=== PATIENT | female | born 1960 | race Caucasian/White ===

== ENCOUNTER 2018-06-03 12:33 | Emergency (ER) | payer MEDICAID ==
[~2018-06-03] VITALS: Ht 157.5 cm; Wt 56.7 kg
[2018-06-03] MEDS ORDERED: Loperamide 2mg cap ORAL ONE (12:45)
[2018-06-03 13:23] LABS: APPEARANCE,URINE CLEAR; BILIRUBIN, URINE NEGATIVE (NEGATIVE); COLOR,URINE PALE YELLOW; GLUCOSE, URINE (UA) 4+ (NEGATIVE); KETONES,URINE NEGATIVE (NEGATIVE); LEUKOCYTE ESTERASE ,URINE 1+ (NEGATIVE); NITRITE,URINE NEGATIVE (NEGATIVE); PH,URINE 5 (4.5-8.0); PROTEIN,URINE NEGATIVE (NEGATIVE); UROBILINOGEN,URINE NORMAL MG/DL (0.0-1.0)
[2018-06-03 14:36] LABS: BASOPHILS % (AUTO) 0.7 % (0.0-2.0); EOSINOPHILS % (AUTO) 1.4 % (0.0-3.0); HEMATOCRIT 40.9 % (37.0-47.0); HEMOGLOBIN 13.3 G/DL (12.0-16.0); LYMPHOCYTES % (AUTO) 19.5 % (20.0-45.0); MEAN CORPUSCULAR VOLUME 89 FL (80-99); MONOCYTES % (AUTO) 6.9 % (1.0-10.0); NEUTROPHILS % (AUTO) 71.4 % (45.0-75.0); PLATELET COUNT 129 K/UL (150-450); RED BLOOD COUNT 4.58 M/UL (4.20-5.40); RED CELL DISTRIBUTION WIDTH 13.3 % (11.6-14.8); WHITE BLOOD COUNT 4.7 K/UL (4.8-10.8)
[2018-06-03 14:49] LABS: ANION GAP 9 mmol/L (5-15); BLOOD UREA NITROGEN 24 mg/dL (7-18); CALCIUM 8.9 MG/DL (8.5-10.1); CARBON DIOXIDE 26 MMOL/L (21-32); CHLORIDE 103 MMOL/L (98-107); CREATININE 0.8 MG/DL (0.55-1.30); POTASSIUM 4.4 MMOL/L (3.5-5.1); SODIUM 138 MMOL/L (136-145)
[2018-06-03 14:51] LABS: ALANINE AMINOTRANSFERASE 82 U/L (12-78); ALBUMIN 3.1 G/DL (3.4-5.0); ALBUMIN/GLOBULIN RATIO 0.8 (1.0-2.7); ALKALINE PHOSPHATASE 139 U/L (46-116); ASPARTATE AMINO TRANSFERASE 79 U/L (15-37); BILIRUBIN,TOTAL 0.5 MG/DL (0.2-1.0)
[2018-06-03] MEDS ORDERED: LOPERAMIDE2 MG PO (15:24)
--- NOTE | 2018-06-03 15:34 | Emergency Room Report ---
History of Present Illness General Chief Complaint: Diarrhea Source: Patient, EMS Present Illness HPI Patient is a 58-year-old female brought in by EMS after increased diarrhea. Patient gradual onset of symptoms. She reports having increased abdominal cramping. She reports having had difficulty with increased stool. The patient is normally ambulatory with a walker. She reports having prior history of CVA with residual left-sided weakness. She denies any recent travel. She denies antibiotic use. Allergies: Coded Allergies: WARFARIN (Verified Allergy, Unknown, 06/03/18) Patient History Past Medical History: see triage record Now: No Reviewed Nursing Documentation: PMH: Agreed; PSxH: Agreed Nursing Documentation-PMH Past Medical History: No History, Except For Hx Cardiac Problems: Yes - CVA, Stoke Hx Hypertension: Yes Hx Asthma: Yes Hx Diabetes: Yes Review of Systems All Other Systems: negative except mentioned in HPI Physical Exam Vital Signs Date Time Temp Pulse Resp B/P (MAP) Pulse Ox O2 Delivery O2 Flow Rate FiO2 06/03/18 12:28 97.8 94 20 150/98 100 Room Air 97.9 Sp02 EP Interpretation: reviewed, normal General Appearance: normal inspection, well appearing, no apparent distress, alert, GCS 15, Chronically Ill Head: atraumatic ENT: normal ENT inspection, hearing grossly normal, normal voice Neck: normal inspection, full range of motion, supple, no bony tend Respiratory: normal inspection, lungs clear, normal breath sounds, no respiratory distress, no retraction, no wheezing Cardiovascular #1: regular rate, rhythm, no edema Gastrointestinal: normal inspection, normal bowel sounds, non tender, soft, no guarding, no hernia Genitourinary: no CVA tenderness Musculoskeletal: normal inspection, back normal, normal range of motion Neurologic: normal inspection, alert, responsive, speech normal, motor weakness - left upper extremity, other - left facial droop Psychiatric: normal inspection, judgement/insight normal, mood/affect normal Skin: normal inspection, normal color, no rash Medical Decision Making Diagnostic Impression: Primary Impression: Gastroenteritis ER Course Patient presented for abdominal pain. Differential diagnoses included ischemic bowel, appendicitis, perforated viscus, abdominal aortic aneurysm, inferior myocardial infarction, viral gastroenteritisThe patient does not appear to have any evidence of acute abdomen. Patient was given Imodium. Laboratory studies are unremarkable. The patient was advised to follow-up with her primary care physician for reexamination.Patient was advised to return if she given having persistent vomiting dizziness or other concerns Labs Test 06/03/18 12:40 06/03/18 14:15 Urine Color Pale yellow Urine Appearance Clear Urine pH 5 (4.5-8.0) Urine Specific Roark 1.015 (1.005-1.035) Urine Protein Negative (NEGATIVE) Urine Glucose (UA) 4+ (NEGATIVE) Urine Ketones Negative (NEGATIVE) Urine Blood Negative (NEGATIVE) Urine Nitrite Negative (NEGATIVE) Urine Bilirubin Negative (NEGATIVE) Urine Urobilinogen Normal MG/DL (0.0-1.0) Urine Leukocyte Esterase 1+ (NEGATIVE) Urine RBC 0-2 /HPF (0 - 2) Urine WBC 0-2 /HPF (0 - 2) Urine Squamous Epithelial Cells Few /LPF (NONE/OCC) Urine Bacteria Occasional /HPF (NONE) Urine Opiates Screen Negative (NEGATIVE) Urine Barbiturates Screen Negative (NEGATIVE) Phencyclidine (PCP) Screen Negative (NEGATIVE) Urine Amphetamines Screen Negative (NEGATIVE) Urine Benzodiazepines Screen Negative (NEGATIVE) Urine Cocaine Screen Negative (NEGATIVE) Urine Marijuana (THC) Screen Negative (NEGATIVE) White Blood Count 4.7 K/UL (4.8-10.8) Red Blood Count 4.58 M/UL (4.20-5.40) Hemoglobin 13.3 G/DL (12.0-16.0) Hematocrit 40.9 % (37.0-47.0) Mean Corpuscular Volume 89 FL (80-99) Mean Corpuscular Hemoglobin 29.0 PG (27.0-31.0) Mean Corpuscular Hemoglobin Concent 32.5 G/DL (32.0-36.0) Red Cell Distribution Width 13.3 % (11.6-14.8) Platelet Count 129 K/UL (150-450) Mean Platelet Volume 8.1 FL (6.5-10.1) Neutrophils (%) (Auto) 71.4 % (45.0-75.0) Lymphocytes (%) (Auto) 19.5 % (20.0-45.0) Monocytes (%) (Auto) 6.9 % (1.0-10.0) Eosinophils (%) (Auto) 1.4 % (0.0-3.0) Basophils (%) (Auto) 0.7 % (0.0-2.0) Sodium Level 138 MMOL/L (136-145) Potassium Level 4.4 MMOL/L (3.5-5.1) Chloride Level 103 MMOL/L (98-107) Carbon Dioxide Level 26 MMOL/L (21-32) Anion Gap 9 mmol/L (5-15) Blood Urea Nitrogen 24 mg/dL (7-18) Creatinine 0.8 MG/DL (0.55-1.30) Estimat Glomerular Filtration Rate > 60 mL/min (>60) Glucose Level 432 MG/DL (74-106) Calcium Level 8.9 MG/DL (8.5-10.1) Total Bilirubin 0.5 MG/DL (0.2-1.0) Aspartate Amino Transf (AST/SGOT) 79 U/L (15-37) Alanine Aminotransferase (ALT/SGPT) 82 U/L (12-78) Alkaline Phosphatase 139 U/L (46-116) Total Protein 7.2 G/DL (6.4-8.2) Albumin 3.1 G/DL (3.4-5.0) Globulin 4.1 g/dL Albumin/Globulin Ratio 0.8 (1.0-2.7) Serum Alcohol < 3 mg/dL Last Vital Signs Date Time Temp Pulse Resp B/P (MAP) Pulse Ox O2 Delivery O2 Flow Rate FiO2 06/03/18 12:28 97.8 94 20 150/98 100 Room Air 97.9 Status: improved Disposition: HOME, SELF-CARE Condition: Stable Scripts Loperamide Hcl (LOPERAMIDE) 2 Mg Capsule 2 MG PO NEEDED, #6 CAP Prov: Beto Portillo MD 06/03/18 Patient Instructions: Diarrhea, Adult Beto Portillo MD Jun 03, 2018 15:34
[2018-06-03 15:56] VITALS: BP 138/90
== END 2018-06-03 15:45 | disposition home or self-care (01) ==
LOC: EDBD 12:33 → EMR 13:00
DX: K52.9 Noninfective gastroenteritis and colitis, unspecified (principal); I10 Essential (primary) hypertension; E11.9 Type 2 diabetes mellitus without complications; J45.909 Unspecified asthma, uncomplicated; I69.354 Hemiplegia and hemiparesis following cerebral infarction affecting left non-dominant side; Z88.8 Allergy status to other drugs, medicaments and biological substances
CPT/HCPCS: 36415; 80053; 80307; 80329; 81003; 85025; 99283

== ENCOUNTER 2019-03-03 02:23 | Inpatient (IN) | payer MEDICAID ==
[~2019-03-03] VITALS: Ht 149.9 cm; Wt 56.7 kg
[2019-03-03] VITALS (8 sets, daily range): BP systolic 110–152; BP diastolic 52–93
[~2019-03-03 02:23] MED LIST: LOPERAMIDE2 MG PO
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
--- NOTE | 2019-03-03 02:37 | NUR ---
ED Nurse Note: NOTABLE BRUISING, ON ARMS AND FACE, SKIN TEAR PRESENT ON LEFT ELBOW, 4 OPEN LACERATION PRESENT ON LEFT UPPER HEAD
--- NOTE | 2019-03-03 02:40 | NUR ---
ED Nurse Note: HEAD LACERATIONS WASHED WITH NORMAL SALINE AND DRESSED, ERMD AT BEDSIDE PREPARING FOR LACERATION SUTURE
[2019-03-03] MEDS ORDERED: Lidocaine 1% Plain 30 ml INJ ONE (03:00)
[2019-03-03 03:06] LABS: BASOPHILS % (AUTO) 0.7 % (0.0-2.0); EOSINOPHILS % (AUTO) 0.1 % (0.0-3.0); HEMATOCRIT 40.7 % (37.0-47.0); HEMOGLOBIN 12.2 G/DL (12.0-16.0); LYMPHOCYTES % (AUTO) 12.9 % (20.0-45.0); MEAN CORPUSCULAR VOLUME 81 FL (80-99); MONOCYTES % (AUTO) 5.5 % (1.0-10.0); NEUTROPHILS % (AUTO) 80.8 % (45.0-75.0); PLATELET COUNT 146 K/UL (150-450); RED BLOOD COUNT 5.06 M/UL (4.20-5.40); RED CELL DISTRIBUTION WIDTH 18.2 % (11.6-14.8)
[2019-03-03 03:19] LABS: INR 1.1 (0.9-1.1)
[2019-03-03 03:35] LABS: ANION GAP 10 mmol/L (5-15); BLOOD UREA NITROGEN 22 mg/dL (7-18); CALCIUM 9.8 MG/DL (8.5-10.1); CARBON DIOXIDE 29 MMOL/L (21-32); CHLORIDE 99 MMOL/L (98-107); POTASSIUM 4.1 MMOL/L (3.5-5.1); SODIUM 138 MMOL/L (136-145)
[2019-03-03] MEDS ORDERED: Insulin Human Regular 100units/ml 3ml SUBQ ONE ×2 (04:00→05:30)
--- NOTE | 2019-03-03 04:22 | Diagnostic Imaging Report ---
EXAM: CT Maxillofacial Without Intravenous Contrast CLINICAL HISTORY: TRAUMA TECHNIQUE: Axial computed tomography images of the face without intravenous contrast. CTDI is 29.19 mGy and DLP is 511 mGy-cm. One or more of the following dose reduction techniques were used: automated exposure control, adjustment of the mA and/or kV according to patient size, use of iterative reconstruction technique. COMPARISON: none FINDINGS: Artifacts: Mild motion artifact degrades detail. Bones/joints: No acute fracture. Soft tissues: Unremarkable. Orbits: Unremarkable. Sinuses: Unremarkable. No air-fluid levels. IMPRESSION: No acute findings.
--- NOTE | 2019-03-03 04:30 | NUR ---
ED Nurse Note: PT IS RESTING IN BED, NO ACUTE SIGNS OF DISTRESS, BLANKET PROVIDED
--- NOTE | 2019-03-03 04:58 | Diagnostic Imaging Report ---
EXAM: CT Head Without Intravenous Contrast CLINICAL HISTORY: TRAUMA TECHNIQUE: Axial computed tomography images of the head/brain without intravenous contrast. CTDI is 70.38 mGy and DLP is 1333.64 mGy-cm. One or more of the following dose reduction techniques were used: automated exposure control, adjustment of the mA and/or kV according to patient size, use of iterative reconstruction technique. COMPARISON: none FINDINGS: Brain: Bilateral frontal lobe white matter low density and cerebellar atrophy greater than anticipated for stated patient age is present. There is mild generalized supratentorial volume loss also noted. No hemorrhage. Ventricles: Unremarkable. No ventriculomegaly. Bones/joints: Unremarkable. No acute fracture. Soft tissues: Small left periorbital scalp swelling. Sinuses: Unremarkable as visualized. No acute sinusitis. Mastoid air cells: Unremarkable as visualized. No mastoid effusion. IMPRESSION: 1. No acute intracranial pathology. 2. Left periorbital scalp contusion without associated skull fracture. 3. Greater than anticipated parenchymal volume loss with a frontal and cerebellar predominant distribution. Query early neurodegenerative change.
--- NOTE | 2019-03-03 05:04 | Diagnostic Imaging Report ---
EXAM: CT Cervical Spine Without Intravenous Contrast CLINICAL HISTORY: TRAUMA TECHNIQUE: Axial computed tomography images of the cervical spine without intravenous contrast. CTDI is 10.25 mGy and DLP is 188.52 mGy-cm. One or more of the following dose reduction techniques were used: automated exposure control, adjustment of the mA and/or kV according to patient size, use of iterative reconstruction technique. COMPARISON: head CT same day FINDINGS: Vertebrae: Multilevel degenerative spondylosis with posterior bulky disc osteophytes at C3-C4, C4-C5 and C5-C6 that likely result in some degree of central canal narrowing. No acute fracture. Discs/spinal canal/neural foramina: See above. Soft tissues: Unremarkable. IMPRESSION: Multilevel degenerative spondylosis with posterior bulky disc osteophytes at C3-C4, C4-C5 and C5-C6 that likely result in some degree of central canal narrowing. Otherwise negative C-spine CT with no acute traumatic findings.
--- NOTE | 2019-03-03 06:15 | NUR ---
ED Nurse Note: PT STILL RESTING IN BED, AROUSABLE TO VOIEC AND TOUCH, PT PRESENTS WTIH NO ACUTE DISTRESS AT THIS TIME.
--- NOTE | 2019-03-03 06:22 | Diagnostic Imaging Report ---
EXAM: XR Chest, 1 View CLINICAL HISTORY: CP TECHNIQUE: Frontal view of the chest. COMPARISON: None FINDINGS: Lungs: The aicha are unremarkable. Lungs are clear on suboptimal inspiration. Pleural space: No pneumothorax or pleural effusion. Heart: Normal heart size. Mediastinum: Unremarkable. Bones/joints: Bony thorax is intact. Vasculature: Tortuous and ectatic thoracic aorta with mural calcification. Lymph nodes: No mediastinal mass or adenopathy is shown. Upper abdomen: No free air under the diaphragms. IMPRESSION: Tortuous, calcified and ectatic thoracic aorta with no acute superimposed cardio pulmonary process shown.
--- NOTE | 2019-03-03 07:43 | NUR ---
ED Nurse Note: Pt resting on her bed with no distress. VSS. Pt is aware of hospitalization/transfer.
--- NOTE | 2019-03-03 08:00 | NUR ---
ED Nurse Note: PT UNABLE TO GIVE URINE. DR LUIS ARMANDO GOULD NOT TO COLLECT IF PT UNABLE TO PROVIDED SPECIMEN.
--- NOTE | 2019-03-03 08:40 | NUR ---
ED Nurse Note: URINE COLLECTED THEN SENT.
[2019-03-03] MEDS ORDERED: Miralax 17gm pkt ORAL PRN (11:00)
--- NOTE | 2019-03-03 11:11 | NUR ---
ED Nurse Note: DR OCHOA ORDERED TO START MAINTENANCE IV FLUIDS.
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
--- NOTE | 2019-03-03 12:15 | NUR ---
ED Nurse Note: LUNCH TRAY PROVIDED.
--- NOTE | 2019-03-03 12:22 | NUR ---
ED Nurse Note: REPORT GIVEN TO NATE ALFARO OF MED SURG UNIT.
--- NOTE | 2019-03-03 12:22 | NUR ---
NURSE NOTES: Received report from DOMINIC Valdez via phone.
--- NOTE | 2019-03-03 12:39 | NUR ---
ED Nurse Note: PT TRANSFERRED TO MED SURG UNIT AND STABLE. ALL BELONGINGS SENT.
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
--- NOTE | 2019-03-03 17:51 | NUR ---
NURSE NOTES: Blood sugar was 324 and no insulin order noted. Dr. Roblero was notified and ordered novolog average insulin sliding scale. Noted and carried out.
[2019-03-03] MEDS: NovoLOG Insulin Flexpen SUBQ SCH ×2 (18:13→20:22)
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
--- NOTE | 2019-03-03 19:25 | NUR ---
HAND-OFF: Report given to DOMINIC Alexander.
[2019-03-03] MEDS: Heparin 5000 units/ml inj SUBQ SCH (20:27)
[2019-03-03] MEDS: Docusate 100mg cap ORAL SCH (20:27)
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
[2019-03-04] VITALS: BP 130/65
[2019-03-04 04:00] VITALS: BP 130/68
[2019-03-04] MEDS: NovoLOG Insulin Flexpen SUBQ SCH ×4 (06:01→20:33)
--- NOTE | 2019-03-04 07:14 | NUR ---
HAND-OFF: Report given to DOMINIC Luciano. Patient is awake, restless cause she wants to eat. VS stable.
[2019-03-04 07:15] LABS: BASOPHILS % (AUTO) 0.6 % (0.0-2.0); HEMOGLOBIN 10.2 G/DL (12.0-16.0); LYMPHOCYTES % (AUTO) 20.2 % (20.0-45.0); MEAN CORPUSCULAR VOLUME 80 FL (80-99); MONOCYTES % (AUTO) 6.5 % (1.0-10.0); NEUTROPHILS % (AUTO) 71.8 % (45.0-75.0); PLATELET COUNT 127 K/UL (150-450); RED BLOOD COUNT 4.12 M/UL (4.20-5.40); RED CELL DISTRIBUTION WIDTH 19.2 % (11.6-14.8); WHITE BLOOD COUNT 6.8 K/UL (4.8-10.8)
--- NOTE | 2019-03-04 07:37 | NUR ---
NURSE NOTES: AW3AKE/ALERT. NO C/O PAIN. IN NO APPARENT DISTRESS.
[2019-03-04 07:41] LABS: ANION GAP 9 mmol/L (5-15); BLOOD UREA NITROGEN 22 mg/dL (7-18); CARBON DIOXIDE 22 MMOL/L (21-32); CHLORIDE 111 MMOL/L (98-107); CREATININE 0.8 MG/DL (0.55-1.30); POTASSIUM 4.6 MMOL/L (3.5-5.1); SODIUM 142 MMOL/L (136-145)
[2019-03-04 07:50] VITALS: BP 134/78
[2019-03-04] MEDS: Docusate 100mg cap ORAL SCH ×2 (08:27→20:33)
[2019-03-04] MEDS: Heparin 5000 units/ml inj SUBQ SCH ×2 (08:27→20:06)
[2019-03-04] MEDS ORDERED: metFORMIN 500mg tab ORAL SCH (11:30)
[2019-03-04 12:00] VITALS: BP 140/80
[2019-03-04 12:22] LABS: APPEARANCE,URINE CLEAR; BILIRUBIN, URINE NEGATIVE (NEGATIVE); COLOR,URINE PALE YELLOW; GLUCOSE, URINE (UA) 4+ (NEGATIVE); KETONES,URINE NEGATIVE (NEGATIVE); LEUKOCYTE ESTERASE ,URINE 1+ (NEGATIVE); NITRITE,URINE NEGATIVE (NEGATIVE); PH,URINE 7 (4.5-8.0); PROTEIN,URINE NEGATIVE (NEGATIVE); UROBILINOGEN,URINE 1 MG/DL (0.0-1.0)
--- NOTE | 2019-03-04 13:25 | NUR ---
*-* NO INSURANCE INFORMATION IN THE BAR UNABLE TO SEND CLINICALS OR REVIEWS *-*
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
[2019-03-04 15:50] VITALS: BP 140/90
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
[2019-03-04] MEDS: metFORMIN 500mg tab ORAL SCH (17:19)
--- NOTE | 2019-03-04 18:09 | NUR ---
NURSE NOTES: INCONTINENT URINE. PERINEAL AREA REDDENED. PERICARE DONE. TRIAD CREAM APPLIED/
--- NOTE | 2019-03-04 19:00 | NUR ---
NURSE NOTES: asleep. in no apparent distress.
--- NOTE | 2019-03-04 19:20 | NUR ---
NURSE NOTES: Patient asleep in bed, no signs of pain, not in acute respiratory distress. Call light within reach, bed in lowest position and alarm on. Will continue to monitor.
--- NOTE | 2019-03-04 19:29 | NUR ---
HAND-OFF: Report given to sher.
[2019-03-04 20:00] VITALS: BP 141/82
[2019-03-04 20:52] LABS: FERRITIN 43 NG/ML (8-388); LACTATE DEHYDROGENASE 534 U/L (81-234)
[2019-03-04 21:06] LABS: % IRON SATURATION 9 % (15-50); IRON 44 ug/dL (50-175); TOTAL IRON BINDING CAPACITY 475 ug/dL (250-450)
--- NOTE | 2019-03-04 22:01 | NUR ---
nurse's notes: per cyndie of lab, patient refused hep panel draw scheduled tonight. will try again in am. gilberto salamanca made aware; orders updated
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
[2019-03-05] VITALS: BP 155/79
[2019-03-05 04:00] VITALS: BP 158/91
[2019-03-05] MEDS: NovoLOG Insulin Flexpen SUBQ SCH ×4 (05:36→21:37)
[2019-03-05 06:25] LABS: BASOPHILS % (AUTO) 0.6 % (0.0-2.0); EOSINOPHILS % (AUTO) 1.7 % (0.0-3.0); LYMPHOCYTES % (AUTO) 18.5 % (20.0-45.0); MEAN CORPUSCULAR VOLUME 81 FL (80-99); MONOCYTES % (AUTO) 7.5 % (1.0-10.0); NEUTROPHILS % (AUTO) 71.8 % (45.0-75.0); PLATELET COUNT 105 K/UL (150-450); RED BLOOD COUNT 4.07 M/UL (4.20-5.40); RED CELL DISTRIBUTION WIDTH 19.3 % (11.6-14.8); WHITE BLOOD COUNT 4.8 K/UL (4.8-10.8)
--- NOTE | 2019-03-05 07:24 | NUR ---
HAND-OFF: Report given to DOMINIC Hays.
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
[2019-03-05 08:00] VITALS: BP 138/80
[2019-03-05] MEDS: Heparin 5000 units/ml inj SUBQ SCH ×2 (08:17→21:00)
[2019-03-05] MEDS: Docusate 100mg cap ORAL SCH ×2 (08:17→21:00)
[2019-03-05] MEDS: metFORMIN 500mg tab ORAL SCH ×2 (08:17→18:20)
--- NOTE | 2019-03-05 09:10 | NUR ---
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 Awaiting response.
[2019-03-05] MEDS: Levemir Flexpen SUBQ SCH (09:39)
--- NOTE | 2019-03-05 09:40 | NUR ---
NURSE NOTES: Received new orders from Dr. Roblero to transfer patient to [address] [place] [address]. Charge nurse and supervisor title aware. Will continue to monitor.
--- NOTE | 2019-03-05 10:56 | NUR ---
NURSE NOTES: Awaiting placement for patient.
[2019-03-05 11:45] VITALS: BP 138/87
--- NOTE | 2019-03-05 12:15 | Diagnostic Imaging Report ---
Indication: Abdominal pain, vomiting, abnormal LDH and renal function tests Technique: Morales-scale and duplex images of the upper abdomen were obtained Comparison: Findings: There is trace ascites Gallbladder is nondistended. No definite gallstones. Gallbladder wall is borderline thickened, measuring up to 4 mm in thickness. Sonographic Sow's sign is negative. Common bile duct measures 5 mm in diameter. No intrahepatic biliary ductal dilatation. Liver demonstrates diffusely heterogeneous echogenicity with a nodular echotexture overall. There is hepatic surface nodularity. There is questionably a small cyst adjacent to the gallbladder fundus. Portal vein and hepatic veins are patent. The pancreas demonstrates small cysts within the head and neck, measuring up to 1.3 cm in diameter. Spleen is unremarkable. Left kidney measures 10.6 cm in length. Right kidney measures 11 cm length. There is equivocal slightly increased right renal echogenicity There is no hydronephrosis. No focal abnormality . Non-aneurysmal abdominal aorta . Impression: Markedly abnormal appearing liver, with diffusely heterogeneous and nodular echotexture and surface nodularity. Appearance is consistent with cirrhotic change. Nodular heterogeneous echogenicity could be related to cirrhotic change, but neoplastic involvement not excludable. Recommend further evaluation with contrast CT Small pancreatic cysts. May reflect small pseudocyst versus cystic pancreatic neoplasms. Further evaluation with contrast CT likewise recommended Trace ascites Gallbladder wall thickening, mild, most likely an artifact of under distention and may also be related to the hepatocellular disease. No definite gallstones. Consider ultrasound and/or hepatobiliary nuclear scan if there is high clinical suspicion for gallbladder disease Equivocally slightly increased right renal echogenicity; if real, could indicate medical renal disease
--- NOTE | 2019-03-05 12:40 | NUR ---
NURSE NOTES: Patient taken to MRI via gurney.
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
--- NOTE | 2019-03-05 14:41 | NUR ---
*-*- INSURANCE *-* ALL CLINICALS AND REVIEWS HAVE BEEN FAXED TO: [employer]# [id number] NCM: SHAE P- [phone] X Aidan F- [phone]...REVIEW/CLINICAL
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
--- NOTE | 2019-03-05 15:38 | NUR ---
DISCHARGE PLANNING PATIENT BELONGS TO "[facility]" PROGRAM DAY BEFORE DISCHARGE PLEASE CONTACT HELADIO (CLEAN ROOM ASSEMBLER) @ T: [phone] HELADIO WILL MAKE DISCHARGE PLACEMENT ARRANGEMENTS WINE CONSULTANT CONTACTED HMO AND SPOKE WITH CHE KAUFMAN ABOUT ROLLATOR W/SEAT PER SHAE SHE WILL ARRANGE FOR ROLLATOR W/SEAT TO BE DELIVERED TO HOSPITAL BY TOMORROW DME ORDER FAXED TO SHAE
[2019-03-05 16:00] VITALS: BP 173/101
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
--- NOTE | 2019-03-05 18:01 | NUR ---
NURSE NOTES: Patient transferred to as ordered. Patient taken via hospital bed without incident. Report given to Marisol ALFARO. Patient has all belongings.
--- NOTE | 2019-03-05 19:22 | NUR ---
HAND-OFF: Report given to DOMINIC Cline.
--- NOTE | 2019-03-05 19:30 | NUR ---
NURSE NOTES: Patient awake in bed, anxious, no complaint of pain, not in acute respiratory distress. Instructed the use of call light. Call light within reach. Bed in lowest position and lock engaged. Bedside commode within reach. Will continue to monitor.
[2019-03-05] MEDS: LORazepam 1mg tab ORAL SCH (21:29)
[2019-03-05 22:17] LABS: APPEARANCE,URINE CLEAR; BILIRUBIN, URINE NEGATIVE (NEGATIVE); COLOR,URINE PALE YELLOW; GLUCOSE, URINE (UA) 4+ (NEGATIVE); KETONES,URINE NEGATIVE (NEGATIVE); LEUKOCYTE ESTERASE ,URINE 1+ (NEGATIVE); NITRITE,URINE NEGATIVE (NEGATIVE); PH,URINE 6.5 (4.5-8.0); PROTEIN,URINE NEGATIVE (NEGATIVE); UROBILINOGEN,URINE NORMAL MG/DL (0.0-1.0)
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
[2019-03-06 04:00] VITALS: BP 148/106
[2019-03-06 06:18] LABS: BASOPHILS % (AUTO) 0.7 % (0.0-2.0); HEMATOCRIT 32.3 % (37.0-47.0); HEMOGLOBIN 9.9 G/DL (12.0-16.0); LYMPHOCYTES % (AUTO) 20.5 % (20.0-45.0); MEAN CORPUSCULAR VOLUME 80 FL (80-99); NEUTROPHILS % (AUTO) 67.7 % (45.0-75.0); PLATELET COUNT 110 K/UL (150-450); RED BLOOD COUNT 4.03 M/UL (4.20-5.40); RED CELL DISTRIBUTION WIDTH 18.8 % (11.6-14.8); WHITE BLOOD COUNT 5.3 K/UL (4.8-10.8)
[2019-03-06] MEDS: NovoLOG Insulin Flexpen SUBQ SCH ×4 (06:30→21:02)
--- NOTE | 2019-03-06 07:20 | NUR ---
HAND-OFF: Report given to Alanna.
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
[2019-03-06 08:00] VITALS: BP 156/82
--- NOTE | 2019-03-06 08:00 | NUR ---
NURSE NOTES: FULL BEDBATH RENDERED. INSTRUCTED TO CALL STAFF FOR ASSISTANCE. PATIENT ABLE TO FOLLOW SIMPLE COMMANDS. PATIENT STATED THAT SHE IS INCONTINENT. APPEARS TO BE AGGRESSIVE AND CURSE @ TIMES. ABLE TO FEED SELF INDEPENDENTLY. SIDERAILS ARE UP X3. BED IS IN THE LOWEST POSITION. CALL LIGHT IS WITHIN REACH. WILL CONT TO MONITOR.
[2019-03-06] MEDS: Levemir Flexpen SUBQ SCH (08:19)
[2019-03-06] MEDS: Heparin 5000 units/ml inj SUBQ SCH ×2 (08:19→21:00)
[2019-03-06] MEDS: Docusate 100mg cap ORAL SCH ×2 (08:19→21:00)
[2019-03-06] MEDS: metFORMIN 500mg tab ORAL SCH ×2 (08:19→17:25)
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
[2019-03-06] MEDS ORDERED: GLUCOPHAGE500 MG ORAL (10:27)
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
--- NOTE | 2019-03-06 10:53 | NUR ---
*-*- INSURANCE *-* ALL CLINICALS AND REVIEWS HAVE BEEN FAXED TO: [facility] [facility]# [id number] NCM: SHAE P- [phone] X Aidan F- [phone]...REVIEW/CLINICAL
--- NOTE | 2019-03-06 10:55 | NUR ---
PT EVALUATION NOTE Patient seen for initial evaluation, see complete evaluation for details. Patient presents with generalized weakness and impaired functional mobility. Patient unable to perform transfers or ambulation due to lethargy. Patient will benefit from skilled inpatient PT intervention to address strength, balance, safety and mobility. Addendum: 03/06/19 at 1243 by DANIELA MIRAMONTES PT Amended: Links added.
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
[2019-03-06 12:00] VITALS: BP 143/84
--- NOTE | 2019-03-06 12:15 | NUR ---
HOMELESS COORDINATOR provided clothing for patient for discharge and provided follow-up doctor appointment reminder. followed up with Leeanne, Oxygen Therapy Technician [phone] about estimated deliver time of seated walker. Leeanne will call back and follow up with Yari. Addendum: 03/07/19 at 0956 by HERB SCHULTE spoke with Leeanne about delivery time for patients walker. Leeanne stated walker should have been delivered and was still unable to locate. Leeanne states she will continue to try to locate walker and follow up with HC.
--- NOTE | 2019-03-06 14:38 | NUR ---
Social Service Note CYNDI spoke with Ann from [facility] [place] [phone] who provided SW the locate where patient will placed upon discharge, [place] [address]. [facility] staff will meet patient at this location. Patient will require her rotator upon arrival. CYNDI, CM and homeless coordinator have attempted to contact [facility] Leeanne several times throughout the day to discuss delivery of rotator. Homeless coordinator only able to speak with [facility] Leeanne once regarding rotator and she was unable to recall which provider was providing DME. At this time rotator was not delivered and unable to leave Leeanne messages. CYNDI discussed with charge nurse and nurse supervisor packing room. Anticipated dc tomorrow if rotator is delivered. Will monitor and follow up.
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
[2019-03-06 16:00] VITALS: BP 148/94
--- NOTE | 2019-03-06 16:52 | NUR ---
*-*- INSRUANCE *-* ALL CLINICALS HAVE BEEN FAXED TO: F/S FAXED TO [facility]# [id number] NCM: SHAE P- [phone] X 1954 F- [phone]...REVIEW/CLINICAL & F/S FAXED TO [facility]/LACEY ([facility]ED [facility]) S/W [employer] @ [phone] AUTH# [id number] /PENDING NCM: ULICES Webster P- [phone] F- [phone]....REVIEW/CLINICAL
--- NOTE | 2019-03-06 18:26 | NUR ---
NURSE NOTES: DISCHARGE IS ON HOLD DUE [facility]WW WITH SEAT HAS NOT DELIVERED TODAY. VERBALIZED UNDERSTANDING WITH THE PATIENT THE DISPOSITION LOCATION. WORKING CLOSELY WITH SW AND CM. ADDRESS VERIFIED AND PATIENT IS GOING TO [address] [address]. PATIENT IS AWARE. PATIENT EATS INDEPENDENTLY AND ABLE TO CALL NURSE FOR ASSISTANCE TO VOID. INTERACT APPROPRIATELY THIS EVENING THAN THIS AM. WILL CONT TO MONITOR. CALL LIGHT IS WITHIN REACH. BED IN THE LOWEST POSITION AND BED ALARM ACTIVATED AND KEPT LOCK @ ALL TIMES. WILL CONT THE PLAN OF CARE.
--- NOTE | 2019-03-06 19:06 | NUR ---
HAND-OFF: Report given to
--- NOTE | 2019-03-06 19:30 | NUR ---
NURSE NOTES: Patient asleep in bed, no signs of pain. Call light within reach. Bed in lowest position, lock engaged and alarm on. Will continue to monitor.
[2019-03-06 20:00] VITALS: BP 157/84
[2019-03-06] MEDS: LORazepam 1mg tab ORAL SCH (21:05)
[2019-03-07] VITALS: BP 132/75
--- NOTE | 2019-03-07 05:00 | Progress Note ---
DATE: 03/06/2019 SUBJECTIVE: The patient is in bed, less agitated, more manageable, calmer, confused, disoriented memory impairment. Compliant with medications. MENTAL STATUS EXAMINATION: The patient is alert, oriented, times self and place. Poor insight into the situation. Keeps smiling. Mood is neutral. Affect is flat. Thought process, there is a paucity of thought content. Thought content, no suicidal or homicidal ideations. Memory is impaired. ASSESSMENT: Stable. PLAN: 1. The patient will be continued on Seroquel. 2. Provide the patient with reality orientation and supportive therapy. Frank Chacon M.D. DR: ABNER/vtg JOB#: [id number] CC:
[2019-03-07] MEDS: NovoLOG Insulin Flexpen SUBQ SCH ×4 (05:55→20:59)
[2019-03-07 06:49] LABS: BASOPHILS % (AUTO) 0.5 % (0.0-2.0); EOSINOPHILS % (AUTO) 1.6 % (0.0-3.0); HEMATOCRIT 33.5 % (37.0-47.0); HEMOGLOBIN 10.4 G/DL (12.0-16.0); LYMPHOCYTES % (AUTO) 18.2 % (20.0-45.0); MEAN CORPUSCULAR VOLUME 80 FL (80-99); MONOCYTES % (AUTO) 9.3 % (1.0-10.0); NEUTROPHILS % (AUTO) 70.4 % (45.0-75.0); PLATELET COUNT 118 K/UL (150-450); RED CELL DISTRIBUTION WIDTH 18.4 % (11.6-14.8); WHITE BLOOD COUNT 5.4 K/UL (4.8-10.8)
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
--- NOTE | 2019-03-07 07:37 | NUR ---
HAND-OFF: Report given to DOMINIC Woodard.
[2019-03-07 08:00] VITALS: BP 121/64
[2019-03-07] MEDS: metFORMIN 500mg tab ORAL SCH ×2 (08:18→17:28)
[2019-03-07] MEDS: Levemir Flexpen SUBQ SCH (08:22)
[2019-03-07] MEDS: Heparin 5000 units/ml inj SUBQ SCH ×2 (08:26→20:48)
[2019-03-07] MEDS: Docusate 100mg cap ORAL SCH ×2 (08:26→20:49)
[2019-03-07 09:26] VITALS: BP 121/64
--- NOTE | 2019-03-07 11:15 | NUR ---
HOMELESS COORDINATOR/ DISCHARGE PLANNING HC spoke with Irineo Cui from [facility] [employer] [employer] about patients rotator walker. Irineo stated he just received authorization today and was missing measurement for patient height. HC provide patients height and Irineo stated he will send the order to the [facility] for delivery and is set to arrive this evening, right before 6pm. Irineo assured the HC that was the earliest the rotator walker could arrive and if we have any other questions give him a call @ [phone] Addendum: 03/07/19 at 1253 by HERB SCHULTE CM HC spoke with Liliam (placement program worker) and updated her on the discharge plans for tomorrow morning. Patient will be discharged after breakfast if walker is delivered this evening.
--- NOTE | 2019-03-07 11:50 | NUR ---
P.T Note: Pt refused to participate with P.T . requesting for P.T to come back after lunch. P.T will reattempt this PM.
[2019-03-07 12:00] VITALS: BP 116/72
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
[2019-03-07 16:00] VITALS: BP 106/71
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
--- NOTE | 2019-03-07 19:32 | NUR ---
HAND-OFF: Report given to DOMINIC Lorenzo.
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
[2019-03-07 20:00] VITALS: BP 110/78
[2019-03-07] MEDS: LORazepam 1mg tab ORAL SCH (20:49)
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
[2019-03-08] VITALS: BP 105/69
--- NOTE | 2019-03-08 03:15 | Progress Note ---
DATE: 03/07/2019 SUBJECTIVE: The patient is somewhat confused, has episodes of agitation and has memory impairment. MENTAL STATUS EXAMINATION: The patient is alert and oriented x2. Mood is neutral to anxious. Affect is flat. Thought process, there is a paucity of thought content. Thought content, no suicidal or homicidal ideations. ASSESSMENT: Stable. PLAN: The patient will continue current medications. Provide the patient with reality orientation and supportive therapy. Frank Chacon M.D. DR: JENA JOB#: [id number] CC:
[2019-03-08 04:23] VITALS: BP 115/69
[2019-03-08] MEDS: NovoLOG Insulin Flexpen SUBQ SCH ×2 (06:07→11:30)
--- NOTE | 2019-03-08 07:02 | NUR ---
HAND-OFF: Report given to Berto ALFARO.
--- NOTE | 2019-03-08 07:30 | NUR ---
NURSE NOTES: Received pt from DOMINIC DUTTON. Pt is confused and orient x3. pt is in RA, No SOB or acute respiratory distress noted. pt has intact iv access LH 22G SL. all needs attended, bed is locked and is in the lowest position. call light within easy reach. will continue to monitor.
[2019-03-08 08:00] VITALS: BP 159/90
[2019-03-08] MEDS: Heparin 5000 units/ml inj SUBQ SCH (09:00)
--- NOTE | 2019-03-08 09:00 | NUR ---
NURSE NOTES: pt refused heparin and it's wasted.
[2019-03-08] MEDS: Docusate 100mg cap ORAL SCH (09:07)
[2019-03-08] MEDS: metFORMIN 500mg tab ORAL SCH (09:07)
[2019-03-08] MEDS: Levemir Flexpen SUBQ SCH (09:09)
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
--- NOTE | 2019-03-08 11:07 | NUR ---
*-*- INSRUANCE *-* UPDATED CLINICALS HAVE BEEN FAXED TO: F/S FAXED TO [facility] ANYI# [id number] NCM: SHAE P- [phone] X 1954 F- [phone]...REVIEW/CLINICAL & F/S FAXED TO ODILIA/LACEY (SHARED RSK) S/W SATISH @ [phone] AUTH# [id number] /PENDING NCM: ULICES Webster P- [phone] F- [phone]....REVIEW/CLINICAL
--- NOTE | 2019-03-08 11:45 | NUR ---
NURSE NOTES: pt has D/C order, all discharge assessments and instructions done and pt verbally accepted to understand all. pt is stable, V/S stable. all prescribed meds received from pharmacy and given to pt. pt has a front sit walker. all belongings are with pt, pt has [employer] id and credit cart with her. hospital provide a cap for pt and she left hospital.
--- NOTE | 2019-03-09 06:00 | Progress Note ---
DATE: 03/08/2019 SUBJECTIVE: The patient's mental condition is unchanged since previous encounter. Continues to be agitated, however, doing better today and more alert. MENTAL STATUS EXAMINATION: Alert and oriented times self and place. Mood is anxious. Affect is flat. Thought process, there is a paucity of thought content. Thought content, no suicidal or homicidal ideation. ASSESSMENT: Stable. PLAN: We will continue current medications. Provide the patient with reality orientation and supportive therapy. Frank Chacon M.D. DR: SORAIDA JOB#: [id number] CC:
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
--- NOTE | 2019-03-12 14:37 | NUR ---
*-*- INSRUANCE *-* COMPLETE MEDICAL RECORDS AND REVIEWS HAVE BEEN FAXED TO: F/S FAXED TO [facility] ANYI# [id number] NCM: SHAE P- [phone] X 1954 F- [phone]...REVIEW/CLINICAL & F/S FAXED TO ODILIA/LACEY ([facility]ARED [facility]SK) S/W SATISH @ [phone] AUTH# [id number] /PENDING NCM: ULICES Webster P- [phone] F- [phone]....REVIEW/CLINICAL
== END 2019-03-08 11:45 | disposition home or self-care (01) | DRG 384 ==
LOC: EDUNIT# 02:23 → EDBD 02:23 → EMR 02:36 → 3E 08:26 → EDBEDREQ 11:50 → 3E 13:30 → 4E 03-05 17:42
PROC: 0HQ1XZZ Repair Face Skin, External Approach (ICD-10-PCS; principal; 2019-03-03)
DX: S01.81XA Laceration without foreign body of other part of head, initial encounter (principal); D69.6 Thrombocytopenia, unspecified; S09.90XA Unspecified injury of head, initial encounter; E11.65 Type 2 diabetes mellitus with hyperglycemia; F03.90 Unspecified dementia, unspecified severity, without behavioral disturbance, psychotic disturbance, mood disturbance, and anxiety; D63.8 Anemia in other chronic diseases classified elsewhere; E03.9 Hypothyroidism, unspecified; R26.89 Other abnormalities of gait and mobility; R53.1 Weakness; Y04.2XXA Assault by strike against or bumped into by another person, initial encounter; Z59.0 Homelessness; Z88.8 Allergy status to other drugs, medicaments and biological substances; Z86.73 Personal history of transient ischemic attack (TIA), and cerebral infarction without residual deficits; Z79.4 Long term (current) use of insulin; Z91.14 Patient's other noncompliance with medication regimen; K52.9 Noninfective gastroenteritis and colitis, unspecified
CPT/HCPCS: 36415; 70450; 70486; 70551; 71045; 72125; 76700; 80048; 80307; 80329; 81003; 82270; 82607; 82728; 82746; 82962; 83036; 83540; 83550; 83615; 84443; 85025; 85044; 85610; 85730; 86703; 86705; 86709; 86803; 87081; 87340; 87491; 87590; 96372; 99285; J1815; S5561

== ENCOUNTER 2020-10-10 17:15 | Inpatient (IN) | payer MEDICAID ==
[~2020-10-10] VITALS: Ht 160 cm; Wt 56.7 kg
[~2020-10-10 17:15] MED LIST changes: +GLUCOPHAGE500 MG ORAL
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
[2020-10-10] MEDS ORDERED: Omnipaque-300 100ml vial INJ PRN (17:30)
--- NOTE | 2020-10-10 17:35 | Emergency Room Report ---
History of Present Illness General Chief Complaint: Abnormal Labs Source: Patient, EMS Present Illness HPI Patient presents for increased right-sided hip pain. Patient states that she had increased pain with movement. Had recent ER visit at [facility] yesterday. Was diagnosed with urinary tract infection. Had previous history of CVA and states that she had this a long time ago but cannot state when. Patient was brought in by EMS from the street. She had reported longstanding left-sided weakness. She states that she has been having increased pain to the right hip. Previous x-ray imaging showed degenerative changes to both hips as well as a healed left pubic ramus fracture. Allergies: Coded Allergies: WARFARIN (Verified Allergy, Unknown, 03/03/19) COVID-19 Screening Contact w/high risk pt: No Experienced COVID-19 symptoms?: No COVID-19 Testing performed CHIEF NURSING EXECUTIVE: No Patient History Past Medical History: see triage record Reviewed Nursing Documentation: PMH: Agreed; PSxH: Agreed Nursing Documentation-PMH Past Medical History: No History, Except For Hx Cardiac Problems: Yes Hx Hypertension: Yes Hx Asthma: Yes Hx Diabetes: Yes Hx Cancer: No Hx Gastrointestinal Problems: No Hx Neurological Problems: Yes Hx Cerebrovascular Accident: Yes Review of Systems All Other Systems: limited - Limited by poor historian Physical Exam Vital Signs Date Time Temp Pulse Resp B/P (MAP) Pulse Ox O2 Delivery O2 Flow Rate FiO2 10/10/20 17:09 98.6 82 141/82 (101) 98 Room Air General Appearance: alert, Chronically Ill Neck: limited range of motion, other - Kyphotic Respiratory: chest non-tender, lungs clear Cardiovascular #1: normal inspection, no edema Gastrointestinal: normal inspection, soft Musculoskeletal: other - Decreased range of motion to the left upper extremity, left lower extremity with some weakness. Neurologic: alert, motor strength/tone normal, medical file clerk III-XII nml as tested Medical Decision Making Diagnostic Impression: Primary Impression: Uncontrolled diabetes mellitus Additional Impressions: 2019 novel coronavirus disease (COVID-19) Renal insufficiency Dehydration Urinary tract infection Rhabdomyolysis due to COVID-19 Cognitive impairment ER Course Patient presented for increased elevated blood sugar and right-sided hip pain. Differential diagnosis include was not limited to fracture, arthritis, coronavirus infection, cellulitis among others. Because of complexity of patient's case laboratory tests and imaging studies were ordered. Patient was previously seen at [facility] and we do have some records which show that the patient had recent urinary tract infection. Patient's blood suga r was elevated by EMS however her blood sugar was somewhat improved but in the 300s. Patient started on IV fluids as well as IV antibiotics. Rapid coronavirus testing was positive and patient was placed in isolation. Patient's oxygen saturation appear to be adequate. Chest x-ray 1 view interpreted by me showed small left-sided pleural effusion with normal cardiac size aortic ca lcifications faint patchy infiltrates bilaterally. EKG interpreted by me showed normal sinus rhythm with a rate of [address] or T wave changes noted. CT imaging of the head showed no evidence of acute intracranial hemorrhage. CT of the abdomen pelvis read by radiology showed chronic fracture deformity in the pelvis as well as left adnexal cystic 4.8cm appearance suggestive of cirrhosis to the liver. Dr. Terence Szymanski was contacted for inpatient management. Labs Test 10/10/20 17:25 White Blood Count 4.5 K/UL (4.8-10.8) Red Blood Count 4.37 M/UL (4.20-5.40) Hemoglobin 10.4 G/DL (12.0-16.0) Hematocrit 34.6 % (37.0-47.0) Mean Corpuscular Volume 79 FL (80-99) Mean Corpuscular Hemoglobin 23.7 PG (27.0-31.0) Mean Corpuscular Hemoglobin Concent 29.9 G/DL (32.0-36.0) Red Cell Distribution Width 20.1 % (11.6-14.8) Platelet Count 175 K/UL (150-450) Mean Platelet Volume 7.1 FL (6.5-10.1) Neutrophils (%) (Auto) 69.4 % (45.0-75.0) Lymphocytes (%) (Auto) 19.3 % (20.0-45.0) Monocytes (%) (Auto) 9.1 % (1.0-10.0) Eosinophils (%) (Auto) 0.0 % (0.0-3.0) Basophils (%) (Auto) 2.2 % (0.0-2.0) Prothrombin Time 11.6 SEC (9.30-11.50) Prothromb Time International Ratio 1.1 (0.9-1.1) Activated Partial Thromboplast Time 20 SEC (23-33) Sodium Level 135 MMOL/L (136-145) Potassium Level 5.3 MMOL/L (3.5-5.1) Chloride Level 100 MMOL/L (98-107) Carbon Dioxide Level 20 MMOL/L (21-32) Anion Gap 15 mmol/L (5-15) Blood Urea Nitrogen 70 mg/dL (7-18) Creatinine 1.6 MG/DL (0.55-1.30) Estimat Glomerular Filtration Rate 33.0 mL/min (>60) Glucose Level 401 MG/DL (74-106) Lactic Acid Level 2.50 mmol/L (0.4-2.0) Calcium Level 8.6 MG/DL (8.5-10.1) Troponin I 0.026 ng/mL (0.000-0.056) Last Vital Signs Date Time Temp Pulse Resp B/P (MAP) Pulse Ox O2 Delivery O2 Flow Rate FiO2 10/10/20 17:09 98.6 82 141/82 (101) 98 Room Air Status: unchanged Disposition: ADMITTED INPATIENT Condition: Stable Beto Portillo MD Oct 10, 2020 17:35
[2020-10-10] MEDS ORDERED: GLIPIZIDE5 MG ORAL (17:37)
[2020-10-10] MEDS ORDERED: ALBUTEROL SULF8.5 G1 INH (17:37)
[2020-10-10] MEDS ORDERED: AMLODIPINE BESYL5 MG ORAL (17:37)
[2020-10-10] MEDS ORDERED: ZYPREXA10 MG ORAL (17:45)
[2020-10-10 17:49] LABS: BASOPHILS % (AUTO) 2.2 % (0.0-2.0); HEMATOCRIT 34.6 % (37.0-47.0); HEMOGLOBIN 10.4 G/DL (12.0-16.0); LYMPHOCYTES % (AUTO) 19.3 % (20.0-45.0); MEAN CORPUSCULAR VOLUME 79 FL (80-99); MONOCYTES % (AUTO) 9.1 % (1.0-10.0); NEUTROPHILS % (AUTO) 69.4 % (45.0-75.0); PLATELET COUNT 175 K/UL (150-450); RED BLOOD COUNT 4.37 M/UL (4.20-5.40); RED CELL DISTRIBUTION WIDTH 20.1 % (11.6-14.8); WHITE BLOOD COUNT 4.5 K/UL (4.8-10.8)
[2020-10-10 17:59] VITALS: BP 141/82
--- NOTE | 2020-10-10 18:02 | NUR ---
ED Nurse Note: pt saturation at 93% on RA, pt placed on 2L O2 NC, saturation improves to 99%
[2020-10-10 18:03] LABS: INR 1.1 (0.9-1.1)
[2020-10-10 18:07] LABS: CALCIUM 8.6 MG/DL (8.5-10.1); CREATININE 1.6 MG/DL (0.55-1.30); POTASSIUM 5.3 MMOL/L (3.5-5.1)
--- NOTE | 2020-10-10 18:13 | Diagnostic Imaging Report ---
EXAM: CT Head Without Intravenous Contrast CLINICAL HISTORY: WEAK TECHNIQUE: Axial computed tomography images of the head/brain without intravenous contrast. CTDI is 53.4 mGy and DLP is 1098.9 mGy-cm. One or more of the following dose reduction techniques were used: automated exposure control, adjustment of the mA and/or kV according to patient size, use of iterative reconstruction technique. COMPARISON: Head CT 03/03/2019 FINDINGS: Brain: No intracranial hemorrhage, mass-effect, or edema. Bifrontal encephalomalacia. Parenchymal atrophy. Ventricles: Unremarkable. Bones/joints: Unremarkable. No fracture. Soft tissues: Unremarkable. Sinuses: Unremarkable as visualized. Mastoid air cells: Unremarkable as visualized. IMPRESSION: 1. No acute intracranial abnormality. 2. Bifrontal encephalomalacia.
--- NOTE | 2020-10-10 18:20 | NUR ---
ED Nurse Note: pt's medications surrendered to ED pt medication box, bag # [id number]
[2020-10-10 18:23] LABS: ALBUMIN 3.6 G/DL (3.4-5.0); ALBUMIN/GLOBULIN RATIO 0.8 (1.0-2.7); BILIRUBIN,TOTAL 0.4 MG/DL (0.2-1.0); CKMB 37.7 NG/ML (0.0-3.6); PHOSPHORUS 4.8 MG/DL (2.5-4.9)
[2020-10-10] MEDS ORDERED: cefTRIAXone 1 GM in NS 55 ML IVPB ONE (18:30)
[2020-10-10] MEDS ORDERED: Insulin Human Regular 100units/ml 3ml SUBQ ONE (18:45)
--- NOTE | 2020-10-10 19:08 | Diagnostic Imaging Report ---
EXAM: CT Abdomen and Pelvis With Intravenous Contrast CLINICAL HISTORY: PAIN TECHNIQUE: Axial computed tomography images of the abdomen and pelvis with intravenous contrast. CTDI is 7.4 mGy and DLP is 394.1 mGy-cm. One or more of the following dose reduction techniques were used: automated exposure control, adjustment of the mA and/or kV according to patient size, use of iterative reconstruction technique. COMPARISON: No relevant prior studies available. FINDINGS: Lung bases: Atelectasis at the lung bases. ABDOMEN: Liver: Nodular contour to the liver. Gallbladder and bile ducts: Unremarkable. Pancreas: Unremarkable. Spleen: Unremarkable. Adrenals: Unremarkable. Kidneys and ureters: Unremarkable. No obstructing stones. No hydronephrosis. Stomach and bowel: Unremarkable. PELVIS: Appendix: Normal appendix. Bladder: Unremarkable. Reproductive: Left adnexal cyst measuring 4.8 cm. ABDOMEN and PELVIS: Intraperitoneal space: Unremarkable. No free air. No significant fluid collection. Bones/joints: Mild implant height loss at T12, T8, and Schmorl's node at L1. Chronic fracture deformity in the pelvis. Soft tissues: Unremarkable. Vasculature: Aortobiiliac atherosclerotic calcifications. Lymph nodes: Unremarkable. IMPRESSION: 1. No acute abnormality. 2. Nodular contour to the liver. Appearance suggestive of cirrhosis. 3. Left adnexal cyst measuring 4.8 cm. Consider nonemergent pelvic ultrasound.
--- NOTE | 2020-10-10 19:15 | NUR ---
ED Nurse Note: Recieved report from am nurse to resume care, pt in bed with nurse at bedside restarting IV line, new line in right upper arm, fluids infusing, pt is Covid positive and on isolation precautions, pt placed on cardiac monitoring, has o2 2l n/c with sat = 89%, oxygen increased to 3l and sat increased to 96%, pt c/o right hip pain, stating she fell, pain at 8/10, pt is incontinent of urine, given partial bath and linen change and diaper applied, pt needs urine sample but refused to be cath, will resume care as ordered and closely monitor as pt is admitted to hospital.
[2020-10-10 20:00] VITALS: BP 128/70
--- NOTE | 2020-10-10 20:00 | NUR ---
NURSE NOTES: ADMITTED 60 YEAR OLD FEMALE TO ROOM 402 BED 1 VIA GURNEY FROM EMERGENCY DEPARTMENT WITH DIAGNOSIS HYPERGLYCEMIA/UTI/COVID +; UNDER THE CARE OF DR. WILSON. PLACED ON ISOLATION PRECAUTIONS. IV INTACT TO RIGHT UPPER ARM/GAUGE 20, NO REDNESS/SWELLING NOTED. PATIENT AWAKE, ORIENTED TO SELF/PLACE, REALITY ORIENTATION PROVIDED DURING ADMITTANCE. NO SIGNS AND SYMPTOMS OF ACUTE CARDIO RESPIRATORY DISTRESS/SHORTNESS OF BREATH, NOTED WITH TRACE EDEMA TO BILATERAL LOWER EXTREMITIES. PATIENT NOTED WITH SELF INFLICTED SCRATCH MYLENE ON POSTERIOR LEFT LEG/SCAB TO LEFT ELBOW SECONDARY TO RECENT FALL. ABDOMEN SOFT/NON DISTENDED/NON TENDER/AUDIBLE BOWEL SOUNDS, PER PATIENT, LAST BM 10/08/20. ORIENTATED PATIENT TO ROOM/ENVIRONMENT. SIDE RAILS UP X3 FOR SAFETY, ENCOURAGED PATIENT TO UTILIZE CALL LIGHT FOR ASSISTANCE, VERBALIZED UNDERSTANDING. BED IN LOWEST POSITION FOR SAFETY. BED ALARM ACTIVATED. WALKER AT BEDSIDE WITH BELONGINGS. NAD.
--- NOTE | 2020-10-10 20:43 | Diagnostic Imaging Report ---
EXAM: XR Chest, 1 View CLINICAL HISTORY: SOB TECHNIQUE: Frontal view of the chest. COMPARISON: Chest x-ray 03/03/2019 FINDINGS: Lungs: Atelectasis at the left base. Pleural space: No pleural effusion. No pneumothorax. Heart: Unremarkable. No cardiomegaly. Bones/joints: Unremarkable. IMPRESSION: Atelectasis at the left base. Otherwise the lungs are clear.
[2020-10-10] MEDS ORDERED: Albuterol 90mcg Inhaler 8gm INH PRN (21:30)
--- NOTE | 2020-10-10 21:34 | History & Physical ---
History and Physical History & Physicial History and Physical HPI Patient is a 60 year old woman admitted with Covid Pneumonia and UTI,she c/o right-sided hip pain,worse with movement. Had recent ER visit at [facility] - diagnosed with urinary tract infection. Had previous history of CVA - longstanding left-sided weakness. She states that she has been having increased pain to the right hip. Previous x-ray imaging showed degenerative changes to both hips as well as a healed left pubic ramus fracture. Allergies: WARFARIN Past Medical History: Previous CVA,Diabetes,CKD,Hypertension, Asthma All Other Systems: limited - Limited by poor historian Physical Exam Vital Signs Noted Date Time Temp Pulse Resp B/P (MAP) Pulse Ox O2 Delivery O2 Flow Rate FiO2 10/10/20 17:09 98.6 82 141/82 (101) 98 Room Air General Appearance: alert, Chronically Ill Neck: limited range of motion, other - Kyphotic Respiratory: chest non-tender, lungs clear Cardiovascular: normal inspection, HS1,HS2 normal,no edema Gastrointestinal: normal inspection, soft Musculoskeletal: other - Decreased range of motion to the left upper extremity, left lower extremity with some weakness. Neurologic: alert, motor strength/tone normal, appliance adjuster III-XII nml as tested Medical Decision Making Impression: Covid Pneumonia UTI Uncontrolled diabetes mellitus 2019 novel coronavirus disease (COVID-19) Renal insufficiency Dehydration Rhabdomyolysis due to COVID-19 Possible Cirrhosis Plan - IVF - IV AB - Decadron - O2 PRN - BD - ISS - PPX - BPmeds Labs Test 10/10/20 17:25 White Blood Count 4.5 K/UL (4.8-10.8) Red Blood Count 4.37 M/UL (4.20-5.40) Hemoglobin 10.4 G/DL (12.0-16.0) Hematocrit 34.6 % (37.0-47.0) Mean Corpuscular Volume 79 FL (80-99) Mean Corpuscular Hemoglobin 23.7 PG (27.0-31.0) Mean Corpuscular Hemoglobin Concent 29.9 G/DL (32.0-36.0) Red Cell Distribution Width 20.1 % (11.6-14.8) Platelet Count 175 K/UL (150-450) Mean Platelet Volume 7.1 FL (6.5-10.1) Neutrophils (%) (Auto) 69.4 % (45.0-75.0) Lymphocytes (%) (Auto) 19.3 % (20.0-45.0) Monocytes (%) (Auto) 9.1 % (1.0-10.0) Eosinophils (%) (Auto) 0.0 % (0.0-3.0) Basophils (%) (Auto) 2.2 % (0.0-2.0) Prothrombin Time 11.6 SEC (9.30-11.50) Prothromb Time International Ratio 1.1 (0.9-1.1) Activated Partial Thromboplast Time 20 SEC (23-33) Sodium Level 135 MMOL/L (136-145) Potassium Level 5.3 MMOL/L (3.5-5.1) Chloride Level 100 MMOL/L (98-107) Carbon Dioxide Level 20 MMOL/L (21-32) Anion Gap 15 mmol/L (5-15) Blood Urea Nitrogen 70 mg/dL (7-18) Creatinine 1.6 MG/DL (0.55-1.30) Estimat Glomerular Filtration Rate 33.0 mL/min (>60) Glucose Level 401 MG/DL (74-106) Lactic Acid Level 2.50 mmol/L (0.4-2.0) Calcium Level 8.6 MG/DL (8.5-10.1) Troponin I 0.026 ng/mL (0.000-0.056) Ike Nicholas MD Oct 10, 2020 21:34
--- NOTE | 2020-10-10 21:40 | NUR ---
ED Nurse Note: Pt continues to rest quietly in bed, now has room for admisison, report called to DOMINIC Sosa on unit, pt has all belongings and list completed, pt home meds sent also, IV site patent, pt is clean and dry, pt being taken to floor unit via gurney with [facility], nad noted during pt transport.
[2020-10-10 23:00] VITALS: BP 131/75
[2020-10-10] MEDS ORDERED: Azithromycin 500 MG in D5W 275 ML IV SCH (23:00)
[2020-10-10] MEDS: Enoxaparin 30mg Inj SUBQ SCH (23:11)
[2020-10-11] MEDS ORDERED: HydrALAZINE 25mg tab ORAL ONE
[2020-10-11 04:00] VITALS: BP 142/79
[2020-10-11] MEDS: NovoLOG Insulin Flexpen SUBQ SCH ×4 (06:39→21:00)
--- NOTE | 2020-10-11 07:25 | NUR ---
NURSE NOTES: RECEIVED PATIENT IN BED LYING ON SUPINE POSITION. REFUSED TO BE ASSESSED. IMPULSIVE BEHAVIOR. PLACED ON DROPLET ISOLATION PRECAUTIONS. PIV PATENT AND INTACT TO RIGHT UPPER ARM/GAUGE 20, IVF INFUSING WELL. NO REDNESS/SWELLING NOTED.NO SIGNS AND SYMPTOMS OF ACUTE CARDIO RESPIRATORY DISTRESS/SHORTNESS OF BREATH, NOTED WITH TRACE EDEMA TO BILATERAL LOWER EXTREMITIES. PATIENT NOTED WITH SELF INFLICTED SCRATCH MYLENE ON POSTERIOR LEFT LEG/SCAB TO LEFT ELBOW SECONDARY TO RECENT FALL. ORIENTATED PATIENT TO ROOM/ENVIRONMENT. SIDE RAILS UP X3 FOR SAFETY, ENCOURAGED PATIENT TO UTILIZE CALL LIGHT FOR ASSISTANCE, VERBALIZED UNDERSTANDING. BED IN LOWEST POSITION FOR SAFETY. BED ALARM ACTIVATED. WALKER AT BEDSIDE WITH BELONGINGS. WILL CONT TO MONITOR.
--- NOTE | 2020-10-11 07:58 | NUR ---
NURSE HAND-OFF: Important Events on Shift:[ADMISSION, NON COMPLIANT, REFUSED LABS] Patient Status: [RESTED WELL, NAD] Diet: [CCHO M MS CHOPPED] Pending Orders: [AM LABS] Pending Results/Labs:[] Pending MD notification:[] Latest Vital Signs: Temperature 98.9 , Pulse 91 , B/P 142 /79 , Respiratory Rate 20 , O2 SAT 97 , Nasal Cannula, O2 Flow Rate 2.0 . Vital Sign Comment: [STABLE, AFEBRILE] Latest Daly Fall Score: 85 Fall Risk: High Risk Safety Measures: Call light , Bed Alarm Zone 1, Side Rails Side Rails x3, Bed position Low and Locked. Fall Precautions: Yellow Socks Door Sign Patient Fall Education Report given to [ANN MARIE SALMERON].
[2020-10-11] MEDS ORDERED: cefTRIAXone 1 GM in D5W 55 ML IVPB SCH (09:00)
[2020-10-11] MEDS ORDERED: dexAMETHasone 10mg/ml Inj IV SCH (09:00)
[2020-10-11] MEDS: Docusate 100mg cap ORAL SCH ×2 (09:07→21:27)
--- NOTE | 2020-10-11 10:09 | NUR ---
RD ASSESSMENT & RECOMMENDATIONS SEE CARE ACTIVITY FOR COMPLETE ASSESSMENT DAILY ESTIMATED NEEDS: Needs based on cardiac, pulmonary 57kg 25-30 kcals/kg 8709-2703 total kcals 1-1.5 g protein/kg 57-86 g total protein 25-30 mL/kg 6224-3109 total fluid mLs NUTRITION DIAGNOSIS: Altered nutrition related lab values r/t clinical status as evidenced by elevated K(5.3), elev BG(401), elev Creat kinase(3195). CURRENT DIET:CCHO MED/ RENAL PO DIET RECOMMENDATIONS: CCHO LOW/ Renal (texture per ATHLETE MANAGER) ADDITIONAL RECOMMENDATIONS: 1) Monitor renal status, need for renal restrictions 2) Rec POC, bed side BG checks 3) Monitor PO intake, no record at this time Close check of BG w/ poor po 4) F/up w/ ATHLETE MANAGER eval
--- NOTE | 2020-10-11 16:10 | NUR ---
NURSE NOTES: PATIENT REMOVED PIV ACCESS. REFUSED TO BE REINSERTED. EXPLAINED THE IMPORTANCE AND PATIENT BECAME AGGRAVATED. REFUSED INSULIN NOVOLOG WELL TO BE ADMINISTERED. WILL CONT TO MONITOR. Addendum: 10/11/20 at 1701 by VAN TRIPP LVN MADE DR STEWARD AWARE. AWAITING FOR A CALLBACK.
--- NOTE | 2020-10-11 16:36 | Pulmonology Progress Note ---
Subjective ROS Limited/Unobtainable: No Allergies: Coded Allergies: WARFARIN (Verified Allergy, Unknown, 03/03/19) Objective Last 24 Hour Vital Signs Date Time Temp Pulse Resp B/P (MAP) Pulse Ox O2 Delivery O2 Flow Rate FiO2 10/11/20 09:00 Room Air 10/11/20 04:00 98.9 91 20 142/79 (100) 97 10/11/20 03:14 97.9 10/11/20 00:33 127/65 10/10/20 23:26 Nasal Cannula 2.0 10/10/20 23:00 97.9 89 18 131/75 (93) 96 10/10/20 21:40 98.6 91 17 128/70 97 Nasal Cannula 3.0 10/10/20 20:00 98.6 91 17 128/70 97 Nasal Cannula 3.0 10/10/20 18:02 99 Nasal Cannula 2.0 10/10/20 17:59 98.6 18 141/82 93 Room Air 10/10/20 17:09 98.6 82 141/82 (101) 98 Room Air Intake and Output 10/10/20 10/11/20 19:00 07:00 Intake Total 1214 ml Balance 1214 ml Intake Oral 360 ml IV Total 854 ml # Voids 2 Microbiology Date/Time Source Procedure Growth Status 10/10/20 17:30 Nasopharynx SARS-CoV-2 RdRp Gene Assay - Final Complete Laboratory Tests 10/10/20 17:25: White Blood Count 4.5L, Red Blood Count 4.37, Hemoglobin 10.4L, Hematocrit 34.6L , Mean Corpuscular Volume 79L, Mean Corpuscular Hemoglobin 23.7L, Mean Corpuscular Hemoglobin Concent 29.9L, Red Cell Distribution Width 20.1H, Platelet Count 175, Mean Platelet Volume 7.1, Neutrophils (%) (Auto) 69.4, Lymphocytes (%) (Auto) 19.3L, Monocytes (%) (Auto) 9.1, Eosinophils (%) (Auto) 0.0, Basophils (%) (Auto) 2.2H, Prothrombin Time 11.6H, Prothromb Time International Ratio 1.1, Activated Partial Thromboplast Time 20L, Sodium Level 135L, Potassium Level 5.3H, Chloride Level 100, Carbon Dioxide Level 20L, Anion Gap 15, Blood Urea Nitrogen 70H, Creatinine 1.6H, Estimat Glomerular Filtration Rate 33.0, Glucose Level 401H, Lactic Acid Level 2.50H, Calcium Level 8.6, Phosphorus Level 4.8, Magnesium Level 2.2, Total Bilirubin 0.4, Aspartate Amino Transf (AST/SGOT) 163H, Alanine Aminotransferase (ALT/SGPT) 118H, Alkaline Phosphatase 172H, Total Creatine Kinase 3195H, Creatine Kinase MB 37.7H, Creatine Kinase MB Relative Index 1.1, Troponin I 0.026, Total Protein 8.1, Albumin 3.6, Globulin 4.5, Albumin/Globulin Ratio 0.8L, Lipase 299 10/10/20 19:25: Lactic Acid Level 1.10 10/10/20 20:48: POC Whole Blood Glucose 294H 10/11/20 06:15: POC Whole Blood Glucose [Pending] 10/11/20 11:12: POC Whole Blood Glucose 184H Current Medications Medications (Trade) Dose Ordered Sig/Hernando Route PRN Reason Start Time Stop Time Status Last Admin Dose Admin Acetaminophen (Tylenol) 650 mg Q4H PRN ORAL Mild Pain (Pain Scale 1-3) 10/10/20 21:15 11/09/20 21:14 10/11/20 02:44 Acetaminophen (Tylenol) 650 mg Q4H PRN ORAL Temp >100.5 10/10/20 21:15 11/09/20 21:14 Albuterol Sulfate (Proventil MDI) 2 puff Q4H PRN INH Shortness of Breath 10/10/20 21:30 01/08/21 21:29 Azithromycin 500 mg/Dextrose 275 ml @ 275 mls/hr Q24H IV 10/10/20 23:00 10/15/20 22:59 10/10/20 23:00 Ceftriaxone Sodium 1 gm/ Dextrose 55 ml @ 110 mls/hr DAILY IVPB 10/11/20 09:00 10/18/20 08:59 10/11/20 09:38 Dexamethasone Sodium Phosphate (Decadron 10mg/ ml Inj) 6 mg DAILY IV 10/11/20 09:00 10/20/20 09:01 10/11/20 09:38 Dextrose (Dextrose 50%) 25 ml Q30M PRN IV Hypoglycemia 10/10/20 21:15 01/08/21 21:14 Dextrose (Dextrose 50%) 50 ml Q30M PRN IV Hypoglycemia 10/10/20 21:15 01/08/21 21:14 Docusate Sodium (Colace) 100 mg EVERY 12 HOURS ORAL 10/11/20 09:00 11/10/20 08:59 10/11/20 09:07 Enoxaparin Sodium (Lovenox) 30 mg Q24H SUBQ 10/10/20 22:15 01/08/21 22:14 10/10/20 23:11 Famotidine (Pepcid I.v.) 20 mg DAILY IVP 10/11/20 09:00 11/10/20 08:59 10/11/20 09:38 Insulin Aspart (NovoLOG) BEFORE MEALS AND HS SUBQ 10/11/20 06:30 01/09/21 06:29 10/11/20 11:51 Insulin Detemir (Levemir) 10 units BEDTIME SUBQ 10/11/20 21:00 01/09/21 20:59 Iohexol (OMNIPAQUE-300 100ml) 100 ml NOW PRN INJ Radiology Procedure 10/10/20 17:30 10/12/20 17:29 Ondansetron HCl (Zofran) 4 mg Q6H PRN IVP Nausea & Vomiting 10/10/20 21:15 11/09/20 21:14 Sodium Chloride 1,000 ml @ 75 mls/hr [id number] IVLG 10/10/20 22:15 11/09/20 22:14 10/11/20 11:49 Assessment/Plan Assessment/Plan Pulmonary Progress Note HPI Patient is a 60 year old woman admitted with Covid Pneumonia and UTI,she c/o right-sided hip pain,worse with movement. Had recent ER visit at [facility] - diagnosed with urinary tract infection. Had previous history of CVA - longstanding left-sided weakness. She states that she has been having increased pain to the right hip. Previous x-ray imaging showed degenerative changes to both hips as well as a healed left pubic ramus fracture. Stable VS Lactic acid improved On RA Allergies: WARFARIN Past Medical History: Previous CVA,Diabetes,CKD,Hypertension, Asthma Physical Exam Vital Signs Noted Deferred Covid 19 Medical Decision Making Impression: Covid Pneumonia UTI Uncontrolled diabetes mellitus 2019 novel coronavirus disease (COVID-19) Renal insufficiency Dehydration Rhabdomyolysis due to COVID-19 Possible Cirrhosis Plan - IVF - IV AB - ID consultation - Decadron - O2 PRN - BD - ISS - PPX - BPmeds -Monitor labs Labs noted Test 10/10/20 17:25 White Blood Count 4.5 K/UL (4.8-10.8) Red Blood Count 4.37 M/UL (4.20-5.40) Hemoglobin 10.4 G/DL (12.0-16.0) Hematocrit 34.6 % (37.0-47.0) Mean Corpuscular Volume 79 FL (80-99) Mean Corpuscular Hemoglobin 23.7 PG (27.0-31.0) Mean Corpuscular Hemoglobin Concent 29.9 G/DL (32.0-36.0) Red Cell Distribution Width 20.1 % (11.6-14.8) Platelet Count 175 K/UL (150-450) Mean Platelet Volume 7.1 FL (6.5-10.1) Neutrophils (%) (Auto) 69.4 % (45.0-75.0) Lymphocytes (%) (Auto) 19.3 % (20.0-45.0) Monocytes (%) (Auto) 9.1 % (1.0-10.0) Eosinophils (%) (Auto) 0.0 % (0.0-3.0) Basophils (%) (Auto) 2.2 % (0.0-2.0) Prothrombin Time 11.6 SEC (9.30-11.50) Prothromb Time International Ratio 1.1 (0.9-1.1) Activated Partial Thromboplast Time 20 SEC (23-33) Sodium Level 135 MMOL/L (136-145) Potassium Level 5.3 MMOL/L (3.5-5.1) Chloride Level 100 MMOL/L (98-107) Carbon Dioxide Level 20 MMOL/L (21-32) Anion Gap 15 mmol/L (5-15) Blood Urea Nitrogen 70 mg/dL (7-18) Creatinine 1.6 MG/DL (0.55-1.30) Estimat Glomerular Filtration Rate 33.0 mL/min (>60) Glucose Level 401 MG/DL (74-106) Lactic Acid Level 2.50 mmol/L (0.4-2.0) Calcium Level 8.6 MG/DL (8.5-10.1) Troponin I 0.026 ng/mL (0.000-0.056) Ike Nicholas MD Oct 11, 2020 16:36
--- NOTE | 2020-10-11 19:09 | NUR ---
NURSE HAND-OFF: Important Events on Shift:[FALL PRECAUTION; REFUSED TO HAVE PIV INSERTION, MD AWARE] Patient Status: [REQUIRES REORIENTATION] Diet: [CCHO MED/RENAL MECH SOFT CHOPPED] Pending Orders: [] Pending Results/Labs:[] Pending MD notification:[] Latest Vital Signs: Temperature 98.9 , Pulse 91 , B/P 142 /79 , Respiratory Rate 20 , O2 SAT 97 , Nasal Cannula, O2 Flow Rate 2.0 . Vital Sign Comment: [] Latest Daly Fall Score: 85 Fall Risk: High Risk Safety Measures: Call light , Bed Alarm Zone 2, Side Rails Side Rails x3, Bed position Low and Locked. Fall Precautions: Yellow Socks Yellow Gown Door Sign Patient Fall Education Report given to [LETICIA].
--- NOTE | 2020-10-11 19:45 | NUR ---
NURSE NOTES: Received report from Mignon JESUS. Patient is awake, alert and oriented x3. Aggressive and impulsive behavior noted. On room air, breathing is even and unlabored. No complains of pain or distress noted. No IV access and MD aware. Bed low and locked. Call light within reach. Will continue to monitor.
[2020-10-11 20:00] VITALS: BP 153/71
[2020-10-11] MEDS: Levemir Flexpen SUBQ SCH (21:00)
--- NOTE | 2020-10-11 21:15 | NUR ---
NURSE NOTES: Patient refuses any medications through needle (Insulins and Lovenox). BS 425. Explained the importance of medications and patient became compulsive. Charge nurse aware. Charge nurse explained the risks and benefits to patient but still refused.
[2020-10-11] MEDS: Enoxaparin 30mg Inj SUBQ SCH (21:34)
[2020-10-11] MEDS ORDERED: Azithromycin 250mg tab ORAL SCH (23:00)
[2020-10-12] VITALS: BP 122/84
[2020-10-12 04:00] VITALS: BP 136/88
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
[2020-10-12] MEDS: NovoLOG Insulin Flexpen SUBQ SCH ×4 (06:48→21:22)
--- NOTE | 2020-10-12 07:15 | NUR ---
NURSE NOTES: Called to get restraint order. aware of patient's blood sugar. Will put the restraint order.
--- NOTE | 2020-10-12 07:46 | NUR ---
NURSE HAND-OFF: Important Events on Shift: Refused insulin and lovenox. New restraint order due to safety. Patient Status: Aggressive and violent Diet: CCHO (medium) renal soft chopped Pending Orders: [] Pending Results/Labs:[] Pending MD notification:[] Latest Vital Signs: Temperature 98.4 , Pulse 111 , B/P 136 /88 , Respiratory Rate 20 , O2 SAT 94 , Nasal Cannula, O2 Flow Rate 2.0 . Vital Sign Comment: VS stable Latest Daly Fall Score: 100 Fall Risk: High Risk Safety Measures: Call light , Bed Alarm Zone 2, Side Rails Side Rails x3, Bed position Low and Locked. Fall Precautions: Yellow Socks Yellow Gown Door Sign Patient Fall Education Report given to Sarah ALFARO.
[2020-10-12 08:00] VITALS: BP 160/97
--- NOTE | 2020-10-12 08:54 | General Progress Note ---
Subjective Allergies: Coded Allergies: WARFARIN (Verified Allergy, Unknown, 03/03/19) Subjective refusing care noted changes Objective Last 24 Hour Vital Signs Date Time Temp Pulse Resp B/P (MAP) Pulse Ox O2 Delivery O2 Flow Rate FiO2 10/12/20 04:00 98.4 111 20 136/88 (104) 94 10/12/20 00:00 98.6 109 20 122/84 (97) 94 10/11/20 21:00 Room Air 10/11/20 20:00 98.4 78 20 153/71 (98) 94 10/11/20 09:00 Room Air Intake and Output 10/11/20 10/12/20 19:00 07:00 Intake Total 1115 ml Balance 1115 ml Intake Oral 480 ml IV Total 635 ml # Voids 3 3 Laboratory Tests 10/11/20 11:12: POC Whole Blood Glucose 184H 10/11/20 16:10: POC Whole Blood Glucose 394H 10/11/20 20:36: POC Whole Blood Glucose 425H Height (Feet): 5 Height (Inches): 3.00 Weight (Pounds): 125 Objective deferred due to COVID Assessment/Plan Assessment/Plan: Impression: Covid Pneumonia UTI Uncontrolled diabetes mellitus 2019 novel coronavirus disease (COVID-19) Renal insufficiency Dehydration Rhabdomyolysis due to COVID-19 Possible Cirrhosis Plan - IVF - IV AB - ID consultation - Decadron - O2 - DVT prophylaxis -Monitor labs impression, plan, and exam edited and reviewed in detail care discussed with Terence Boswell MD Oct 12, 2020 08:54
[2020-10-12] MEDS: Docusate 100mg cap ORAL SCH ×2 (10:08→21:26)
[2020-10-12] MEDS: Lidocaine 1% MPF 10mg/ml 5ml INJ SCH (10:48)
--- NOTE | 2020-10-12 10:48 | Cardiology Report ---
APPROVED REPORT EKG Measurement Heart [id number] MT [id number] <Conclusion> Normal sinus rhythm Cannot rule out Anterior infarct, age undetermined Abnormal ECG
[2020-10-12 12:00] VITALS: BP 155/81
--- NOTE | 2020-10-12 13:29 | Consultation ---
DATE OF CONSULTATION: 10/12/2020 INFECTIOUS DISEASES CONSULTATION CONSULTING PHYSICIAN: Hector Rodriguez MD. REFERRING PHYSICIAN: Dr. Nicholas. REASON FOR CONSULTATION: Urinary tract infection and COVID-19 pneumonia. HISTORY OF PRESENTING ILLNESS: This is a 60-year-old lady with history of diabetes, CVA, chronic kidney disease, hypertension, asthma who comes in with right-sided hip pain. She was found to have a urinary tract infection and COVID-19 pneumonia. An Infectious Diseases consultation has been obtained for antibiotics. PAST MEDICAL HISTORY: 1. History of diabetes. 2. Hypertension. 3. Asthma. 4. Chronic kidney disease. 5. CVA. SOCIAL HISTORY: Unknown. FAMILY HISTORY: Unknown. REVIEW OF SYSTEMS: Unable to obtain currently. MEDICATIONS: As an inpatient, she is on lidocaine, ceftriaxone, famotidine, azithromycin, insulin, docusate, enoxaparin, albuterol, Zofran, Tylenol. ALLERGIES: To warfarin noted. PHYSICAL EXAMINATION: VITAL SIGNS: Temperature 97.8, T-max of 98.9, pulse of 63, respiratory rate 19, blood pressure 160/97, O2 saturation of 93% on room air. Examination deferred due to COVID-19. LABORATORY AND DIAGNOSTIC DATA: White count 4.5, hemoglobin 10.4, hematocrit 34.6, MCV 79, platelet count 175, neutrophils of 69%. Sodium 135, potassium 5.3, chloride 100, bicarb 20, BUN 70, creatinine 1.6, glucose 401, calcium 8.6. Total bilirubin 0.4, AST 163, ALT 118, alkaline phosphatase 172. CK of 3195, CK-MB of 37.7. Troponin 0.02. Total protein 8.1, albumin 3.6. COVID-19 rapid test was positive. Chest x-ray showing atelectasis at the left lung base. CT abdomen and pelvis showing no acute abnormality. There is some cirrhosis. Left adnexal cyst noted. CT head showing no acute abnormality. ASSESSMENT: This is a 60-year-old lady with history of diabetes, hypertension, asthma, CVA, who comes in with: 1. Urinary tract infection. 2. COVID-19 pneumonia. She is on room air with O2 saturation of 93%. PLAN: 1. Continue ceftriaxone. 2. Discontinue azithromycin. 3. Continue isolation. 4. We will follow up patient clinically. I would like to thank, Dr. Nicholas for this consultation. Hector Rodriguez M.D. DR: Wilma JOB#: [id number] CC: Dr. Nicholas
--- NOTE | 2020-10-12 15:59 | NUR ---
CASE MANAGEMENT:INITIAL REVIEW 60 YR OLD FEMALE BIBA FROM THE STREET CC;ABNORMAL LABS SI;HYPERGLYCEMIA. UTI. COVID-19 POSITIVE. 98.6 91 18 141/82 97% 3L NC K+ 5.3 BUN 70 CR 1.6 GLU+ 401 LACTIC ACID 2.50 AST 163 ALT 118 AL[ 172 TCK 3195 CK-2 37.7 PT 11.3 APTT 20 RAPID COVID ~ POSITIVE CXR ~ Atelectasis at the left base. Otherwise the lungs are clear. IS;IVF NS BOLUS ROCEPHIN IV INSULIN SQ ADMITTED TO MED SURG MED SURG STATUS DCP;PATIENT REPORTS HOMELESSNESS
[2020-10-12 16:00] VITALS: BP 147/89
--- NOTE | 2020-10-12 17:09 | NUR ---
Speech pathology Note (Bedside Dysphagia Evaluation) Brief Note: Ms. Foss is a 60 year old female reportedly homelessness BIB EMS from street for increase in right hip pain with movement. She was found to present abnormal lab results including elevated LFT insetting of Hepatitis C, liver cirrhosis and COVID positive and subsequently admitted Iron. Pt's current diet is soft solid chopped meat and thin liquid diet. PMH: CVA with left side weakness, Cirrhosis of liver, CKD, and DM Current Diet: Mechanical soft chopped meat diet Findings: Ms. Foss is alert and oriented to self, and hospital. She follows commands. Her speech is adequately clear. Voice is intact. She does not have teeth. oral cavity and mucosa is clear. Given her a bite of pureed carrot she tolerated without s.s of aspiration. After this trial, she stated, " I do not want any more." She refused further po trials at this time. Interpretation: 1. Limited evaluation, adequate oropharyngeal swallow based on chart review and limited PO trials 2. Aspiration risk due to cirrhosis of liver concerning of possible dysmotility Plan: 1. Continue with soft chopped solid and thin liquid 2. Aspiration precaution with upright during and 60 minutes after meal Calin Chowdary
--- NOTE | 2020-10-12 19:30 | NUR ---
NURSE NOTES: Received report from Yaima. AAO x 1-2, on room air. Pt uncooperative and impulsive. Bo. soft wrists restraints in place and skin intact. No IV access and MD aware. No acute distress noted. Bed locked,lowest position, alarm on, side rails up, call light within reach. will continue to monitor.
--- NOTE | 2020-10-12 19:35 | NUR ---
NURSE HAND-OFF: Important Events on Shift:[] Patient Status: [] Diet: [] Pending Orders: [] Pending Results/Labs:[] Pending MD notification:[] Latest Vital Signs: Temperature 97.0 , Pulse 69 , B/P 147 /89 , Respiratory Rate 18 , O2 SAT 95 , Nasal Cannula, O2 Flow Rate 2.0 . Vital Sign Comment: [] Latest Daly Fall Score: 100 Fall Risk: High Risk Safety Measures: Call light , Bed Alarm Zone 2, Side Rails Side Rails x3, Bed position Low and Locked. Fall Precautions: Yellow Socks Yellow Gown Door Sign Patient Fall Education Report given to [RN Cameron].
[2020-10-12 20:00] VITALS: BP 150/96
[2020-10-12] MEDS: Levemir Flexpen SUBQ SCH (21:22)
[2020-10-12] MEDS: Enoxaparin 30mg Inj SUBQ SCH (21:26)
[2020-10-13] VITALS: BP 150/100
--- NOTE | 2020-10-13 00:02 | Psychiatry Consultation ---
Psychiatry Consultation Psychiatry Consultation Chief Complaint: Abnormal Labs History of Present Illness: 60-year-old woman with a history of COVID pneumonia, UTI, who has been admitted to the hospital due to right-sided hip pain. The patient is in bed, presents with anxiety, cognitive impairment, waxing and waning consciousness. The patient is not speaking to this MD. The patient appears depressed. has flat affect. Memory impairment. PAST PSYCHIATRY HISTORY: Unknown. PAST MEDICAL HISTORY: Significant for hypothyroidism, renal insufficiency, and rhabdomyolysis. ALLERGIES: Warfarin. SUBSTANCE ABUSE HISTORY: No known history of illicit drug use or alcohol. MENTAL STATUS EXAMINATION: The patient is awake, oriented to self, place, uncooperative, and mood is neutral and anxious. Affect is blunted. Thought process, there is a paucity of thought content. The patient appears to be delusional. Cognition is impaired. Insight and judgment not Impulse control poor. ASSESSMENT: Farnsworth I Acute toxic encephalopathy. Psychotic disorder. Rule out dementia. Farnsworth II Deferred. Farnsworth III COVID-19. Farnsworth IV Low. Farnsworth V 20 PLAN: 1. We will start the patient on low dose of antipsychotics. 2. Continue the restraints. 3. Discussed with the primary team. Allergies: Coded Allergies: WARFARIN (Verified Allergy, Unknown, 03/03/19) Medication History Scheduled Amlodipine Besylate* (Amlodipine Besylate*), 5 MG ORAL DAILY, (Reported) Glipizide* (Glipizide*), 5 MG ORAL BIDAC, (Reported) Metformin Hcl* (Glucophage*), 500 MG ORAL BID Olanzapine* (Zyprexa*), 10 MG ORAL DAILY, (Reported) Scheduled PRN Albuterol Sulfate* (Albuterol Sulfate Hfa*), 2 PUFF INH Q3H PRN for Shortness of Breath, (Reported) Objective Data Height (Feet): 5 Height (Inches): 3.00 Weight (Pounds): 125 Frank Chacon MD Oct 13, 2020 00:02
[2020-10-13 04:00] VITALS: BP 102/59
[2020-10-13] MEDS: NovoLOG Insulin Flexpen SUBQ SCH ×4 (05:36→21:14)
--- NOTE | 2020-10-13 06:50 | NUR ---
NURSE HAND-OFF: Important Events on Shift:uncooperative, impulsive, restraints care Patient Status: stable Diet: CCHO M Pending Orders: Pending Results/Labs:am labs Pending MD notification: Latest Vital Signs: Temperature 98.0 , Pulse 86 , B/P 102 /59 , Respiratory Rate 20 , O2 SAT 96 , Nasal Cannula, O2 Flow Rate 2.0 . Vital Sign Comment: [] Latest Daly Fall Score: 100 Fall Risk: High Risk Safety Measures: Call light Within Reach, Bed Alarm Zone 2, Side Rails Side Rails x3, Bed position Low and Locked. Fall Precautions: Yellow Socks Yellow Gown Door Sign Patient Fall Education Addendum: 10/13/20 at 0730 by GRZEGORZ STANLEY RN RN HAND-OFF: Report given to Jena .
[2020-10-13 06:51] LABS: BASOPHILS % (AUTO) 0.7 % (0.0-2.0); HEMATOCRIT 36.6 % (37.0-47.0); HEMOGLOBIN 10.9 G/DL (12.0-16.0); LYMPHOCYTES % (AUTO) 22.6 % (20.0-45.0); MEAN CORPUSCULAR VOLUME 80 FL (80-99); NEUTROPHILS % (AUTO) 69.7 % (45.0-75.0); PLATELET COUNT 183 K/UL (150-450); RED BLOOD COUNT 4.58 M/UL (4.20-5.40); RED CELL DISTRIBUTION WIDTH 20.5 % (11.6-14.8); WHITE BLOOD COUNT 4.8 K/UL (4.8-10.8)
[2020-10-13 07:20] LABS: CALCIUM 8.5 MG/DL (8.5-10.1)
--- NOTE | 2020-10-13 07:41 | NUR ---
NURSE NOTES: Patient awake, confused, had BM upon rotation; on Nasal cannula 2 liters, no sing of distress and shortness of breath; no sing of chest pain; NO IV access; per report, DOMINIC Cervantes, MD aware that patient doesn't have IV access; bilateral soft wrist restrain in place, skin warm to touch, good circulation; side rails up x2, breaks engaged, bed at lowest, bed alarm on; call light within reach; will keep monitoring.
[2020-10-13 08:00] VITALS: BP 119/95
[2020-10-13] MEDS: Docusate 100mg cap ORAL SCH ×2 (08:44→21:17)
[2020-10-13] MEDS: Lidocaine 1% MPF 10mg/ml 5ml INJ SCH (08:46)
[2020-10-13 12:00] VITALS: BP 148/71
--- NOTE | 2020-10-13 12:06 | NUR ---
WASTEWATER PROCESS ENGINEER NOTE SW attempted to meet w/ pt to obtain information. Pt is awake, but didn't make eye contact and did not engage conservation w/ this CYNDI. SW spoke w/ Yudith from [facility] office [phone] that pt is not conserved. Per Yudith, there is a record that the case was investigated for possible conservatorship in 2019, but pt was not conserved. SW attempted to call [facility] [phone], the call was not answered and left a vm for call back. CYNDI reviewed the chart and spoke w/ Liliam Colon [phone], confirmed that she is her current client. Liliam requested to call back in an hour. CYNDI will continue to F/U.
--- NOTE | 2020-10-13 13:02 | Infectious Diseases Prog Note ---
Assessment/Plan Assessment/Plan ; 1. Urinary tract infection. 2. COVID19 pneumonia. 3. DM with hyperglycemia 4. Cirrhosis 5. HPN PLAN: 1. Continue ceftriaxone. 2. Continue isolation Subjective ROS Limited/Unobtainable: Yes Neurologic: Reports: confusion, other - on restraint Allergies: Coded Allergies: WARFARIN (Verified Allergy, Unknown, 03/03/19) Objective Last 24 Hour Vital Signs Date Time Temp Pulse Resp B/P (MAP) Pulse Ox O2 Delivery O2 Flow Rate FiO2 10/13/20 08:00 98.7 90 20 119/95 (103) 95 10/13/20 04:00 98.0 86 20 102/59 (73) 96 10/13/20 00:00 98.0 99 22 150/100 (117) 95 10/12/20 21:00 Room Air 10/12/20 20:00 98.2 90 20 150/96 (114) 94 10/12/20 16:00 97.0 69 18 147/89 (108) 95 Height (Feet): 5 Height (Inches): 3.00 Weight (Pounds): 125 HEENT: mucous membranes moist Respiratory/Chest: no respiratory distress, other - oxygen bynasal cannula Cardiovascular: normal rate Abdomen: soft, non tender Extremities: no edema Neurologic/Psychiatric: other - sleeping Microbiology Date/Time Source Procedure Growth Status 10/10/20 20:35 Nasal Nares MRSA Culture - Final NO METHICILLIN RESISTANT STAPH AUREUS... Complete 10/10/20 17:30 Nasopharynx SARS-CoV-2 RdRp Gene Assay - Final Complete 10/10/20 17:25 Blood Blood Culture - Preliminary NO GROWTH AFTER 24 HOURS Resulted 10/10/20 17:25 Blood Blood Culture - Preliminary NO GROWTH AFTER 24 HOURS Resulted Laboratory Tests Test 10/13/20 05:00 White Blood Count 4.8 K/UL (4.8-10.8) Red Blood Count 4.58 M/UL (4.20-5.40) Hemoglobin 10.9 G/DL (12.0-16.0) L Hematocrit 36.6 % (37.0-47.0) L Mean Corpuscular Volume 80 FL (80-99) Mean Corpuscular Hemoglobin 23.9 PG (27.0-31.0) L Mean Corpuscular Hemoglobin Concent 29.9 G/DL (32.0-36.0) L Red Cell Distribution Width 20.5 % (11.6-14.8) H Platelet Count 183 K/UL (150-450) Mean Platelet Volume 6.8 FL (6.5-10.1) Neutrophils (%) (Auto) 69.7 % (45.0-75.0) Lymphocytes (%) (Auto) 22.6 % (20.0-45.0) Monocytes (%) (Auto) 7.0 % (1.0-10.0) Eosinophils (%) (Auto) 0.0 % (0.0-3.0) Basophils (%) (Auto) 0.7 % (0.0-2.0) Sodium Level 142 MMOL/L (136-145) Potassium Level 5.0 MMOL/L (3.5-5.1) Chloride Level 110 MMOL/L (98-107) H Carbon Dioxide Level 23 MMOL/L (21-32) Anion Gap 9 mmol/L (5-15) Blood Urea Nitrogen 40 mg/dL (7-18) H Creatinine 1.0 MG/DL (0.55-1.30) Estimat Glomerular Filtration Rate 56.8 mL/min (>60) Glucose Level 253 MG/DL (74-106) H Calcium Level 8.5 MG/DL (8.5-10.1) Current Medications Medications (Trade) Dose Ordered Sig/Hernando Route PRN Reason Start Time Stop Time Status Last Admin Dose Admin Acetaminophen (Tylenol) 650 mg Q4H PRN ORAL Mild Pain (Pain Scale 1-3) 10/10/20 21:15 11/09/20 21:14 10/12/20 02:17 Acetaminophen (Tylenol) 650 mg Q4H PRN ORAL Temp >100.5 10/10/20 21:15 11/09/20 21:14 Albuterol Sulfate (Proventil MDI) 2 puff Q4H PRN INH Shortness of Breath 10/10/20 21:30 01/08/21 21:29 Ceftriaxone Sodium (Rocephin) 1 gm DAILY IM 10/12/20 09:00 10/19/20 08:59 10/13/20 08:46 Dextrose (Dextrose 50%) 25 ml Q30M PRN IV Hypoglycemia 10/10/20 21:15 01/08/21 21:14 Dextrose (Dextrose 50%) 50 ml Q30M PRN IV Hypoglycemia 10/10/20 21:15 01/08/21 21:14 Docusate Sodium (Colace) 100 mg EVERY 12 HOURS ORAL 10/11/20 09:00 11/10/20 08:59 10/13/20 08:44 Enoxaparin Sodium (Lovenox) 30 mg Q24H SUBQ 10/10/20 22:15 01/08/21 22:14 10/12/20 21:26 Famotidine (Pepcid) 20 mg DAILY ORAL 10/12/20 09:00 01/10/21 08:59 10/13/20 08:45 Insulin Aspart (NovoLOG) BEFORE MEALS AND HS SUBQ 10/11/20 06:30 01/09/21 06:29 10/13/20 11:45 Insulin Detemir (Levemir) 10 units BEDTIME SUBQ 10/11/20 21:00 01/09/21 20:59 10/12/20 21:22 Lidocaine (Xylocaine 1% MPF 5ml) 3.6 ml DAILY INJ 10/12/20 09:00 10/19/20 08:59 10/13/20 08:46 Ondansetron HCl (Zofran) 4 mg Q6H PRN IVP Nausea & Vomiting 10/10/20 21:15 11/09/20 21:14 Sodium Chloride 1,000 ml @ 75 mls/hr [id number] IVLG 10/10/20 22:15 11/09/20 22:14 10/11/20 11:49 Yash Ashley MD Oct 13, 2020 13:02
--- NOTE | 2020-10-13 14:28 | NUR ---
CASE MANAGEMENT:REVIEW SI;COVID-19 POSITIVE. LIVER CIRRHOSIS. UTI. 98.7 99 22 150/100 94% ON RA BUN 40 GLU+ 253 IS;ROCEPHIN IM QD PEPCID PO QD INSULIN LEVEMIR SQ HS INSULIN NOVOLOG SQ QID IVF NS @ 75 ML/HR MED SURG STATUS DCP;PATIENT REPORTS HOMELESSNESS
--- NOTE | 2020-10-13 14:49 | NUR ---
RETAIL ADVERTISING EXECUTIVE NOTE CYNDI left a vm to Liliam Colon [phone] for call back. CYNDI will attempt to obtain information from Liliam as pt is selectively mute w/ this CYNDI.
[2020-10-13 16:00] VITALS: BP 137/79
[2020-10-13] MEDS ORDERED: Haloperidol 5mg/ml Inj IM PRN (16:15)
--- NOTE | 2020-10-13 16:58 | General Progress Note ---
Subjective Allergies: Coded Allergies: WARFARIN (Verified Allergy, Unknown, 03/03/19) Subjective noted care noted changes Objective Last 24 Hour Vital Signs Date Time Temp Pulse Resp B/P (MAP) Pulse Ox O2 Delivery O2 Flow Rate FiO2 10/13/20 16:00 97.9 82 18 137/79 (98) 95 10/13/20 12:00 96.7 87 17 148/71 (96) 96 10/13/20 09:00 Room Air 10/13/20 08:00 98.7 90 20 119/95 (103) 95 10/13/20 04:00 98.0 86 20 102/59 (73) 96 10/13/20 00:00 98.0 99 22 150/100 (117) 95 10/12/20 21:00 Room Air 10/12/20 20:00 98.2 90 20 150/96 (114) 94 Intake and Output 10/12/20 10/13/20 19:00 07:00 # Bowel Movements 2 Laboratory Tests 10/13/20 05:00: White Blood Count 4.8, Red Blood Count 4.58, Hemoglobin 10.9L, Hematocrit 36.6L, Mean Corpuscular Volume 80, Mean Corpuscular Hemoglobin 23.9L, Mean Corpuscular Hemoglobin Concent 29.9L, Red Cell Distribution Width 20.5H, Platelet Count 183, Mean Platelet Volume 6.8, Neutrophils (%) (Auto) 69.7, Lymphocytes (%) (Auto) 22.6, Monocytes (%) (Auto) 7.0, Eosinophils (%) (Auto) 0.0, Basophils (%) (Auto) 0.7, Sodium Level 142, Potassium Level 5.0, Chloride Level 110H, Carbon Dioxide Level 23, Anion Gap 9, Blood Urea Nitrogen 40H, Creatinine 1.0, Estimat Glomerular Filtration Rate 56.8, Glucose Level 253H, Calcium Level 8.5 10/13/20 16:50: POC Whole Blood Glucose 90 Height (Feet): 5 Height (Inches): 3.00 Weight (Pounds): 125 Objective deferred due to COVID Assessment/Plan Assessment/Plan: Impression: Covid Pneumonia UTI Uncontrolled diabetes mellitus 2019 novel coronavirus disease (COVID-19) Renal insufficiency Dehydration Rhabdomyolysis due to COVID-19 Possible Cirrhosis Plan - IVF - IV AB - ID consultation - Decadron - O2 - DVT prophylaxis -Monitor labs impression, plan, and exam edited and reviewed in detail care discussed with Terence Boswell MD Oct 13, 2020 16:58
--- NOTE | 2020-10-13 18:37 | NUR ---
NURSE HAND-OFF: Important Events on Shift:Bilateral soft wrist restrain in place; Patient Status: Diet: Pending Orders: Pending Results/Labs: Pending MD notification: Latest Vital Signs: Temperature 97.9 , Pulse 82 , B/P 137 /79 , Respiratory Rate 18 , O2 SAT 95 , Nasal Cannula, O2 Flow Rate 2.0 . Vital Sign Comment: Latest Daly Fall Score: 100 Fall Risk: High Risk Safety Measures: Call light Within Reach, Bed Alarm Zone 2, Side Rails Side Rails x3, Bed position Low and Locked. Fall Precautions: Yellow Socks Yellow Gown Door Sign Patient Fall Education Report given to .
--- NOTE | 2020-10-13 18:42 | NUR ---
NURSE NOTES: Patient doesn't have IV access; I communicated MD Szymanski, if MD dobbins discontinue the IV fluid order; waiting for order.
--- NOTE | 2020-10-13 18:45 | NUR ---
NURSE NOTES: Order received from Md Szymanski to discontinue IV fluid;
--- NOTE | 2020-10-13 19:10 | NUR ---
HAND-OFF: Report given to DOMINIC Barnes.
[2020-10-13 20:00] VITALS: BP 150/107
--- NOTE | 2020-10-13 20:44 | Consultation ---
DATE OF CONSULTATION: 10/13/2020 HISTORY OF PRESENT ILLNESS: The patient is a 60-year-old woman with a history of COVID pneumonia, UTI, who has been admitted to the hospital due to right-sided hip pain. The patient is in bed, presents with anxiety, cognitive impairment, waxing and waning consciousness. The patient is not speaking to this MD. The patient appears depressed. has flat affect. Memory impairment. PAST PSYCHIATRY HISTORY: Unknown. PAST MEDICAL HISTORY: Significant for hypothyroidism, renal insufficiency, and rhabdomyolysis. ALLERGIES: Warfarin. SUBSTANCE ABUSE HISTORY: No known history of illicit drug use or alcohol. MENTAL STATUS EXAMINATION: The patient is awake, oriented to self, place, uncooperative, and mood is neutral and anxious. Affect is blunted. Thought process, there is a paucity of thought content. The patient appears to be delusional. Cognition is impaired. Insight and judgment not . Impulse control poor. ASSESSMENT: Marmarth I Acute toxic encephalopathy. Psychotic disorder. Rule out dementia. Marmarth II Deferred. Marmarth III COVID-19. Marmarth IV Low. Marmarth V 20 PLAN: 1. We will start the patient on low dose of antipsychotics. 2. Continue the restraints. 3. Discussed with the primary team. Frank Chacon M.D. DR: NICA JOB#: [id number] CC:
[2020-10-13] MEDS: Levemir Flexpen SUBQ SCH (21:15)
[2020-10-13] MEDS: Enoxaparin 30mg Inj SUBQ SCH (21:17)
[2020-10-14] VITALS: BP 169/93
--- NOTE | 2020-10-14 00:12 | NUR ---
NURSE NOTES: O2 sat 78% and SOB noted. Called RT and non rebreather mask applied. O2 sat 98% now.
[2020-10-14 04:00] VITALS: BP 138/78
[2020-10-14] MEDS: NovoLOG Insulin Flexpen SUBQ SCH ×4 (05:46→21:00)
--- NOTE | 2020-10-14 06:07 | NUR ---
NURSE HAND-OFF: Important Events on Shift:monitor O2 sat Patient Status: restless Diet: CCHO M, renal Pending Orders: Pending Results/Labs:am labs Pending MD notification:[] Latest Vital Signs: Temperature 99.3 , Pulse 96 , B/P 138 /78 , Respiratory Rate 22 , O2 SAT 94 , Nasal Cannula, O2 Flow Rate 2.0 . Vital Sign Comment: [] Latest Daly Fall Score: 100 Fall Risk: High Risk Safety Measures: Call light Within Reach, Bed Alarm Zone 2, Side Rails Side Rails x3, Bed position Low and Locked. Fall Precautions: Yellow Socks Yellow Gown Door Sign Patient Fall Education Addendum: 10/14/20 at 0730 by GRZEGORZ STANLEY RN RN HAND-OFF: Report given to
--- NOTE | 2020-10-14 07:14 | NUR ---
NURSE NOTES: Report received from Helen ALFARO, rounds made. Patient resting in semi-fowlers position, in bed. AOx1, calm. Respirations even/unlabored on O2 15L non-rebreather mask. Bilateral wrist restraints on. Bed in lowest position, call light in reach, will continue to monitor.
--- NOTE | 2020-10-14 10:01 | NUR ---
RD ASSESSMENT & RECOMMENDATIONS SEE CARE ACTIVITY FOR COMPLETE ASSESSMENT DAILY ESTIMATED NEEDS: Needs based on cardiac, pulmonary 57kg 25-30 kcals/kg [id number] total kcals 1-1.5 g protein/kg 57-86 g total protein 25-30 mL/kg 7887-4376 total fluid mLs NUTRITION DIAGNOSIS: Altered nutrition related lab values r/t clinical status as evidenced by elevated K(5.3), elev BG(401), elev Creat kinase(3195). CURRENT DIET:CCHO MED/ RENAL PO DIET RECOMMENDATIONS: CCHO LOW/ Renal (texture per PRECISION LATHE OPERATOR) ADDITIONAL RECOMMENDATIONS: 1) Monitor renal status, need for renal restrictions 2) Rec POC, bed side BG checks 3) Monitor PO intake, no record at this time Close check of BG w/ poor po 4) F/up w/ PRECISION LATHE OPERATOR eval -> rec to maintain chopped diet 5) Add Nepro BID w/ variable po intake
--- NOTE | 2020-10-14 10:27 | Infectious Diseases Prog Note ---
Assessment/Plan Assessment/Plan antibiotics : ceftriaxone A 1. covid 19 pneumonia on room air with 96 % saturation 2. diabetes mellitus 3. hypertension 4. asthma 5. CVA P 1. d/c ceftriaxone 2. observe off antibiotics Subjective ROS Limited/Unobtainable: Yes Allergies: Coded Allergies: WARFARIN (Verified Allergy, Unknown, 03/03/19) Objective Last 24 Hour Vital Signs Date Time Temp Pulse Resp B/P (MAP) Pulse Ox O2 Delivery O2 Flow Rate FiO2 10/14/20 04:00 99.3 96 22 138/78 (98) 94 10/14/20 00:00 99.3 113 26 169/93 (118) 78 10/13/20 21:00 Room Air 10/13/20 20:00 98.4 109 20 150/107 (121) 92 10/13/20 16:00 97.9 82 18 137/79 (98) 95 10/13/20 12:00 96.7 87 17 148/71 (96) 96 Height (Feet): 5 Height (Inches): 3.00 Weight (Pounds): 125 Laboratory Tests Test 10/13/20 16:50 POC Whole Blood Glucose 90 MG/DL (74-106) Current Medications Medications (Trade) Dose Ordered Sig/Hernando Route PRN Reason Start Time Stop Time Status Last Admin Dose Admin Acetaminophen (Tylenol) 650 mg Q4H PRN ORAL Mild Pain (Pain Scale 1-3) 10/10/20 21:15 11/09/20 21:14 10/12/20 02:17 Acetaminophen (Tylenol) 650 mg Q4H PRN ORAL Temp >100.5 10/10/20 21:15 11/09/20 21:14 Albuterol Sulfate (Proventil MDI) 2 puff Q4H PRN INH Shortness of Breath 10/10/20 21:30 01/08/21 21:29 Ceftriaxone Sodium (Rocephin) 1 gm DAILY IM 10/12/20 09:00 10/19/20 08:59 10/13/20 08:46 Dextrose (Dextrose 50%) 25 ml Q30M PRN IV Hypoglycemia 10/10/20 21:15 01/08/21 21:14 Dextrose (Dextrose 50%) 50 ml Q30M PRN IV Hypoglycemia 10/10/20 21:15 01/08/21 21:14 Docusate Sodium (Colace) 100 mg EVERY 12 HOURS ORAL 10/11/20 09:00 11/10/20 08:59 10/13/20 21:17 Enoxaparin Sodium (Lovenox) 30 mg Q24H SUBQ 10/10/20 22:15 01/08/21 22:14 10/13/20 21:17 Famotidine (Pepcid) 20 mg DAILY ORAL 10/12/20 09:00 01/10/21 08:59 10/13/20 08:45 Haloperidol Lactate (Haldol) 5 mg Q6H PRN IM Agitation 10/13/20 16:15 11/27/20 16:14 Insulin Aspart (NovoLOG) BEFORE MEALS AND HS SUBQ 10/11/20 06:30 01/09/21 06:29 10/14/20 05:46 Insulin Detemir (Levemir) 10 units BEDTIME SUBQ 10/11/20 21:00 01/09/21 20:59 10/13/20 21:15 Lidocaine (Xylocaine 1% MPF 5ml) 3.6 ml DAILY INJ 10/12/20 09:00 10/19/20 08:59 10/13/20 08:46 Ondansetron HCl (Zofran) 4 mg Q6H PRN IVP Nausea & Vomiting 10/10/20 21:15 11/09/20 21:14 Hector Rodriguez MD Oct 14, 2020 10:27
--- NOTE | 2020-10-14 10:36 | General Progress Note ---
Subjective Allergies: Coded Allergies: WARFARIN (Verified Allergy, Unknown, 03/03/19) Subjective noted care noted changes comfortable at present Objective Last 24 Hour Vital Signs Date Time Temp Pulse Resp B/P (MAP) Pulse Ox O2 Delivery O2 Flow Rate FiO2 10/14/20 04:00 99.3 96 22 138/78 (98) 94 10/14/20 00:00 99.3 113 26 169/93 (118) 78 10/13/20 21:00 Room Air 10/13/20 20:00 98.4 109 20 150/107 (121) 92 10/13/20 16:00 97.9 82 18 137/79 (98) 95 10/13/20 12:00 96.7 87 17 148/71 (96) 96 Intake and Output 10/13/20 10/14/20 19:00 07:00 Intake Total 300 ml 360 ml Balance 300 ml 360 ml Other 300 ml 360 ml # Voids 2 # Bowel Movements 1 Laboratory Tests 10/13/20 16:50: POC Whole Blood Glucose 90 Height (Feet): 5 Height (Inches): 3.00 Weight (Pounds): 125 Objective deferred due to COVID Assessment/Plan Assessment/Plan: Impression: Covid Pneumonia UTI Uncontrolled diabetes mellitus 2019 novel coronavirus disease (COVID-19) Renal insufficiency Dehydration Rhabdomyolysis due to COVID-19 Possible Cirrhosis Plan - IV AB per ID - ID consultation - Decadron - O2 - DVT prophylaxis -Monitor labs - dc planning impression, plan, and exam edited and reviewed in detail care discussed with Terence Boswell MD Oct 14, 2020 10:36
[2020-10-14 10:45] VITALS: BP 165/78
[2020-10-14] MEDS: Docusate 100mg cap ORAL SCH ×2 (11:03→21:00)
--- NOTE | 2020-10-14 11:30 | NUR ---
NURSE NOTES: Patient found with O2 off, labored/SOB at rest, O2 sat 62%, reapplied O2, called RT, repositioned patient in bed, adjusted bilateral wrist restraints, sats 93-95%. Dr. Szymanski notified of above and BP 165/78 HR 106, orders for Clonidine PRN for SBP >150, administered as ordered.
[2020-10-14 12:00] VITALS: BP 142/82
--- NOTE | 2020-10-14 13:07 | NUR ---
CASE MANAGEMENT:REVIEW SI;COVID-19 POSITIVE. LIVER CIRRHOSIS. UTI. 99.3 113 26 169/93 92% ON RA IS;CLONIDINE PO Q4 PRN PEPCID PO QD LOVENOX SQ Q24 INSULIN NOVOLOG SQ Q12 INSULIN LEVEMIR SQ QHS MED SURG STATUS DCP;PATIENT REPORTS HOMELESSNESS
[2020-10-14 16:00] VITALS: BP 104/53
--- NOTE | 2020-10-14 16:15 | NUR ---
NURSE NOTES: Patient with low grade temperature, 100, refusing Tylenol , checked 100.6, patient agreed to take Tylenol PO, rechecked, 100.2 then 97.8.
--- NOTE | 2020-10-14 19:15 | NUR ---
NURSE HAND-OFF: Important Events on Shift:Desats when off O2, BP 165/78 (new order for Clonidine), Temperature 100.6 (Tylenol), Bilateral wrists restraints (needs renewal 10/15), BM, refused meals Patient Status: stable Diet: CCHO med, Renal, Mechanical Soft, FEED Pending Orders: none Pending Results/Labs:none Pending MD notification:none Latest Vital Signs: Temperature 97.8 , Pulse 80 , B/P 104 /53 , Respiratory Rate 20 , O2 SAT 96 , Nasal Cannula, O2 Flow Rate 2.0 . Vital Sign Comment: monitor temp and BP Latest Daly Fall Score: 100 Fall Risk: High Risk Safety Measures: Call light Within Reach, Bed Alarm Zone 2, Side Rails Side Rails x3, Bed position Low and Locked. Fall Precautions: Yellow Socks Yellow Gown Door Sign Patient Fall Education Report given to Dg ALFARO.
[2020-10-14 20:00] VITALS: BP 123/75
--- NOTE | 2020-10-14 20:11 | NUR ---
NURSE NOTES: Patient in bed, awake, confused. Able to make simple needs known. Respiration is even, on non -rebreather mask 15 L. Skin is warm and dry to touch. Abdomen is soft and non distended. No complaint of pain or discomfort noted. Bed in low and locked position. Kept clean and comfortable. No iv site, charge nurse aware. Call light is at bedside. Will continue plan of care.
[2020-10-14] MEDS: Levemir Flexpen SUBQ SCH (21:00)
[2020-10-14] MEDS: Enoxaparin 30mg Inj SUBQ SCH (21:51)
--- NOTE | 2020-10-14 22:15 | NUR ---
NURSE NOTES: Patient is awake, confused. Constantly attempts to remove nonrebreather mask. Patient on restraints.
--- NOTE | 2020-10-14 23:53 | Consultation ---
History of Present Illness General Chief Complaint: Abnormal Labs Present Illness HPI 60-year-old woman with a history of COVID pneumonia, UTI, who has been admitted to the hospital due to right-sided hip pain. The patient is in bed, presents with anxiety, cognitive impairment, waxing and waning consciousness. The patient is not speaking to this MD. The patient appears depressed. has flat affect. Memory impairment. PAST PSYCHIATRY HISTORY: Unknown. PAST MEDICAL HISTORY: Significant for hypothyroidism, renal insufficiency, and rhabdomyolysis. ALLERGIES: Warfarin. SUBSTANCE ABUSE HISTORY: No known history of illicit drug use or alcohol. MENTAL STATUS EXAMINATION: The patient is awake, oriented to self, place, uncooperative, and mood is neutral and anxious. Affect is blunted. Thought process, there is a paucity of thought content. The patient appears to be delusional. Cognition is impaired. Insight and judgment not Impulse control poor. ASSESSMENT: [place] I Acute toxic encephalopathy. Psychotic disorder. Rule out dementia. [place] II Deferred. [place] III COVID-19. [place] IV Low. [place] V 20 PLAN: 1. We will start the patient on low dose of antipsychotics. 2. Continue the restraints. 3. Discussed with the primary team. Allergies: Coded Allergies: WARFARIN (Verified Allergy, Unknown, 03/03/19) Medication History Scheduled Amlodipine Besylate* (Amlodipine Besylate*), 5 MG ORAL DAILY, (Reported) Glipizide* (Glipizide*), 5 MG ORAL BIDAC, (Reported) Metformin Hcl* (Glucophage*), 500 MG ORAL BID Olanzapine* (Zyprexa*), 10 MG ORAL DAILY, (Reported) Scheduled PRN Albuterol Sulfate* (Albuterol Sulfate Hfa*), 2 PUFF INH Q3H PRN for Shortness of Breath, (Reported) Patient History Healthcare decision maker Resuscitation status Advanced Directive on File Physical Exam Last 24 Hour Vital Signs Date Time Temp Pulse Resp B/P (MAP) Pulse Ox O2 Delivery O2 Flow Rate FiO2 10/14/20 21:00 Room Air 10/14/20 20:00 98.2 77 19 123/75 (91) 97 10/14/20 16:00 97.8 80 20 104/53 (70) 96 10/14/20 15:00 100.2 10/14/20 13:58 100.2 10/14/20 13:20 100.6 10/14/20 12:00 100.0 96 20 142/82 (102) 97 10/14/20 11:25 165/78 10/14/20 10:45 97.7 105 24 165/78 (107) 93 10/14/20 09:00 Room Air 10/14/20 04:00 99.3 96 22 138/78 (98) 94 10/14/20 00:00 99.3 113 26 169/93 (118) 78 Intake and Output 10/13/20 10/14/20 19:00 07:00 Intake Total 300 ml 360 ml Balance 300 ml 360 ml Other 300 ml 360 ml # Voids 2 # Bowel Movements 1 Laboratory Tests Test 10/14/20 17:52 POC Whole Blood Glucose Pending Height (Feet): 5 Height (Inches): 3.00 Weight (Pounds): 125 Medications Current Medications Medications (Trade) Dose Ordered Sig/Hernando Route PRN Reason Start Time Stop Time Status Last Admin Dose Admin Acetaminophen (Tylenol) 650 mg Q4H PRN ORAL Mild Pain (Pain Scale 1-3) 10/10/20 21:15 11/09/20 21:14 10/14/20 13:28 Acetaminophen (Tylenol) 650 mg Q4H PRN ORAL Temp >100.5 10/10/20 21:15 11/09/20 21:14 Albuterol Sulfate (Proventil MDI) 2 puff Q4H PRN INH Shortness of Breath 10/10/20 21:30 01/08/21 21:29 Clonidine HCl (Catapres Tab) 0.1 mg Q4H PRN ORAL for SBP >150 10/14/20 11:30 01/12/21 11:29 10/14/20 11:25 Dextrose (Dextrose 50%) 25 ml Q30M PRN IV Hypoglycemia 10/10/20 21:15 01/08/21 21:14 Dextrose (Dextrose 50%) 50 ml Q30M PRN IV Hypoglycemia 10/10/20 21:15 01/08/21 21:14 Docusate Sodium (Colace) 100 mg EVERY 12 HOURS ORAL 10/11/20 09:00 11/10/20 08:59 10/14/20 11:03 Enoxaparin Sodium (Lovenox) 30 mg Q24H SUBQ 10/10/20 22:15 01/08/21 22:14 10/14/20 21:51 Famotidine (Pepcid) 20 mg DAILY ORAL 10/12/20 09:00 01/10/21 08:59 10/14/20 11:04 Haloperidol Lactate (Haldol) 5 mg Q6H PRN IM Agitation 10/13/20 16:15 11/27/20 16:14 Insulin Aspart (NovoLOG) BEFORE MEALS AND HS SUBQ 10/11/20 06:30 01/09/21 06:29 10/14/20 21:00 Insulin Detemir (Levemir) 10 units BEDTIME SUBQ 10/11/20 21:00 01/09/21 20:59 10/14/20 21:00 Ondansetron HCl (Zofran) 4 mg Q6H PRN IVP Nausea & Vomiting 10/10/20 21:15 11/09/20 21:14 Frank Chacon MD Oct 14, 2020 23:53
[2020-10-15] VITALS (7 sets, daily range): BP systolic 123–158; BP diastolic 70–90
[2020-10-15] MEDS: NovoLOG Insulin Flexpen SUBQ SCH ×4 (05:55→22:53)
--- NOTE | 2020-10-15 07:10 | NUR ---
NURSE HAND-OFF: Important Events on Shift:WNL Patient Status: WNL Diet: Renal, CCHo mech soft Pending Orders: Pending Results/Labs: Pending MD notification: Latest Vital Signs: Temperature 98.9 , Pulse 92 , B/P 140 /76 , Respiratory Rate 20 , O2 SAT 93 , Nasal Cannula, O2 Flow Rate 2.0 . Vital Sign Comment: WNL Latest Daly Fall Score: 100 Fall Risk: High Risk Safety Measures: Call light Within Reach, Bed Alarm Zone 2, Side Rails Side Rails x3, Bed position Low and Locked. Fall Precautions: Yellow Socks Yellow Gown Door Sign Patient Fall Education Report given to DOMINIC Cary.
--- NOTE | 2020-10-15 07:45 | NUR ---
NURSE NOTES: Received report from DOMINIC Conte. Patient in bed, awake, confused, able to make simple needs known. Breathing even and unlabored, on non -rebreather mask 15 L. No complaint of pain or discomfort noted. Pt on hamlet. soft wrist restraints. no skin breakdown noted. Bed in low and locked position. No iv site, MD aware. Call light at bedside. Will continue plan of care.
[2020-10-15] MEDS: Docusate 100mg cap ORAL SCH ×2 (08:18→22:51)
--- NOTE | 2020-10-15 12:18 | NUR ---
MANAGER UNIVERSAL NOTE CYNDI spoke w/ Liliam Colon from [facility] Homeless [facility] program [phone] that pt is no longer her client as the service was discontinued after pt was placed in SNF a few months ago. Liliam reports pt uses a walker to ambulate and she does not receive any income. Pt does not have any family member. CYNDI relayed information to DCM.
--- NOTE | 2020-10-15 12:54 | Infectious Diseases Prog Note ---
Assessment/Plan Assessment/Plan ; 1. Urinary tract infection, treated 2. COVID19 pneumonia. 3. DM with hyperglycemia 4. Cirrhosis 5. HPN PLAN: 1. CXR , CBC 2. Continue isolation Subjective ROS Limited/Unobtainable: Yes Neurologic: Reports: confusion, other - on restraint Allergies: Coded Allergies: WARFARIN (Verified Allergy, Unknown, 03/03/19) Objective Last 24 Hour Vital Signs Date Time Temp Pulse Resp B/P (MAP) Pulse Ox O2 Delivery O2 Flow Rate FiO2 10/15/20 09:00 Room Air 10/15/20 08:00 97.9 85 20 124/70 (88) 94 10/15/20 04:00 98.9 92 20 140/76 (97) 93 10/15/20 00:00 97.9 82 20 134/81 (98) 94 10/14/20 21:00 Room Air 10/14/20 20:00 98.2 77 19 123/75 (91) 97 10/14/20 16:00 97.8 80 20 104/53 (70) 96 10/14/20 15:00 100.2 10/14/20 13:58 100.2 10/14/20 13:20 100.6 Height (Feet): 5 Height (Inches): 3.00 Weight (Pounds): 125 HEENT: mucous membranes moist Respiratory/Chest: other - oxygen by mask Cardiovascular: normal rate Abdomen: soft, non tender Extremities: no edema Neurologic/Psychiatric: alert, disoriented Laboratory Tests Test 10/14/20 17:52 10/15/20 11:25 POC Whole Blood Glucose Pending 162 MG/DL (74-106) H Current Medications Medications (Trade) Dose Ordered Sig/Hernando Route PRN Reason Start Time Stop Time Status Last Admin Dose Admin Acetaminophen (Tylenol) 650 mg Q4H PRN ORAL Mild Pain (Pain Scale 1-3) 10/10/20 21:15 11/09/20 21:14 10/14/20 13:28 Acetaminophen (Tylenol) 650 mg Q4H PRN ORAL Temp >100.5 10/10/20 21:15 11/09/20 21:14 Albuterol Sulfate (Proventil MDI) 2 puff Q4H PRN INH Shortness of Breath 10/10/20 21:30 01/08/21 21:29 Clonidine HCl (Catapres Tab) 0.1 mg Q4H PRN ORAL for SBP >150 10/14/20 11:30 01/12/21 11:29 10/14/20 11:25 Dextrose (Dextrose 50%) 25 ml Q30M PRN IV Hypoglycemia 10/10/20 21:15 01/08/21 21:14 Dextrose (Dextrose 50%) 50 ml Q30M PRN IV Hypoglycemia 10/10/20 21:15 01/08/21 21:14 Docusate Sodium (Colace) 100 mg EVERY 12 HOURS ORAL 10/11/20 09:00 11/10/20 08:59 10/15/20 08:18 Enoxaparin Sodium (Lovenox) 30 mg Q24H SUBQ 10/10/20 22:15 01/08/21 22:14 10/14/20 21:51 Famotidine (Pepcid) 20 mg DAILY ORAL 10/12/20 09:00 01/10/21 08:59 10/15/20 08:18 Haloperidol Lactate (Haldol) 5 mg Q6H PRN IM Agitation 10/13/20 16:15 11/27/20 16:14 Insulin Aspart (NovoLOG) BEFORE MEALS AND HS SUBQ 10/11/20 06:30 01/09/21 06:29 10/15/20 12:23 Insulin Detemir (Levemir) 10 units BEDTIME SUBQ 10/11/20 21:00 01/09/21 20:59 10/14/20 21:00 Ondansetron HCl (Zofran) 4 mg Q6H PRN IVP Nausea & Vomiting 10/10/20 21:15 11/09/20 21:14 Yash Ashley MD Oct 15, 2020 12:54
--- NOTE | 2020-10-15 14:00 | NUR ---
Loader Operator SupervisorTrim Technician SI: COVID 19, Liver Cirrhosis, UTI T 97.9, HR 80, RR 20, BP 122/73, O2 sat 95% RA Glucose 253 IS: Pepcid PO QD Levemir SQ HS Lovenox SQ QD Med/Surg Status
--- NOTE | 2020-10-15 15:00 | Diagnostic Imaging Report ---
Indication: Shortness of breath Technique: One view of the chest Comparison: 10/10/2020 Findings: Interval development of bilateral infiltrates. Normal heart size. Tortuous calcified aorta. Impression: Bilateral infiltrates, likely bilateral pneumonia, developing since 10/10/2020
--- NOTE | 2020-10-15 16:16 | General Progress Note ---
Subjective Allergies: Coded Allergies: WARFARIN (Verified Allergy, Unknown, 03/03/19) Subjective noted care noted changes comfortable at present Objective Last 24 Hour Vital Signs Date Time Temp Pulse Resp B/P (MAP) Pulse Ox O2 Delivery O2 Flow Rate FiO2 10/15/20 12:00 97.9 80 20 123/73 (90) 95 10/15/20 09:00 Room Air 10/15/20 08:00 97.9 85 20 124/70 (88) 94 10/15/20 04:00 98.9 92 20 140/76 (97) 93 10/15/20 00:00 97.9 82 20 134/81 (98) 94 10/14/20 21:00 Room Air 10/14/20 20:00 98.2 77 19 123/75 (91) 97 Intake and Output 10/14/20 10/15/20 19:00 07:00 Intake Total 200 ml 118 ml Balance 200 ml 118 ml Intake Oral 200 ml Other 118 ml # Voids 2 4 # Bowel Movements 2 Laboratory Tests 10/14/20 17:52: POC Whole Blood Glucose [Pending] 10/15/20 11:25: POC Whole Blood Glucose 162H Height (Feet): 5 Height (Inches): 3.00 Weight (Pounds): 125 Objective deferred due to COVID Assessment/Plan Assessment/Plan: Impression: Covid Pneumonia UTI Uncontrolled diabetes mellitus 2019 novel coronavirus disease (COVID-19) Renal insufficiency Dehydration Rhabdomyolysis due to COVID-19 Possible Cirrhosis Plan - ID clearance - ID consultation - Decadron - O2 - DVT prophylaxis -Monitor labs - dc planning if ok with ID impression, plan, and exam edited and reviewed in detail care discussed with Terence Boswell MD Oct 15, 2020 16:16
--- NOTE | 2020-10-15 19:22 | NUR ---
NURSE HAND-OFF: Important Events on Shift:[1:1 feeder, trying to take off non rebreather mask] Patient Status: [] Diet: [CCHO MS] Pending Orders: [] Pending Results/Labs:[] Pending MD notification:[] Latest Vital Signs: Temperature 97.7 , Pulse 102 , B/P 158 /90 , Respiratory Rate 22 , O2 SAT 93 , Nasal Cannula, O2 Flow Rate 2.0 . Vital Sign Comment: [tachy, 93%] Latest Daly Fall Score: 100 Fall Risk: High Risk Safety Measures: Call light Within Reach, Bed Alarm Zone 2, Side Rails Side Rails x3, Bed position Low and Locked. Fall Precautions: Yellow Socks Yellow Gown Door Sign Patient Fall Education Report given to [DOMINIC Funes].
--- NOTE | 2020-10-15 20:00 | NUR ---
NURSE NOTES: RECEIVED PATIENT LYING IN BED, APPEAR TO BE ASLEEP, AWAKENED TO NAME, DENIES PAIN. HEAD OF BED ELEVATED TO FACILITATE BREATHING, NON REBREATHING MASK INTACT/15L, SP02 96%. NO SIGNS AND SYMPTOMS OF ACUTE CARDIO RESPIRATORY DISTRESS/SHORTNESS OF BREATH, NO EDEMA NOTED. NO IV ACCESSS, MD AWARE. BILATERAL WRIST RESTRAINTS INTACT TO PREVENT PATIENT FROM REMOVING MEDICAL EQUIPMENT. ABDOMEN SOFT/NON DISTENDED/NON TENDER/AUDIBLE BOWEL SOUNDS, NO REPORT OF N/V/D. SIDE RAILS UP X3/BED IN LOWEST POSITION FOR SAFETY, FREQUENT ROUNDING FOR SAFETY/NEEDS. CONTINUE WITH CURRENT PLAN OF CARE. NAD.
--- NOTE | 2020-10-15 20:10 | NUR ---
NURSE NOTES: PATIENT NOTED WITH SELF INFLICTED SCRATCH LEE TO BILATERAL UPPER EXTREMITIES, DRY/NO BLEEDING NOTED.
[2020-10-15] MEDS: Levemir Flexpen SUBQ SCH (22:52)
[2020-10-15] MEDS: Enoxaparin 30mg Inj SUBQ SCH (22:56)
--- NOTE | 2020-10-15 23:00 | NUR ---
NURSE NOTES: UPON ENTERING ROOM, PATIENT NOTED WITH LABORED BREATHING, REMOVED NON REBREATHING MASK IN SPITE OF BILATERAL WRIST RESTRAINTS INTACT, NON RESPONSIVE, SP02 66%, WEB KNITTER WAS PAGED AND ARRIVED AT 2225, INITIATED 100% NON REBREATHING MASK, SP02 INCREASED TO 96%, PATIENT VERBALLY RESPONSIVE, ABG'S WERE DRAWN BY RT - MESSAGE LEFT FOR DR. WILSON ON EMERGENCY LINE FOR FURTHER ORDERS/ABG RESULTS, NAD.
[2020-10-16] VITALS: BP 111/66
[2020-10-16 04:00] VITALS: BP 125/67
[2020-10-16] MEDS: NovoLOG Insulin Flexpen SUBQ SCH ×4 (05:54→20:55)
--- NOTE | 2020-10-16 07:09 | NUR ---
NURSE HAND-OFF: Important Events on Shift:[PATIENT DESAT 66%, ACETYLENE CYLINDER PACKING MIXER PAGED, PLACED ON 100% NRM, SAT INCREASED TO 96%, PATIENT ALERT, TALKING, NO CHANGE IN COGNITIVE STATUS-0700 MD GAVE ORDER TO TRANSFER TO TELE, RN OUTPATIENT SURGERY NOTIFIED ] Patient Status: [STABLE, SATURATION FLUCTUATING BETWEEN 93-96%] Diet: [RENAL CCHO MS 1:1 FEEDER] Pending Orders: [TRANSFER TO TELE, AM LABS] Pending Results/Labs:[] Pending MD notification:[] Latest Vital Signs: Temperature 97.2 , Pulse 79 , B/P 125 /67 , Respiratory Rate 19 , O2 SAT 92 , Nasal Cannula, O2 Flow Rate 15.0 . Vital Sign Comment: [STABLE, AFEBRILE] Latest Daly Fall Score: 100 Fall Risk: High Risk Safety Measures: Call light Within Reach, Bed Alarm Zone 2, Side Rails Side Rails x3, Bed position Low and Locked. Fall Precautions: Yellow Socks Yellow Gown Door Sign Patient Fall Education Report given to [DOMINIC LEÓN].
--- NOTE | 2020-10-16 07:32 | NUR ---
NURSE NOTES: received report from ANN MARIE Barakat. patient in bed. alert. non breather mask 15L 88 to 90 % waiting transfer to tele. no facial grimacing. no IV. MD is aware. soft restraint on both wrists for preventing pulling oxygen. bed in the lowest position and locked. call light within reach. alarm on.
--- NOTE | 2020-10-16 07:56 | NUR ---
NURSE NOTES: PATIENT o2 saturation 83-84 % with non breather mask 15L. patient is calm. notified Anahi, charge nurse. Eddie paged coating supervisor for transfer to upper level.
[2020-10-16 08:00] VITALS: BP 131/68
--- NOTE | 2020-10-16 08:27 | NUR ---
NURSE NOTES: Report received from Macario ALFARO. Patient transferred from . AxOx2-3 with episodes of confusion, on O2 at 15lpm via NRM, sats 94%, no signs of acute distress or increased work of breathing, no complaints of pain. Pt has no PIV access, nurse reports Dr. Szymanski is aware. Noted bilateral soft wrist restraints, circulation intact with good peripheral pulses. Pt is incontinent. Belongings checked and accounted for. Bed low and locked, siderails up x2, zone alarms on 1, will continue to monitor.
--- NOTE | 2020-10-16 08:30 | NUR ---
NURSE NOTES: patient was transferred to telemetry placed room 204-1. report given DOMINIC Diop.
--- NOTE | 2020-10-16 08:40 | NUR ---
NURSE NOTES: brought patient's belongings to room 204-1.
--- NOTE | 2020-10-16 09:20 | NUR ---
RD ASSESSMENT & RECOMMENDATIONS SEE CARE ACTIVITY FOR COMPLETE ASSESSMENT DAILY ESTIMATED NEEDS: Needs based on cardiac, pulmonary 57kg 25-30 kcals/kg 2211-7591 total kcals 1-1.5 g protein/kg 57-86 g total protein 25-30 mL/kg 3756-8237 total fluid mLs NUTRITION DIAGNOSIS: Altered nutrition related lab values r/t clinical status as evidenced by elevated K(5.3), elev BG(401), elev Creat kinase(3195). CURRENT DIET:CCHO MED/ RENAL PO DIET RECOMMENDATIONS-->>> CCHO LOW/ Renal (texture per PHARMACOVIGILANCE SAFETY EXPERT) ADDITIONAL RECOMMENDATIONS: 1) Monitor renal status, need for renal restrictions 2) Rec POC, bed side BG checks 3) Monitor PO intake, no record at this time Close check of BG w/ poor po 4) F/up w/ PHARMACOVIGILANCE SAFETY EXPERT eval -> rec to maintain chopped diet 5) Add Nepro BID w/ variable po intake 6) Rec to recalibrate bed scale post floor txr
[2020-10-16] MEDS: Docusate 100mg cap ORAL SCH ×2 (10:12→20:48)
[2020-10-16 10:21] LABS: BASOPHILS % (AUTO) 0.2 % (0.0-2.0); EOSINOPHILS % (AUTO) 0.3 % (0.0-3.0); HEMATOCRIT 36.6 % (37.0-47.0); HEMOGLOBIN 10.6 G/DL (12.0-16.0); LYMPHOCYTES % (AUTO) 11.9 % (20.0-45.0); MEAN CORPUSCULAR VOLUME 77 FL (80-99); MONOCYTES % (AUTO) 4.7 % (1.0-10.0); NEUTROPHILS % (AUTO) 82.9 % (45.0-75.0); PLATELET COUNT 187 K/UL (150-450); RED BLOOD COUNT 4.75 M/UL (4.20-5.40); RED CELL DISTRIBUTION WIDTH 19.6 % (11.6-14.8); WHITE BLOOD COUNT 7.8 K/UL (4.8-10.8)
--- NOTE | 2020-10-16 10:22 | General Progress Note ---
Subjective ROS Limited/Unobtainable: Yes Allergies: Coded Allergies: WARFARIN (Verified Allergy, Unknown, 03/03/19) Subjective noted care noted changes worsened overnight Objective Last 24 Hour Vital Signs Date Time Temp Pulse Resp B/P (MAP) Pulse Ox O2 Delivery O2 Flow Rate FiO2 10/16/20 08:00 97.7 86 20 131/68 (89) 88 10/16/20 04:00 97.2 79 19 125/67 (86) 92 10/16/20 00:00 98.2 87 20 111/66 (81) 95 10/15/20 22:30 97 Non-Rebreather 15.0 100 10/15/20 22:23 109 36 66 10/15/20 21:00 Room Air 10/15/20 20:00 97.9 87 20 145/84 (104) 96 10/15/20 16:00 97.7 102 22 158/90 (112) 93 10/15/20 12:00 97.9 80 20 123/73 (90) 95 Intake and Output 10/15/20 10/16/20 19:00 07:00 Intake Total 360 ml Balance 360 ml Intake Oral 360 ml # Voids 3 3 # Bowel Movements 1 Laboratory Tests 10/15/20 11:25: POC Whole Blood Glucose 162H 10/15/20 16:42: POC Whole Blood Glucose 161H 10/15/20 22:30: Arterial Blood pH 7.372, Arterial Blood Partial Pressure CO2 29.1L, Arterial Blood Partial Pressure O2 68.7L, Arterial Blood HCO3 16.5*L, Arterial Blood Oxygen Saturation 92.6L, Arterial Blood Base Excess -7.4L, Francisco Test 10/16/20 05:24: POC Whole Blood Glucose [Pending] Height (Feet): 5 Height (Inches): 3.00 Weight (Pounds): 125 Objective deferred due to COVID Assessment/Plan Assessment/Plan: Impression: Covid Pneumonia UTI Uncontrolled diabetes mellitus 2019 novel coronavirus disease (COVID-19) Renal insufficiency Dehydration Rhabdomyolysis due to COVID-19 Possible Cirrhosis acute hypoxemic respiratory failure Plan - 100% oxygen follow up CXR and ABG intensify therapy IV antibiotics DVT prophylaxis check venous US monitor clinically impression, plan, and exam edited and reviewed in detail care discussed with Terence Boswell MD Oct 16, 2020 10:22
--- NOTE | 2020-10-16 10:59 | Infectious Diseases Prog Note ---
Assessment/Plan Assessment/Plan antibiotics : ceftriaxone A 1. covid 19 pneumonia on 15 liters O2 with 88 % saturation 2. diabetes mellitus 3. hypertension 4. asthma 5. CVA P 1. start remdesivir 2. start dexamethasone 3. continue isolation Subjective ROS Limited/Unobtainable: Yes Allergies: Coded Allergies: WARFARIN (Verified Allergy, Unknown, 03/03/19) Objective Last 24 Hour Vital Signs Date Time Temp Pulse Resp B/P (MAP) Pulse Ox O2 Delivery O2 Flow Rate FiO2 10/16/20 08:00 97.7 86 20 131/68 (89) 88 10/16/20 04:00 97.2 79 19 125/67 (86) 92 10/16/20 00:00 98.2 87 20 111/66 (81) 95 10/15/20 22:30 97 Non-Rebreather 15.0 100 10/15/20 22:23 109 36 66 10/15/20 21:00 Room Air 10/15/20 20:00 97.9 87 20 145/84 (104) 96 10/15/20 16:00 97.7 102 22 158/90 (112) 93 10/15/20 12:00 97.9 80 20 123/73 (90) 95 Height (Feet): 5 Height (Inches): 3.00 Weight (Pounds): 125 Laboratory Tests Test 10/15/20 11:25 10/15/20 16:42 10/15/20 22:30 10/16/20 05:24 POC Whole Blood Glucose 162 MG/DL (74-106) H 161 MG/DL (74-106) H Pending Arterial Blood pH 7.372 (7.350-7.450) Arterial Blood Partial Pressure CO2 29.1 mmHg (35.0-45.0) L Arterial Blood Partial Pressure O2 68.7 mmHg (75.0-100.0) L Arterial Blood HCO3 16.5 mmol/L (22.0-26.0) *L Arterial Blood Oxygen Saturation 92.6 % (95-100) L Arterial Blood Base Excess -7.4 (-2-2) L Francisco Test Test 10/16/20 10:44 Arterial Blood pH Pending Arterial Blood Partial Pressure CO2 Pending Arterial Blood Partial Pressure O2 Pending Arterial Blood HCO3 Pending Arterial Blood Oxygen Saturation Pending Arterial Blood Base Excess Pending Francisco Test Pending Current Medications Medications (Trade) Dose Ordered Sig/Hernando Route PRN Reason Start Time Stop Time Status Last Admin Dose Admin Acetaminophen (Tylenol) 650 mg Q4H PRN ORAL Mild Pain (Pain Scale 1-3) 10/10/20 21:15 11/09/20 21:14 10/14/20 13:28 Acetaminophen (Tylenol) 650 mg Q4H PRN ORAL Temp >100.5 10/10/20 21:15 11/09/20 21:14 Albuterol Sulfate (Proventil MDI) 2 puff Q4H PRN INH Shortness of Breath 10/10/20 21:30 01/08/21 21:29 Clonidine HCl (Catapres Tab) 0.1 mg Q4H PRN ORAL for SBP >150 10/14/20 11:30 01/12/21 11:29 10/14/20 11:25 Dextrose (Dextrose 50%) 25 ml Q30M PRN IV Hypoglycemia 10/10/20 21:15 01/08/21 21:14 Dextrose (Dextrose 50%) 50 ml Q30M PRN IV Hypoglycemia 10/10/20 21:15 01/08/21 21:14 Docusate Sodium (Colace) 100 mg EVERY 12 HOURS ORAL 10/11/20 09:00 11/10/20 08:59 10/16/20 10:12 Enoxaparin Sodium (Lovenox) 30 mg Q24H SUBQ 10/10/20 22:15 01/08/21 22:14 10/15/20 22:56 Famotidine (Pepcid) 20 mg DAILY ORAL 10/12/20 09:00 01/10/21 08:59 10/16/20 10:12 Haloperidol Lactate (Haldol) 5 mg Q6H PRN IM Agitation 10/13/20 16:15 11/27/20 16:14 Insulin Aspart (NovoLOG) BEFORE MEALS AND HS SUBQ 10/11/20 06:30 01/09/21 06:29 10/16/20 05:54 Insulin Detemir (Levemir) 10 units BEDTIME SUBQ 10/11/20 21:00 01/09/21 20:59 10/15/20 22:52 Ondansetron HCl (Zofran) 4 mg Q6H PRN IVP Nausea & Vomiting 10/10/20 21:15 11/09/20 21:14 Hector Rodriguez MD Oct 16, 2020 10:59
[2020-10-16 11:28] LABS: CALCIUM 7.9 MG/DL (8.5-10.1); CREATININE 1.2 MG/DL (0.55-1.30); POTASSIUM 4.2 MMOL/L (3.5-5.1)
[2020-10-16 11:32] LABS: ALBUMIN 2.5 G/DL (3.4-5.0); ALBUMIN/GLOBULIN RATIO 0.6 (1.0-2.7); BILIRUBIN,TOTAL 0.5 MG/DL (0.2-1.0)
[2020-10-16 12:00] VITALS: BP 150/63
--- NOTE | 2020-10-16 12:51 | NUR ---
NURSE NOTES: Dr. Szymanski notified of abnormal chemistries today, awaiting response.
--- NOTE | 2020-10-16 14:03 | Diagnostic Imaging Report ---
Indication: Shortness of breath Technique: One view of the chest Comparison: 10/15/2020 Findings: Current exam more rotated. Bilateral infiltrates are probably unchanged. Heart size is normal. Pleural spaces are clear Impression: Unchanged, over one day, findings as above.
--- NOTE | 2020-10-16 15:35 | NUR ---
CASE MANAGEMENT:REVIEW SI;COVID PNEUMONIA. LIVER CIRRHOSIS. UTI. 99.9 87 20 150/63 88% 15L NRB FIO2 100% NA+ 147 BUN+ 72 GLU+ 189 CA- 7.9 AST+ 103 ALP+ 151 ALB- 2.5 IS;REMDESIVR IV IVF NS I@ 100 ML/HR DECADRON PO QD LEVEMIR SQ QD LOVENOX SE QD PEPCID PO QD TELEMETRY STATUS DCP;PATIENT REPORTS HOMELESSNESS
[2020-10-16 16:00] VITALS: BP 139/78
[2020-10-16] MEDS ORDERED: Loading Dose:Remdesivir 200mg/NS 210ml IV SCH ×2 (16:00)
--- NOTE | 2020-10-16 18:45 | NUR ---
NURSE NOTES: At 1845 campus monitor noted 13 secs of sinus arrest followed by bradycardia. Went to assess patient, Chaim RN already in room and noted that patient was non-responsive to pain and unable to rouse. Elevated HOB and checked O2 sats, 77% and very pale. CONE TENDER called. Pulse noted and patient had very labored breathing. Continued to try to wake patient up. Pt became more response as she was sat up and sats increased to 92-94%. Blood sugar 336. STAT ABG done by RT. Dr. Szymanski notified of blood gas results and events and received orders to continue monitoring sats. Endorsed to nurse Kelvin.
--- NOTE | 2020-10-16 19:29 | NUR ---
TECHNICAL SPECIALIST CYTOLOGY Note: TECHNICAL SPECIALIST CYTOLOGY was called at 1845 by Charge nurse Estefany, and notified MD Dr. Szymanski. Pt remained in telemetry. See TECHNICAL SPECIALIST CYTOLOGY documentation form for full report and nurse's note.
--- NOTE | 2020-10-16 19:40 | NUR ---
NURSE HAND-OFF REPORT: Important Events on Shift: SNOW FENCE ERECTOR called for sinus arrest/bradycardia, desats; Dr. Szymanski aware Patient Status: Guarded Diet: CCHO medium, Renal Pending Orders: N Pending Results/Labs: N Pending MD notification: N Latest Vital Signs: Temperature 99.7 , Pulse 84 , B/P 139 /78 , Respiratory Rate 18 , O2 SAT 97 , Nasal Cannula, O2 Flow Rate 15.0 . Vital Sign Comment: EKG Rhythm: Sinus Tachycardia Rhythm change?: MD Notified?: - MD Response: Latest Daly Fall Score: 100 Fall Risk: High Risk Safety Measures: Call light Within Reach, Bed Alarm Zone 2, Side Rails Side Rails x3, Bed position Low and Locked. Fall Precautions: Yellow Socks Yellow Gown Door Sign Patient Fall Education Report given to Kelvin RN.
--- NOTE | 2020-10-16 19:41 | NUR ---
NURSE NOTES: The patient is alert and oriented x2 and is presently on a non-rebreather @ 15 liters with Spo2 @ 95 %. She was responsive with a slow voice.The patient is on a Bilateral soft wrist restraint due to agitations and risks of taking off her non-rebreather. She has a left hand 22g that is patent and asymptomatic.The bed in low level and call light within reach. will continue to monitor as indicated.
--- NOTE | 2020-10-16 19:52 | CDS Physician Query ---
Clarification is required for compliance, coding accuracy, and to reflect severity of illness for this patient Dear Dr. Ike Nicholas MD.. Date: 10/16/20 CDIS: Yoni Gunn Clinical Documentation Statement: 60 year old woman admitted with Covid Pneumonia and UTI,she c/o right-sided hip pain,worse with movement. Had recent ER visit at [facility] - diagnosed with urinary tract infection. Had previous history of CVA - longstanding left-sided weakness. She states that she has been having increased pain to the right hip. Previous x-ray imaging showed degenerative changes to both hips as well as a healed left pubic ramus fracture. Impression: Covid Pneumonia UTI Uncontrolled diabetes mellitus 2019 novel coronavirus disease (COVID-19) Renal insufficiency Dehydration Rhabdomyolysis due to COVID-19 Possible Cirrhosis Clinical Finding Show: LAB (10/10) :Glucose 401, Sodium 135, Chloride 100, Creatinine 1.6 Medication: Insulin SUBQ (10/10) , A [id number] relationship between diagnoses may not be assumed and coded unless documented as such by the attending physician. Please document the [id number] relationship, if any, between these conditions. Please specify type of uncontrolled diabetes mellitus as: [ ] Out of control Diabetes Type I [ ] Out of control Diabetes Type II [ ] Type I or Juvenile Diabetes with Hyperosmolarity [ ] Type II with Hyperosmolarity [ ] Type I or Juvenile Diabetic Ketoacidosis (DKA) [ ] Type II Diabetic Ketoacidosis (DKA) [ ] Type 1 diabetes mellitus with ketoacidosis with coma [ ] Type 2 diabetes mellitus with ketoacidosis with coma [ ] Other: Present on Admission: [] Yes [] No [] Clinically Undetermined Physician signature Date Please also document in your Progress Notes and/or Discharge Summary and indicate if the condition was present on admission. MTDD
[2020-10-16 20:00] VITALS: BP 141/78
--- NOTE | 2020-10-16 20:02 | CDS Physician Query ---
Clarification is required for compliance, coding accuracy, and to reflect severity of illness for this patient Dear Dr. Ike Nicholas MD.. Date: 10/16/20 CDIS: Yoni Gunn Clinical Documentation Statement: 60 year old woman admitted with Covid Pneumonia and UTI,she c/o right-sided hip pain,worse with movement. Had recent ER visit at [facility] - diagnosed with urinary tract infection. Had previous history of CVA - longstanding left-sided weakness. She states that she has been having increased pain to the right hip. Previous x-ray imaging showed degenerative changes to both hips as well as a healed left pubic ramus fracture. Impression: Covid Pneumonia UTI Uncontrolled diabetes mellitus 2019 novel coronavirus disease (COVID-19) Renal insufficiency Dehydration Rhabdomyolysis due to COVID-19 Possible Cirrhosis Clinical Finding Show: 10/10 10/13 17.25 05:00 Creatinine 1.6 1.0 BUN 70 40 GFR 40.9 56.8 Medication:Sodium Chloride IV Please Clarify the type of renal failure below: Etiology [] Acute Renal Failure w/ Tubular Necrosis [] Acute Renal Failure w/ Cortical Necrosis [] Acute Renal Failure w/ Medullary Necrosis [] Acute Renal Failure (unspecified) [] Other: If Chronic, please specify the stage: [] CKD Stage 1 [] CKD Stage 2 [] CKD Stage 3 [] CKD Stage 4 [] CKD Stage 5 [] ESRD [] Not applicable Present on Admission: [] Yes [] No [] Clinically Undetermined Physician signature Date Please also document in your Progress Notes and/or Discharge Summary and indicate if the condition was present on admission. LOLAD
[2020-10-16] MEDS: Levemir Flexpen SUBQ SCH (20:54)
--- NOTE | 2020-10-16 21:39 | NUR ---
NURSE NOTES: The patient became bradycardia @ 31 bpm and preceded to Asystole., the patient was quickly assess and it was discover that her non-rebreather was not connected to her face. It was quickly attached to her face and the patient immediately reposition with instant improvement noted as indicated. Dr. Szymanski was notified as indicated.
--- NOTE | 2020-10-16 22:00 | Psychiatric Progress Note ---
Psychiatry Progress Note Psychiatry Progress Note Medications Current Medications Medications (Trade) Dose Ordered Sig/Hernando Route PRN Reason Start Time Stop Time Status Last Admin Dose Admin Acetaminophen (Tylenol) 650 mg Q4H PRN ORAL Mild Pain (Pain Scale 1-3) 10/10/20 21:15 11/09/20 21:14 10/14/20 13:28 Acetaminophen (Tylenol) 650 mg Q4H PRN ORAL Temp >100.5 10/10/20 21:15 11/09/20 21:14 10/16/20 17:25 Albuterol Sulfate (Proventil MDI) 2 puff Q4H PRN INH Shortness of Breath 10/10/20 21:30 01/08/21 21:29 Clonidine HCl (Catapres Tab) 0.1 mg Q4H PRN ORAL for SBP >150 10/14/20 11:30 01/12/21 11:29 10/14/20 11:25 Dexamethasone (Decadron) 6 mg DAILY ORAL 10/16/20 12:00 10/25/20 09:01 10/16/20 12:20 Dextrose (Dextrose 50%) 25 ml Q30M PRN IV Hypoglycemia 10/10/20 21:15 01/08/21 21:14 Dextrose (Dextrose 50%) 50 ml Q30M PRN IV Hypoglycemia 10/10/20 21:15 01/08/21 21:14 Docusate Sodium (Colace) 100 mg EVERY 12 HOURS ORAL 10/11/20 09:00 11/10/20 08:59 10/16/20 20:48 Enoxaparin Sodium (Lovenox) 30 mg Q24H SUBQ 10/10/20 22:15 01/08/21 22:14 10/15/20 22:56 Famotidine (Pepcid) 20 mg DAILY ORAL 10/12/20 09:00 01/10/21 08:59 10/16/20 10:12 Haloperidol Lactate (Haldol) 5 mg Q6H PRN IM Agitation 10/13/20 16:15 11/27/20 16:14 Insulin Aspart (NovoLOG) BEFORE MEALS AND HS SUBQ 10/11/20 06:30 01/09/21 06:29 10/16/20 20:55 Insulin Detemir (Levemir) 10 units BEDTIME SUBQ 10/11/20 21:00 01/09/21 20:59 10/16/20 20:54 Ondansetron HCl (Zofran) 4 mg Q6H PRN IVP Nausea & Vomiting 10/10/20 21:15 11/09/20 21:14 Remdesivir 100 mg/ Sodium Chloride 250 ml @ 250 mls/hr Q24H IV 10/17/20 16:00 10/20/20 16:59 Sodium Chloride 1,000 ml @ 100 mls/hr Q10H IV 10/16/20 13:45 11/15/20 13:44 10/16/20 14:09 Neurological/Psychiatric: Reports: anxiety, depressed, emotional problems Allergies: Coded Allergies: WARFARIN (Verified Allergy, Unknown, 03/03/19) Objective Data Height (Feet): 5 Height (Inches): 3.00 Weight (Pounds): 125 Additional Comments: MENTAL STATUS EXAMINATION: The patient is awake, oriented to self, place, uncooperative, and mood is neutral and anxious. Affect is blunted. Thought process, there is a paucity of thought content. The patient appears to be delusional. Cognition is impaired. Insight and judgment Impulse control poor. Assessment/Plan Assessment/Plan: ASSESSMENT: [place] I Acute toxic encephalopathy. Psychotic disorder. Rule out dementia. [place] II Deferred. Macomb III COVID-19. Macomb IV Low. Macomb V 20 PLAN: 1. We will start the patient on low dose of antipsychotics. 2. Continue the restraints. 3. Discussed with the primary team. Frank Chacon MD Oct 16, 2020 22:00
[2020-10-16] MEDS: Enoxaparin 30mg Inj SUBQ SCH (22:15)
[2020-10-17] VITALS (17 sets, daily range): BP systolic 80–177; BP diastolic 28–127
[2020-10-17] MEDS: NovoLOG Insulin Flexpen SUBQ SCH ×4 (06:29→20:56)
--- NOTE | 2020-10-17 07:07 | NUR ---
NURSE HAND-OFF REPORT: Important Events on Shift:She went asystole last night after taking off her non-rebrether mask Patient Status: Diet: Pending Orders: Pending Results/Labs: Pending MD notification: Latest Vital Signs: Temperature 98.3 , Pulse 64 , B/P 147 /76 , Respiratory Rate 19 , O2 SAT 95 , Nasal Cannula, O2 Flow Rate 15.0 . Vital Sign Comment: EKG Rhythm: Sinus Rhythm Rhythm change?: N MD Notified?: Niurka Szymanski MD Response: Latest Daly Fall Score: 100 Fall Risk: High Risk Safety Measures: Call light Within Reach, Bed Alarm Zone 2, Side Rails Side Rails x3, Bed position Low and Locked. Fall Precautions: Yellow Socks Yellow Gown Door Sign Patient Fall Education Report given to .
--- NOTE | 2020-10-17 07:19 | NUR ---
NURSE NOTES: Report received from Kelvin RN. Patient seen on rounds, awake and responsive, sitting up in bed. On O2 at 15lpm via NRM, sats 98%, no signs of distress. No complaints of pain. PIV on left hand patent and infusing 1/2 NS at 100ml/hr. Noted bilateral soft wrist restraints with good circulation, peripheral pulses palpable. Pure wick on and draining. Bed low and locked, siderails up x2, zone alarms on 1, will continue to monitor.
[2020-10-17] MEDS: Docusate 100mg cap ORAL SCH ×2 (09:19→20:55)
[2020-10-17 09:36] LABS: HEMATOCRIT 35.1 % (37.0-47.0); HEMOGLOBIN 10.1 G/DL (12.0-16.0); MEAN CORPUSCULAR VOLUME 78 FL (80-99); PLATELET COUNT 129 K/UL (150-450); RED BLOOD COUNT 4.52 M/UL (4.20-5.40); RED CELL DISTRIBUTION WIDTH 20.6 % (11.6-14.8); WHITE BLOOD COUNT 7.4 K/UL (4.8-10.8)
[2020-10-17 09:54] LABS: ALBUMIN 2.2 G/DL (3.4-5.0); ALBUMIN/GLOBULIN RATIO 0.5 (1.0-2.7); BILIRUBIN,DIRECT 0.3 MG/DL (0.0-0.3); BILIRUBIN,TOTAL 0.4 MG/DL (0.2-1.0); CALCIUM 8.3 MG/DL (8.5-10.1); CREATININE 1.3 MG/DL (0.55-1.30); POTASSIUM 4.3 MMOL/L (3.5-5.1)
--- NOTE | 2020-10-17 10:29 | NUR ---
NURSE NOTES: 6 seconds sinus pause per compliance monitor
--- NOTE | 2020-10-17 11:30 | NUR ---
NURSE NOTES: Pt noted again with bradycarda 31bpm, went to assess, pt noted very lethargic and shallow breathing, sats 77%, patient removed mask. Non-rebreather reapplied and patient started to improve, sats back up to 92% and patient became more responsive. STAT ABG drawn and resulted, events relayed to Dr. Szymanski. Received orders to transfer to [facility] and put on high flow. Orders noted and carried out.
--- NOTE | 2020-10-17 12:13 | NUR ---
NURSE NOTES: Received Pt from DOMINIC Diop from [facility]. Pt is confused, pulling at NRB mask. Upon arrival Pt was 83% spo2 on 15LPM NRB, called RT to see Pt. pt is now 93% spo2 on NRB. RECYCLE COORDINATOR is bedside at this time assisting Pt. Pt belongings accounted for w/ DOMINIC Diop. pt had medications bedside, taken to pharmacy, #[id number]. Pt skin intact. IV on L wrist was leaking and bleeding, asked DOMINIC Diop for IV insertion. Pt is on B soft wrist restraints for pulling of medical devices and fall risk, constantly trying to get out of bed. Pt bed low and locked, call light in reach and bed alarm on.
--- NOTE | 2020-10-17 12:33 | NUR ---
NURSE NOTES: Patient transferred to SDU per Dr. Szymanski, report given to Jen ALFARO. Belongings transferred.
--- NOTE | 2020-10-17 12:41 | NUR ---
NURSE NOTES: Called Adan RAMIREZ to place Pt on highflow O2. Pt currently 91-93% spo2 on NRB 15LPM
--- NOTE | 2020-10-17 13:26 | NUR ---
RESPIRATORY NOTES PT found with HFNC taken off. Code blue called by me. PT was bradycardic and apneic. PT was ventilated via 100% ambubag. Pulse returned within one minute of compressions. PT immediately intubated with 7.5 ETT @23cm lipine. PT then transferred to ICU.
--- NOTE | 2020-10-17 13:58 | Emergency Room Report ---
Physical Exam Called for Code Blue. 1326 Patient not breathing on high flow O2. Apparently last night had bradycardic event felt to be related to respiratory status. Patient had pulses and no meds given. Return of respirations with assisted ventilation, however continued hypoxia. Last 24 Hour Vital Signs Date Time Temp Pulse Resp B/P (MAP) Pulse Ox O2 Delivery O2 Flow Rate FiO2 10/17/20 12:00 79 10/17/20 12:00 97.2 81 22 141/73 (95) 92 10/17/20 09:00 Non-Rebreather 15.0 10/17/20 08:00 62 10/17/20 08:00 96.4 73 19 128/82 (97) 94 10/17/20 04:00 98.3 66 19 147/76 (99) 95 10/17/20 04:00 64 10/17/20 00:00 98.3 76 20 148/84 (105) 98 10/17/20 00:00 66 10/16/20 21:00 Non-Rebreather 15.0 10/16/20 20:12 96 Non-Rebreather 15.0 100 10/16/20 20:00 79 10/16/20 20:00 98.2 72 21 141/78 (99) 96 10/16/20 17:55 99.7 10/16/20 16:00 100.4 84 18 139/78 (98) 97 Sp02 EP Interpretation: reviewed, abnormal - Hypoxic as interpreted by me General Appearance: moderate distress Head: normocephalic Eyes: bilateral eye normal inspection, bilateral eye PERRL ENT: other - green mucoid secretions, otherwise dry membs Neck: full range of motion, supple Respiratory: respiratory distress Cardiovascular #1: tachycardia Gastrointestinal: normal inspection Musculoskeletal: other - Flaccid Neurologic: motor weakness - diffuse, other - Not following commands Psychiatric: anxious - In morning Skin: cyanosis, mottled CPR/Code Blue CPR/Code Blue Narrative Code called for respiratory arrest. No CPR performed. Intubation Intubation : Consent: Emergent Time of Intubation: 13:32 Tube Size (cm): 7.5 - 23 gums Medications: Etomidate Breath Sounds after Intubation: equal Intubation Complications: no complications Post Intubation Xray: Yes Progress/Xray Impression: ET tube 2.5 cm above the ivone with bilateral infiltrates Attempts: One Patient Tolerated: Well Complications: None Medical Decision Making Diagnostic Impression: Primary Impression: Respiratory arrest Additional Impressions: 2019 novel coronavirus disease (COVID-19) Hypernatremia Hyperglycemia ER Course Patient on BiPAP with respiratory arrest. Pulmonary was present and able to assist ventilations. Due to the history of a bradycardic event yesterday and continued hypoxemia intubation was indicated. Patient was intubated after 7 mg of etomidate were administered. There is color change on the CO2 monitor. Breath sounds bilateral Tube was secured by myself and respiratory therapy. Restraints were ordered and also verbal order for first set given. Patient transferred to the intensive care unit. Laboratory Tests Test 10/15/20 16:42 10/15/20 22:30 10/16/20 05:24 10/16/20 10:05 POC Whole Blood Glucose 161 MG/DL (74-106) H Pending Arterial Blood pH 7.372 (7.350-7.450) Arterial Blood Partial Pressure CO2 29.1 mmHg (35.0-45.0) L Arterial Blood Partial Pressure O2 68.7 mmHg (75.0-100.0) L Arterial Blood HCO3 16.5 mmol/L (22.0-26.0) *L Arterial Blood Oxygen Saturation 92.6 % (95-100) L Arterial Blood Base Excess -7.4 (-2-2) L Francisco Test White Blood Count 7.8 K/UL (4.8-10.8) Red Blood Count 4.75 M/UL (4.20-5.40) Hemoglobin 10.6 G/DL (12.0-16.0) L Hematocrit 36.6 % (37.0-47.0) L Mean Corpuscular Volume 77 FL (80-99) L Mean Corpuscular Hemoglobin 22.3 PG (27.0-31.0) L Mean Corpuscular Hemoglobin Concent 29.0 G/DL (32.0-36.0) L Red Cell Distribution Width 19.6 % (11.6-14.8) H Platelet Count 187 K/UL (150-450) Mean Platelet Volume 7.8 FL (6.5-10.1) Neutrophils (%) (Auto) 82.9 % (45.0-75.0) H Lymphocytes (%) (Auto) 11.9 % (20.0-45.0) L Monocytes (%) (Auto) 4.7 % (1.0-10.0) Eosinophils (%) (Auto) 0.3 % (0.0-3.0) Basophils (%) (Auto) 0.2 % (0.0-2.0) Sodium Level 147 MMOL/L (136-145) H Potassium Level 4.2 MMOL/L (3.5-5.1) Chloride Level 114 MMOL/L (98-107) H Carbon Dioxide Level 23 MMOL/L (21-32) Anion Gap 10 mmol/L (5-15) Blood Urea Nitrogen 72 mg/dL (7-18) H Creatinine 1.2 MG/DL (0.55-1.30) Estimated Glomerular Filtration Rate 46.0 mL/min (>60) Glucose Level 144 MG/DL (74-106) H Calcium Level 7.9 MG/DL (8.5-10.1) L Total Bilirubin 0.5 MG/DL (0.2-1.0) Aspartate Amino Transferase (AST) 103 U/L (15-37) H Alanine Aminotransferase (ALT) 54 U/L (12-78) Alkaline Phosphatase 151 U/L (46-116) H Total Protein 6.5 G/DL (6.4-8.2) Albumin 2.5 G/DL (3.4-5.0) L Globulin 4.0 g/dL Albumin/Globulin Ratio 0.6 (1.0-2.7) L Test 10/16/20 10:44 10/16/20 11:38 10/16/20 16:52 10/16/20 18:50 Arterial Blood pH 7.423 (7.350-7.450) 7.387 (7.350-7.450) Arterial Blood Partial Pressure CO2 32.6 mmHg (35.0-45.0) L 29.7 mmHg (35.0-45.0) L Arterial Blood Partial Pressure O2 77.7 mmHg (75.0-100.0) 51.8 mmHg (75.0-100.0) L Arterial Blood HCO3 20.8 mmol/L (22.0-26.0) L 17.5 mmol/L (22.0-26.0) *L Arterial Blood Oxygen Saturation 94.6 % (95-100) L 85.0 % (95-100) *L Arterial Blood Base Excess -2.9 (-2-2) L -6.4 (-2-2) L Francisco Test Positive Positive POC Whole Blood Glucose 189 MG/DL (74-106) H 285 MG/DL (74-106) H Test 10/16/20 20:50 10/17/20 05:36 10/17/20 09:10 10/17/20 10:26 POC Whole Blood Glucose 363 MG/DL (74-106) H 234 MG/DL (74-106) H White Blood Count 7.4 K/UL (4.8-10.8) Red Blood Count 4.52 M/UL (4.20-5.40) Hemoglobin 10.1 G/DL (12.0-16.0) L Hematocrit 35.1 % (37.0-47.0) L Mean Corpuscular Volume 78 FL (80-99) L Mean Corpuscular Hemoglobin 22.4 PG (27.0-31.0) L Mean Corpuscular Hemoglobin Concent 28.8 G/DL (32.0-36.0) L Red Cell Distribution Width 20.6 % (11.6-14.8) H Platelet Count 129 K/UL (150-450) L Mean Platelet Volume 7.6 FL (6.5-10.1) Neutrophils (%) (Auto) % (45.0-75.0) Lymphocytes (%) (Auto) % (20.0-45.0) Monocytes (%) (Auto) % (1.0-10.0) Eosinophils (%) (Auto) % (0.0-3.0) Basophils (%) (Auto) % (0.0-2.0) Differential Total Cells Counted 100 Neutrophils % (Manual) 96 % (45-75) H Lymphocytes % (Manual) 3 % (20-45) L Monocytes % (Manual) 1 % (1-10) Eosinophils % (Manual) 0 % (0-3) Basophils % (Manual) 0 % (0-2) Band Neutrophils 0 % (0-8) Platelet Estimate Decreased L Platelet Morphology Normal Hypochromasia 1+ Anisocytosis 2+ Sodium Level 146 MMOL/L (136-145) H Potassium Level 4.3 MMOL/L (3.5-5.1) Chloride Level 114 MMOL/L (98-107) H Carbon Dioxide Level 23 MMOL/L (21-32) Anion Gap 9 mmol/L (5-15) Blood Urea Nitrogen 76 mg/dL (7-18) H Creatinine 1.3 MG/DL (0.55-1.30) Estimated Glomerular Filtration Rate 41.9 mL/min (>60) Glucose Level 256 MG/DL (74-106) #H Calcium Level 8.3 MG/DL (8.5-10.1) L Total Bilirubin 0.4 MG/DL (0.2-1.0) Direct Bilirubin 0.3 MG/DL (0.0-0.3) Aspartate Amino Transferase (AST) 67 U/L (15-37) H Alanine Aminotransferase (ALT) 34 U/L (12-78) Alkaline Phosphatase 173 U/L (46-116) H Total Protein 6.4 G/DL (6.4-8.2) Albumin 2.2 G/DL (3.4-5.0) L Globulin 4.2 g/dL Albumin/Globulin Ratio 0.5 (1.0-2.7) L Arterial Blood pH 7.398 (7.350-7.450) Arterial Blood Partial Pressure CO2 32.9 mmHg (35.0-45.0) L Arterial Blood Partial Pressure O2 56.6 mmHg (75.0-100.0) L Arterial Blood HCO3 19.8 mmol/L (22.0-26.0) L Arterial Blood Oxygen Saturation 88.7 % (95-100) *L Arterial Blood Base Excess -4.2 (-2-2) L Francisco Test Positive Test 10/17/20 12:35 POC Whole Blood Glucose 344 MG/DL (74-106) H Rhythm Strip Diag. Results EP Interpretation: yes Rhythm: no PVC's, no ectopy, other - ST Chest X-Ray Diagnostic Results Chest X-Ray Diagnostic Results : Chest X-Ray Ordered: Yes # of Views/Limited/Complete: 1 View Indication: Other EP Interpretation: Yes Interpretation: no effusion, no pneumothorax, other - Bilateral infiltrates and endotracheal tube 2.5 cm above the ivone Impression: Other Electronically Signed by: Electronically signed by Ike Carpio MD Last Vital Signs Date Time Temp Pulse Resp B/P (MAP) Pulse Ox O2 Delivery O2 Flow Rate FiO2 10/17/20 15:25 93 36 100 10/17/20 13:52 100 Mechanical Ventilator 10/17/20 13:00 55.0 10/17/20 12:00 97.2 141/73 (95) Status: improved Disposition: ADMITTED INPATIENT Condition: Critical Referrals: [facility],REFRudolph (PCP) Ike Carpio MD Oct 17, 2020 13:58
--- NOTE | 2020-10-17 14:00 | NUR ---
TRANSFER TO FLOOR: Patient transferred to ICU, per Dr Szymanski, s/p intubation. Report given to DOMINIC Conley. Belongings and medications given. No family to notify.
--- NOTE | 2020-10-17 14:55 | Infectious Diseases Prog Note ---
Assessment/Plan Assessment/Plan A: 1. Hypoxic respiratory failure 2. COVID19 pneumonia. 3. DM with hyperglycemia 4. Cirrhosis 5. HPN PLAN: 1. Continue Remdesivir & Remdesivir 2. Continue isolation 3. Start on Rocephin Subjective ROS Limited/Unobtainable: Yes Respiratory: Reports: other - had respiratory arrest, intubated, trasferred tp ICU Neurologic: Reports: confusion, other - on restraint Allergies: Coded Allergies: WARFARIN (Verified Allergy, Unknown, 03/03/19) Objective Last 24 Hour Vital Signs Date Time Temp Pulse Resp B/P (MAP) Pulse Ox O2 Delivery O2 Flow Rate FiO2 10/17/20 13:52 83 34 100 Mechanical Ventilator 100 10/17/20 13:52 83 34 100 10/17/20 13:00 92 High Flow 55.0 100 10/17/20 12:00 79 10/17/20 12:00 97.2 81 22 141/73 (95) 92 10/17/20 09:00 Non-Rebreather 15.0 10/17/20 08:00 62 10/17/20 08:00 96.4 73 19 128/82 (97) 94 10/17/20 07:00 94 Non-Rebreather 15.0 100 10/17/20 04:00 98.3 66 19 147/76 (99) 95 10/17/20 04:00 64 10/17/20 00:00 98.3 76 20 148/84 (105) 98 10/17/20 00:00 66 10/16/20 21:00 Non-Rebreather 15.0 10/16/20 20:12 96 Non-Rebreather 15.0 100 10/16/20 20:00 79 10/16/20 20:00 98.2 72 21 141/78 (99) 96 10/16/20 17:55 99.7 10/16/20 16:00 100.4 84 18 139/78 (98) 97 Height (Feet): 5 Height (Inches): 3.00 Weight (Pounds): 125 HEENT: other - orally intubated Respiratory/Chest: other - on ventilator Cardiovascular: tachycardia Abdomen: soft, non tender Extremities: no edema Neurologic/Psychiatric: other - restless Laboratory Tests Test 10/16/20 16:52 1/15/21 18:50 10/16/20 20:50 10/17/20 05:36 POC Whole Blood Glucose 285 MG/DL (74-106) H 363 MG/DL (74-106) H 234 MG/DL (74-106) H Arterial Blood pH 7.387 (7.350-7.450) Arterial Blood Partial Pressure CO2 29.7 mmHg (35.0-45.0) L Arterial Blood Partial Pressure O2 51.8 mmHg (75.0-100.0) L Arterial Blood HCO3 17.5 mmol/L (22.0-26.0) *L Arterial Blood Oxygen Saturation 85.0 % (95-100) *L Arterial Blood Base Excess -6.4 (-2-2) L Francisco Test Positive Test 10/17/20 09:10 10/17/20 10:26 10/17/20 12:35 White Blood Count 7.4 K/UL (4.8-10.8) Red Blood Count 4.52 M/UL (4.20-5.40) Hemoglobin 10.1 G/DL (12.0-16.0) L Hematocrit 35.1 % (37.0-47.0) L Mean Corpuscular Volume 78 FL (80-99) L Mean Corpuscular Hemoglobin 22.4 PG (27.0-31.0) L Mean Corpuscular Hemoglobin Concent 28.8 G/DL (32.0-36.0) L Red Cell Distribution Width 20.6 % (11.6-14.8) H Platelet Count 129 K/UL (150-450) L Mean Platelet Volume 7.6 FL (6.5-10.1) Neutrophils (%) (Auto) % (45.0-75.0) Lymphocytes (%) (Auto) % (20.0-45.0) Monocytes (%) (Auto) % (1.0-10.0) Eosinophils (%) (Auto) % (0.0-3.0) Basophils (%) (Auto) % (0.0-2.0) Differential Total Cells Counted 100 Neutrophils % (Manual) 96 % (45-75) H Lymphocytes % (Manual) 3 % (20-45) L Monocytes % (Manual) 1 % (1-10) Eosinophils % (Manual) 0 % (0-3) Basophils % (Manual) 0 % (0-2) Band Neutrophils 0 % (0-8) Platelet Estimate Decreased L Platelet Morphology Normal Hypochromasia 1+ Anisocytosis 2+ Sodium Level 146 MMOL/L (136-145) H Potassium Level 4.3 MMOL/L (3.5-5.1) Chloride Level 114 MMOL/L (98-107) H Carbon Dioxide Level 23 MMOL/L (21-32) Anion Gap 9 mmol/L (5-15) Blood Urea Nitrogen 76 mg/dL (7-18) H Creatinine 1.3 MG/DL (0.55-1.30) Estimat Glomerular Filtration Rate 41.9 mL/min (>60) Glucose Level 256 MG/DL (74-106) #H Calcium Level 8.3 MG/DL (8.5-10.1) L Total Bilirubin 0.4 MG/DL (0.2-1.0) Direct Bilirubin 0.3 MG/DL (0.0-0.3) Aspartate Amino Transf (AST/SGOT) 67 U/L (15-37) H Alanine Aminotransferase (ALT/SGPT) 34 U/L (12-78) Alkaline Phosphatase 173 U/L (46-116) H Total Protein 6.4 G/DL (6.4-8.2) Albumin 2.2 G/DL (3.4-5.0) L Globulin 4.2 g/dL Albumin/Globulin Ratio 0.5 (1.0-2.7) L Arterial Blood pH 7.398 (7.350-7.450) Arterial Blood Partial Pressure CO2 32.9 mmHg (35.0-45.0) L Arterial Blood Partial Pressure O2 56.6 mmHg (75.0-100.0) L Arterial Blood HCO3 19.8 mmol/L (22.0-26.0) L Arterial Blood Oxygen Saturation 88.7 % (95-100) *L Arterial Blood Base Excess -4.2 (-2-2) L Francisco Test Positive POC Whole Blood Glucose 344 MG/DL (74-106) H Current Medications Medications (Trade) Dose Ordered Sig/Hernando Route PRN Reason Start Time Stop Time Status Last Admin Dose Admin Acetaminophen (Tylenol) 650 mg Q4H PRN ORAL Mild Pain (Pain Scale 1-3) 10/10/20 21:15 11/09/20 21:14 10/14/20 13:28 Acetaminophen (Tylenol) 650 mg Q4H PRN ORAL Temp >100.5 10/10/20 21:15 11/09/20 21:14 10/16/20 17:25 Albuterol Sulfate (Proventil MDI) 2 puff Q4H PRN INH Shortness of Breath 10/10/20 21:30 01/08/21 21:29 Clonidine HCl (Catapres Tab) 0.1 mg Q4H PRN ORAL for SBP >150 10/14/20 11:30 01/12/21 11:29 10/14/20 11:25 Dexamethasone (Decadron) 6 mg DAILY ORAL 10/16/20 12:00 10/25/20 09:01 10/17/20 09:18 Dextrose (Dextrose 50%) 25 ml Q30M PRN IV Hypoglycemia 10/10/20 21:15 01/08/21 21:14 Dextrose (Dextrose 50%) 50 ml Q30M PRN IV Hypoglycemia 10/10/20 21:15 01/08/21 21:14 Docusate Sodium (Colace) 100 mg EVERY 12 HOURS ORAL 10/11/20 09:00 11/10/20 08:59 10/17/20 09:19 Enoxaparin Sodium (Lovenox) 30 mg Q24H SUBQ 10/10/20 22:15 01/08/21 22:14 10/16/20 22:15 Famotidine (Pepcid) 20 mg DAILY ORAL 10/12/20 09:00 01/10/21 08:59 10/17/20 09:19 Haloperidol Lactate (Haldol) 5 mg Q6H PRN IM Agitation 10/13/20 16:15 11/27/20 16:14 Insulin Aspart (NovoLOG) BEFORE MEALS AND HS SUBQ 10/11/20 06:30 01/09/21 06:29 10/17/20 12:00 Insulin Detemir (Levemir) 10 units BEDTIME SUBQ 10/11/20 21:00 01/09/21 20:59 10/16/20 20:54 Ondansetron HCl (Zofran) 4 mg Q6H PRN IVP Nausea & Vomiting 10/10/20 21:15 11/09/20 21:14 Remdesivir 100 mg/ Sodium Chloride 250 ml @ 250 mls/hr Q24H IV 10/17/20 16:00 10/20/20 16:59 Sodium Chloride 1,000 ml @ 100 mls/hr Q10H IV 10/16/20 13:45 11/15/20 13:44 10/16/20 23:45 Yash Ashley MD Oct 17, 2020 14:54
--- NOTE | 2020-10-17 15:16 | Diagnostic Imaging Report ---
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 The endotracheal tube tip is 1.8 cm above the ivone. EXAM: XR Chest, 1 View CLINICAL HISTORY: F/U TECHNIQUE: Frontal view of the chest. COMPARISON: Chest x-rays dated 10/16/20. FINDINGS: Lungs: No significant change in prominent reticular interstitial markings and subtle hazy densities in bilateral lungs. Pleural space: Unremarkable. The costophrenic angles are sharp. No visible pneumothorax. Heart: Unremarkable. No cardiomegaly. Mediastinum: Unremarkable. Bones/joints: Unremarkable. Vasculature: Atherosclerotic calcifications within the aortic arch. Tubes, lines and devices: Endotracheal tube tip 1.8 seem above the ivone. Telemetry leads overlie the thorax. IMPRESSION: 1. Endotracheal tube tip 1.8 seem above the ivone. 2. No significant change in prominent reticular interstitial markings and subtle hazy densities in bilateral lungs. <MYCVCSECTION> Communications: 10/17/20 15:28 Call From [facility] on 10/17 15:25 (-08: 00)
--- NOTE | 2020-10-17 15:55 | General Progress Note ---
Subjective ROS Limited/Unobtainable: Yes Allergies: Coded Allergies: WARFARIN (Verified Allergy, Unknown, 03/03/19) Subjective noted care noted changes s/p CPA and now intubated significant acidemia worsened overnight Objective Last 24 Hour Vital Signs Date Time Temp Pulse Resp B/P (MAP) Pulse Ox O2 Delivery O2 Flow Rate FiO2 10/17/20 13:52 83 34 100 Mechanical Ventilator 100 10/17/20 13:52 83 34 100 10/17/20 13:00 92 High Flow 55.0 100 10/17/20 12:00 79 10/17/20 12:00 97.2 81 22 141/73 (95) 92 10/17/20 09:00 Non-Rebreather 15.0 10/17/20 08:00 62 10/17/20 08:00 96.4 73 19 128/82 (97) 94 10/17/20 07:00 94 Non-Rebreather 15.0 100 10/17/20 04:00 98.3 66 19 147/76 (99) 95 10/17/20 04:00 64 10/17/20 00:00 98.3 76 20 148/84 (105) 98 10/17/20 00:00 66 10/16/20 21:00 Non-Rebreather 15.0 10/16/20 20:12 96 Non-Rebreather 15.0 100 10/16/20 20:00 79 10/16/20 20:00 98.2 72 21 141/78 (99) 96 10/16/20 17:55 99.7 10/16/20 16:00 100.4 84 18 139/78 (98) 97 Intake and Output 10/16/20 10/17/20 19:00 07:00 Intake Total 100 ml 1250 ml Output Total 850 ml Balance 100 ml 400 ml Intake Oral 50 ml IV Total 100 ml 1200 ml Output Urine Total 850 ml Laboratory Tests 10/16/20 16:52: POC Whole Blood Glucose 285H 10/16/20 18:50: Arterial Blood pH 7.387, Arterial Blood Partial Pressure CO2 29.7L, Arterial Blood Partial Pressure O2 51.8L, Arterial Blood HCO3 17.5*L, Arterial Blood Oxygen Saturation 85.0*L, Arterial Blood Base Excess -6.4L, Francisco Test Positive 10/16/20 20:50: POC Whole Blood Glucose 363H 10/17/20 05:36: POC Whole Blood Glucose 234H 10/17/20 09:10: White Blood Count 7.4, Red Blood Count 4.52, Hemoglobin 10.1L, Hematocrit 35.1L, Mean Corpuscular Volume 78L, Mean Corpuscular Hemoglobin 22.4L, Mean Corpuscular Hemoglobin Concent 28.8L, Red Cell Distribution Width 20.6H, Platelet Count 129L , Mean Platelet Volume 7.6, Neutrophils (%) (Auto) , Lymphocytes (%) (Auto) , Monocytes (%) (Auto) , Eosinophils (%) (Auto) , Basophils (%) (Auto) , Differential Total Cells Counted 100, Neutrophils % (Manual) 96H, Lymphocytes % (Manual) 3L, Monocytes % (Manual) 1, Eosinophils % (Manual) 0, Basophils % (Manual) 0, Band Neutrophils 0, Platelet Estimate DecreasedL, Platelet Morphology Normal, Hypochromasia 1+, Anisocytosis 2+, Sodium Level 146H, Potassium Level 4.3, Chloride Level 114H, Carbon Dioxide Level 23, Anion Gap 9, Blood Urea Nitrogen 76H, Creatinine 1.3, Estimat Glomerular Filtration Rate 41.9, Glucose Level 256#H, Calcium Level 8.3L, Total Bilirubin 0.4, Direct Bilirubin 0.3, Aspartate Amino Transf (AST/SGOT) 67H, Alanine Aminotransferase (ALT/SGPT) 34, Alkaline Phosphatase 173H, Total Protein 6.4, Albumin 2.2L, Globulin 4.2, Albumin/Globulin Ratio 0.5L 10/17/20 10:26: Arterial Blood pH 7.398, Arterial Blood Partial Pressure CO2 32.9L, Arterial Blood Partial Pressure O2 56.6L, Arterial Blood HCO3 19.8L, Arterial Blood Oxygen Saturation 88.7*L, Arterial Blood Base Excess -4.2L, Francisco Test Positive 10/17/20 12:35: POC Whole Blood Glucose 344H 10/17/20 15:07: Arterial Blood pH 7.097*L, Arterial Blood Partial Pressure CO2 60.3*H, Arterial Blood Partial Pressure O2 45.3*L, Arterial Blood HCO3 18.2L, Arterial Blood Oxygen Saturation 62.7*L, Arterial Blood Base Excess -11.8*L, Francisco Test Positive Height (Feet): 5 Height (Inches): 3.00 Weight (Pounds): 125 Objective deferred due to COVID Assessment/Plan Assessment/Plan: Impression: Covid Pneumonia UTI Uncontrolled diabetes mellitus 2019 novel coronavirus disease (COVID-19) Renal insufficiency Dehydration Rhabdomyolysis due to COVID-19 Possible Cirrhosis acute hypoxemic respiratory failure s/p intubation acidemia Plan - 100% oxygen hypervent follow up CXR and ABG follow up labs intensify therapy IV antibiotics d/w ID DVT prophylaxis critical medications/laboratory data/nursing notes/ICU care reviewed in detail note reviewed and edited care discussed with RN and RT ICU time spent >40 minutes Terence Szymanski MD Oct 17, 2020 15:55
[2020-10-17] MEDS: Maintenance Dose:Remdesivir 100mg/NS 230ml x 4 Doses IV SCH ×2 (16:00)
--- NOTE | 2020-10-17 16:45 | NUR ---
NURSE NOTES: Received patient from [facility] s/p Karl Banda. Responded to the Code Blue. Patient became asystolic 2/2 respiratory arrest from taking herself off the HiFlo. Patient was unresponsive. CPR was immediately instituted. ROSC was achieved quickly, patient was intubated and transferred to the ICU. Patient con't to be hemodynamically unstable. ABGs and CXR was obtained and noted was ETT was 1.8 cm above the ivone. Patient was agonally breathing and ABG was notably worse. ETT was pulled back, PEEP INC to +10 TV changed to 500 and patient improved from 65% SPO2 to 85-90%. Patient however became more responsive and made several attempts to pull at ETT and was restrained. On two separate occasions, patient had her R hand on her ETT tubes and almost was successful at self extubation however, was stopped from her attempt. Dr. Szymanski was called and sedation was given. Patient responded well however, patient is a HIGH RISK FOR SELF EXTUBATION. Also ordered was 2 amps of Bicarb IVP which was given. Oral care has been performed. Patient with 1/2 NS running at 100 ml/hr on a RH 22G. The IV is flushing however will need to be changed soon. OGT placed, clamped. Awaiting for results of XR to confirm placement. Upon auscultation, placement was confirmed. BL soft wrist restraints have been placed for safety and the pulling of devices. Pulses are palpable and skin is intact. Safety measures are in place with bed locked in the lowest position, alarmed with side rails up x 3. Will continue to monitor and carry out MD plan of care.
[2020-10-17] MEDS: cefTRIAXone 1 GM in D5W 55 ML IVPB SCH (17:00)
--- NOTE | 2020-10-17 17:15 | NUR ---
NURSE NOTES: Raines catheter order was received. Raines catheter was placed using sterile technique with an immediate 75 ml output of YL urine.
--- NOTE | 2020-10-17 17:26 | Diagnostic Imaging Report ---
History: F/U Exam: XR CXR 1 VIEW at 16: 38 Comparison: 10/17/2020 at 14: 19 IMPRESSION: Endotracheal tube 2.5 cm above the ivone. Nasogastric tube now present with tip at the body of the stomach. No significant interval change in appearance of bilateral patchy lung opacities. Size of the cardiac silhouette appears unchanged.
--- NOTE | 2020-10-17 18:00 | NUR ---
NURSE NOTES: Called Dr. Szymanski with ABG results. Received orders for new vent settings. Discussed with RT. All orders have been placed. Will continue to monitor and follow plan of care.
[2020-10-17] MEDS ORDERED: propofoL 1,000mg/100ml 100 ML IV SCH (18:15)
[2020-10-17] MEDS ORDERED: Sodium Bicarbonate 50ml Carp IV SCH ×2 (18:25→18:30)
[2020-10-17] MEDS: LORazepam Inj 2mg/ml 1ml IV PRN ×2 (18:45→21:49)
--- NOTE | 2020-10-17 19:30 | NUR ---
NURSE NOTES: pt report received from Yael farrell RN. pt condition remains unchanged. pt makes moments to verbal stimuli, no acute change in mentation. pt is on ekg monitor currently showing Sinus Tack, no other acute cardiac distress. pt is oral tube vented, sating 99% O2, no other acute resp distress. pt bed is low, locked, armed, call light within reach, bed rails up times 3.
[2020-10-17] MEDS: Levemir Flexpen SUBQ SCH (20:56)
--- NOTE | 2020-10-17 21:30 | NUR ---
NURSE NOTES: pt seems to be fighting vent. pt appears agitated. vent alarming. pt still sating 99% O2., no acute resp distress noted.
[2020-10-17] MEDS: propofoL 1,000mg/100ml 100 ML IV PRN (22:13)
--- NOTE | 2020-10-17 22:13 | NUR ---
NURSE NOTES: pt showing agitation. called RT Trent T to assess pt. pt sating 90% O2. Diprivan Med unable to scan, manual bar code used. Jorgito farrell RN, Francine Brewer RN, Meaghan Nunes RN, as whiteness for med unable to scan. started Diprivan at 5MCG / HR
[2020-10-17] MEDS: Enoxaparin 30mg Inj SUBQ SCH (22:15)
--- NOTE | 2020-10-17 23:44 | Psychiatric Progress Note ---
Psychiatry Progress Note Psychiatry Progress Note Medications Current Medications Medications (Trade) Dose Ordered Sig/Hernando Route PRN Reason Start Time Stop Time Status Last Admin Dose Admin Acetaminophen (Tylenol) 650 mg Q4H PRN ORAL Mild Pain (Pain Scale 1-3) 10/10/20 21:15 11/09/20 21:14 10/14/20 13:28 Acetaminophen (Tylenol) 650 mg Q4H PRN ORAL Temp >100.5 10/10/20 21:15 11/09/20 21:14 10/16/20 17:25 Albuterol Sulfate (Proventil MDI) 2 puff Q4H PRN INH Shortness of Breath 10/10/20 21:30 01/08/21 21:29 Ceftriaxone Sodium 1 gm/ Dextrose 55 ml @ 110 mls/hr Q24H IVPB 10/17/20 15:00 10/24/20 14:59 10/17/20 17:00 Clonidine HCl (Catapres Tab) 0.1 mg Q4H PRN ORAL for SBP >150 10/14/20 11:30 01/12/21 11:29 10/14/20 11:25 Dexamethasone (Decadron) 6 mg DAILY ORAL 10/16/20 12:00 10/25/20 09:01 10/17/20 09:18 Dextrose (Dextrose 50%) 25 ml Q30M PRN IV Hypoglycemia 10/10/20 21:15 01/08/21 21:14 Dextrose (Dextrose 50%) 50 ml Q30M PRN IV Hypoglycemia 10/10/20 21:15 01/08/21 21:14 Docusate Sodium (Colace) 100 mg EVERY 12 HOURS ORAL 10/11/20 09:00 11/10/20 08:59 10/17/20 20:55 Enoxaparin Sodium (Lovenox) 30 mg Q24H SUBQ 10/10/20 22:15 01/08/21 22:14 10/16/20 22:15 Famotidine (Pepcid) 20 mg DAILY ORAL 10/12/20 09:00 01/10/21 08:59 10/17/20 09:19 Haloperidol Lactate (Haldol) 5 mg Q6H PRN IM Agitation 10/13/20 16:15 11/27/20 16:14 Insulin Aspart (NovoLOG) BEFORE MEALS AND HS SUBQ 10/11/20 06:30 01/09/21 06:29 10/17/20 20:09 Insulin Detemir (Levemir) 10 units BEDTIME SUBQ 10/11/20 21:00 01/09/21 20:59 10/17/20 20:56 Lorazepam (Ativan 2mg/ml 1ml) 1 mg Q3H PRN IV For Anxiety 10/17/20 18:15 10/24/20 18:14 10/17/20 21:49 Ondansetron HCl (Zofran) 4 mg Q6H PRN IVP Nausea & Vomiting 10/10/20 21:15 11/09/20 21:14 Propofol 100 ml @ 1.701 mls/ hr Q12H PRN IV Agitation 10/17/20 21:00 10/19/20 20:59 10/17/20 22:13 Remdesivir 100 mg/ Sodium Chloride 250 ml @ 250 mls/hr Q24H IV 10/17/20 16:00 10/20/20 16:59 10/17/20 16:00 Sodium Chloride 1,000 ml @ 100 mls/hr Q10H IV 10/16/20 13:45 11/15/20 13:44 10/17/20 15:00 Neurological/Psychiatric: Reports: anxiety, depressed, emotional problems Allergies: Coded Allergies: WARFARIN (Verified Allergy, Unknown, 03/03/19) Objective Data Height (Feet): 5 Height (Inches): 3.00 Weight (Pounds): 125 Additional Comments: MENTAL STATUS EXAMINATION: The patient is awake, oriented to self, place, uncooperative, and mood is neutral and anxious. Affect is blunted. Thought process, there is a paucity of thought content. The patient appears to be delusional. Cognition is impaired. Insight and judgment Impulse control poor. Assessment/Plan [place] I: ASSESSMENT: [place] I Acute toxic encephalopathy. Psychotic disorder. Rule out dementia. [place] II Deferred. [place] III COVID-19. [place] IV Low. [place] V 20 PLAN: 1. We will start the patient on low dose of antipsychotics. 2. Continue the restraints. 3. Discussed with the primary team. Status Narrative ASSESSMENT: [place] I Acute toxic encephalopathy. Psychotic disorder. Rule out dementia. [place] II Deferred. [place] III COVID-19. [place] IV Low. [place] V 20 PLAN: 1. We will start the patient on low dose of antipsychotics. 2. Continue the restraints. 3. Discussed with the primary team. Assessment/Plan: ASSESSMENT: [place] I Acute toxic encephalopathy. Psychotic disorder. Rule out dementia. [place] II Deferred. [place] III COVID-19. [place] IV Low. [place] V 20 PLAN: 1. We will start the patient on low dose of antipsychotics. 2. Continue the restraints. 3. Discussed with the primary team. Frank Chacon MD Oct 17, 2020 23:44
[2020-10-18] VITALS (45 sets, daily range): BP systolic 87–195; BP diastolic 46–93
--- NOTE | 2020-10-18 00:10 | NUR ---
NURSE NOTES: pt appears sedated. pt stable, resting in bed. vital signs stable.
--- NOTE | 2020-10-18 02:06 | NUR ---
NURSE NOTES: cleaned pt with charge nurseDOMINIC Pierce skin assessed. no apparent distress noted.
--- NOTE | 2020-10-18 03:27 | NUR ---
NURSE NOTES: spoke to RT Trent Echevarria he stated pt is now on 30% FIO2.
[2020-10-18] MEDS: NovoLOG Insulin Flexpen SUBQ SCH ×4 (05:43→21:00)
--- NOTE | 2020-10-18 06:00 | NUR ---
NURSE NOTES: 6 AM meds passed. IV fluid started. BS 188, pt asymptomatic. resting in bed. pt still has -2 sedation.
--- NOTE | 2020-10-18 07:10 | NUR ---
NURSE HAND-OFF REPORT: Latest Vital Signs: Temperature 98.7 , Pulse 83 , B/P 134 /74 , Respiratory Rate 35 , O2 SAT 99 , Endotracheal Tube, O2 Flow Rate . Vital Sign Comment: [monitor O2, Blood pressure.] EKG Rhythm: Sinus Tachycardia Rhythm change?: N Notified?: Niurka -Dr. Stephon SYED Response: Latest [place]aly Fall Score: 100 Fall Risk: High Risk Safety Measures: Call light Within Reach, Bed Alarm Zone 2, Side Rails Side Rails x3, Bed position Low and Locked. Fall Precautions: Yellow Socks Yellow Gown Door Sign Patient Fall Education Report given to [Yael Patel RN].
[2020-10-18 07:18] LABS: HEMATOCRIT 30.1 % (37.0-47.0); HEMOGLOBIN 8.7 G/DL (12.0-16.0); MEAN CORPUSCULAR VOLUME 77 FL (80-99); PLATELET COUNT 80 K/UL (150-450); RED BLOOD COUNT 3.88 M/UL (4.20-5.40); RED CELL DISTRIBUTION WIDTH 20.2 % (11.6-14.8); WHITE BLOOD COUNT 9.3 K/UL (4.8-10.8)
--- NOTE | 2020-10-18 07:30 | NUR ---
NURSE NOTES: Received patient from DOMINIC Abdi. Patient observed bedside. Patient is sedated however arousable to eye opening and stimuli. Patient does not appear to be in any acute distress, is free from grimacing. Patient is sedated to a RASS of -2 on Propofol. Patient is being monitored on a cardiac rehabilitation specialist with VS HR 86 BP 127/63 RR 35 SPO2 100%. Patient is NSR on the monitor. Patient is on a mechanical ventilator with ETT 7.5 - 21 cm at the lip with vent settings AC 22, TV 500 FIO2 45% +8. Upon auscultation, patient is with rhonchi heard with diminished breath sounds at the bases. Patient has a Raines Catheter draining good UOP to gravity with light arie urine. Pericare was performed. Belly sounds are hypoactive and belly is round and distended. Patient is with 3 PIVs that are patent and asymptomatic. RW 20G running Prop @ 15 mcgs, LH 22G running 1/2 at 100 ml/hr. Patient is currently afebrile. Patient is with BL soft wrist restraints for safety. Patient has been noted to pull at her lines and ETT. Pulses are palpable and skin is intact. Safety measures are intact with bed locked in the lowest position, call light within reach, bed alarmed. Will continue to monitor and carry out plan of care.
[2020-10-18 07:54] LABS: ALBUMIN/GLOBULIN RATIO 0.6 (1.0-2.7); BILIRUBIN,DIRECT 0.3 MG/DL (0.0-0.3); BILIRUBIN,TOTAL 0.5 MG/DL (0.2-1.0); CALCIUM 7.9 MG/DL (8.5-10.1); CREATININE 1.5 MG/DL (0.55-1.30); POTASSIUM 4.3 MMOL/L (3.5-5.1)
[2020-10-18] MEDS: Docusate 100mg cap ORAL SCH ×2 (09:03→20:56)
--- NOTE | 2020-10-18 10:32 | Diagnostic Imaging Report ---
EXAM: XR Chest, 1 View CLINICAL HISTORY: F/U TECHNIQUE: Frontal view of the chest. COMPARISON: Chest radiograph on 10/17/2020 FINDINGS: Hardware: Endotracheal tube terminates in the region of the mid thoracic trachea, approximately 2.1 cm above the ivone. Enteric tube courses past the diaphragm and out of the [id number]. Lungs/pleura: Slightly decreased opacities throughout the lungs. No pleural effusion or pneumothorax. Heart/mediastinum: Atherosclerotic calcifications in the aorta. No cardiomegaly. Soft tissues: Unremarkable. Bones: No acute fracture. Upper abdomen: Normal. IMPRESSION: 1. Endotracheal tube terminates in the region of the mid thoracic trachea, approximately 2.1 cm above the ivone. Enteric tube courses past the diaphragm and out of the [id number]. 2. Slightly decreased opacities throughout the lungs.
--- NOTE | 2020-10-18 12:30 | NUR ---
NURSE NOTES: Patient observed bedside. Patient is sedated and resting comfortably. Patient does not appear in any acute distress and is arousable to stimuli. Patient does agitate very quickly when doing any bedside care with HR and RR going tachycardic or tachypneic. Patient is being monitored on a director of cardiac rehabilitation with VSS. Patient is on a mechanical ventilator with vent settings AC 22, TV 500 FIO2 45% +6. Patient has a Raines Catheter draining good UOP to gravity with light arie urine. RW 20G running Prop @ 15 mcgs @ a RASS -2, LH 22G running 1/2 at 100 ml/hr. Patient is currently febrile. Will institute cooling measures. Patient is with BL soft wrist restraints for safety. Patient has been noted to pull at her lines and ETT. Pulses are palpable and skin is intact. Safety measures are intact with bed locked in the lowest position, call light within reach, bed alarmed. Will continue to monitor and carry out plan of care.
--- NOTE | 2020-10-18 13:53 | General Progress Note ---
Subjective ROS Limited/Unobtainable: Yes Allergies: Coded Allergies: WARFARIN (Verified Allergy, Unknown, 03/03/19) Subjective noted care noted changes s/p CPA and intubated and sedated significant acidemia now better sugars elevated Objective Last 24 Hour Vital Signs Date Time Temp Pulse Resp B/P (MAP) Pulse Ox O2 Delivery O2 Flow Rate FiO2 10/18/20 11:45 98 25 45 10/18/20 10:00 86 34 120/57 (78) 100 10/18/20 09:30 86 37 134/61 (85) 100 10/18/20 09:00 Mechanical Ventilator 10/18/20 09:00 93 39 125/65 (85) 100 10/18/20 08:30 89 39 130/67 (88) 100 10/18/20 08:00 88 37 131/67 (88) 100 10/18/20 07:57 60 10/18/20 07:30 98.9 88 32 127/63 (84) 100 10/18/20 07:17 93 39 80 10/18/20 07:00 83 35 134/74 (94) 99 10/18/20 06:43 31 121/58 Endotracheal Tube 30 10/18/20 06:00 88 35 133/65 (87) 98 10/18/20 05:43 29 142/83 Mechanical Ventilator 30 10/18/20 05:00 85 35 112/60 (77) 98 10/18/20 04:43 28 134/72 Mechanical Ventilator 30 10/18/20 04:30 86 35 124/66 (85) 99 10/18/20 04:00 30 10/18/20 04:00 89 10/18/20 04:00 98.7 88 34 125/67 (86) 100 10/18/20 03:43 34 126/66 Endotracheal Tube 30 10/18/20 03:30 86 35 126/66 (86) 100 10/18/20 03:15 89 33 100 10/18/20 03:00 75 26 98/58 (71) 100 10/18/20 02:43 33 87/46 Endotracheal Tube 100 10/18/20 02:30 77 28 87/46 (60) 100 10/18/20 02:00 103 33 168/74 (105) 100 10/18/20 01:43 24 187/82 Endotracheal Tube 100 10/18/20 01:30 107 41 187/82 (117) 97 10/18/20 01:00 92 34 139/53 (81) 100 10/18/20 00:43 34 143/57 Endotracheal Tube 100 10/18/20 00:30 92 34 143/57 (85) 100 10/18/20 00:00 100.0 73 29 134/54 (80) 99 10/18/20 00:00 100 10/18/20 00:00 88 10/17/20 23:43 29 135/54 Mechanical Ventilator 100 10/17/20 23:30 75 28 108/35 (59) 99 10/17/20 23:13 79 25 80/28 (45) 100 10/17/20 22:58 84 27 100/36 (57) 100 10/17/20 22:56 104 38 100 10/17/20 22:43 117 37 177/95 (122) 90 10/17/20 22:43 33 125/60 Mechanical Ventilator 100 10/17/20 22:28 110 41 129/56 (80) 100 10/17/20 22:28 29 100/36 Mechanical Ventilator 100 10/17/20 22:19 129 30 146/72 92 10/17/20 22:13 32 173/87 Mechanical Ventilator 100 10/17/20 21:49 90 32 129/86 90 10/17/20 21:00 Non-Rebreather 15.0 10/17/20 21:00 88 30 140/49 (79) 100 10/17/20 20:54 78 33 100 10/17/20 20:00 100 10/17/20 20:00 74 10/17/20 20:00 99.3 83 29 82/50 (61) 100 10/17/20 19:15 90 28 117/80 100 10/17/20 19:05 98 Mechanical Ventilator 100 10/17/20 19:04 97 33 100 10/17/20 19:00 78 29 120/71 (87) 100 10/17/20 18:45 93 36 141/73 100 10/17/20 18:00 108 32 146/102 (117) 95 10/17/20 17:00 116 32 141/70 (93) 90 10/17/20 16:00 118 31 149/70 (96) 84 10/17/20 16:00 118 1/16/21 15:25 93 36 100 10/17/20 15:00 106 32 140/62 (88) 62 10/17/20 14:00 98.9 102 27 177/127 (144) 71 Intake and Output 10/17/20 10/18/20 19:00 07:00 Intake Total 760 ml 843.824 ml Output Total 140 ml 375 ml Balance 620 ml 468.824 ml IV Total 760 ml 843.824 ml Output Urine Total 140 ml 375 ml Laboratory Tests 10/17/20 15:07: Arterial Blood pH 7.097*L, Arterial Blood Partial Pressure CO2 60.3*H, Arterial Blood Partial Pressure O2 45.3*L, Arterial Blood HCO3 18.2L, Arterial Blood Oxygen Saturation 62.7*L, Arterial Blood Base Excess -11.8*L, Francisco Test Positive 10/17/20 17:05: Arterial Blood pH 7.234*L, Arterial Blood Partial Pressure CO2 47.3H, Arterial Blood Partial Pressure O2 60.6L, Arterial Blood HCO3 19.5L, Arterial Blood Oxygen Saturation 85.3*L, Arterial Blood Base Excess -7.8L, Francisco Test Positive 10/18/20 06:40: White Blood Count 9.3, Red Blood Count 3.88L, Hemoglobin 8.7L, Hematocrit 30.1L, Mean Corpuscular Volume 77L, Mean Corpuscular Hemoglobin 22.5L, Mean Corpuscular Hemoglobin Concent 29.1L, Red Cell Distribution Width 20.2H, Platelet Count 80L, Mean Platelet Volume 9.0, Neutrophils (%) (Auto) , Lymphocytes (%) (Auto) , Monocytes (%) (Auto) , Eosinophils (%) (Auto) , Basophils (%) (Auto) , Differential Total Cells Counted 100, Neutrophils % (Manual) 88H, Lymphocytes % (Manual) 7L, Monocytes % (Manual) 5, Eosinophils % (Manual) 0, Basophils % (Manual) 0, Band Neutrophils 0, Platelet Estimate DecreasedL, Platelet Morphology Normal, Polychromasia 1+, Hypochromasia 1+, Anisocytosis 3+, Microcytosis 1+, Schistocytes Occasional, Sodium Level 150H, Potassium Level 4.3, Chloride Level 117H, Carbon Dioxide Level 25, Anion Gap 8, Blood Urea Nitrogen 87H, Creatinine 1.5H, Estimat Glomerular Filtration Rate 35.5, Glucose Level 183H, Calcium Level 7.9L, Total Bilirubin 0.5, Direct Bilirubin 0.3, Aspartate Amino Transf (AST/SGOT) 65H, Alanine Aminotransferase (ALT/SGPT) 33, Alkaline Phosphatase 172H, Total Protein 5.5L, Albumin 2.0L, Globulin 3.5, Albumin/Globulin Ratio 0.6L 10/18/20 07:29: Arterial Blood pH 7.493H, Arterial Blood Partial Pressure CO2 32.3L, Arterial Blood Partial Pressure O2 107.9H, Arterial Blood HCO3 24.2, Arterial Blood Oxygen Saturation 97.6, Arterial Blood Base Excess 1.2, Francisco Test Positive Height (Feet): 5 Height (Inches): 3.00 Weight (Pounds): 125 Objective deferred due to COVID Assessment/Plan Assessment/Plan: Impression: Covid Pneumonia UTI Uncontrolled diabetes mellitus 2019 novel coronavirus disease (COVID-19) Renal insufficiency Dehydration Rhabdomyolysis due to COVID-19 Possible Cirrhosis acute hypoxemic respiratory failure s/p intubation acidemia Plan taper oxygen hypervent follow up CXR and ABG for change follow up labs intensify therapy IV antibiotics d/w ID DVT prophylaxis critical increase levimir tube feeds medications/laboratory data/nursing notes/ICU care reviewed in detail note reviewed and edited care discussed with RN and RT ICU time spent >40 minutes Terence Szymanski MD Oct 18, 2020 13:53
[2020-10-18] MEDS: propofoL 1,000mg/100ml 100 ML IV PRN (14:53)
[2020-10-18] MEDS: Maintenance Dose:Remdesivir 100mg/NS 230ml x 4 Doses IV SCH ×2 (15:28)
[2020-10-18] MEDS: cefTRIAXone 1 GM in D5W 55 ML IVPB SCH (15:32)
--- NOTE | 2020-10-18 16:53 | NUR ---
NURSE NOTES: Patient with notable coffee ground content from OGT as well as estelita red blood. STAT labs ordered. Also ABG ordered. Discussed with RT. FIO2 increased back to 65%. Patient with TMAX of 102.7. Will call Dr. Szymanski when labs are resulted. BM with greenish yellowish bile like BM. Patient cleaned and repositioned. Linens changed. Will closely monitor.
[2020-10-18 17:07] LABS: HEMOGLOBIN 8.5 G/DL (12.0-16.0); MEAN CORPUSCULAR VOLUME 77 FL (80-99); PLATELET COUNT 63 K/UL (150-450); RED BLOOD COUNT 3.76 M/UL (4.20-5.40); RED CELL DISTRIBUTION WIDTH 20.7 % (11.6-14.8)
[2020-10-18] MEDS: Levemir Flexpen SUBQ SCH (18:00)
--- NOTE | 2020-10-18 18:30 | NUR ---
NURSE NOTES: Wasted 11.126 of Diprivan witnessed by DOMINIC Bonds in the med waste bin and the Pyxis.
--- NOTE | 2020-10-18 18:40 | NUR ---
NURSE NOTES: Patient with fever of 102.4. Tylenol given with no improvement. Cooling measures instituted with ICE at patient core. Patient with Lactic at 3.10. Will enter orders for repeat 2240. Reflex entered. Patient is sedated. LM for Dr. Szymanski regarding temp and coffee ground gastric content coming from OGT. Will endorse to PM shift and load out supervisor.
--- NOTE | 2020-10-18 19:42 | NUR ---
NURSE NOTES: Dr Szymanski responded FFP x 1, GI Consult with Myesha to consult. DC Lovenox. CBC, CMP, ABG in the morning. Will endorse to mapping technician
--- NOTE | 2020-10-18 19:58 | NUR ---
HAND-OFF: Report given to DOMINIC Bull. Endorse coffee ground stomach content. Entered orders per Dr. Szymanski. VS currently stable. Pt with high temp of 102.4 last checked. Currently icing at core.
--- NOTE | 2020-10-18 20:00 | NUR ---
NURSE NOTES: Received patient from DOMINIC Pablo. Patient observed bedside. Patient is sedated however arousable to eye opening and stimuli. Patient does not appear to be in any acute distress, is free from grimacing. Patient is sedated to a RASS of -2 on Propofol. Patient is being monitored on a classroom monitor with VS HR 86 BP 125/63 RR 35 SPO2 92%. Patient is NSR on the monitor. Patient is on a mechanical ventilator with ETT 7.5 - 21 cm at the lip with vent settings AC 22, TV 500 FIO2 65% +8. Upon auscultation, patient is with rhonchi heard with diminished breath sounds at the bases. Patient has a Raines Catheter draining good UOP to gravity with light arie urine. Pericare was performed. Belly sounds are hypoactive and belly is round and distended. Patient is with 3 PIVs that are patent and asymptomatic. RW 20G running Prop @ 15 mcgs, LH 22G running 1/2 at 100 ml/hr. Patient is currently afebrile. Patient is with BL soft wrist restraints for safety. Patient has been noted to pull at her lines and ETT. Pulses are palpable and skin is intact. Safety measures are intact with bed locked in the lowest position, call light within reach, bed alarmed. Will continue to monitor and carry out plan of care.
[2020-10-18] MEDS: LORazepam Inj 2mg/ml 1ml IV PRN (20:56)
--- NOTE | 2020-10-18 21:00 | NUR ---
NURSE NOTES: Patient noted to have temperature of 101.9F (ax). Patient was placed on cooling blanket and Tylenol 650mg was given. NAD at this time, RASS remains at -2. Oral care and repositioned
--- NOTE | 2020-10-18 22:10 | General Progress Note ---
Subjective Allergies: Coded Allergies: WARFARIN (Verified Allergy, Unknown, 03/03/19) Objective Last 24 Hour Vital Signs Date Time Temp Pulse Resp B/P (MAP) Pulse Ox O2 Delivery O2 Flow Rate FiO2 10/18/20 20:56 91 31 148/74 100 10/18/20 19:03 91 31 65 10/18/20 18:00 102.2 103 28 148/74 (98) 100 10/18/20 18:00 28 148/74 Mechanical Ventilator 65 10/18/20 17:30 99 24 121/56 (77) 100 10/18/20 17:00 103 25 123/62 (82) 100 10/18/20 17:00 25 123/62 Mechanical Ventilator 65 10/18/20 16:30 102.4 103 23 131/56 (81) 100 10/18/20 16:00 102 10/18/20 16:00 102.7 101 23 122/61 (81) 100 10/18/20 16:00 23 122/61 Mechanical Ventilator 65 10/18/20 16:00 65 10/18/20 15:58 102.7 10/18/20 15:45 65 10/18/20 15:30 102.6 110 30 186/86 (119) 100 10/18/20 15:27 102 30 45 10/18/20 15:00 110 35 156/84 (108) 98 10/18/20 15:00 35 156/84 Mechanical Ventilator 45 10/18/20 14:53 34 136/89 Mechanical Ventilator 45 10/18/20 14:52 35 129/63 Mechanical Ventilator 45 10/18/20 14:30 105 35 129/63 (85) 98 10/18/20 14:00 107 36 124/67 (86) 97 10/18/20 14:00 36 124/67 Mechanical Ventilator 45 10/18/20 13:30 107 37 147/66 (93) 98 10/18/20 13:00 108 35 134/82 (99) 97 10/18/20 13:00 37 134/82 Mechanical Ventilator 45 10/18/20 12:30 103 35 129/62 (84) 97 10/18/20 12:00 88 10/18/20 12:00 99.9 103 34 139/68 (91) 97 10/18/20 12:00 34 139/68 Mechanical Ventilator 45 10/18/20 12:00 45 10/18/20 11:45 98 25 45 10/18/20 11:30 100 35 155/70 (98) 100 10/18/20 11:00 92 36 130/63 (85) 100 10/18/20 11:00 36 130/63 Mechanical Ventilator 60 10/18/20 10:30 89 35 132/75 (94) 100 10/18/20 10:00 86 34 120/57 (78) 100 10/18/20 10:00 36 137/65 Mechanical Ventilator 60 10/18/20 09:30 86 37 134/61 (85) 100 10/18/20 09:00 Mechanical Ventilator 10/18/20 09:00 36 133/75 Mechanical Ventilator 60 10/18/20 09:00 93 39 125/65 (85) 100 10/18/20 08:30 89 39 130/67 (88) 100 10/18/20 08:00 88 37 131/67 (88) 100 10/18/20 08:00 60 10/18/20 08:00 37 123/64 Mechanical Ventilator 100 10/18/20 08:00 88 10/18/20 07:57 60 10/18/20 07:30 98.9 88 32 127/63 (84) 100 10/18/20 07:17 93 39 80 10/18/20 07:00 35 127/63 Mechanical Ventilator 100 10/18/20 07:00 83 35 134/74 (94) 99 10/18/20 06:43 31 121/58 Endotracheal Tube 30 10/18/20 06:00 88 35 133/65 (87) 98 10/18/20 05:43 29 142/83 Mechanical Ventilator 30 10/18/20 05:00 85 35 112/60 (77) 98 10/18/20 04:43 28 134/72 Mechanical Ventilator 30 10/18/20 04:30 86 35 124/66 (85) 99 10/18/20 04:00 30 10/18/20 04:00 89 10/18/20 04:00 98.7 88 34 125/67 (86) 100 10/18/20 03:43 34 126/66 Endotracheal Tube 30 10/18/20 03:30 86 35 126/66 (86) 100 10/18/20 03:15 89 33 100 10/18/20 03:00 75 26 98/58 (71) 100 10/18/20 02:43 33 87/46 Endotracheal Tube 100 10/18/20 02:30 77 28 87/46 (60) 100 10/18/20 02:00 103 33 168/74 (105) 100 10/18/20 01:43 24 187/82 Endotracheal Tube 100 10/18/20 01:30 107 41 187/82 (117) 97 10/18/20 01:00 92 34 139/53 (81) 100 10/18/20 00:43 34 143/57 Endotracheal Tube 100 10/18/20 00:30 92 34 143/57 (85) 100 10/18/20 00:00 100.0 73 29 134/54 (80) 99 10/18/20 00:00 100 10/18/20 00:00 88 10/17/20 23:43 29 135/54 Mechanical Ventilator 100 10/17/20 23:30 75 28 108/35 (59) 99 10/17/20 23:13 79 25 80/28 (45) 100 10/17/20 22:58 84 27 100/36 (57) 100 10/17/20 22:56 104 38 100 10/17/20 22:43 117 37 177/95 (122) 90 10/17/20 22:43 33 125/60 Mechanical Ventilator 100 10/17/20 22:28 110 41 129/56 (80) 100 10/17/20 22:28 29 100/36 Mechanical Ventilator 100 10/17/20 22:19 129 30 146/72 92 10/17/20 22:13 32 173/87 Mechanical Ventilator 100 Intake and Output 10/17/20 10/18/20 19:00 07:00 Intake Total 760 ml 848.927 ml Output Total 140 ml 375 ml Balance 620 ml 473.927 ml IV Total 760 ml 848.927 ml Output Urine Total 140 ml 375 ml Laboratory Tests 10/18/20 06:40: White Blood Count 9.3, Red Blood Count 3.88L, Hemoglobin 8.7L, Hematocrit 30.1L, Mean Corpuscular Volume 77L, Mean Corpuscular Hemoglobin 22.5L, Mean Corpuscular Hemoglobin Concent 29.1L, Red Cell Distribution Width 20.2H, Platelet Count 80L, Mean Platelet Volume 9.0, Neutrophils (%) (Auto) , Lymphocytes (%) (Auto) , Monocytes (%) (Auto) , Eosinophils (%) (Auto) , Basophils (%) (Auto) , Differential Total Cells Counted 100, Neutrophils % (Manual) 88H, Lymphocytes % (Manual) 7L, Monocytes % (Manual) 5, Eosinophils % (Manual) 0, Basophils % (Manual) 0, Band Neutrophils 0, Platelet Estimate DecreasedL, Platelet Morphology Normal, Polychromasia 1+, Hypochromasia 1+, Anisocytosis 3+, Microcytosis 1+, Schistocytes Occasional, Sodium Level 150H, Potassium Level 4.3, Chloride Level 117H, Carbon Dioxide Level 25, Anion Gap 8, Blood Urea Nitrogen 87H, Creatinine 1.5H, Estimat Glomerular Filtration Rate 35.5, Glucose Level 183H, Calcium Level 7.9L, Total Bilirubin 0.5, Direct Bilirubin 0.3, Aspartate Amino Transf (AST/SGOT) 65H, Alanine Aminotransferase (ALT/SGPT) 33, Alkaline Phosphatase 172H, Total Protein 5.5L, Albumin 2.0L, Globulin 3.5, Albumin/Globulin Ratio 0.6L 10/18/20 07:29: Arterial Blood pH 7.493H, Arterial Blood Partial Pressure CO2 32.3L, Arterial Blood Partial Pressure O2 107.9H, Arterial Blood HCO3 24.2, Arterial Blood Oxygen Saturation 97.6, Arterial Blood Base Excess 1.2, Francisco Test Positive 10/18/20 15:34: Arterial Blood pH 7.450, Arterial Blood Partial Pressure CO2 30.4L, Arterial Blood Partial Pressure O2 70.2L, Arterial Blood HCO3 20.7L, Arterial Blood Oxygen Saturation 93.9L, Arterial Blood Base Excess -2.6L, Francisco Test Positive 10/18/20 16:40: White Blood Count 9.0, Red Blood Count 3.76L, Hemoglobin 8.5L, Hematocrit 29.0L, Mean Corpuscular Volume 77L, Mean Corpuscular Hemoglobin 22.7L, Mean Corpuscular Hemoglobin Concent 29.5L, Red Cell Distribution Width 20.7H, Platelet Count 63L, Mean Platelet Volume 8.1, Neutrophils (%) (Auto) , Lymphocytes (%) (Auto) , Monocytes (%) (Auto) , Eosinophils (%) (Auto) , Basophils (%) (Auto) , Differential Total Cells Counted 100, Neutrophils % (Manual) 89H, Lymphocytes % (Manual) 10L, Monocytes % (Manual) 1, Eosinophils % (Manual) 0, Basophils % (Manual) 0, Band Neutrophils 0, Platelet Estimate DecreasedL, Platelet Morphology Normal, Hypochromasia 2+, Anisocytosis 3+, Microcytosis 1+, Nucleated Red Blood Cells 1, Lactic Acid Level 3.10H Height (Feet): 5 Height (Inches): 3.00 Weight (Pounds): 125 Assessment/Plan Assessment/Plan: Assessment - CG emesis and ogt aspirate - COVID infection, resp failure - thrombocytopenia - microcytic anemia - Azotemia - DM - hypernatremia, free water deficit Recommendations - change H2B to PPI - daily CBC - watch platelets - Check Iron panel - replace - GT to gravity. Clamp for meds Thank you MD Myesha Spivey Payman MD Oct 18, 2020 22:10
--- NOTE | 2020-10-18 22:15 | NUR ---
NURSE NOTES: Dr. Brunner at bedside assessing patient, updated MD about coffee ground emesis and distended abdomen. Orders received keep patient NGT via gravity.
[2020-10-18] MEDS: Pantoprazole Inj IVP SCH (22:39)
[2020-10-19] VITALS (32 sets, daily range): BP systolic 66–175; BP diastolic 22–101
--- NOTE | 2020-10-19 | NUR ---
NURSE NOTES: Patient had moderate soft BM, brown/greenish in color. Patients temperature now is 98.8F (Rectally) Patient continues to be saturating in the 80s while on 100% FiO2. MD aware. Patient was cleaned and oral care provided. RASS -2
--- NOTE | 2020-10-19 01:44 | Consultation ---
DATE OF CONSULTATION: 10/18/2020 GASTROENTEROLOGY CONSULTATION CONSULTING PHYSICIAN: Ryanne Brunner MD CHIEF COMPLAINT: I was asked to see this patient by Dr. Terence Szymanski for evaluation of gastrointestinal bleeding. HISTORY OF PRESENT ILLNESS: The patient is a 60-year-old woman who was admitted to the hospital about a week ago with pneumonia. This has been attributed to COVID-19 infection. Since then, she has developed respiratory failure and is on COVID-19 treatment. She has an endotracheal tube and orogastric tube. . The patient's blood level showed some mild degree of anemia with some microcytic changes. Patient also had a decline in platelet count. She is unable to provide any history and most of the information is available from the chart. PAST MEDICAL HISTORY: Remarkable for history of previous stroke, diabetes, chronic kidney disease, hypertension, and asthma. ALLERGIES: Zofran. FAMILY HISTORY: Unavailable and unobtainable. SOCIAL HISTORY: Unavailable and unobtainable REVIEW OF SYSTEMS: Unavailable and unobtainable. PHYSICAL EXAMINATION: GENERAL: Debilitated woman, seen in ICU on a ventilator, mildly agitated. HEENT: Normocephalic. Endotracheal tube is in place. NECK: Supple. CHEST: Scattered rhonchi. CARDIOVASCULAR: Revealed a regular rate. ABDOMEN: Soft, and distended. EXTREMITIES: Revealed no edema. LABORATORY DATA: Reviewed. ASSESSMENT: This patient presents with coffee-ground emesis as well as some coffee-ground drainage from her orogastric tube. history of anemia, but especially given her overall poor health. pantoprazole for better acid suppression. Carafate to be added. She does have some microcytic changes; therefore, her iron panel should be checked and replaced as needed. I would monitor her CBC closely and especially watch her platelet count and likely to her COVID sepsis. Her overall prognosis is guarded and a decision was made on based on her daily progress on laboratory parameters. Endoscopy can be considered should there be bleeding, significant blood drop or change. RECOMMENDATIONS: Per above discussion and per orders written in the chart. I will follow this patient closely with you. Thank you for asking me to participate in the care of this patient. Ryanne Brunner M.D. DR: ANDRE JOB#: [id number] CC:
--- NOTE | 2020-10-19 02:00 | NUR ---
NURSE NOTES: Increases Diprivan to 25mcg/kg/min to maintain RASS -2. Patient repositioned and oral given. Patient is afebrile at this time at current temp 97.5F. HR 84 NSR and SpO2 of 87% while on 100% FiO2.
[2020-10-19] MEDS: propofoL 1,000mg/100ml 100 ML IV PRN ×2 (03:43→14:44)
--- NOTE | 2020-10-19 04:00 | NUR ---
NURSE NOTES: Patient cleaned, oral care performed, patient is afebrile at this time. RASS maintained -2. VSS. SpO2 82-89% while on 100% FiO2. NSR at this time.
[2020-10-19 05:39] LABS: HEMOGLOBIN 9.6 G/DL (12.0-16.0); MEAN CORPUSCULAR VOLUME 78 FL (80-99); PLATELET COUNT 72 K/UL (150-450); RED BLOOD COUNT 4.23 M/UL (4.20-5.40); RED CELL DISTRIBUTION WIDTH 20.9 % (11.6-14.8); WHITE BLOOD COUNT 12.1 K/UL (4.8-10.8)
--- NOTE | 2020-10-19 06:00 | NUR ---
NURSE NOTES: 500ml of gastric emesis for nightshift, abdomen is less distended compared to start if shift. Patient continues to saturate in the 80s while on 100% FiO2. HR now is 65 NSR, afebrile, 109/56. Patient remains clean and dry.
[2020-10-19] MEDS: NovoLOG Insulin Flexpen SUBQ SCH ×4 (06:02→21:00)
[2020-10-19 06:21] LABS: ALBUMIN/GLOBULIN RATIO 0.6 (1.0-2.7); BILIRUBIN,DIRECT 0.6 MG/DL (0.0-0.3); BILIRUBIN,TOTAL 0.8 MG/DL (0.2-1.0); CREATININE 1.4 MG/DL (0.55-1.30); POTASSIUM 4.1 MMOL/L (3.5-5.1)
--- NOTE | 2020-10-19 07:20 | NUR ---
NURSE NOTES: Received report from DOMINIC Bull. Patient in bed sedated with Propofol 25mcg/kg/min, RASS -2, SR with HR 74, NPO at this time, due to coffee ground emesis 500ml during the night, ETT 7.5 21cm on lip line, AC 22 TV 500 Fio2 100%, PEEP 6. IV on right 20G wrist, left wrist 22G, asymptomatic, patent, intact. IVF 1/2 NS @ 100ml/h. Patient on bilateral soft wrist restraint, cap refill <3 sec, endorsed awaiting for 1 unit of frozen plasma per Dr. Szymanski, Bed in lowest position, side rails upx3, call light within reach, bed alarm on, Will continue to monitor.
--- NOTE | 2020-10-19 08:10 | NUR ---
NURSE NOTES: Per Dr. Szymanski, cancel frozen plasma order at this time, no family member. Order noted, entered, carried out. Will continue to monitor.
[2020-10-19] MEDS: Pantoprazole Inj IVP SCH ×2 (08:11→21:07)
[2020-10-19] MEDS: Docusate 100mg cap ORAL SCH ×2 (08:12→20:37)
--- NOTE | 2020-10-19 08:43 | NUR ---
RADIOLOGY: PCXR COMPLETED 0800HRS. GRANT/LAURA
--- NOTE | 2020-10-19 08:50 | NUR ---
NURSE NOTES: Dr. Brunner at the bedside, made aware of 20-30ml/h, coffee ground emesis via NGT. Per MD, continue NGT via [place], hold feeding, made aware per Dr. Szymanski frozen plasma order discontinued, per MD follow with Dr. Szymanski. No new order received at this time, Will continue to monitor.
[2020-10-19] MEDS: Levemir Flexpen SUBQ SCH ×2 (09:14→17:47)
--- NOTE | 2020-10-19 10:44 | Diagnostic Imaging Report ---
Indication: Shortness of breath Technique: One view of the chest Comparison: 10/18/2020 Findings: Less optimal inspiration currently. Allowing for differences in inspiration, suspect worsening of infiltrates on the left; left hemidiaphragm is now obscured. There may also be developing pleural fluid on the left. Stable satisfactory endotracheal and orogastric tube positions. Impression: Worsening left lung infiltrate, possibly developing left pleural effusion. Stable infiltrates on the right
--- NOTE | 2020-10-19 11:47 | Infectious Diseases Prog Note ---
Assessment/Plan Assessment/Plan antibiotics : ceftriaxone, remdesivir A 1. covid 19 pneumonia on 100 % Fi O2 with 100 % saturation 2. diabetes mellitus 3. hypertension 4. asthma 5. CVA 6. respiratory failure P 1. continue remdesivir day 4 2. d/c dexamethasone 3. start solumedrol 4. continue ceftriaxone 5. continue isolation Subjective ROS Limited/Unobtainable: Yes Allergies: Coded Allergies: WARFARIN (Verified Allergy, Unknown, 03/03/19) Objective Last 24 Hour Vital Signs Date Time Temp Pulse Resp B/P (MAP) Pulse Ox O2 Delivery O2 Flow Rate FiO2 10/19/20 11:00 33 95/30 Mechanical Ventilator 100 10/19/20 11:00 77 31 95/30 (51) 100 10/19/20 10:00 69 30 95/30 (51) 100 10/19/20 10:00 32 95/30 Mechanical Ventilator 100 10/19/20 09:00 64 27 97/30 (52) 98 10/19/20 09:00 27 97/27 Mechanical Ventilator 100 10/19/20 08:00 Mechanical Ventilator 10/19/20 08:00 63 10/19/20 08:00 30 99/34 Mechanical Ventilator 100 10/19/20 08:00 95.0 63 28 99/34 (55) 98 10/19/20 08:00 100 10/19/20 07:59 64 29 100 10/19/20 07:00 30 113/22 Mechanical Ventilator 100 10/19/20 07:00 65 30 113/22 (52) 90 10/19/20 06:30 66 33 118/32 (60) 91 10/19/20 06:00 30 216/146 Mechanical Ventilator 100 10/19/20 06:00 51 33 175/101 (125) 89 10/19/20 05:30 74 36 115/61 (79) 89 10/19/20 05:00 75 36 107/55 (72) 90 10/19/20 05:00 34 115/61 Mechanical Ventilator 100 10/19/20 04:30 79 36 125/69 (87) 88 10/19/20 04:00 100 10/19/20 04:00 33 115/65 Mechanical Ventilator 100 10/19/20 04:00 Mechanical Ventilator 10/19/20 04:00 95.0 82 34 116/61 (79) 87 10/19/20 04:00 89 10/19/20 03:43 36 128/48 Mechanical Ventilator 100 10/19/20 03:30 82 30 120/80 (93) 87 10/19/20 03:00 84 34 108/40 (62) 86 10/19/20 03:00 36 108/40 Mechanical Ventilator 100 10/19/20 02:55 81 32 65 10/19/20 02:30 88 33 136/78 (97) 87 10/19/20 02:00 32 129/73 Mechanical Ventilator 100 10/19/20 02:00 93 34 129/79 (96) 83 10/19/20 01:30 95 34 129/58 (81) 83 10/19/20 01:00 95 34 139/58 (85) 83 10/19/20 01:00 33 139/58 Mechanical Ventilator 100 10/19/20 00:45 41 187/89 Mechanical Ventilator 100 10/19/20 00:30 110 34 157/57 (90) 83 10/19/20 00:00 100 10/19/20 00:00 Mechanical Ventilator 10/19/20 00:00 35 149/67 Mechanical Ventilator 100 10/19/20 00:00 110 10/19/20 00:00 98.8 108 37 149/67 (94) 92 10/18/20 23:30 110 37 135/74 (94) 85 10/18/20 23:00 35 144/67 Mechanical Ventilator 100 10/18/20 23:00 110 37 144/76 (98) 86 10/18/20 22:52 114 35 65 10/18/20 22:30 114 37 189/83 (118) 69 10/18/20 22:00 38 168/77 Mechanical Ventilator 100 10/18/20 22:00 114 37 168/77 (107) 86 10/18/20 21:30 95 39 90/48 (62) 95 10/18/20 21:27 101.0 10/18/20 21:26 91 31 148/74 100 10/18/20 21:00 38 168/77 Mechanical Ventilator 100 10/18/20 21:00 113 41 195/93 (127) 82 10/18/20 20:56 91 31 148/74 100 10/18/20 20:30 122 40 165/82 (109) 75 10/18/20 20:00 101.9 107 40 171/88 (115) 85 10/18/20 20:00 41 171/88 Mechanical Ventilator 65 10/18/20 20:00 75 10/18/20 20:00 125 10/18/20 20:00 Mechanical Ventilator 10/18/20 19:30 88 41 146/88 (107) 100 10/18/20 19:03 91 31 65 10/18/20 19:00 34 121/62 Mechanical Ventilator 65 10/18/20 19:00 89 33 137/59 (85) 100 10/18/20 18:00 102.2 103 28 148/74 (98) 100 10/18/20 18:00 28 148/74 Mechanical Ventilator 65 10/18/20 17:30 99 24 121/56 (77) 100 10/18/20 17:00 103 25 123/62 (82) 100 10/18/20 17:00 25 123/62 Mechanical Ventilator 65 10/18/20 16:30 102.4 103 23 131/56 (81) 100 10/18/20 16:00 102 10/18/20 16:00 102.7 101 23 122/61 (81) 100 10/18/20 16:00 23 122/61 Mechanical Ventilator 65 10/18/20 16:00 65 10/18/20 15:58 102.7 10/18/20 15:45 65 10/18/20 15:30 102.6 110 30 186/86 (119) 100 10/18/20 15:27 102 30 45 10/18/20 15:00 110 35 156/84 (108) 98 10/18/20 15:00 35 156/84 Mechanical Ventilator 45 10/18/20 14:53 34 136/89 Mechanical Ventilator 45 10/18/20 14:52 35 129/63 Mechanical Ventilator 45 10/18/20 14:30 105 35 129/63 (85) 98 10/18/20 14:00 107 36 124/67 (86) 97 10/18/20 14:00 36 124/67 Mechanical Ventilator 45 10/18/20 13:30 107 37 147/66 (93) 98 10/18/20 13:00 108 35 134/82 (99) 97 10/18/20 13:00 37 134/82 Mechanical Ventilator 45 10/18/20 12:30 103 35 129/62 (84) 97 10/18/20 12:00 88 10/18/20 12:00 99.9 103 34 139/68 (91) 97 10/18/20 12:00 34 139/68 Mechanical Ventilator 45 10/18/20 12:00 45 Height (Feet): 5 Height (Inches): 3.00 Weight (Pounds): 125 HEENT: other - intubated Laboratory Tests Test 10/18/20 15:34 10/18/20 16:40 10/18/20 22:50 10/19/20 04:30 Arterial Blood pH 7.450 (7.350-7.450) Arterial Blood Partial Pressure CO2 30.4 mmHg (35.0-45.0) L Arterial Blood Partial Pressure O2 70.2 mmHg (75.0-100.0) L Arterial Blood HCO3 20.7 mmol/L (22.0-26.0) L Arterial Blood Oxygen Saturation 93.9 % (95-100) L Arterial Blood Base Excess -2.6 (-2-2) L Francisco Test Positive White Blood Count 9.0 K/UL (4.8-10.8) 12.1 K/UL (4.8-10.8) H Red Blood Count 3.76 M/UL (4.20-5.40) L 4.23 M/UL (4.20-5.40) Hemoglobin 8.5 G/DL (12.0-16.0) L 9.6 G/DL (12.0-16.0) L Hematocrit 29.0 % (37.0-47.0) L 33.0 % (37.0-47.0) L Mean Corpuscular Volume 77 FL (80-99) L 78 FL (80-99) L Mean Corpuscular Hemoglobin 22.7 PG (27.0-31.0) L 22.7 PG (27.0-31.0) L Mean Corpuscular Hemoglobin Concent 29.5 G/DL (32.0-36.0) L 29.1 G/DL (32.0-36.0) L Red Cell Distribution Width 20.7 % (11.6-14.8) H 20.9 % (11.6-14.8) H Platelet Count 63 K/UL (150-450) L 72 K/UL (150-450) L Mean Platelet Volume 8.1 FL (6.5-10.1) 8.5 FL (6.5-10.1) Neutrophils (%) (Auto) % (45.0-75.0) % (45.0-75.0) Lymphocytes (%) (Auto) % (20.0-45.0) % (20.0-45.0) Monocytes (%) (Auto) % (1.0-10.0) % (1.0-10.0) Eosinophils (%) (Auto) % (0.0-3.0) % (0.0-3.0) Basophils (%) (Auto) % (0.0-2.0) % (0.0-2.0) Differential Total Cells Counted 100 100 Neutrophils % (Manual) 89 % (45-75) H 92 % (45-75) H Lymphocytes % (Manual) 10 % (20-45) L 5 % (20-45) L Monocytes % (Manual) 1 % (1-10) 3 % (1-10) Eosinophils % (Manual) 0 % (0-3) 0 % (0-3) Basophils % (Manual) 0 % (0-2) 0 % (0-2) Band Neutrophils 0 % (0-8) 0 % (0-8) Nucleated Red Blood Cells 1 /100 WBC Platelet Estimate Decreased L Decreased L Platelet Morphology Normal Normal Hypochromasia 2+ 1+ Anisocytosis 3+ 1+ Microcytosis 1+ 1+ Lactic Acid Level 3.10 mmol/L (0.4-2.0) H 4.30 mmol/L (0.4-2.0) H Sodium Level 148 MMOL/L (136-145) H Potassium Level 4.1 MMOL/L (3.5-5.1) Chloride Level 115 MMOL/L (98-107) H Carbon Dioxide Level 23 MMOL/L (21-32) Anion Gap 10 mmol/L (5-15) Blood Urea Nitrogen 72 mg/dL (7-18) H Creatinine 1.4 MG/DL (0.55-1.30) H Estimat Glomerular Filtration Rate 38.5 mL/min (>60) Glucose Level 174 MG/DL (74-106) H Calcium Level 8.0 MG/DL (8.5-10.1) L Total Bilirubin 0.8 MG/DL (0.2-1.0) Direct Bilirubin 0.6 MG/DL (0.0-0.3) H Aspartate Amino Transf (AST/SGOT) 73 U/L (15-37) H Alanine Aminotransferase (ALT/SGPT) 33 U/L (12-78) Alkaline Phosphatase 180 U/L (46-116) H Total Protein 5.6 G/DL (6.4-8.2) L Albumin 2.0 G/DL (3.4-5.0) L Globulin 3.6 g/dL Albumin/Globulin Ratio 0.6 (1.0-2.7) L Hepatitis A IgM Antibody Pending Hepatitis B Surface Antigen Pending Hepatitis B Core IgM Antibody Pending Hepatitis C Antibody Pending Test 10/19/20 05:30 10/19/20 08:07 Triglycerides Level 149 MG/DL (30-150) Arterial Blood pH 7.297 (7.350-7.450) Arterial Blood Partial Pressure CO2 38.2 mmHg (35.0-45.0) Arterial Blood Partial Pressure O2 59.9 mmHg (75.0-100.0) L Arterial Blood HCO3 18.2 mmol/L (22.0-26.0) L Arterial Blood Oxygen Saturation 85.7 % (95-100) *L Arterial Blood Base Excess -7.6 (-2-2) L Francisco Test Positive Current Medications Medications (Trade) Dose Ordered Sig/Hernando Route PRN Reason Start Time Stop Time Status Last Admin Dose Admin Acetaminophen (Tylenol) 650 mg Q4H PRN ORAL Mild Pain (Pain Scale 1-3) 10/10/20 21:15 11/09/20 21:14 10/14/20 13:28 Acetaminophen (Tylenol) 650 mg Q4H PRN ORAL Temp >100.5 10/10/20 21:15 11/09/20 21:14 10/18/20 20:57 Albuterol Sulfate (Proventil MDI) 2 puff Q4H PRN INH Shortness of Breath 10/10/20 21:30 01/08/21 21:29 Ceftriaxone Sodium 1 gm/ Dextrose 55 ml @ 110 mls/hr Q24H IVPB 10/17/20 15:00 10/24/20 14:59 10/18/20 15:32 Clonidine HCl (Catapres Tab) 0.1 mg Q4H PRN ORAL for SBP >150 10/14/20 11:30 01/12/21 11:29 10/14/20 11:25 Dexamethasone (Decadron) 6 mg DAILY ORAL 10/16/20 12:00 10/25/20 09:01 10/19/20 08:11 Dextrose (Dextrose 50%) 25 ml Q30M PRN IV Hypoglycemia 10/10/20 21:15 01/08/21 21:14 Dextrose (Dextrose 50%) 50 ml Q30M PRN IV Hypoglycemia 10/10/20 21:15 01/08/21 21:14 Docusate Sodium (Colace) 100 mg EVERY 12 HOURS ORAL 10/11/20 09:00 11/10/20 08:59 10/18/20 20:56 Haloperidol Lactate (Haldol) 5 mg Q6H PRN IM Agitation 10/13/20 16:15 11/27/20 16:14 Insulin Aspart (NovoLOG) BEFORE MEALS AND HS SUBQ 10/11/20 06:30 01/09/21 06:29 10/19/20 06:02 Insulin Detemir (Levemir) 14 units BID SUBQ 10/18/20 18:00 01/09/21 20:59 10/19/20 09:14 Lorazepam (Ativan 2mg/ml 1ml) 1 mg Q3H PRN IV For Anxiety 10/17/20 18:15 10/24/20 18:14 10/18/20 20:56 Ondansetron HCl (Zofran) 4 mg Q6H PRN IVP Nausea & Vomiting 10/10/20 21:15 11/09/20 21:14 Pantoprazole (Protonix) 40 mg EVERY 12 HOURS IVP 10/18/20 22:15 11/17/20 22:14 10/19/20 08:11 Propofol 100 ml @ 1.701 mls/ hr Q12H PRN IV Agitation 10/17/20 21:00 10/19/20 20:59 10/19/20 03:43 Remdesivir 100 mg/ Sodium Chloride 250 ml @ 250 mls/hr Q24H IV 10/17/20 16:00 10/20/20 16:59 10/18/20 15:28 Sodium Chloride 1,000 ml @ 100 mls/hr Q10H IV 10/16/20 13:45 11/15/20 13:44 10/19/20 02:09 Hector Rodriguez MD Oct 19, 2020 11:47
--- NOTE | 2020-10-19 12:02 | NUR ---
Non Linear [employer] Manager SI: COVID 19, Liver Cirrhosis, UTI, ETT/Vent support T 95.0 (Rectal), HR 77, RR 33, BP 95/30, ETT, AC 22, FiO2 100%, TV 500, PEEP 6, O2 sat 100% WBC 12.1, NA+ 148, BUN 72, creatinine 1.4 Glucose 174 Cxray Worsening left lung infiltrates, possibly developing (L) pleural effusion. Stable infiltrates on Rt IS: Levemir SQ HS Solumedrol IVP Q 12 h Protonix IVP Q 12 h Remdesivir IV Q 24 h Rocephin IV Q 24 h ICU Status
[2020-10-19] MEDS: Solu-MEDROL 40mg Inj IVP SCH ×2 (12:16→21:07)
--- NOTE | 2020-10-19 13:05 | NUR ---
NURSE NOTES: Spoke with [facility] pharmacist regarding low DBP 30-50s, per pharmacist, confirm order with ID MD.
--- NOTE | 2020-10-19 13:25 | NUR ---
NURSE NOTES: Per Dr. Szymanski, renew order for propofol, order noted, entered, carried out.
[2020-10-19] MEDS: cefTRIAXone 1 GM in D5W 55 ML IVPB SCH (14:08)
--- NOTE | 2020-10-19 15:01 | General Progress Note ---
Subjective ROS Limited/Unobtainable: Yes Allergies: Coded Allergies: WARFARIN (Verified Allergy, Unknown, 03/03/19) Subjective noted care noted changes doing poorly now acidotic significant acidemia now worse sugars elevated Objective Last 24 Hour Vital Signs Date Time Temp Pulse Resp B/P (MAP) Pulse Ox O2 Delivery O2 Flow Rate FiO2 10/19/20 14:00 34 110/44 Mechanical Ventilator 100 10/19/20 13:40 98 30 100 10/19/20 13:00 32 111/44 Mechanical Ventilator 100 10/19/20 13:00 89 33 124/34 (64) 100 10/19/20 12:00 100 10/19/20 12:00 96.1 85 33 116/40 (65) 99 10/19/20 12:00 75 10/19/20 12:00 33 124/34 Mechanical Ventilator 100 10/19/20 12:00 Mechanical Ventilator 10/19/20 11:00 33 95/30 Mechanical Ventilator 100 10/19/20 11:00 77 31 95/30 (51) 100 10/19/20 10:00 69 30 95/30 (51) 100 10/19/20 10:00 32 95/30 Mechanical Ventilator 100 10/19/20 09:00 64 27 97/30 (52) 98 10/19/20 09:00 27 97/27 Mechanical Ventilator 100 10/19/20 08:00 Mechanical Ventilator 10/19/20 08:00 63 10/19/20 08:00 30 99/34 Mechanical Ventilator 100 10/19/20 08:00 95.0 63 28 99/34 (55) 98 10/19/20 08:00 100 10/19/20 07:59 80 29 100 10/19/20 07:00 30 113/22 Mechanical Ventilator 100 10/19/20 07:00 65 30 113/22 (52) 90 10/19/20 06:30 66 33 118/32 (60) 91 10/19/20 06:00 30 216/146 Mechanical Ventilator 100 10/19/20 06:00 51 33 175/101 (125) 89 10/19/20 05:30 74 36 115/61 (79) 89 10/19/20 05:00 75 36 107/55 (72) 90 10/19/20 05:00 34 115/61 Mechanical Ventilator 100 10/19/20 04:30 79 36 125/69 (87) 88 10/19/20 04:00 100 10/19/20 04:00 33 115/65 Mechanical Ventilator 100 10/19/20 04:00 Mechanical Ventilator 10/19/20 04:00 95.0 82 34 116/61 (79) 87 10/19/20 04:00 89 10/19/20 03:43 36 128/48 Mechanical Ventilator 100 10/19/20 03:30 82 30 120/80 (93) 87 10/19/20 03:00 84 34 108/40 (62) 86 10/19/20 03:00 36 108/40 Mechanical Ventilator 100 10/19/20 02:55 81 32 65 10/19/20 02:30 88 33 136/78 (97) 87 10/19/20 02:00 32 129/73 Mechanical Ventilator 100 10/19/20 02:00 93 34 129/79 (96) 83 10/19/20 01:30 95 34 129/58 (81) 83 10/19/20 01:00 95 34 139/58 (85) 83 10/19/20 01:00 33 139/58 Mechanical Ventilator 100 10/19/20 00:45 41 187/89 Mechanical Ventilator 100 10/19/20 00:30 110 34 157/57 (90) 83 10/19/20 00:00 100 10/19/20 00:00 Mechanical Ventilator 10/19/20 00:00 35 149/67 Mechanical Ventilator 100 10/19/20 00:00 110 10/19/20 00:00 98.8 108 37 149/67 (94) 92 10/18/20 23:30 110 37 135/74 (94) 85 10/18/20 23:00 35 144/67 Mechanical Ventilator 100 10/18/20 23:00 110 37 144/76 (98) 86 10/18/20 22:52 114 35 65 10/18/20 22:30 114 37 189/83 (118) 69 10/18/20 22:00 38 168/77 Mechanical Ventilator 100 10/18/20 22:00 114 37 168/77 (107) 86 10/18/20 21:30 95 39 90/48 (62) 95 10/18/20 21:27 101.0 10/18/20 21:26 91 31 148/74 100 10/18/20 21:00 38 168/77 Mechanical Ventilator 100 10/18/20 21:00 113 41 195/93 (127) 82 10/18/20 20:56 91 31 148/74 100 10/18/20 20:30 122 40 165/82 (109) 75 10/18/20 20:00 101.9 107 40 171/88 (115) 85 10/18/20 20:00 41 171/88 Mechanical Ventilator 65 10/18/20 20:00 75 10/18/20 20:00 125 10/18/20 20:00 Mechanical Ventilator 10/18/20 19:30 88 41 146/88 (107) 100 10/18/20 19:03 91 31 65 10/18/20 19:00 34 121/62 Mechanical Ventilator 65 10/18/20 19:00 89 33 137/59 (85) 100 10/18/20 18:00 102.2 103 28 148/74 (98) 100 10/18/20 18:00 28 148/74 Mechanical Ventilator 65 10/18/20 17:30 99 24 121/56 (77) 100 10/18/20 17:00 103 25 123/62 (82) 100 10/18/20 17:00 25 123/62 Mechanical Ventilator 65 10/18/20 16:30 102.4 103 23 131/56 (81) 100 10/18/20 16:00 102 10/18/20 16:00 102.7 101 23 122/61 (81) 100 10/18/20 16:00 23 122/61 Mechanical Ventilator 65 10/18/20 16:00 65 10/18/20 15:58 102.7 10/18/20 15:45 65 10/18/20 15:30 102.6 110 30 186/86 (119) 100 10/18/20 15:27 102 30 45 10/18/20 15:00 110 35 156/84 (108) 98 10/18/20 15:00 35 156/84 Mechanical Ventilator 45 Intake and Output 10/18/20 10/19/20 19:00 07:00 Intake Total 1675.462 ml 1086.850 ml Output Total 770 ml 1475 ml Balance 905.462 ml -388.150 ml IV Total 1625.462 ml 1086.850 ml Other 50 ml Output Urine Total 770 ml 975 ml Gastric Drainage Total 500 ml # Bowel Movements 1 Laboratory Tests 10/18/20 15:34: Arterial Blood pH 7.450, Arterial Blood Partial Pressure CO2 30.4L, Arterial Blood Partial Pressure O2 70.2L, Arterial Blood HCO3 20.7L, Arterial Blood Oxygen Saturation 93.9L, Arterial Blood Base Excess -2.6L, Francisco Test Positive 10/18/20 16:40: White Blood Count 9.0, Red Blood Count 3.76L, Hemoglobin 8.5L, Hematocrit 29.0L, Mean Corpuscular Volume 77L, Mean Corpuscular Hemoglobin 22.7L, Mean Corpuscular Hemoglobin Concent 29.5L, Red Cell Distribution Width 20.7H, Platelet Count 63L, Mean Platelet Volume 8.1, Neutrophils (%) (Auto) , Lymphocytes (%) (Auto) , Monocytes (%) (Auto) , Eosinophils (%) (Auto) , Basophils (%) (Auto) , Differe ntial Total Cells Counted 100, Neutrophils % (Manual) 89H, Lymphocytes % (Manual) 10L, Monocytes % (Manual) 1, Eosinophils % (Manual) 0, Basophils % (Manual) 0, Band Neutrophils 0, Nucleated Red Blood Cells 1, Platelet Estimate DecreasedL, Platelet Morphology Normal, Hypochromasia 2+, Anisocytosis 3+, Microcytosis 1+, Lactic Acid Level 3.10H 10/18/20 22:50: Lactic Acid Level 4.30H 10/19/20 04:30: White Blood Count 12.1H, Red Blood Count 4.23, Hemoglobin 9.6L, Hematocrit 33.0L , Mean Corpuscular Volume 78L, Mean Corpuscular Hemoglobin 22.7L, Mean Corpuscular Hemoglobin Concent 29.1L, Red Cell Distribution Width 20.9H, Platelet Count 72L, Mean Platelet Volume 8.5, Neutrophils (%) (Auto) , Lymphocytes (%) (Auto) , Monocytes (%) (Auto) , Eosinophils (%) (Auto) , Basophils (%) (Auto) , Differential Total Cells Counted 100, Neutrophils % (Manual) 92H, Lymphocytes % (Manual) 5L, Monocytes % (Manual) 3, Eosinophils % (Manual) 0, Basophils % (Manual) 0, Band Neutrophils 0, Platelet Estimate D ecreasedL, Platelet Morphology Normal, Hypochromasia 1+, Anisocytosis 1+, Microcytosis 1+, Sodium Level 148H, Potassium Level 4.1, Chloride Level 115H, Carbon Dioxide Level 23, Anion Gap 10, Blood Urea Nitrogen 72H, Creatinine 1.4H, Estimat Glomerular Filtration Rate 38.5, Glucose Level 174H, Calcium Level 8.0L, Total Bilirubin 0.8, Direct Bilirubin 0.6H, Aspartate Amino Transf (AST/SGOT) 73H, Alanine Aminotransferase (ALT/SGPT) 33, Alkaline Phosphatase 180H, Total Protein 5.6L, Albumin 2.0L, Globulin 3.6, Albumin/Globulin Ratio 0.6L, Hepatitis A IgM Antibody [Pending], Hepatitis B Surface Antigen [Pending], Hepatitis B Core IgM Antibody [Pending], Hepatitis C Antibody [Pending] 10/19/20 05:30: Triglycerides Level 149 10/19/20 08:07: Arterial Blood pH 7.297L, Arterial Blood Partial Pressure CO2 38.2, Arterial Blood Partial Pressure O2 59.9L, Arterial Blood HCO3 18.2L, Arterial Blood Oxygen Saturation 85.7*L, Arterial Blood Base Excess -7.6L, Francisco Test Positive Height (Feet): 5 Height (Inches): 3.00 Weight (Pounds): 125 Objective deferred due to COVID Assessment/Plan Assessment/Plan: Impression: Covid Pneumonia UTI Uncontrolled diabetes mellitus 2019 novel coronavirus disease (COVID-19) Renal insufficiency, acute Dehydration Rhabdomyolysis due to COVID-19 Possible Cirrhosis acute hypoxemic respiratory failure s/p intubation acidemia MODS hematemesis Plan doing poorly on 100% hypervent GI called renal called follow up CXR and ABG for change follow up labs IV antibiotics ID follow up DVT prophylaxis critical on levimir tube feeds when ok with gi no family available medications/laboratory data/nursing notes/ICU care reviewed in detail note reviewed and edited care discussed with RN and RT ICU time spent >40 minutes Terence Szymanski MD Oct 19, 2020 15:01
[2020-10-19] MEDS: Maintenance Dose:Remdesivir 100mg/NS 230ml x 4 Doses IV SCH ×2 (16:00)
--- NOTE | 2020-10-19 16:19 | NUR ---
NURSE NOTES: Paged Dr. Rodriguez to clarify Remdesivir order , awaiting for callback, will continue to monitor.
--- NOTE | 2020-10-19 16:26 | NUR ---
NURSE NOTES: Per Dr. Rodriguez , hold Remdesivir for today due to low DBP. Pharmacist made aware.
--- NOTE | 2020-10-19 19:07 | NUR ---
NURSE HAND-OFF REPORT: Latest Vital Signs: Temperature 98.2 , Pulse 93 , B/P 122 /55 , Respiratory Rate 30 , O2 SAT 100 , Mechanical Ventilator, O2 Flow Rate . Vital Sign Comment: mild fever , now 98.2 EKG Rhythm: Sinus Rhythm Rhythm change?: N Notified?: Niurka Szymanski MD Response: Latest Daly Fall Score: 100 Fall Risk: High Risk Safety Measures: Call light Within Reach, Bed Alarm Zone 2, Side Rails Side Rails x3, Bed position Low and Locked. Fall Precautions: Yellow Socks Yellow Gown Door Sign Patient Fall Education Report given to DOMINIC Bull.
--- NOTE | 2020-10-19 19:30 | NUR ---
NURSE NOTES: Report received from DOMINIC Voss. Patient is currently sedated RASS -2, encephalopathic; glass carrier is in place and shows sinus rhythm int he 70s. With OGT 50cm on the lip, drained via gravity, draining coffee ground emesis. Patient is intubated, size 7.5, 21cm on the lip, AC mode, TV 500, FiO2 100% and PEEP of 6, With Raines catheter drained via gravity, noted yellow-orange output with sediments. Accu check ACHS. IV site is on right wrist g-20 running propofol @ 25mcg/kg/min at this time with RASS -2, and IV on left wrist g-22, running 1/2 NS @ 100cc/hour. With bilateral soft wrist restraints. Patient is Covid positive, isolation protocol maintained and observed. Safety measures are in place, bed in lowest and locked position, side rails up x 2, will continue plan of care.
--- NOTE | 2020-10-19 20:00 | General Progress Note ---
Subjective Allergies: Coded Allergies: WARFARIN (Verified Allergy, Unknown, 03/03/19) Subjective above noted d/w clinical staff pharmacist (+) dark OGT aspirate no melena dark green stools Objective Last 24 Hour Vital Signs Date Time Temp Pulse Resp B/P (MAP) Pulse Ox O2 Delivery O2 Flow Rate FiO2 10/19/20 19:08 94 29 100 10/19/20 19:00 98.2 93 30 122/55 (77) 100 10/19/20 19:00 30 122/55 Mechanical Ventilator 100 10/19/20 18:00 30 123/27 Mechanical Ventilator 100 10/19/20 18:00 98 30 123/27 (59) 97 10/19/20 17:00 34 122/35 Mechanical Ventilator 100 10/19/20 17:00 102 33 122/36 (64) 98 10/19/20 16:00 100 10/19/20 16:00 34 120/33 Mechanical Ventilator 100 10/19/20 16:00 Mechanical Ventilator 10/19/20 16:00 99.2 105 34 120/33 (62) 96 10/19/20 16:00 101 10/19/20 15:00 107 34 131/50 (77) 93 10/19/20 15:00 34 124/46 Mechanical Ventilator 100 10/19/20 14:00 97 35 124/46 (72) 96 10/19/20 14:00 34 110/44 Mechanical Ventilator 100 10/19/20 13:40 98 30 100 10/19/20 13:00 32 111/44 Mechanical Ventilator 100 10/19/20 13:00 89 33 124/34 (64) 100 10/19/20 12:00 100 10/19/20 12:00 96.1 85 33 116/40 (65) 99 10/19/20 12:00 75 10/19/20 12:00 33 124/34 Mechanical Ventilator 100 10/19/20 12:00 Mechanical Ventilator 10/19/20 11:00 33 95/30 Mechanical Ventilator 100 10/19/20 11:00 77 31 95/30 (51) 100 10/19/20 10:00 69 30 95/30 (51) 100 10/19/20 10:00 32 95/30 Mechanical Ventilator 100 10/19/20 09:00 64 27 97/30 (52) 98 10/19/20 09:00 27 97/27 Mechanical Ventilator 100 10/19/20 08:00 Mechanical Ventilator 10/19/20 08:00 63 10/19/20 08:00 30 99/34 Mechanical Ventilator 100 10/19/20 08:00 95.0 63 28 99/34 (55) 98 10/19/20 08:00 100 10/19/20 07:59 80 29 100 10/19/20 07:00 30 113/22 Mechanical Ventilator 100 10/19/20 07:00 65 30 113/22 (52) 90 10/19/20 06:30 66 33 118/32 (60) 91 10/19/20 06:00 30 216/146 Mechanical Ventilator 100 10/19/20 06:00 51 33 175/101 (125) 89 10/19/20 05:30 74 36 115/61 (79) 89 10/19/20 05:00 75 36 107/55 (72) 90 10/19/20 05:00 34 115/61 Mechanical Ventilator 100 10/19/20 04:30 79 36 125/69 (87) 88 10/19/20 04:00 100 10/19/20 04:00 33 115/65 Mechanical Ventilator 100 10/19/20 04:00 Mechanical Ventilator 10/19/20 04:00 95.0 82 34 116/61 (79) 87 10/19/20 04:00 89 10/19/20 03:43 36 128/48 Mechanical Ventilator 100 10/19/20 03:30 82 30 120/80 (93) 87 10/19/20 03:00 84 34 108/40 (62) 86 10/19/20 03:00 36 108/40 Mechanical Ventilator 100 10/19/20 02:55 81 32 65 10/19/20 02:30 88 33 136/78 (97) 87 10/19/20 02:00 32 129/73 Mechanical Ventilator 100 10/19/20 02:00 93 34 129/79 (96) 83 10/19/20 01:30 95 34 129/58 (81) 83 10/19/20 01:00 95 34 139/58 (85) 83 10/19/20 01:00 33 139/58 Mechanical Ventilator 100 10/19/20 00:45 41 187/89 Mechanical Ventilator 100 10/19/20 00:30 110 34 157/57 (90) 83 10/19/20 00:00 100 10/19/20 00:00 Mechanical Ventilator 10/19/20 00:00 35 149/67 Mechanical Ventilator 100 10/19/20 00:00 110 10/19/20 00:00 98.8 108 37 149/67 (94) 92 10/18/20 23:30 110 37 135/74 (94) 85 10/18/20 23:00 35 144/67 Mechanical Ventilator 100 10/18/20 23:00 110 37 144/76 (98) 86 10/18/20 22:52 114 35 65 10/18/20 22:30 114 37 189/83 (118) 69 10/18/20 22:00 38 168/77 Mechanical Ventilator 100 10/18/20 22:00 114 37 168/77 (107) 86 10/18/20 21:30 95 39 90/48 (62) 95 10/18/20 21:27 101.0 10/18/20 21:26 91 31 148/74 100 10/18/20 21:00 38 168/77 Mechanical Ventilator 100 10/18/20 21:00 113 41 195/93 (127) 82 10/18/20 20:56 91 31 148/74 100 10/18/20 20:30 122 40 165/82 (109) 75 10/18/20 20:00 101.9 107 40 171/88 (115) 85 10/18/20 20:00 41 171/88 Mechanical Ventilator 65 10/18/20 20:00 75 10/18/20 20:00 125 10/18/20 20:00 Mechanical Ventilator Intake and Output 10/18/20 10/19/20 19:00 07:00 Intake Total 1675.462 ml 1086.850 ml Output Total 770 ml 1475 ml Balance 905.462 ml -388.150 ml IV Total 1625.462 ml 1086.850 ml Other 50 ml Output Urine Total 770 ml 975 ml Gastric Drainage Total 500 ml # Bowel Movements 1 Laboratory Tests 10/18/20 22:50: Lactic Acid Level 4.30H 10/19/20 04:30: White Blood Count 12.1H, Red Blood Count 4.23, Hemoglobin 9.6L, Hematocrit 33.0L , Mean Corpuscular Volume 78L, Mean Corpuscular Hemoglobin 22.7L, Mean Corpuscular Hemoglobin Concent 29.1L, Red Cell Distribution Width 20.9H, Platelet Count 72L, Mean Platelet Volume 8.5, Neutrophils (%) (Auto) , Lymphocytes (%) (Auto) , Monocytes (%) (Auto) , Eosinophils (%) (Auto) , B asophils (%) (Auto) , Differential Total Cells Counted 100, Neutrophils % (Manual) 92H, Lymphocytes % (Manual) 5L, Monocytes % (Manual) 3, Eosinophils % (Manual) 0, Basophils % (Manual) 0, Band Neutrophils 0, Platelet Estimate DecreasedL, Platelet Morphology Normal, Hypochromasia 1+, Anisocytosis 1+, Microcytosis 1+, Sodium Level 148H, Potassium Level 4.1, Chloride Level 115H, Carbon Dioxide Level 23, Anion Gap 10, Blood Urea Nitrogen 72H, Creatinine 1.4H, Estimat Glomerular Filtration Rate 38.5, Glucose Level 174H, Calcium Level 8.0L, Total Bilirubin 0.8, Direct Bilirubin 0.6H, Aspartate Amino Transf (AST/SGOT) 73H, Alanine Aminotransferase (ALT/SGPT) 33, Alkaline Phosphatase 180H, Total Protein 5.6L, Albumin 2.0L, Globulin 3.6, Albumin/Globulin Ratio 0.6L, Hepatitis A IgM Antibody [Pending], Hepatitis B Surface Antigen [Pending], Hepatitis B Core IgM Antibody [Pending], Hepatitis C Antibody [Pending] 10/19/20 05:30: Triglycerides Level 149 10/19/20 08:07: Arterial Blood pH 7.297L, Arterial Blood Partial Pressure CO2 38.2, Arterial Blood Partial Pressure O2 59.9L, Arterial Blood HCO3 18.2L, Arterial Blood Oxy gen Saturation 85.7*L, Arterial Blood Base Excess -7.6L, Francisco Test Positive Height (Feet): 5 Height (Inches): 3.00 Weight (Pounds): 125 Objective Elderly woman NCAT(+) ETT, OGT neck supple Coarse Ronchi RR abd soft ND no edema non communicative Assessment/Plan Assessment/Plan: Assessment - CG emesis and ogt aspirate - COVID infection, resp failure - thrombocytopenia - microcytic anemia - Azotemia - DM - hypernatremia, free water deficit Recommendations - change H2B to PPI - daily CBC - watch platelets - Check Iron panel - replace - GT to gravity. Clamp for Ryanne Schulz MD Oct 19, 2020 20:00
--- NOTE | 2020-10-19 22:08 | NUR ---
NURSE NOTES: Called Dr. Szymanski and informed that patient's blood pressure drops down to 58/34, primary MD will contact ER MD to insert a central line cath and received an order of bolus NS 1L, will carry out.
[2020-10-19] MEDS ORDERED: Levophed 4mg/4mL Inj IV ONE (22:11)
--- NOTE | 2020-10-19 22:20 | NUR ---
NURSE NOTES: Patient's blood pressure drops down to 64/45. Withheld the propofol drip for the meantime until blood pressure parameters stabilized. Repositioned and place the bed on flat position. Dr. Szymanski made aware, ER MD Dr. Palmer is on his way to insert a central line. Will closely monitor.
--- NOTE | 2020-10-19 22:25 | NUR ---
NURSE NOTES: Dr. Palmer came and central line, triple lumen was inserted aseptically on right upper thigh. Bolus of 1 liter NS, at this time blood pressure is 69/40, will continue to re-assess the patient's blood pressure.
--- NOTE | 2020-10-19 22:44 | Emergency Room Report ---
History of Present Illness General Chief Complaint: Abnormal Labs Source: Patient Present Illness HPI This patient was admitted to the hospital for Covid pneumonia and developed respiratory failure and was intubated. She became hypotensive and needed a central line for pressors. I place a central line under sterile condition. No complication. Allergies: Coded Allergies: WARFARIN (Verified Allergy, Unknown, 03/03/19) COVID-19 Screening Contact w/high risk pt: No Experienced COVID-19 symptoms?: No COVID-19 Testing performed LAST GREASER: No COVID-19 Screening: Positive COVID-19 Patient History Now: No Nursing Documentation-[facility] Past Medical History: No History, Except For Hx Cardiac Problems: Yes Hx Hypertension: Yes Hx Asthma: Yes Hx Diabetes: Yes Hx Cancer: No Hx Gastrointestinal Problems: No Hx Neurological Problems: Yes Hx Cerebrovascular Accident: Yes - RIGHT SIDE WEAKNESS Physical Exam Vital Signs Date Time Temp Pulse Resp B/P (MAP) Pulse Ox O2 Delivery O2 Flow Rate FiO2 10/15/20 08:00 97.9 85 20 124/70 (88) 94 10/15/20 09:00 Room Air 10/15/20 22:30 15.0 100 Procedures Central Line Central Line : Consent: Emergent Central Line Lumen: triple Maximal Sterile Barrier Tech: yes cap, yes mask, yes sterile gown, yes sterile gloves, yes large sterile sheet, yes hand hygiene, yes chlorhexidine prep Central Line Postion: femoral (R) US Guided Line?: No Complications: none Central Line Post Position: sutured, good blood return Attempts: One Patient Tolerated: Well Complications: None Medical Decision Making Diagnostic Impression: Primary Impression: Respiratory arrest Additional Impressions: 2019 novel coronavirus disease (COVID-19) Hyperglycemia Hypernatremia Last Vital Signs Date Time Temp Pulse Resp B/P (MAP) Pulse Ox O2 Delivery O2 Flow Rate FiO2 10/19/20 22:23 59/34 10/19/20 20:00 100 10/19/20 20:00 Mechanical Ventilator 10/19/20 19:29 91 10/19/20 19:08 29 10/19/20 19:00 98.2 100 10/17/20 21:00 15.0 Disposition: ADMITTED INPATIENT Condition: Critical Referrals: [facility] (PCP) Dalton Palmer MD Oct 19, 2020 22:44
--- NOTE | 2020-10-19 22:45 | NUR ---
NURSE NOTES: Patient's blood pressure is 126/43. Propofol resumed @ 10mcg/kg/hour at this time patient is on RASS-3.
--- NOTE | 2020-10-19 23:45 | NUR ---
NURSE NOTES: Noted substernal retractions, at this time patient is drowsy RASS of -1, will increase the propofol to 15mcg/kg/hr. Blood pressure is within normal limits, no fever noted.
--- NOTE | 2020-10-19 23:58 | Psychiatric Progress Note ---
Psychiatry Progress Note Psychiatry Progress Note Medications Current Medications Medications (Trade) Dose Ordered Sig/Hernando Route PRN Reason Start Time Stop Time Status Last Admin Dose Admin Acetaminophen (Tylenol) 650 mg Q4H PRN ORAL Mild Pain (Pain Scale 1-3) 10/10/20 21:15 11/09/20 21:14 10/14/20 13:28 Acetaminophen (Tylenol) 650 mg Q4H PRN ORAL Temp >100.5 10/10/20 21:15 11/09/20 21:14 10/18/20 20:57 Albuterol Sulfate (Proventil MDI) 2 puff Q4H PRN INH Shortness of Breath 10/10/20 21:30 01/08/21 21:29 Ceftriaxone Sodium 1 gm/ Dextrose 55 ml @ 110 mls/hr Q24H IVPB 10/17/20 15:00 10/24/20 14:59 10/19/20 14:08 Clonidine HCl (Catapres Tab) 0.1 mg Q4H PRN ORAL for SBP >150 10/14/20 11:30 01/12/21 11:29 10/14/20 11:25 Dextrose (Dextrose 50%) 25 ml Q30M PRN IV Hypoglycemia 10/10/20 21:15 01/08/21 21:14 Dextrose (Dextrose 50%) 50 ml Q30M PRN IV Hypoglycemia 10/10/20 21:15 01/08/21 21:14 Docusate Sodium (Colace) 100 mg EVERY 12 HOURS ORAL 10/11/20 09:00 11/10/20 08:59 10/18/20 20:56 Haloperidol Lactate (Haldol) 5 mg Q6H PRN IM Agitation 10/13/20 16:15 11/27/20 16:14 Insulin Aspart (NovoLOG) BEFORE MEALS AND HS SUBQ 10/11/20 06:30 01/09/21 06:29 10/19/20 06:02 Insulin Detemir (Levemir) 14 units BID SUBQ 10/18/20 18:00 01/09/21 20:59 10/19/20 17:47 Lorazepam (Ativan 2mg/ml 1ml) 1 mg Q3H PRN IV For Anxiety 10/17/20 18:15 10/24/20 18:14 10/18/20 20:56 Methylprednisolone Sodium Succinate (Solu-MEDROL) 40 mg EVERY 12 HOURS IVP 10/19/20 12:00 01/17/21 11:59 10/19/20 21:07 Norepinephrine Bitartrate 4 mg/ Dextrose 250 ml @ 0 mls/hr Q24H IV 10/19/20 22:15 10/22/20 22:14 10/19/20 22:23 Ondansetron HCl (Zofran) 4 mg Q6H PRN IVP Nausea & Vomiting 10/10/20 21:15 11/09/20 21:14 Pantoprazole (Protonix) 40 mg EVERY 12 HOURS IVP 10/18/20 22:15 11/17/20 22:14 10/19/20 21:07 Propofol 100 ml @ 1.701 mls/ hr Q12H PRN IV Agitation 10/19/20 13:30 10/21/20 13:29 10/19/20 14:44 Remdesivir 100 mg/ Sodium Chloride 250 ml @ 250 mls/hr Q24H IV 10/17/20 16:00 10/20/20 16:59 10/18/20 15:28 Sodium Chloride 1,000 ml @ 100 mls/hr Q10H IV 10/16/20 13:45 11/15/20 13:44 10/19/20 21:00 Neurological/Psychiatric: Reports: anxiety, depressed, emotional problems Allergies: Coded Allergies: WARFARIN (Verified Allergy, Unknown, 03/03/19) Objective Data Height (Feet): 5 Height (Inches): 3.00 Weight (Pounds): 125 Additional Comments: MENTAL STATUS EXAMINATION: The patient is awake, oriented to self, place, uncooperative, and mood is neutral and anxious. Affect is blunted. Thought process, there is a paucity of thought content. The patient appears to be delusional. Cognition is impaired. Insight and judgment Impulse control poor. Assessment/Plan [place] I: ASSESSMENT: [place] I Acute toxic encephalopathy. Psychotic disorder. Rule out dementia. [place] II Deferred. [place] III COVID-19. [place] IV Low. [place] V 20 PLAN: 1. We will start the patient on low dose of antipsychotics. 2. Continue the restraints. 3. Discussed with the primary team. Status Narrative ASSESSMENT: [place] I Acute toxic encephalopathy. Psychotic disorder. Rule out dementia. [place] II Deferred. [place] III COVID-19. [place] IV Low. [place] V 20 PLAN: 1. We will start the patient on low dose of antipsychotics. 2. Continue the restraints. 3. Discussed with the primary team. Assessment/Plan: ASSESSMENT: [place] I Acute toxic encephalopathy. Psychotic disorder. Rule out dementia. [place] II Deferred. [place] III COVID-19. [place] IV Low. [place] V 20 PLAN: 1. We will start the patient on low dose of antipsychotics. 2. Continue the restraints. 3. Discussed with the primary team. Frank Chacon MD Oct 19, 2020 23:58
[2020-10-20] VITALS (30 sets, daily range): BP systolic 102–156; BP diastolic 31–52
--- NOTE | 2020-10-20 | NUR ---
NURSE NOTES: On propofol 15mcg/kg/min, RAAS -2 noted. Will keep on this rate for the meantime.
[2020-10-20] MEDS: propofoL 1,000mg/100ml 100 ML IV PRN ×2 (00:28→18:32)
--- NOTE | 2020-10-20 03:30 | NUR ---
NURSE NOTES: Blood drawn done, will follow up the result.
--- NOTE | 2020-10-20 04:00 | NUR ---
NURSE NOTES: Bed bath done, patient had a BM, greening to blackish in color, moderate is amount. Cleansed and change the dressing on sacral area, noted on a low grade fever, temp of 99.8 on her axillary. Repositioned on her back, oral care provided.
--- NOTE | 2020-10-20 05:25 | NUR ---
NURSE NOTES: Patient is calm but with with episode if movement on her extremities. Patient is on propofol @ 15mcg/kg/min. Will initiate bilateral soft wrist restraints.
--- NOTE | 2020-10-20 06:00 | NUR ---
NURSE NOTES: Bilateral soft wrist restraints were already place. Patient is calm and sleeping at this time. Will safety measures and sedation for now.
[2020-10-20] MEDS: NovoLOG Insulin Flexpen SUBQ SCH ×4 (06:02→21:00)
--- NOTE | 2020-10-20 07:24 | NUR ---
NURSE HAND-OFF REPORT: Latest Vital Signs: Temperature 100.7 , Pulse 94 , B/P 104 /41 , Respiratory Rate 30 , O2 SAT 100 , Mechanical Ventilator, O2 Flow Rate . Vital Sign Comment: Stable EKG Rhythm: Sinus Tachycardia Rhythm change?: N Notified?: Niurka -Dr. Stephon SYED Response: Latest [place] Fall Score: 100 Fall Risk: High Risk Safety Measures: Call light Within Reach, Bed Alarm Zone 2, Side Rails Side Rails x2, Bed position Low and Locked. Fall Precautions: Yellow Socks Yellow Gown Door Sign Patient Fall Education Report given to DOMINIC Cai.
[2020-10-20 07:31] LABS: HEMATOCRIT 30.6 % (37.0-47.0); MEAN CORPUSCULAR VOLUME 79 FL (80-99); PLATELET COUNT 57 K/UL (150-450); RED BLOOD COUNT 3.87 M/UL (4.20-5.40); RED CELL DISTRIBUTION WIDTH 21.5 % (11.6-14.8); WHITE BLOOD COUNT 10.6 K/UL (4.8-10.8)
[2020-10-20 07:35] LABS: ALBUMIN 1.8 G/DL (3.4-5.0); ALBUMIN/GLOBULIN RATIO 0.5 (1.0-2.7); BILIRUBIN,DIRECT 0.6 MG/DL (0.0-0.3); CALCIUM 7.6 MG/DL (8.5-10.1); CREATININE 1.7 MG/DL (0.55-1.30); POTASSIUM 4.9 MMOL/L (3.5-5.1)
--- NOTE | 2020-10-20 07:38 | NUR ---
NURSE NOTES: Report received from DOMINIC Andrews. Patient is currently sedated RASS -2. NSR on the lunchroom monitor. OGT draining via gravity, draining coffee ground emesis. Patient is intubated, size 7.5, 21cm on the lip, AC 22, TV 500, FiO2 100% and PEEP of 6; O2sat 99%. Raines catheter intact and draining via gravity to urometer, noted yellow-orange output with sediment. PIV site Right wrist 20g and Left wrist 22g- both saline locked. Rt femoral TLC running Propofol @ 25mcg/kg/min and 1/2 NS @ 100mL/hour. Pt received and maintained on bilateral soft wrist restraints for safety. Patient is Covid positive, isolation protocol maintained and observed. Safety measures are in place, bed in lowest and locked position, side rails up x 2, will continue plan of care.
[2020-10-20] MEDS: Pantoprazole Inj IVP SCH ×2 (08:11→20:28)
[2020-10-20] MEDS: Solu-MEDROL 40mg Inj IVP SCH ×2 (08:11→20:28)
[2020-10-20] MEDS: Docusate 100mg cap ORAL SCH ×2 (08:12→20:28)
[2020-10-20] MEDS: Levemir Flexpen SUBQ SCH ×2 (08:28→18:15)
--- NOTE | 2020-10-20 09:00 | NUR ---
NURSE NOTES: Dr Brunner at bedside assessing pt. Updated him on pt's current condition. Tube feeds will be restarted; Glucerna 1.2 with a goal rate of 60mL/hr
--- NOTE | 2020-10-20 10:30 | NUR ---
NURSE NOTES: Dr Ashley at bedside assessing pt. Updated him on pt's current condition. No new orders given at this time.
--- NOTE | 2020-10-20 10:55 | Infectious Diseases Prog Note ---
Assessment/Plan Assessment/Plan A: 1. Hypoxic respiratory failure 2. COVID19 pneumonia. 3. DM with hyperglycemia 4. Cirrhosis 5. HPN 6. s/p cardiac arrest PLAN: 1. Finished Remdesivir course 2. Continue Solumedrol 3. Continue Rocephin Subjective ROS Limited/Unobtainable: Yes Constitutional: Reports: fever, other - T=100.6 in am Neurologic: Reports: other - sedated on restraint Allergies: Coded Allergies: WARFARIN (Verified Allergy, Unknown, 03/03/19) Objective Last 24 Hour Vital Signs Date Time Temp Pulse Resp B/P (MAP) Pulse Ox O2 Delivery O2 Flow Rate FiO2 10/20/20 10:00 92 29 129/39 (69) 98 10/20/20 09:30 88 28 114/36 (62) 100 10/20/20 09:00 85 25 132/31 (64) 100 10/20/20 08:00 100 10/20/20 08:00 97.9 94 28 129/38 (68) 100 10/20/20 08:00 Mechanical Ventilator 10/20/20 08:00 27 144/97 Mechanical Ventilator 100 10/20/20 07:00 94 30 104/41 (62) 100 10/20/20 07:00 30 104/41 Mechanical Ventilator 100 10/20/20 06:45 95 32 102/33 (56) 100 10/20/20 06:30 98 32 109/42 (64) 100 10/20/20 06:00 100.7 104 34 103/50 (67) 100 10/20/20 06:00 30 120/63 Mechanical Ventilator 100 10/20/20 05:00 106 34 109/31 (57) 99 10/20/20 05:00 32 109/31 Mechanical Ventilator 10/20/20 04:00 100 10/20/20 04:00 Mechanical Ventilator 10/20/20 04:00 35 104/35 Mechanical Ventilator 10/20/20 04:00 99.8 102 35 104/35 (58) 99 10/20/20 03:58 103 10/20/20 03:10 104 32 100 10/20/20 03:00 106 33 111/38 (62) 98 10/20/20 03:00 33 111/38 Mechanical Ventilator 10/20/20 02:00 33 107/52 Mechanical Ventilator 10/20/20 02:00 104 33 107/52 (70) 98 10/20/20 01:00 101 31 114/42 (66) 98 10/20/20 01:00 29 105/49 Mechanical Ventilator 10/20/20 00:28 31 126/43 Mechanical Ventilator 10/20/20 00:00 97.9 98 30 126/43 (70) 100 10/20/20 00:00 31 114/42 Mechanical Ventilator 10/20/20 00:00 Mechanical Ventilator 10/20/20 00:00 100 10/19/20 23:49 97 10/19/20 23:45 31 124/58 Mechanical Ventilator 10/19/20 23:29 99 30 100 10/19/20 23:00 34 121/48 Mechanical Ventilator 10/19/20 23:00 91 30 101/49 (66) 100 10/19/20 22:45 30 115/43 Mechanical Ventilator 10/19/20 22:23 59/34 10/19/20 22:20 90 30 66/45 (52) 100 10/19/20 22:20 34 69/29 Mechanical Ventilator 10/19/20 22:00 30 97/30 Mechanical Ventilator 10/19/20 22:00 81 30 83/40 (54) 97 10/19/20 21:00 32 98/32 Mechanical Ventilator 10/19/20 21:00 84 32 86/41 (56) 98 10/19/20 20:00 100 10/19/20 20:00 Mechanical Ventilator 10/19/20 20:00 30 101/27 Mechanical Ventilator 10/19/20 20:00 97.0 90 30 101/27 (51) 100 10/19/20 19:29 91 10/19/20 19:08 94 29 100 10/19/20 19:00 98.2 93 30 122/55 (77) 100 10/19/20 19:00 30 122/55 Mechanical Ventilator 100 10/19/20 18:00 30 123/27 Mechanical Ventilator 100 10/19/20 18:00 98 30 123/27 (59) 97 10/19/20 17:00 34 122/35 Mechanical Ventilator 100 10/19/20 17:00 102 33 122/36 (64) 98 10/19/20 16:00 100 10/19/20 16:00 34 120/33 Mechanical Ventilator 100 10/19/20 16:00 Mechanical Ventilator 10/19/20 16:00 99.2 105 34 120/33 (62) 96 10/19/20 16:00 101 10/19/20 15:00 107 34 131/50 (77) 93 10/19/20 15:00 34 124/46 Mechanical Ventilator 100 10/19/20 14:00 97 35 124/46 (72) 96 10/19/20 14:00 34 110/44 Mechanical Ventilator 100 10/19/20 13:40 98 30 100 10/19/20 13:00 32 111/44 Mechanical Ventilator 100 10/19/20 13:00 89 33 124/34 (64) 100 10/19/20 12:00 100 10/19/20 12:00 96.1 85 33 116/40 (65) 99 10/19/20 12:00 75 10/19/20 12:00 33 124/34 Mechanical Ventilator 100 10/19/20 12:00 Mechanical Ventilator 10/19/20 11:00 33 95/30 Mechanical Ventilator 100 10/19/20 11:00 77 31 95/30 (51) 100 Height (Feet): 5 Height (Inches): 3.00 Weight (Pounds): 125 HEENT: other - orally intubated Respiratory/Chest: other - on ventilator, FIO2=90% Cardiovascular: normal rate Abdomen: soft, non tender Neurologic/Psychiatric: other - sedated Laboratory Tests Test 10/19/20 17:25 10/20/20 04:30 POC Whole Blood Glucose 120 MG/DL (74-106) H White Blood Count 10.6 K/UL (4.8-10.8) Red Blood Count 3.87 M/UL (4.20-5.40) L Hemoglobin 9.0 G/DL (12.0-16.0) L Hematocrit 30.6 % (37.0-47.0) L Mean Corpuscular Volume 79 FL (80-99) L Mean Corpuscular Hemoglobin 23.2 PG (27.0-31.0) L Mean Corpuscular Hemoglobin Concent 29.2 G/DL (32.0-36.0) L Red Cell Distribution Width 21.5 % (11.6-14.8) H Platelet Count 57 K/UL (150-450) L Mean Platelet Volume 11.5 FL (6.5-10.1) H Neutrophils (%) (Auto) % (45.0-75.0) Lymphocytes (%) (Auto) % (20.0-45.0) Monocytes (%) (Auto) % (1.0-10.0) Eosinophils (%) (Auto) % (0.0-3.0) Basophils (%) (Auto) % (0.0-2.0) Differential Total Cells Counted 100 Neutrophils % (Manual) 94 % (45-75) H Lymphocytes % (Manual) 4 % (20-45) L Monocytes % (Manual) 2 % (1-10) Eosinophils % (Manual) 0 % (0-3) Basophils % (Manual) 0 % (0-2) Band Neutrophils 0 % (0-8) Platelet Estimate Decreased L Platelet Morphology Giant Platelets Occasional Polychromasia 1+ Hypochromasia 1+ Anisocytosis 2+ Sodium Level 144 MMOL/L (136-145) Potassium Level 4.9 MMOL/L (3.5-5.1) Chloride Level 111 MMOL/L (98-107) H Carbon Dioxide Level 19 MMOL/L (21-32) L Anion Gap 14 mmol/L (5-15) Blood Urea Nitrogen 79 mg/dL (7-18) H Creatinine 1.7 MG/DL (0.55-1.30) H Estimat Glomerular Filtration Rate 30.8 mL/min (>60) Glucose Level 89 MG/DL (74-106) Calcium Level 7.6 MG/DL (8.5-10.1) L Total Bilirubin 1.0 MG/DL (0.2-1.0) Direct Bilirubin 0.6 MG/DL (0.0-0.3) H Aspartate Amino Transf (AST/SGOT) 121 U/L (15-37) H Alanine Aminotransferase (ALT/SGPT) 45 U/L (12-78) Alkaline Phosphatase 159 U/L (46-116) H Total Protein 5.2 G/DL (6.4-8.2) L Albumin 1.8 G/DL (3.4-5.0) L Globulin 3.4 g/dL Albumin/Globulin Ratio 0.5 (1.0-2.7) L Current Medications Medications (Trade) Dose Ordered Sig/Hernando Route PRN Reason Start Time Stop Time Status Last Admin Dose Admin Acetaminophen (Tylenol) 650 mg Q4H PRN ORAL Mild Pain (Pain Scale 1-3) 10/10/20 21:15 11/09/20 21:14 10/14/20 13:28 Acetaminophen (Tylenol) 650 mg Q4H PRN ORAL Temp >100.5 10/10/20 21:15 11/09/20 21:14 10/18/20 20:57 Albuterol Sulfate (Proventil MDI) 2 puff Q4H PRN INH Shortness of Breath 10/10/20 21:30 01/08/21 21:29 Ceftriaxone Sodium 1 gm/ Dextrose 55 ml @ 110 mls/hr Q24H IVPB 10/17/20 15:00 10/24/20 14:59 10/19/20 14:08 Clonidine HCl (Catapres Tab) 0.1 mg Q4H PRN ORAL for SBP >150 10/14/20 11:30 01/12/21 11:29 10/14/20 11:25 Dextrose (Dextrose 50%) 25 ml Q30M PRN IV Hypoglycemia 10/10/20 21:15 01/08/21 21:14 Dextrose (Dextrose 50%) 50 ml Q30M PRN IV Hypoglycemia 10/10/20 21:15 01/08/21 21:14 Docusate Sodium (Colace) 100 mg EVERY 12 HOURS ORAL 10/11/20 09:00 11/10/20 08:59 10/20/20 08:12 Haloperidol Lactate (Haldol) 5 mg Q6H PRN IM Agitation 10/13/20 16:15 11/27/20 16:14 Insulin Aspart (NovoLOG) BEFORE MEALS AND HS SUBQ 10/11/20 06:30 01/09/21 06:29 10/19/20 06:02 Insulin Detemir (Levemir) 14 units BID SUBQ 10/18/20 18:00 01/09/21 20:59 10/20/20 08:28 Lorazepam (Ativan 2mg/ml 1ml) 1 mg Q3H PRN IV For Anxiety 10/17/20 18:15 10/24/20 18:14 10/18/20 20:56 Methylprednisolone Sodium Succinate (Solu-MEDROL) 40 mg EVERY 12 HOURS IVP 10/19/20 12:00 01/17/21 11:59 10/20/20 08:11 Norepinephrine Bitartrate 4 mg/ Dextrose 250 ml @ 0 mls/hr Q24H IV 10/19/20 22:15 10/22/20 22:14 10/19/20 22:23 Ondansetron HCl (Zofran) 4 mg Q6H PRN IVP Nausea & Vomiting 10/10/20 21:15 11/09/20 21:14 Pantoprazole (Protonix) 40 mg EVERY 12 HOURS IVP 10/18/20 22:15 11/17/20 22:14 10/20/20 08:11 Propofol 100 ml @ 1.701 mls/ hr Q12H PRN IV Agitation 10/19/20 13:30 10/21/20 13:29 10/20/20 00:28 Sodium Chloride 1,000 ml @ 100 mls/hr Q10H IV 10/16/20 13:45 11/15/20 13:44 10/20/20 07:30 Yash Ashley MD Oct 20, 2020 10:55
--- NOTE | 2020-10-20 12:00 | NUR ---
NURSE NOTES: NGT no longer draining to gravity as pt has had no gastric output since last night. Tube feeding started at 30mL/hr.
--- NOTE | 2020-10-20 12:07 | General Progress Note ---
Subjective ROS Limited/Unobtainable: Yes Allergies: Coded Allergies: WARFARIN (Verified Allergy, Unknown, 03/03/19) Subjective noted care noted changes doing poorly sedated sugars elevated Objective Last 24 Hour Vital Signs Date Time Temp Pulse Resp B/P (MAP) Pulse Ox O2 Delivery O2 Flow Rate FiO2 10/20/20 11:00 100 34 115/32 (59) 96 10/20/20 10:00 92 29 129/39 (69) 98 10/20/20 09:30 88 28 114/36 (62) 100 10/20/20 09:05 90 10/20/20 09:00 85 25 132/31 (64) 100 10/20/20 08:00 100 10/20/20 08:00 97.9 94 28 129/38 (68) 100 10/20/20 08:00 Mechanical Ventilator 10/20/20 08:00 27 144/97 Mechanical Ventilator 100 10/20/20 07:30 94 26 100 10/20/20 07:00 94 30 104/41 (62) 100 10/20/20 07:00 30 104/41 Mechanical Ventilator 100 10/20/20 06:45 95 32 102/33 (56) 100 10/20/20 06:30 98 32 109/42 (64) 100 10/20/20 06:00 100.7 104 34 103/50 (67) 100 10/20/20 06:00 30 120/63 Mechanical Ventilator 100 10/20/20 05:00 106 34 109/31 (57) 99 10/20/20 05:00 32 109/31 Mechanical Ventilator 10/20/20 04:00 100 10/20/20 04:00 Mechanical Ventilator 10/20/20 04:00 35 104/35 Mechanical Ventilator 10/20/20 04:00 99.8 102 35 104/35 (58) 99 10/20/20 03:58 103 10/20/20 03:10 104 32 100 10/20/20 03:00 106 33 111/38 (62) 98 10/20/20 03:00 33 111/38 Mechanical Ventilator 10/20/20 02:00 33 107/52 Mechanical Ventilator 10/20/20 02:00 104 33 107/52 (70) 98 10/20/20 01:00 101 31 114/42 (66) 98 10/20/20 01:00 29 105/49 Mechanical Ventilator 10/20/20 00:28 31 126/43 Mechanical Ventilator 10/20/20 00:00 97.9 98 30 126/43 (70) 100 10/20/20 00:00 31 114/42 Mechanical Ventilator 10/20/20 00:00 Mechanical Ventilator 10/20/20 00:00 100 10/19/20 23:49 97 10/19/20 23:45 31 124/58 Mechanical Ventilator 10/19/20 23:29 99 30 100 10/19/20 23:00 34 121/48 Mechanical Ventilator 10/19/20 23:00 91 30 101/49 (66) 100 10/19/20 22:45 30 115/43 Mechanical Ventilator 10/19/20 22:23 59/34 10/19/20 22:20 90 30 66/45 (52) 100 10/19/20 22:20 34 69/29 Mechanical Ventilator 10/19/20 22:00 30 97/30 Mechanical Ventilator 10/19/20 22:00 81 30 83/40 (54) 97 10/19/20 21:00 32 98/32 Mechanical Ventilator 10/19/20 21:00 84 32 86/41 (56) 98 10/19/20 20:00 100 10/19/20 20:00 Mechanical Ventilator 10/19/20 20:00 30 101/27 Mechanical Ventilator 10/19/20 20:00 97.0 90 30 101/27 (51) 100 10/19/20 19:29 91 10/19/20 19:08 94 29 100 10/19/20 19:00 98.2 93 30 122/55 (77) 100 10/19/20 19:00 30 122/55 Mechanical Ventilator 100 10/19/20 18:00 30 123/27 Mechanical Ventilator 100 10/19/20 18:00 98 30 123/27 (59) 97 10/19/20 17:00 34 122/35 Mechanical Ventilator 100 10/19/20 17:00 102 33 122/36 (64) 98 10/19/20 16:00 100 10/19/20 16:00 34 120/33 Mechanical Ventilator 100 10/19/20 16:00 Mechanical Ventilator 10/19/20 16:00 99.2 105 34 120/33 (62) 96 10/19/20 16:00 101 10/19/20 15:00 107 34 131/50 (77) 93 10/19/20 15:00 34 124/46 Mechanical Ventilator 100 10/19/20 14:00 97 35 124/46 (72) 96 10/19/20 14:00 34 110/44 Mechanical Ventilator 100 10/19/20 13:40 98 30 100 10/19/20 13:00 32 111/44 Mechanical Ventilator 100 10/19/20 13:00 89 33 124/34 (64) 100 Intake and Output 10/19/20 10/20/20 19:00 07:00 Intake Total 1386.913 ml 1178.246 ml Output Total 680 ml 640 ml Balance 706.913 ml 538.246 ml Free Water 30 ml IV Total 1356.913 ml 1178.246 ml Output Urine Total 490 ml 570 ml Gastric Drainage Total 190 ml 70 ml # Bowel Movements 1 2 Laboratory Tests 10/19/20 17:25: POC Whole Blood Glucose 120H 10/20/20 04:30: White Blood Count 10.6, Red Blood Count 3.87L, Hemoglobin 9.0L, Hematocrit 30.6L , Mean Corpuscular Volume 79L, Mean Corpuscular Hemoglobin 23.2L, Mean Corpuscular Hemoglobin Concent 29.2L, Red Cell Distribution Width 21.5H, Platelet Count 57L, Mean Platelet Volume 11.5H, Neutrophils (%) (Auto) , Lymphocytes (%) (Auto) , Monocytes (%) (Auto) , Eosinophils (%) (Auto) , Basophils (%) (Auto) , Differential Total Cells Counted 100, Neutrophils % (Manual) 94H, Lymphocytes % (Manual) 4L, Monocytes % (Manual) 2, Eosinophils % (Manual) 0, Basophils % (Manual) 0, Band Neutrophils 0, Platelet Estimate DecreasedL, Platelet Morphology , Giant Platelets Occasional, Polychromasia 1+, Hypochromasia 1+, Anisocytosis 2+, Sodium Level 144, Potassium Level 4.9, Chloride Level 111H, Carbon Dioxide Level 19L, Anion Gap 14, Blood Urea Nitrogen 79H, Creatinine 1.7H, Estimat Glomerular Filtration Rate 30.8, Glucose Level 89, Calcium Level 7.6L, Total Bilirubin 1.0, Direct Bilirubin 0.6H, Aspartate Amino Transf (AST/SGOT) 121H, Alanine Aminotransferase (ALT/SGPT) 45, Alkaline Phosphatase 159H, Total Protein 5.2L, Albumin 1.8L, Globulin 3.4, Albumin/Globulin Ratio 0.5L Height (Feet): 5 Height (Inches): 3.00 Weight (Pounds): 125 Objective deferred due to COVID Assessment/Plan Assessment/Plan: Impression: Covid Pneumonia UTI Uncontrolled diabetes mellitus 2019 novel coronavirus disease (COVID-19) Renal insufficiency, acute Dehydration Rhabdomyolysis due to COVID-19 Possible Cirrhosis acute hypoxemic respiratory failure s/p intubation acidemia MODS hematemesis Plan doing poorly on 100% hypervent as needed and monitor ABG renal and GI follow up follow up CXR and ABG for change follow up labs IV antibiotics ID follow up DVT prophylaxis critical on levimir and adjust tube feeds when ok with gi no family available medications/laboratory data/nursing notes/ICU care reviewed in detail note reviewed and edited care discussed with RN and RT ICU time spent >40 minutes Terence Szymanski MD Oct 20, 2020 12:07
--- NOTE | 2020-10-20 12:17 | NUR ---
RD ASSESSMENT & RECOMMENDATIONS SEE CARE ACTIVITY FOR COMPLETE ASSESSMENT DAILY ESTIMATED NEEDS: Needs based on cardiac, pulmonary 57kg 25-30 kcals/kg 6225-3152 total kcals 1-1.5 g protein/kg 57-86 g total protein 25-30 mL/kg 4547-8530 total fluid mLs NUTRITION DIAGNOSIS: * Swallowing difficulty R/T respiratory failure as evidenced by s/p code blue (10/17), now orally intubated, on OGT feeds. *Altered nutrition related lab values r/t clinical status as evidenced by elevated K(5.3-> wnl), elev BG(401-> now improved 101-156 POC glu), elev Creat kinase(3195). CURRENT TF:Glucerna 1.2 @ 60ml/hr x 24 hrs ordered ENTERAL NUTRITION RECOMMENDATIONS: Glucerna 1.2 @ 55ml/hr x 24 hrs to provide 1320ml, 1584kcal, 79g prot, 1063ml free water * Rec LOWERING goal rate to 55ml/hr x 24 hrs: meets 100% est kcal/prot needs * HOB over 30 degrees/ water flush per MD ADDITIONAL RECOMMENDATIONS: 1) Monitor BGs, need for insulin adjustment improved BGs, TF to start, cont on Solumedrol 2) Monitor lytes, replete as needed 3) Calibrated bedscale wt 4) Monitor hemodynamic stability: NE held 5) Monitor Propofol rate, need to adjust TF current Propofol rate @ 5.103ml/hr provides 135kcal/day. .
--- NOTE | 2020-10-20 14:00 | NUR ---
NURSE NOTES: Pt turned and repositioned for comfort. Oral care done. Pt remains on cooling blanket to prevent spike in temp. Propofol continues to run at 15mcg/kg/min
[2020-10-20] MEDS: cefTRIAXone 1 GM in D5W 55 ML IVPB SCH (14:29)
--- NOTE | 2020-10-20 14:45 | NUR ---
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 Stable infiltrates on Rt IS: Levemir SQ HS Solumedrol IVP Q 12 h Protonix IVP Q 12 h Rocephin IV Q 24 h levophed GTT NS@100cc/hr ICU Status
--- NOTE | 2020-10-20 16:00 | NUR ---
NURSE NOTES: Dr Szymanski informed of ABG results. No new orders given at this time.
--- NOTE | 2020-10-20 18:00 | NUR ---
NURSE NOTES: Pt turned and repositioned for comfort. Oral care done. Pt remains on Propofol 15mcg/min; sedated RASS -2.
--- NOTE | 2020-10-20 19:12 | NUR ---
NURSE HAND-OFF REPORT: Latest Vital Signs: Temperature 99.0 , Pulse 83 , B/P 111 /35 , Respiratory Rate 26 , O2 SAT 98 , Mechanical Ventilator, FiO2 90%. Vital Sign Comment: EKG Rhythm: Sinus Rhythm Rhythm change?: N MD Notified?: MD Response: Latest Daly Fall Score: 100 Fall Risk: High Risk Safety Measures: Call light Within Reach, Bed Alarm Zone 2, Side Rails Side Rails x2, Bed position Low and Locked. Fall Precautions: Yellow Socks Yellow Gown Door Sign Patient Fall Education Report given to DOMINIC Hardin.
--- NOTE | 2020-10-20 19:30 | NUR ---
NURSE NOTES: received report from Ayala ALFARO.
--- NOTE | 2020-10-20 20:00 | NUR ---
NURSE NOTES: Patient in bed sedated. Orally intubated ETT 7.5/21cm Lip line AC 22, TV 500. Fi02 90% peep of 6 satting 95%. HOB elevated. NGT intact running Glucerna 1.2 at 40cc/hr goal 60cc/hr with 80cc residual. Right Femoral TLC intact infusing NS at 100cc/hr, Propopol drip at 15mcg/kg/min RASS score of -2. No s/s of hypo/hyperglycemia. Covid +19, airborne precaution and contact isolation maintained and observed. bed alarm on. bed locked and in low position. bilateral wrist restraint checked. call light within easy reach. will continue plan of care.
--- NOTE | 2020-10-20 20:14 | NUR ---
NURSE NOTES: Dr. Szymanski gave orders noted and carried out.
[2020-10-20] MEDS ORDERED: Sodium Bicarbonate 50ml Carp IV SCH (20:15)
[2020-10-20] MEDS ORDERED: Dyna-Hex 2% Top Sol 2oz TOPIC SCH (21:15)
--- NOTE | 2020-10-20 22:00 | NUR ---
NURSE NOTES: Right Femoral TLC intact infusing NS at 100cc/hr, Propofol drip at 15mcg/kg/min RASS score of -2. No s/s of hypo/hyperglycemia. Covid +19, airborne precaution and contact isolation maintained and observed. bed alarm on. bed locked and in low position. bilateral wrist restraint checked. call light within easy reach. will continue plan of care.
--- NOTE | 2020-10-20 22:57 | General Progress Note ---
Subjective Allergies: Coded Allergies: WARFARIN (Verified Allergy, Unknown, 03/03/19) Subjective above noted d/w full time staff interpreter no further UGIB orders for TF given Objective Last 24 Hour Vital Signs Date Time Temp Pulse Resp B/P (MAP) Pulse Ox O2 Delivery O2 Flow Rate FiO2 10/20/20 22:15 121/73 10/20/20 22:00 26 100/44 Mechanical Ventilator 90 10/20/20 21:00 100 26 139/47 (77) 94 10/20/20 21:00 26 99/51 Mechanical Ventilator 90 10/20/20 20:00 88 10/20/20 20:00 26 105/52 Mechanical Ventilator 90 10/20/20 20:00 90 10/20/20 20:00 99.0 96 27 130/38 (68) 97 10/20/20 20:00 Mechanical Ventilator 10/20/20 19:27 83 24 90 10/20/20 19:00 26 111/35 Mechanical Ventilator 90 10/20/20 19:00 83 25 111/35 (60) 98 10/20/20 18:32 27 144/22 Mechanical Ventilator 90 10/20/20 18:00 85 25 134/34 (67) 99 10/20/20 18:00 27 134/34 Mechanical Ventilator 90 10/20/20 17:00 24 124/40 Mechanical Ventilator 90 10/20/20 17:00 88 24 124/40 (68) 98 10/20/20 16:00 Mechanical Ventilator 10/20/20 16:00 29 117/29 Mechanical Ventilator 90 10/20/20 16:00 90 10/20/20 16:00 90 10/20/20 16:00 90 26 123/42 (69) 100 10/20/20 15:30 97 27 90 10/20/20 15:00 86 27 118/35 (62) 100 10/20/20 15:00 37 118/35 Mechanical Ventilator 90 10/20/20 14:00 83 25 128/34 (65) 99 10/20/20 14:00 27 128/34 Mechanical Ventilator 90 10/20/20 13:00 27 124/44 Mechanical Ventilator 90 10/20/20 13:00 84 25 124/44 (70) 100 10/20/20 12:00 99.0 86 32 118/38 (64) 99 10/20/20 12:00 89 10/20/20 12:00 27 118/38 Mechanical Ventilator 90 10/20/20 12:00 Mechanical Ventilator 10/20/20 12:00 90 10/20/20 11:30 95 32 90 10/20/20 11:00 100 34 115/32 (59) 96 10/20/20 11:00 34 115/32 Mechanical Ventilator 100 10/20/20 10:00 31 129/39 Mechanical Ventilator 100 10/20/20 10:00 92 29 129/39 (69) 98 10/20/20 09:30 88 28 114/36 (62) 100 10/20/20 09:05 90 10/20/20 09:00 27 132/31 Mechanical Ventilator 100 10/20/20 09:00 85 25 132/31 (64) 100 10/20/20 08:00 100 10/20/20 08:00 97.9 94 28 129/38 (68) 100 10/20/20 08:00 Mechanical Ventilator 10/20/20 08:00 27 144/97 Mechanical Ventilator 100 10/20/20 08:00 91 10/20/20 07:30 94 26 100 10/20/20 07:00 94 30 104/41 (62) 100 10/20/20 07:00 30 104/41 Mechanical Ventilator 100 10/20/20 06:45 95 32 102/33 (56) 100 10/20/20 06:30 98 32 109/42 (64) 100 10/20/20 06:00 100.7 104 34 103/50 (67) 100 10/20/20 06:00 30 120/63 Mechanical Ventilator 100 10/20/20 05:00 106 34 109/31 (57) 99 10/20/20 05:00 32 109/31 Mechanical Ventilator 10/20/20 04:00 100 10/20/20 04:00 Mechanical Ventilator 10/20/20 04:00 35 104/35 Mechanical Ventilator 10/20/20 04:00 99.8 102 35 104/35 (58) 99 10/20/20 03:58 103 10/20/20 03:10 104 32 100 10/20/20 03:00 106 33 111/38 (62) 98 10/20/20 03:00 33 111/38 Mechanical Ventilator 10/20/20 02:00 33 107/52 Mechanical Ventilator 10/20/20 02:00 104 33 107/52 (70) 98 10/20/20 01:00 101 31 114/42 (66) 98 10/20/20 01:00 29 105/49 Mechanical Ventilator 10/20/20 00:28 31 126/43 Mechanical Ventilator 10/20/20 00:00 97.9 98 30 126/43 (70) 100 10/20/20 00:00 31 114/42 Mechanical Ventilator 10/20/20 00:00 Mechanical Ventilator 10/20/20 00:00 100 10/19/20 23:49 97 10/19/20 23:45 31 124/58 Mechanical Ventilator 10/19/20 23:29 99 30 100 10/19/20 23:00 34 121/48 Mechanical Ventilator 10/19/20 23:00 91 30 101/49 (66) 100 Intake and Output 10/19/20 10/20/20 19:00 07:00 Intake Total 1386.913 ml 1178.246 ml Output Total 680 ml 640 ml Balance 706.913 ml 538.246 ml Free Water 30 ml IV Total 1356.913 ml 1178.246 ml Output Urine Total 490 ml 570 ml Gastric Drainage Total 190 ml 70 ml # Bowel Movements 1 2 Laboratory Tests 10/20/20 04:30: White Blood Count 10.6, Red Blood Count 3.87L, Hemoglobin 9.0L, Hematocrit 30.6L , Mean Corpuscular Volume 79L, Mean Corpuscular Hemoglobin 23.2L, Mean Corpuscular Hemoglobin Concent 29.2L, Red Cell Distribution Width 21.5H, Platelet Count 57L, Mean Platelet Volume 11.5H, Neutrophils (%) (Auto) , Lymphocytes (%) (Auto) , Monocytes (%) (Auto) , Eosinophils (%) (Auto) , Basophils (%) (Auto) , Differential Total Cells Counted 100, Neutrophils % (Manual) 94H, Lymphocytes % (Manual) 4L, Monocytes % (Manual) 2, Eosinophils % (Manual) 0, Basophils % (Manual) 0, Band Neutrophils 0, Platelet Estimate DecreasedL, Platelet Morphology , Giant Platelets Occasional, Polychromasia 1+, Hypochromasia 1+, Anisocytosis 2+, Sodium Level 144, Potassium Level 4.9, Chloride Level 111H, Carbon Dioxide Level 19L, Anion Gap 14, Blood Urea Nitrogen 79H, Creatinine 1.7H, Estimat Glomerular Filtration Rate 30.8, Glucose Level 89, Calcium Level 7.6L, Total Bilirubin 1.0, Direct Bilirubin 0.6H, Aspartate Amino Transf (AST/SGOT) 121H, Alanine Aminotransferase (ALT/SGPT) 45, Alkaline Phosphatase 159H, Total Protein 5.2L, Albumin 1.8L, Globulin 3.4, Albumin/Globulin Ratio 0.5L 10/20/20 16:10: Arterial Blood pH 7.233*L, Arterial Blood Partial Pressure CO2 39.5, Arterial Blood Partial Pressure O2 81.5, Arterial Blood HCO3 16.3*L, Arterial Blood Oxygen Saturation 93.5L, Arterial Blood Base Excess -10.5*L, Francisco Test Positive Height (Feet): 5 Height (Inches): 3.00 Weight (Pounds): 125 Objective Elderly woman Seen in ICU this am more calm today Assessment/Plan Assessment/Plan: Assessment - CG emesis and ogt aspirate - COVID infection, resp failure - thrombocytopenia - microcytic anemia - Azotemia - DM - hypernatremia, free water deficit Recommendations - change H2B to PPI - daily CBC - watch platelets - Check Iron panel - replace - Restart TF - no plans for GI endoscopy at this time Ryanne Brunner MD Oct 20, 2020 22:57
[2020-10-21] VITALS (45 sets, daily range): BP systolic 84–199; BP diastolic 19–89
--- NOTE | 2020-10-21 | NUR ---
NURSE NOTES: patient in bed sedated. no s/s of acute distress noted. Turned and repositioned in bed. Right Femoral TLC intact infusing NS at 100cc/hr, Propofol drip at 15mcg/kg/min RASS score of -2. No s/s of hypo/hyperglycemia. Covid +19, airborne precaution and contact isolation maintained and observed. bed alarm on. bed locked and in low position. bilateral wrist restraint checked. call light within easy reach. will continue plan of care.
--- NOTE | 2020-10-21 00:13 | Psychiatric Progress Note ---
Psychiatry Progress Note Psychiatry Progress Note Medications Current Medications Medications (Trade) Dose Ordered Sig/Hernando Route PRN Reason Start Time Stop Time Status Last Admin Dose Admin Acetaminophen (Tylenol) 650 mg Q4H PRN ORAL Mild Pain (Pain Scale 1-3) 10/10/20 21:15 11/09/20 21:14 10/14/20 13:28 Acetaminophen (Tylenol) 650 mg Q4H PRN ORAL Temp >100.5 10/10/20 21:15 11/09/20 21:14 10/18/20 20:57 Albuterol Sulfate (Proventil MDI) 2 puff Q4H PRN INH Shortness of Breath 10/10/20 21:30 01/08/21 21:29 Ceftriaxone Sodium 1 gm/ Dextrose 55 ml @ 110 mls/hr Q24H IVPB 10/17/20 15:00 10/24/20 14:59 10/20/20 14:29 Chlorhexidine Gluconate (Heidi-Hex 2%) 1 applic DAILY@2000 TOPIC 10/21/20 20:00 01/19/21 19:59 Clonidine HCl (Catapres Tab) 0.1 mg Q4H PRN ORAL for SBP >150 10/14/20 11:30 01/12/21 11:29 10/14/20 11:25 Dextrose (Dextrose 50%) 25 ml Q30M PRN IV Hypoglycemia 10/10/20 21:15 01/08/21 21:14 Dextrose (Dextrose 50%) 50 ml Q30M PRN IV Hypoglycemia 10/10/20 21:15 01/08/21 21:14 Docusate Sodium (Colace) 100 mg TWICE A DAY NG 10/21/20 09:00 11/20/20 08:59 Haloperidol Lactate (Haldol) 5 mg Q6H PRN IM Agitation 10/13/20 16:15 11/27/20 16:14 Insulin Aspart (NovoLOG) BEFORE MEALS AND HS SUBQ 10/11/20 06:30 01/09/21 06:29 10/20/20 18:17 Insulin Detemir (Levemir) 14 units BID SUBQ 10/18/20 18:00 01/09/21 20:59 10/20/20 18:15 Lorazepam (Ativan 2mg/ml 1ml) 1 mg Q3H PRN IV For Anxiety 10/17/20 18:15 10/24/20 18:14 10/18/20 20:56 Methylprednisolone Sodium Succinate (Solu-MEDROL) 40 mg EVERY 12 HOURS IVP 10/19/20 12:00 01/17/21 11:59 10/20/20 20:28 Norepinephrine Bitartrate 4 mg/ Dextrose 250 ml @ 0 mls/hr Q24H IV 10/19/20 22:15 10/22/20 22:14 10/19/20 22:23 Ondansetron HCl (Zofran) 4 mg Q6H PRN IVP Nausea & Vomiting 10/10/20 21:15 11/09/20 21:14 Pantoprazole (Protonix) 40 mg EVERY 12 HOURS IVP 10/18/20 22:15 11/17/20 22:14 10/20/20 20:28 Propofol 100 ml @ 1.701 mls/ hr Q12H PRN IV Agitation 10/19/20 13:30 10/21/20 13:29 10/20/20 18:32 Sodium Chloride 1,000 ml @ 100 mls/hr Q10H IV 10/16/20 13:45 11/15/20 13:44 10/20/20 18:15 Neurological/Psychiatric: Reports: anxiety, depressed, emotional problems Allergies: Coded Allergies: WARFARIN (Verified Allergy, Unknown, 03/03/19) Objective Data Height (Feet): 5 Height (Inches): 3.00 Weight (Pounds): 125 Additional Comments: MENTAL STATUS EXAMINATION: The patient is awake, oriented to self, place, uncooperative, and mood is neutral and anxious. Affect is blunted. Thought process, there is a paucity of thought content. The patient appears to be delusional. Cognition is impaired. Insight and judgment Impulse control poor. Assessment/Plan Blackstone I: ASSESSMENT: Blackstone I Acute toxic encephalopathy. Psychotic disorder. Rule out dementia. Blackstone II Deferred. Blackstone III COVID-19. Blackstone IV Low. Blackstone V 20 PLAN: 1. We will start the patient on low dose of antipsychotics. 2. Continue the restraints. 3. Discussed with the primary team. Status Narrative ASSESSMENT: Blackstone I Acute toxic encephalopathy. Psychotic disorder. Rule out dementia. Blackstone II Deferred. Blackstone III COVID-19. Blackstone IV Low. Blackstone V 20 PLAN: 1. We will start the patient on low dose of antipsychotics. 2. Continue the restraints. 3. Discussed with the primary team. Assessment/Plan: ASSESSMENT: Blackstone I Acute toxic encephalopathy. Psychotic disorder. Rule out dementia. Blackstone II Deferred. Blackstone III COVID-19. Blackstone IV Low. Blackstone V 20 PLAN: 1. We will start the patient on low dose of antipsychotics. 2. Continue the restraints. 3. Discussed with the primary team. Frank Chacon MD Oct 21, 2020 00:13
--- NOTE | 2020-10-21 02:00 | NUR ---
NURSE NOTES: patient in bed sedated. no s/s of acute distress noted. Turned and repositioned in bed. Right Femoral TLC intact infusing NS at 100cc/hr, Propofol drip at 10mcg/kg/min RASS score of -2. No s/s of hypo/hyperglycemia. Covid +19, airborne precaution and contact isolation maintained and observed. bed alarm on. bed locked and in low position. bilateral wrist restraint checked. call light within easy reach. will continue plan of care.
--- NOTE | 2020-10-21 04:00 | NUR ---
NURSE NOTES: bed bath given tolerated well.
[2020-10-21 05:58] LABS: HEMATOCRIT 31.1 % (37.0-47.0); HEMOGLOBIN 9.1 G/DL (12.0-16.0); MEAN CORPUSCULAR VOLUME 79 FL (80-99); PLATELET COUNT 103 K/UL (150-450); RED BLOOD COUNT 3.92 M/UL (4.20-5.40); RED CELL DISTRIBUTION WIDTH 22.2 % (11.6-14.8); WHITE BLOOD COUNT 20.6 K/UL (4.8-10.8)
--- NOTE | 2020-10-21 06:00 | NUR ---
NURSE NOTES: patient in bed sedated. no s/s of acute distress noted. Turned and repositioned in bed. Right Femoral TLC intact infusing NS at 100cc/hr, Propofol drip at 5mcg/kg/min RASS score of -2, Levophed 10mcg/min BP 125/74. No s/s of hypo/hyperglycemia. Covid +19, airborne precaution and contact isolation maintained and observed. bed alarm on. bed locked and in low position. bilateral wrist restraint checked. call light within easy reach. will continue plan of care.
[2020-10-21 06:28] LABS: ALBUMIN 1.8 G/DL (3.4-5.0); ALBUMIN/GLOBULIN RATIO 0.5 (1.0-2.7); BILIRUBIN,TOTAL 1.1 MG/DL (0.2-1.0); CALCIUM 7.8 MG/DL (8.5-10.1); CREATININE 2.1 MG/DL (0.55-1.30); POTASSIUM 4.9 MMOL/L (3.5-5.1)
[2020-10-21] MEDS: NovoLOG Insulin Flexpen SUBQ SCH ×4 (06:30→22:12)
[2020-10-21 06:38] LABS: BILIRUBIN,DIRECT 0.9 MG/DL (0.0-0.3)
--- NOTE | 2020-10-21 07:10 | NUR ---
HAND-OFF: Report given to Ayala ALFARO.
--- NOTE | 2020-10-21 07:12 | NUR ---
NURSE NOTES: Report received from DOMINIC Andrews. Patient is currently sedated RASS -2. NSR on the library monitor. OGT in plance- Tube feeds currently on hold d/t high residuals. Patient is intubated, size 7.5, 21cm on the lip, AC 22, TV 500, FiO2 90% and PEEP of 6; O2sat 99%. Raines catheter intact and draining via gravity to urometer, noted yellow-orange output with sediment. PIV site Right wrist 20g and Left wrist 22g- both saline locked. Rt femoral TLC running Propofol @ 5mcg/kg/min and 1/2 NS @ 100mL/hour. Pt received and maintained on bilateral soft wrist restraints for safety. Patient is Covid positive, isolation protocol maintained and observed. Bed locked in and lowest position. Will resume plan of care Addendum: 10/21/20 at 0713 by Ayala Tate RN NURSE NOTES: Report received from DOMINIC Hardin. Patient is currently sedated RASS -2. NSR on the library monitor. OGT in plance- Tube feeds currently on hold d/t high residuals. Patient is intubated, size 7.5, 21cm on the lip, AC 22, TV 500, FiO2 90% and PEEP of 6; O2sat 99%. Raines catheter intact and draining via gravity to urometer, noted yellow-orange output with sediment. PIV site Right wrist 20g and Left wrist 22g- both saline locked. Rt femoral TLC running Propofol @ 5mcg/kg/min and 1/2 NS @ 100mL/hour. Pt received and maintained on bilateral soft wrist restraints for safety. Patient is Covid positive, isolation protocol maintained and observed.
[2020-10-21] MEDS: Docusate 100mg/10ml Liq NG SCH ×2 (08:43→17:04)
[2020-10-21] MEDS: Solu-MEDROL 40mg Inj IVP SCH ×2 (08:43→20:23)
[2020-10-21] MEDS: Pantoprazole Inj IVP SCH ×2 (08:43→20:23)
[2020-10-21] MEDS: Levemir Flexpen SUBQ SCH ×2 (08:44→17:04)
--- NOTE | 2020-10-21 09:00 | NUR ---
NURSE NOTES: Scheduled AM medication administered as ordered. Pt turned and repositioned. Oral care done. Pt remains on a cooling blanket to prevent spike in temp.
--- NOTE | 2020-10-21 10:10 | NUR ---
NURSE NOTES: Dr Szymanski at bedside assessing pt. Updated him on pt's current condition. ABG results reviewed. No new orders given at this time.
--- NOTE | 2020-10-21 11:40 | NUR ---
NURSE NOTES: BS 318. 8 units Novolog Insulin given, per sliding scale. Resumed tube feeding (Gucerna 1.2 @ 40mL/hr) d/t residual of only 10mL at this time.
--- NOTE | 2020-10-21 12:01 | Infectious Diseases Prog Note ---
Assessment/Plan Assessment/Plan antibiotics : ceftriaxone A 1. covid 19 pneumonia on 90 % Fi O2 with 94 % saturation s.p remdesivir 2. diabetes mellitus 3. hypertension 4. asthma 5. CVA 6. respiratory failure P 1. continue solumedrol 2. continue ceftriaxone 3. continue isolation Subjective ROS Limited/Unobtainable: Yes Allergies: Coded Allergies: WARFARIN (Verified Allergy, Unknown, 03/03/19) Objective Last 24 Hour Vital Signs Date Time Temp Pulse Resp B/P (MAP) Pulse Ox O2 Delivery O2 Flow Rate FiO2 10/21/20 11:00 87 28 147/69 (95) 94 10/21/20 11:00 27 147/69 Mechanical Ventilator 90 10/21/20 10:00 86 27 139/72 (94) 94 10/21/20 10:00 27 139/72 Mechanical Ventilator 90 10/21/20 09:00 141/42 10/21/20 09:00 26 141/42 Mechanical Ventilator 90 10/21/20 09:00 92 26 123/75 (91) 95 10/21/20 08:30 94 26 103/23 (49) 96 10/21/20 08:15 99 30 152/89 (110) 92 10/21/20 08:00 Mechanical Ventilator 10/21/20 08:00 152/43 10/21/20 08:00 37 152/43 Mechanical Ventilator 90 10/21/20 08:00 97.4 98 30 152/43 (79) 95 10/21/20 08:00 89 10/21/20 08:00 90 10/21/20 07:45 98 28 134/73 (93) 96 10/21/20 07:30 98 29 120/48 (72) 96 10/21/20 07:25 98 28 90 10/21/20 07:00 102 29 104/24 (50) 99 10/21/20 07:00 104/24 10/21/20 07:00 26 104/24 Mechanical Ventilator 90 10/21/20 06:30 106 30 102/58 (73) 98 10/21/20 06:15 104 30 102/49 (66) 98 10/21/20 06:00 108 31 125/74 (91) 97 10/21/20 06:00 125/74 10/21/20 06:00 25 117/39 Mechanical Ventilator 90 10/21/20 05:45 107 30 117/39 (65) 97 10/21/20 05:45 25 117/39 Mechanical Ventilator 90 10/21/20 05:30 108 30 113/47 (69) 97 10/21/20 05:15 107 30 120/31 (60) 97 10/21/20 05:00 106 29 115/30 (58) 97 10/21/20 05:00 120/31 10/21/20 05:00 30 120/31 Mechanical Ventilator 90 10/21/20 04:56 107 33 138/32 (67) 98 10/21/20 04:54 103 31 199/74 (115) 98 10/21/20 04:50 100 29 84/19 (40) 98 10/21/20 04:40 97 28 93/52 (66) 99 10/21/20 04:30 95 29 106/41 (62) 98 10/21/20 04:20 94 28 111/58 (75) 98 10/21/20 04:10 93 28 119/66 (83) 98 10/21/20 04:08 91/51 10/21/20 04:03 90/51 10/21/20 04:00 82 10/21/20 04:00 98.4 90 28 114/58 (76) 98 10/21/20 04:00 29 119/66 Mechanical Ventilator 90 10/21/20 04:00 90 10/21/20 04:00 Mechanical Ventilator 10/21/20 03:58 89/51 10/21/20 03:53 84/64 10/21/20 03:48 85/51 10/21/20 03:29 86 26 100 10/21/20 03:00 86 28 91/51 (64) 96 10/21/20 03:00 27 91/51 Mechanical Ventilator 90 10/21/20 02:30 83 27 94/48 (63) 98 10/21/20 02:09 85 27 102/61 (75) 95 10/21/20 02:00 83 31 156/68 (97) 95 10/21/20 02:00 27 102/61 Mechanical Ventilator 90 10/21/20 01:45 26 156/68 Mechanical Ventilator 90 10/21/20 01:30 74 24 136/39 (71) 93 10/21/20 01:00 76 29 165/49 (87) 95 10/21/20 01:00 25 136/39 Mechanical Ventilator 90 10/21/20 00:30 70 23 135/54 (81) 95 10/21/20 00:00 69 10/21/20 00:00 90 10/21/20 00:00 98.0 71 24 117/44 (68) 95 10/21/20 00:00 24 117/44 Mechanical Ventilator 90 10/21/20 00:00 Mechanical Ventilator 10/20/20 23:30 76 23 139/34 (69) 95 10/20/20 23:28 82 28 90 10/20/20 23:00 84 24 156/39 (78) 95 10/20/20 23:00 24 139/34 Mechanical Ventilator 90 10/20/20 22:30 87 25 136/46 (76) 95 10/20/20 22:15 86 23 154/49 (84) 94 10/20/20 22:15 121/73 10/20/20 22:00 87 24 151/51 (84) 94 10/20/20 22:00 26 100/44 Mechanical Ventilator 90 10/20/20 21:00 100 26 139/47 (77) 94 10/20/20 21:00 26 99/51 Mechanical Ventilator 90 10/20/20 20:00 88 10/20/20 20:00 26 105/52 Mechanical Ventilator 90 10/20/20 20:00 90 10/20/20 20:00 99.0 96 27 130/38 (68) 97 10/20/20 20:00 Mechanical Ventilator 10/20/20 19:27 83 24 90 10/20/20 19:00 26 111/35 Mechanical Ventilator 90 10/20/20 19:00 83 25 111/35 (60) 98 10/20/20 18:32 27 144/22 Mechanical Ventilator 90 10/20/20 18:00 85 25 134/34 (67) 99 10/20/20 18:00 27 134/34 Mechanical Ventilator 90 10/20/20 17:00 24 124/40 Mechanical Ventilator 90 10/20/20 17:00 88 24 124/40 (68) 98 10/20/20 16:00 Mechanical Ventilator 10/20/20 16:00 29 117/29 Mechanical Ventilator 90 10/20/20 16:00 90 10/20/20 16:00 90 10/20/20 16:00 90 26 123/42 (69) 100 10/20/20 15:30 97 27 90 10/20/20 15:00 86 27 118/35 (62) 100 10/20/20 15:00 37 118/35 Mechanical Ventilator 90 10/20/20 14:00 83 25 128/34 (65) 99 10/20/20 14:00 27 128/34 Mechanical Ventilator 90 10/20/20 13:00 27 124/44 Mechanical Ventilator 90 10/20/20 13:00 84 25 124/44 (70) 100 10/20/20 12:00 99.0 86 32 118/38 (64) 99 10/20/20 12:00 89 10/20/20 12:00 27 118/38 Mechanical Ventilator 90 10/20/20 12:00 Mechanical Ventilator 10/20/20 12:00 90 Height (Feet): 5 Height (Inches): 3.00 Weight (Pounds): 125 Laboratory Tests Test 10/20/20 16:10 10/21/20 05:00 10/21/20 07:50 Arterial Blood pH 7.233 (7.350-7.450) 7.295 (7.350-7.450) Arterial Blood Partial Pressure CO2 39.5 mmHg (35.0-45.0) 46.0 mmHg (35.0-45.0) H Arterial Blood Partial Pressure O2 81.5 mmHg (75.0-100.0) 71.5 mmHg (75.0-100.0) L Arterial Blood HCO3 16.3 mmol/L (22.0-26.0) *L 21.9 mmol/L (22.0-26.0) L Arterial Blood Oxygen Saturation 93.5 % (95-100) L 92.2 % (95-100) L Arterial Blood Base Excess -10.5 (-2-2) *L -4.5 (-2-2) L Francisco Test Positive Positive White Blood Count 20.6 K/UL (4.8-10.8) #H Red Blood Count 3.92 M/UL (4.20-5.40) L Hemoglobin 9.1 G/DL (12.0-16.0) L Hematocrit 31.1 % (37.0-47.0) L Mean Corpuscular Volume 79 FL (80-99) L Mean Corpuscular Hemoglobin 23.3 PG (27.0-31.0) L Mean Corpuscular Hemoglobin Concent 29.3 G/DL (32.0-36.0) L Red Cell Distribution Width 22.2 % (11.6-14.8) H Platelet Count 103 K/UL (150-450) #L Mean Platelet Volume 9.6 FL (6.5-10.1) Neutrophils (%) (Auto) % (45.0-75.0) Lymphocytes (%) (Auto) % (20.0-45.0) Monocytes (%) (Auto) % (1.0-10.0) Eosinophils (%) (Auto) % (0.0-3.0) Basophils (%) (Auto) % (0.0-2.0) Differential Total Cells Counted 100 Neutrophils % (Manual) 96 % (45-75) H Lymphocytes % (Manual) 1 % (20-45) L Monocytes % (Manual) 3 % (1-10) Eosinophils % (Manual) 0 % (0-3) Basophils % (Manual) 0 % (0-2) Band Neutrophils 0 % (0-8) Nucleated Red Blood Cells 4 /100 WBC Platelet Estimate Decreased L Platelet Morphology Normal Polychromasia 2+ Hypochromasia 2+ Anisocytosis 3+ Microcytosis 1+ Sodium Level 141 MMOL/L (136-145) Potassium Level 4.9 MMOL/L (3.5-5.1) Chloride Level 107 MMOL/L (98-107) Carbon Dioxide Level 25 MMOL/L (21-32) Anion Gap 9 mmol/L (5-15) Blood Urea Nitrogen 107 mg/dL (7-18) H Creatinine 2.1 MG/DL (0.55-1.30) H Estimat Glomerular Filtration Rate 24.1 mL/min (>60) Glucose Level 289 MG/DL (74-106) #H Calcium Level 7.8 MG/DL (8.5-10.1) L Total Bilirubin 1.1 MG/DL (0.2-1.0) H Direct Bilirubin 0.9 MG/DL (0.0-0.3) H Aspartate Amino Transf (AST/SGOT) 88 U/L (15-37) H Alanine Aminotransferase (ALT/SGPT) 46 U/L (12-78) Alkaline Phosphatase 218 U/L (46-116) H Total Protein 5.6 G/DL (6.4-8.2) L Albumin 1.8 G/DL (3.4-5.0) L Globulin 3.8 g/dL Albumin/Globulin Ratio 0.5 (1.0-2.7) L Current Medications Medications (Trade) Dose Ordered Sig/[place]ern[place] Route PRN Reason Start Time Stop Time Status Last Admin Dose Admin Acetaminophen (Tylenol) 650 mg Q4H PRN ORAL Mild Pain (Pain Scale 1-3) 10/10/20 21:15 11/09/20 21:14 10/14/20 13:28 Acetaminophen (Tylenol) 650 mg Q4H PRN ORAL Temp >100.5 10/10/20 21:15 11/09/20 21:14 10/18/20 20:57 Albuterol Sulfate (Proventil MDI) 2 puff Q4H PRN INH Shortness of Breath 10/10/20 21:30 01/08/21 21:29 Ceftriaxone Sodium 1 gm/ Dextrose 55 ml @ 110 mls/hr Q24H IVPB 10/17/20 15:00 10/24/20 14:59 10/20/20 14:29 Chlorhexidine Gluconate (Heidi-Hex 2%) 1 applic DAILY@2000 TOPIC 10/21/20 20:00 01/19/21 19:59 Clonidine HCl (Catapres Tab) 0.1 mg Q4H PRN ORAL for SBP >150 10/14/20 11:30 01/12/21 11:29 10/14/20 11:25 Dextrose (Dextrose 50%) 25 ml Q30M PRN IV Hypoglycemia 10/10/20 21:15 01/08/21 21:14 Dextrose (Dextrose 50%) 50 ml Q30M PRN IV Hypoglycemia 10/10/20 21:15 01/08/21 21:14 Docusate Sodium (Colace) 100 mg TWICE A DAY NG 10/21/20 09:00 11/20/20 08:59 10/21/20 08:43 Haloperidol Lactate (Haldol) 5 mg Q6H PRN IM Agitation 10/13/20 16:15 11/27/20 16:14 Insulin Aspart (NovoLOG) BEFORE MEALS AND HS SUBQ 10/11/20 06:30 01/09/21 06:29 10/21/20 11:39 Insulin Detemir (Levemir) 14 units BID SUBQ 10/18/20 18:00 01/09/21 20:59 10/21/20 08:44 Lorazepam (Ativan 2mg/ml 1ml) 1 mg Q3H PRN IV For Anxiety 10/17/20 18:15 10/24/20 18:14 10/18/20 20:56 Methylprednisolone Sodium Succinate (Solu-MEDROL) 40 mg EVERY 12 HOURS IVP 10/19/20 12:00 01/17/21 11:59 10/21/20 08:43 Norepinephrine Bitartrate 4 mg/ Dextrose 250 ml @ 0 mls/hr Q24H IV 10/19/20 22:15 10/22/20 22:14 10/21/20 03:48 Ondansetron HCl (Zofran) 4 mg Q6H PRN IVP Nausea & Vomiting 10/10/20 21:15 11/09/20 21:14 Pantoprazole (Protonix) 40 mg EVERY 12 HOURS IVP 10/18/20 22:15 11/17/20 22:14 10/21/20 08:43 Propofol 100 ml @ 1.701 mls/ hr Q12H PRN IV Agitation 10/19/20 13:30 10/21/20 13:29 10/20/20 18:32 Sodium Chloride 1,000 ml @ 100 mls/hr Q10H IV 10/16/20 13:45 11/15/20 13:44 10/21/20 03:43 Hector Rodriguez MD Oct 21, 2020 12:01
--- NOTE | 2020-10-21 13:40 | NUR ---
NURSE NOTES: Pt turned and repositioned for comfort. Oral care done. Pt remains Afebrile on a cooling blanket.
--- NOTE | 2020-10-21 14:04 | NUR ---
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 Stable infiltrates on Rt IS: Levemir SQ HS Solumedrol IVP Q 12 h Protonix IVP Q 12 h Rocephin IV Q 24 h levophed GTT NS@100cc/hr ICU Status
[2020-10-21] MEDS: cefTRIAXone 1 GM in D5W 55 ML IVPB SCH (14:26)
[2020-10-21] MEDS: propofoL 1,000mg/100ml 100 ML IV PRN (14:30)
--- NOTE | 2020-10-21 15:00 | NUR ---
NURSE NOTES: Pt maintaining her own SBP >90 without Levophed. Remains held. FiO2 90%; with O2 sat reading 99% on educational diagnostician. No distress noted.
--- NOTE | 2020-10-21 16:30 | NUR ---
NURSE NOTES: BS 345; given 8 units of Novolog insulin, per sliding scale.
--- NOTE | 2020-10-21 17:11 | NUR ---
NURSE NOTES: Pt fully cleaned and linens changed. Pt turned and repositioned for comfort. Oral care done.
--- NOTE | 2020-10-21 17:19 | General Progress Note ---
Subjective ROS Limited/Unobtainable: Yes Allergies: Coded Allergies: WARFARIN (Verified Allergy, Unknown, 03/03/19) Subjective noted care noted changes doing poorly sedated sugars elevated Objective Last 24 Hour Vital Signs Date Time Temp Pulse Resp B/P (MAP) Pulse Ox O2 Delivery O2 Flow Rate FiO2 10/21/20 17:00 89 26 100/34 (56) 100 10/21/20 17:00 26 130/91 Mechanical Ventilator 90 10/21/20 16:00 97.9 82 25 102/59 (73) 99 10/21/20 16:00 24 102/59 Mechanical Ventilator 90 10/21/20 16:00 Mechanical Ventilator 10/21/20 16:00 90 10/21/20 15:17 85 27 80 10/21/20 15:00 28 94/56 Mechanical Ventilator 90 10/21/20 15:00 88 28 94/56 (69) 99 10/21/20 14:30 29 100/40 Mechanical Ventilator 90 10/21/20 14:00 26 102/48 Mechanical Ventilator 90 10/21/20 14:00 97 30 102/48 (66) 99 10/21/20 13:00 29 96/59 Mechanical Ventilator 90 10/21/20 13:00 93 28 96/59 (71) 99 10/21/20 12:00 90 10/21/20 12:00 97.2 85 27 141/54 (83) 98 10/21/20 12:00 26 141/54 Mechanical Ventilator 90 10/21/20 12:00 105 10/21/20 12:00 Mechanical Ventilator 10/21/20 11:25 83 24 80 10/21/20 11:00 87 28 147/69 (95) 94 10/21/20 11:00 27 147/69 Mechanical Ventilator 90 10/21/20 10:00 86 27 139/72 (94) 94 10/21/20 10:00 27 139/72 Mechanical Ventilator 90 10/21/20 09:00 141/42 10/21/20 09:00 26 141/42 Mechanical Ventilator 90 10/21/20 09:00 92 26 123/75 (91) 95 10/21/20 08:30 94 26 103/23 (49) 96 10/21/20 08:15 99 30 152/89 (110) 92 10/21/20 08:00 Mechanical Ventilator 10/21/20 08:00 152/43 1/20/21 08:00 37 152/43 Mechanical Ventilator 90 10/21/20 08:00 97.4 98 30 152/43 (79) 95 10/21/20 08:00 89 10/21/20 08:00 90 10/21/20 07:45 98 28 134/73 (93) 96 10/21/20 07:30 98 29 120/48 (72) 96 10/21/20 07:25 98 28 90 10/21/20 07:00 102 29 104/24 (50) 99 10/21/20 07:00 104/24 10/21/20 07:00 26 104/24 Mechanical Ventilator 90 10/21/20 06:30 106 30 102/58 (73) 98 10/21/20 06:15 104 30 102/49 (66) 98 10/21/20 06:00 108 31 125/74 (91) 97 10/21/20 06:00 125/74 10/21/20 06:00 25 117/39 Mechanical Ventilator 90 10/21/20 05:45 107 30 117/39 (65) 97 10/21/20 05:45 25 117/39 Mechanical Ventilator 90 10/21/20 05:30 108 30 113/47 (69) 97 10/21/20 05:15 107 30 120/31 (60) 97 10/21/20 05:00 106 29 115/30 (58) 97 10/21/20 05:00 120/31 10/21/20 05:00 30 120/31 Mechanical Ventilator 90 10/21/20 04:56 107 33 138/32 (67) 98 10/21/20 04:54 103 31 199/74 (115) 98 10/21/20 04:50 100 29 84/19 (40) 98 10/21/20 04:40 97 28 93/52 (66) 99 10/21/20 04:30 95 29 106/41 (62) 98 10/21/20 04:20 94 28 111/58 (75) 98 10/21/20 04:10 93 28 119/66 (83) 98 10/21/20 04:08 91/51 10/21/20 04:03 90/51 10/21/20 04:00 82 10/21/20 04:00 98.4 90 28 114/58 (76) 98 10/21/20 04:00 29 119/66 Mechanical Ventilator 90 10/21/20 04:00 90 10/21/20 04:00 Mechanical Ventilator 10/21/20 03:58 89/51 10/21/20 03:53 84/64 10/21/20 03:48 85/51 10/21/20 03:29 86 26 100 10/21/20 03:00 86 28 91/51 (64) 96 10/21/20 03:00 27 91/51 Mechanical Ventilator 90 10/21/20 02:30 83 27 94/48 (63) 98 10/21/20 02:09 85 27 102/61 (75) 95 10/21/20 02:00 83 31 156/68 (97) 95 10/21/20 02:00 27 102/61 Mechanical Ventilator 90 10/21/20 01:45 26 156/68 Mechanical Ventilator 90 10/21/20 01:30 74 24 136/39 (71) 93 10/21/20 01:00 76 29 165/49 (87) 95 10/21/20 01:00 25 136/39 Mechanical Ventilator 90 10/21/20 00:30 70 23 135/54 (81) 95 10/21/20 00:00 69 10/21/20 00:00 90 10/21/20 00:00 98.0 71 24 117/44 (68) 95 10/21/20 00:00 24 117/44 Mechanical Ventilator 90 10/21/20 00:00 Mechanical Ventilator 10/20/20 23:30 76 23 139/34 (69) 95 10/20/20 23:28 82 28 90 10/20/20 23:00 84 24 156/39 (78) 95 10/20/20 23:00 24 139/34 Mechanical Ventilator 90 10/20/20 22:30 87 25 136/46 (76) 95 10/20/20 22:15 86 23 154/49 (84) 94 10/20/20 22:15 121/73 10/20/20 22:00 87 24 151/51 (84) 94 10/20/20 22:00 26 100/44 Mechanical Ventilator 90 10/20/20 21:00 100 26 139/47 (77) 94 10/20/20 21:00 26 99/51 Mechanical Ventilator 90 10/20/20 20:00 88 10/20/20 20:00 26 105/52 Mechanical Ventilator 90 10/20/20 20:00 90 10/20/20 20:00 99.0 96 27 130/38 (68) 97 10/20/20 20:00 Mechanical Ventilator 10/20/20 19:27 83 24 90 10/20/20 19:00 26 111/35 Mechanical Ventilator 90 10/20/20 19:00 83 25 111/35 (60) 98 10/20/20 18:32 27 144/22 Mechanical Ventilator 90 10/20/20 18:00 85 25 134/34 (67) 99 10/20/20 18:00 27 134/34 Mechanical Ventilator 90 Intake and Output 10/20/20 10/21/20 19:00 07:00 Intake Total 1658.5144 ml 1543.900 ml Output Total 380 ml 115 ml Balance 1278.5144 ml 1428.900 ml Free Water 60 ml IV Total 1238.5144 ml 1363.900 ml Tube Feeding 260 ml 120 ml Other 100 ml 60 ml Output Urine Total 380 ml 115 ml Gastric Drainage Total 0 ml # Bowel Movements 2 Laboratory Tests 10/21/20 05:00: White Blood Count 20.6#H, Red Blood Count 3.92L, Hemoglobin 9.1L, Hematocrit 31.1L, Mean Corpuscular Volume 79L, Mean Corpuscular Hemoglobin 23.3L, Mean Corpuscular Hemoglobin Concent 29.3L, Red Cell Distribution Width 22.2H, Platelet Count 103#L, Mean Platelet Volume 9.6, Neutrophils (%) (Auto) , Lymphocytes (%) (Auto) , Monocytes (%) (Auto) , Eosinophils (%) (Auto) , Basophils (%) (Auto) , Differential Total Cells Counted 100, Neutrophils % (Manual) 96H, Lymphocytes % (Manual) 1L, Monocytes % (Manual) 3, Eosinophils % (Manual) 0, Basophils % (Manual) 0, Band Neutrophils 0, Nucleated Red Blood Cells 4, Platelet Estimate DecreasedL, Platelet Morphology Normal, Polychromasia 2+, Hypochromasia 2+, Anisocytosis 3+, Microcytosis 1+, Sodium Level 141, Potassium Level 4.9, Chloride Level 107, Carbon Dioxide Level 25, Anion Gap 9, Blood Urea Nitrogen 107H, Creatinine 2.1H, Estimat Glomerular Filtration Rate 24.1, Glucose Level 289#H, Calcium Level 7.8L, Total Bilirubin 1.1H, Direct Bilirubin 0.9H, Aspartate Amino Transf (AST/SGOT) 88H, Alanine Aminotransferase (ALT/SGPT) 46, Alkaline Phosphatase 218H, Total Protein 5.6L, Albumin 1.8L, Globulin 3.8, Albumin/Globulin Ratio 0.5L 10/21/20 07:50: Arterial Blood pH 7.295L, Arterial Blood Partial Pressure CO2 46.0H, Arterial Blood Partial Pressure O2 71.5L, Arterial Blood HCO3 21.9L, Arterial Blood Oxygen Saturation 92.2L, Arterial Blood Base Excess -4.5L, Francisco Test Positive 10/21/20 08:10: POC Whole Blood Glucose 306H 10/21/20 11:19: POC Whole Blood Glucose 318H Height (Feet): 5 Height (Inches): 3.00 Weight (Pounds): 125 Objective deferred due to COVID Assessment/Plan Assessment/Plan: Impression: Covid Pneumonia UTI Uncontrolled diabetes mellitus 2019 novel coronavirus disease (COVID-19) Renal insufficiency, acute Dehydration Rhabdomyolysis due to COVID-19 Possible Cirrhosis acute hypoxemic respiratory failure s/p intubation acidemia MODS hematemesis acidemia Plan doing poorly on 100% hypervent as needed and monitor ABG- still acidotic renal and GI follow up follow up CXR and ABG for change follow up labs IV antibiotics ID follow up DVT prophylaxis critical on levimir and adjust tube feeds when ok with gi no family available medications/laboratory data/nursing notes/ICU care reviewed in detail note reviewed and edited care discussed with RN and RT ICU time spent >40 minutes Terence Szymanski MD Oct 21, 2020 17:19
--- NOTE | 2020-10-21 19:08 | NUR ---
NURSE HAND-OFF REPORT: Latest Vital Signs: Temperature 97.9 , Pulse 91 , B/P 111 /64 , Respiratory Rate 25 , O2 SAT 98 , Mechanical Ventilator, FiO2 90% . Vital Sign Comment: EKG Rhythm: Sinus Rhythm Rhythm change?: N MD Notified?: MD Response: Latest Daly Fall Score: 100 Fall Risk: High Risk Safety Measures: Call light Within Reach, Bed Alarm Zone 2, Side Rails Side Rails x2, Bed position Low and Locked. Fall Precautions: Yellow Socks Yellow Gown Door Sign Patient Fall Education Report given to DOMINIC Patel.
--- NOTE | 2020-10-21 19:30 | NUR ---
NURSE NOTES: on diprivan drip at 5mcg/kg/min and maintaining RASS of -2
--- NOTE | 2020-10-21 20:00 | NUR ---
NURSE NOTES: received in no acute distressm laboratory monitor shows nsr bp 117/70, afebrile, slightly tachypneic with rr 28-30/min, remains orally intubated with ac 22 tv 500 fio2 80% peep 6, suctioned via ett with thin tannish secretion, oral care done, ngt intact and patent with feeding glucerna at 40ml/hr with 100ml residual, feeding held,has tlc to right femoral, site asymptomatic, [place] cath ibntact and patent with adequate urine output, repositioned
[2020-10-21] MEDS: Dyna-Hex 2% Top Sol 2oz TOPIC SCH (20:23)
--- NOTE | 2020-10-21 21:07 | General Progress Note ---
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 credentialing coordinator Objective Last 24 Hour Vital Signs Date Time Temp Pulse Resp B/P (MAP) Pulse Ox O2 Delivery O2 Flow Rate FiO2 10/21/20 19:07 71 26 80 10/21/20 19:00 25 111/64 Mechanical Ventilator 90 10/21/20 19:00 91 26 111/64 (80) 98 10/21/20 18:00 97 27 107/65 (79) 99 10/21/20 18:00 26 107/65 Mechanical Ventilator 90 10/21/20 17:00 89 26 100/34 (56) 100 10/21/20 17:00 26 130/91 Mechanical Ventilator 90 10/21/20 16:00 97.9 82 25 102/59 (73) 99 10/21/20 16:00 24 102/59 Mechanical Ventilator 90 10/21/20 16:00 82 10/21/20 16:00 Mechanical Ventilator 10/21/20 16:00 90 10/21/20 15:17 85 27 80 10/21/20 15:00 28 94/56 Mechanical Ventilator 90 10/21/20 15:00 88 28 94/56 (69) 99 10/21/20 14:30 29 100/40 Mechanical Ventilator 90 10/21/20 14:00 26 102/48 Mechanical Ventilator 90 10/21/20 14:00 97 30 102/48 (66) 99 10/21/20 13:00 29 96/59 Mechanical Ventilator 90 10/21/20 13:00 93 28 96/59 (71) 99 10/21/20 12:00 90 10/21/20 12:00 97.2 85 27 141/54 (83) 98 10/21/20 12:00 26 141/54 Mechanical Ventilator 90 10/21/20 12:00 105 10/21/20 12:00 Mechanical Ventilator 10/21/20 11:25 83 24 80 10/21/20 11:00 87 28 147/69 (95) 94 10/21/20 11:00 27 147/69 Mechanical Ventilator 90 10/21/20 10:00 86 27 139/72 (94) 94 10/21/20 10:00 27 139/72 Mechanical Ventilator 90 10/21/20 09:00 141/42 10/21/20 09:00 26 141/42 Mechanical Ventilator 90 10/21/20 09:00 92 26 123/75 (91) 95 10/21/20 08:30 94 26 103/23 (49) 96 10/21/20 08:15 99 30 152/89 (110) 92 10/21/20 08:00 Mechanical Ventilator 10/21/20 08:00 152/43 10/21/20 08:00 37 152/43 Mechanical Ventilator 90 10/21/20 08:00 97.4 98 30 152/43 (79) 95 10/21/20 08:00 89 10/21/20 08:00 90 10/21/20 07:45 98 28 134/73 (93) 96 10/21/20 07:30 98 29 120/48 (72) 96 10/21/20 07:25 98 28 90 10/21/20 07:00 102 29 104/24 (50) 99 10/21/20 07:00 104/24 10/21/20 07:00 26 104/24 Mechanical Ventilator 90 10/21/20 06:30 106 30 102/58 (73) 98 10/21/20 06:15 104 30 102/49 (66) 98 10/21/20 06:00 108 31 125/74 (91) 97 10/21/20 06:00 125/74 10/21/20 06:00 25 117/39 Mechanical Ventilator 90 10/21/20 05:45 107 30 117/39 (65) 97 10/21/20 05:45 25 117/39 Mechanical Ventilator 90 10/21/20 05:30 108 30 113/47 (69) 97 10/21/20 05:15 107 30 120/31 (60) 97 10/21/20 05:00 106 29 115/30 (58) 97 10/21/20 05:00 120/31 10/21/20 05:00 30 120/31 Mechanical Ventilator 90 10/21/20 04:56 107 33 138/32 (67) 98 10/21/20 04:54 103 31 199/74 (115) 98 10/21/20 04:50 100 29 84/19 (40) 98 10/21/20 04:40 97 28 93/52 (66) 99 10/21/20 04:30 95 29 106/41 (62) 98 10/21/20 04:20 94 28 111/58 (75) 98 10/21/20 04:10 93 28 119/66 (83) 98 10/21/20 04:08 91/51 10/21/20 04:03 90/51 10/21/20 04:00 82 10/21/20 04:00 98.4 90 28 114/58 (76) 98 10/21/20 04:00 29 119/66 Mechanical Ventilator 90 10/21/20 04:00 90 10/21/20 04:00 Mechanical Ventilator 10/21/20 03:58 89/51 10/21/20 03:53 84/64 10/21/20 03:48 85/51 10/21/20 03:29 86 26 100 10/21/20 03:00 86 28 91/51 (64) 96 10/21/20 03:00 27 91/51 Mechanical Ventilator 90 10/21/20 02:30 83 27 94/48 (63) 98 10/21/20 02:09 85 27 102/61 (75) 95 10/21/20 02:00 83 31 156/68 (97) 95 10/21/20 02:00 27 102/61 Mechanical Ventilator 90 10/21/20 01:45 26 156/68 Mechanical Ventilator 90 10/21/20 01:30 74 24 136/39 (71) 93 10/21/20 01:00 76 29 165/49 (87) 95 10/21/20 01:00 25 136/39 Mechanical Ventilator 90 10/21/20 00:30 70 23 135/54 (81) 95 10/21/20 00:00 69 10/21/20 00:00 90 10/21/20 00:00 98.0 71 24 117/44 (68) 95 10/21/20 00:00 24 117/44 Mechanical Ventilator 90 10/21/20 00:00 Mechanical Ventilator 10/20/20 23:30 76 23 139/34 (69) 95 10/20/20 23:28 82 28 90 10/20/20 23:00 84 24 156/39 (78) 95 10/20/20 23:00 24 139/34 Mechanical Ventilator 90 10/20/20 22:30 87 25 136/46 (76) 95 10/20/20 22:15 86 23 154/49 (84) 94 10/20/20 22:15 121/73 10/20/20 22:00 87 24 151/51 (84) 94 10/20/20 22:00 26 100/44 Mechanical Ventilator 90 Intake and Output 10/20/20 10/21/20 19:00 07:00 Intake Total 1658.5144 ml 1543.900 ml Output Total 380 ml 115 ml Balance 1278.5144 ml 1428.900 ml Free Water 60 ml IV Total 1238.5144 ml 1363.900 ml Tube Feeding 260 ml 120 ml Other 100 ml 60 ml Output Urine Total 380 ml 115 ml Gastric Drainage Total 0 ml # Bowel Movements 2 Laboratory Tests 10/21/20 05:00: White Blood Count 20.6#H, Red Blood Count 3.92L, Hemoglobin 9.1L, Hematocrit 31.1L, Mean Corpuscular Volume 79L, Mean Corpuscular Hemoglobin 23.3L, Mean Corpuscular Hemoglobin Concent 29.3L, Red Cell Distribution Width 22.2H, Platelet Count 103#L, Mean Platelet Volume 9.6, Neutrophils (%) (Auto) , Lymphocytes (%) (Auto) , Monocytes (%) (Auto) , Eosinophils (%) (Auto) , Basophils (%) (Auto) , Differential Total Cells Counted 100, Neutrophils % (Manual) 96H, Lymphocytes % (Manual) 1L, Monocytes % (Manual) 3, Eosinophils % (Manual) 0, Basophils % (Manual) 0, Band Neutrophils 0, Nucleated Red Blood Cells 4, Platelet Estimate DecreasedL, Platelet Morphology Normal, Polychromasia 2+, Hypochromasia 2+, Anisocytosis 3+, Microcytosis 1+, Sodium Level 141, P otassium Level 4.9, Chloride Level 107, Carbon Dioxide Level 25, Anion Gap 9, Blood Urea Nitrogen 107H, Creatinine 2.1H, Estimat Glomerular Filtration Rate 24.1, Glucose Level 289#H, Calcium Level 7.8L, Total Bilirubin 1.1H, Direct Bilirubin 0.9H, Aspartate Amino Transf (AST/SGOT) 88H, Alanine Aminotransferase (ALT/SGPT) 46, Alkaline Phosphatase 218H, Total Protein 5.6L, Albumin 1.8L, Globulin 3.8, Albumin/Globulin Ratio 0.5L 10/21/20 07:50: Arterial Blood pH 7.295L, Arterial Blood Partial Pressure CO2 46.0H, Arterial Blood Partial Pressure O2 71.5L, Arterial Blood HCO3 21.9L, Arterial Blood Oxygen Saturation 92.2L, Arterial Blood Base Excess -4.5L, Francisco Test Positive 10/21/20 08:10: POC Whole Blood Glucose 306H 10/21/20 11:19: POC Whole Blood Glucose 318H Height (Feet): 5 Height (Inches): 3.00 Weight (Pounds): 125 Objective Elderly woman Seen in ICU this am more calm today Assessment/Plan Assessment/Plan: Assessment - CG emesis and ogt aspirate - COVID infection, resp failure - thrombocytopenia - microcytic anemia - Azotemia - DM - hypernatremia, free water deficit Recommendations - change H2B to PPI - daily CBC - watch platelets - Check Iron panel - replace - Continue TF - no plans for GI endoscopy at this time Ryanne Brunner MD Oct 21, 2020 21:06
--- NOTE | 2020-10-21 21:50 | NUR ---
NURSE HAND-OFF REPORT: Latest Vital Signs: Temperature 98.8 , Pulse 99 , B/P 127 /44 , Respiratory Rate 20 , O2 SAT 93 , Mechanical Ventilator, O2 Flow Rate . Vital Sign Comment: EKG Rhythm: Sinus Rhythm Rhythm change?: N Notified?: Niurka Szymanski MD Response: Latest Daly Fall Score: 100 Fall Risk: High Risk Safety Measures: Call light Within Reach, Bed Alarm Zone 2, Side Rails Side Rails x2, Bed position Low and Locked. Fall Precautions: Yellow Socks Yellow Gown Door Sign Patient Fall Education Report given to gilberto dunne.
--- NOTE | 2020-10-21 22:00 | NUR ---
NURSE NOTES: SBAR from Amanda ALFARO. Patient is currently sedated RASS -2. NSR on the teletypesetter monitor. OGT in plance- Tube feeds currently on hold d/t high residuals. Patient is intubated, size 7.5, 21cm on the lip, AC 22, TV 500, FiO2 90% and PEEP of 6; O2sat 99%. Raines catheter intact and draining via gravity to urometer, noted yellow-orange output with sediment. PIV site Right wrist 20g and Left wrist 22g- both saline locked. Rt femoral TLC running Propofol @ 5mcg/kg/min and 1/2 NS @ 100mL/hour. Pt received and maintained on bilateral soft wrist restraints for safety. Patient is Covid positive, isolation protocol maintained and observed.
[2020-10-22] VITALS (32 sets, daily range): BP systolic 110–174; BP diastolic 44–88
--- NOTE | 2020-10-22 | NUR ---
NURSE NOTES: New 1/2NS bag hung. Patient remains Afebrile 98.8 (rectally), NSR on the deaf interpreter, pulses present, 118/53. Patient repositioned to side, and suctioned. Patient continues to hold feed residuals of about around 100ml. Aspiration precautions observed. Remains sedated RASS -2. No BM yet. Abdomen slightly tender and is round, general edema also present at extremities with +2 pitting.
--- NOTE | 2020-10-22 02:00 | NUR ---
NURSE NOTES: Patient remains on 90% FiO2, SpO2 90-93%. Blood pressures stable, afebrile at this time. Repositioned and suctioned.
--- NOTE | 2020-10-22 04:00 | NUR ---
NURSE NOTES: patient in bed sedated. no s/s of acute distress noted. Turned and repositioned in bed. Right Femoral TLC intact infusing NS at 100cc/hr, Propofol drip at 5mcg/kg/min RASS score of -2, Bed bath given, 1 greening/black BM. No s/s of hypo/hyperglycemia. Covid +19, airborne precaution and contact isolation maintained and observed. bed alarm on. bed locked and in low position. bilateral wrist restraint checked. call light within easy reach. will continue plan of care.
[2020-10-22] MEDS: NovoLOG Insulin Flexpen SUBQ SCH ×4 (05:36→21:09)
[2020-10-22 05:38] LABS: HEMATOCRIT 29.4 % (37.0-47.0); HEMOGLOBIN 8.8 G/DL (12.0-16.0); MEAN CORPUSCULAR VOLUME 79 FL (80-99); PLATELET COUNT 53 K/UL (150-450); RED BLOOD COUNT 3.73 M/UL (4.20-5.40); RED CELL DISTRIBUTION WIDTH 22.7 % (11.6-14.8); WHITE BLOOD COUNT 11.5 K/UL (4.8-10.8)
[2020-10-22 05:55] LABS: CALCIUM 8.1 MG/DL (8.5-10.1); CREATININE 1.6 MG/DL (0.55-1.30); POTASSIUM 5.3 MMOL/L (3.5-5.1)
--- NOTE | 2020-10-22 06:00 | NUR ---
NURSE NOTES: Patient in bed sedated. no s/s of acute distress noted. Turned and repositioned in bed. Right Femoral TLC intact infusing NS at 100cc/hr, Propofol drip at 5mcg/kg/min RASS score of -2, Levophed 10mcg/min BP 114/58. No s/s of hypo/hyperglycemia. Covid +19, airborne precaution and contact isolation maintained and observed. bed alarm on. bed locked and in low position. bilateral wrist restraint checked. call light within easy reach. will continue plan of care.
--- NOTE | 2020-10-22 07:01 | NUR ---
HAND-OFF: Report given to Dusty ALFARO.
--- NOTE | 2020-10-22 07:10 | NUR ---
NURSE NOTES: Report received from Sabino de jesus RN.Pt sedated noted no resp distress,orally intubated at 7.5,lip line25,connected to vent ,ordered vent settings tolerated,GTF Glucerna 1.2 at 40 ml/hr hold by night stocker due to high residual,Raines cath draining yellow urine,skin warm and edematous,IV site to RT Femoral TLC intact with Propofol drip at 5 mcg/hr,infusing at 1.701 ml/hr,!/2 NS infusing at 100 ml/hr,pt with PIV heplock to rt/LT wrist both intact,SR up x2 ,bilat wrist restraints in placed,HOB elevated,bed lock in lowest position,will continue with plans of care.
[2020-10-22] MEDS: Levemir Flexpen SUBQ SCH ×2 (09:00→17:47)
[2020-10-22] MEDS: Pantoprazole Inj IVP SCH ×2 (09:46→20:32)
[2020-10-22] MEDS: Solu-MEDROL 40mg Inj IVP SCH ×2 (09:47→20:32)
[2020-10-22] MEDS: Docusate 100mg/10ml Liq NG SCH ×2 (09:47→17:48)
--- NOTE | 2020-10-22 10:00 | NUR ---
NURSE NOTES: status unchanged ,pt sedated,BP stable.
--- NOTE | 2020-10-22 10:14 | Infectious Diseases Prog Note ---
Assessment/Plan Assessment/Plan A: 1. Hypoxic respiratory failure 2. COVID19 pneumonia. 3. DM with hyperglycemia 4. Cirrhosis 5. HPN 6. s/p cardiac arrest PLAN: 1. Finished Remdesivir course 2. Continue Solumedrol 3. Continue Rocephin Subjective ROS Limited/Unobtainable: Yes Constitutional: Denies: fever Neurologic: Reports: other - sedated on restraint Allergies: Coded Allergies: WARFARIN (Verified Allergy, Unknown, 03/03/19) Objective Last 24 Hour Vital Signs Date Time Temp Pulse Resp B/P (MAP) Pulse Ox O2 Delivery O2 Flow Rate FiO2 10/22/20 08:00 Mechanical Ventilator 10/22/20 08:00 99 10/22/20 08:00 98.9 95 29 134/70 (91) 95 10/22/20 08:00 29 134/70 Mechanical Ventilator 70 10/22/20 08:00 70 10/22/20 07:00 110 34 145/65 (91) 96 10/22/20 07:00 32 145/65 Mechanical Ventilator 70 10/22/20 06:00 119 36 157/71 (99) 96 10/22/20 06:00 25 157/71 Mechanical Ventilator 70 10/22/20 05:30 114 35 151/64 (93) 96 10/22/20 05:00 109 35 147/56 (86) 95 10/22/20 05:00 33 115/69 Mechanical Ventilator 70 10/22/20 04:45 105 33 148/88 (108) 94 10/22/20 04:30 102 33 138/52 (80) 95 10/22/20 04:00 103 10/22/20 04:00 70 10/22/20 04:00 34 148/88 Mechanical Ventilator 70 10/22/20 04:00 99.5 103 34 147/88 (107) 94 10/22/20 04:00 Mechanical Ventilator 10/22/20 03:30 99 20 127/44 (71) 93 10/22/20 03:00 93 30 119/60 (79) 82 10/22/20 03:00 35 141/83 Mechanical Ventilator 70 10/22/20 02:44 91 31 70 10/22/20 02:30 88 29 112/72 (85) 82 10/22/20 02:00 90 29 128/62 (84) 91 10/22/20 02:00 29 119/22 Mechanical Ventilator 90 10/22/20 01:15 95 30 124/79 (94) 91 10/22/20 01:00 26 115/30 Mechanical Ventilator 90 10/22/20 01:00 93 29 125/79 (94) 92 10/22/20 00:30 97 30 118/53 (74) 99 10/22/20 00:15 98 31 129/57 (81) 96 10/22/20 00:00 80 10/22/20 00:00 Mechanical Ventilator 10/22/20 00:00 98.8 90 28 110/46 (67) 97 10/22/20 00:00 95 10/22/20 00:00 29 118/53 Mechanical Ventilator 80 10/21/20 23:30 98 29 117/48 (71) 99 10/21/20 23:00 95 27 121/70 (87) 97 10/21/20 23:00 29 121/70 Mechanical Ventilator 80 10/21/20 22:56 98 29 80 10/21/20 22:00 26 123/72 Mechanical Ventilator 80 10/21/20 22:00 97 29 123/72 (89) 96 10/21/20 21:00 29 107/65 Mechanical Ventilator 80 10/21/20 21:00 90 29 107/65 (79) 96 10/21/20 20:00 28 117/70 Mechanical Ventilator 80 10/21/20 20:00 80 10/21/20 20:00 84 10/21/20 20:00 Mechanical Ventilator 10/21/20 20:00 97.5 84 28 117/70 (86) 96 10/21/20 19:07 71 26 80 10/21/20 19:00 25 111/64 Mechanical Ventilator 90 10/21/20 19:00 91 26 111/64 (80) 98 10/21/20 18:00 97 27 107/65 (79) 99 10/21/20 18:00 26 107/65 Mechanical Ventilator 90 10/21/20 17:00 89 26 100/34 (56) 100 10/21/20 17:00 26 130/91 Mechanical Ventilator 90 10/21/20 16:00 97.9 82 25 102/59 (73) 99 10/21/20 16:00 24 102/59 Mechanical Ventilator 90 10/21/20 16:00 82 10/21/20 16:00 Mechanical Ventilator 1/20/21 16:00 90 10/21/20 15:17 85 27 80 10/21/20 15:00 28 94/56 Mechanical Ventilator 90 10/21/20 15:00 88 28 94/56 (69) 99 10/21/20 14:30 29 100/40 Mechanical Ventilator 90 10/21/20 14:00 26 102/48 Mechanical Ventilator 90 10/21/20 14:00 97 30 102/48 (66) 99 10/21/20 13:00 29 96/59 Mechanical Ventilator 90 10/21/20 13:00 93 28 96/59 (71) 99 10/21/20 12:00 90 10/21/20 12:00 97.2 85 27 141/54 (83) 98 10/21/20 12:00 26 141/54 Mechanical Ventilator 90 10/21/20 12:00 105 10/21/20 12:00 Mechanical Ventilator 10/21/20 11:25 83 24 80 10/21/20 11:00 87 28 147/69 (95) 94 10/21/20 11:00 27 147/69 Mechanical Ventilator 90 Height (Feet): 5 Height (Inches): 3.00 Weight (Pounds): 125 HEENT: other - orally intubated Respiratory/Chest: other - on ventilator, FIO2=70% Cardiovascular: tachycardia Abdomen: soft, non tender, other - OG tube Extremities: other - hands edema Neurologic/Psychiatric: other - sedated Laboratory Tests Test 10/21/20 11:19 10/22/20 04:00 POC Whole Blood Glucose 318 MG/DL (74-106) H White Blood Count 11.5 K/UL (4.8-10.8) H Red Blood Count 3.73 M/UL (4.20-5.40) L Hemoglobin 8.8 G/DL (12.0-16.0) L Hematocrit 29.4 % (37.0-47.0) L Mean Corpuscular Volume 79 FL (80-99) L Mean Corpuscular Hemoglobin 23.7 PG (27.0-31.0) L Mean Corpuscular Hemoglobin Concent 30.0 G/DL (32.0-36.0) L Red Cell Distribution Width 22.7 % (11.6-14.8) H Platelet Count 53 K/UL (150-450) L Mean Platelet Volume 7.9 FL (6.5-10.1) Neutrophils (%) (Auto) % (45.0-75.0) Lymphocytes (%) (Auto) % (20.0-45.0) Monocytes (%) (Auto) % (1.0-10.0) Eosinophils (%) (Auto) % (0.0-3.0) Basophils (%) (Auto) % (0.0-2.0) Differential Total Cells Counted 100 Neutrophils % (Manual) 92 % (45-75) H Lymphocytes % (Manual) 3 % (20-45) L Monocytes % (Manual) 2 % (1-10) Eosinophils % (Manual) 0 % (0-3) Basophils % (Manual) 0 % (0-2) Band Neutrophils 3 % (0-8) Nucleated Red Blood Cells 1 /100 WBC Platelet Estimate Decreased L Platelet Morphology Normal Polychromasia 1+ Poikilocytosis 1+ Anisocytosis 3+ Microcytosis 1+ Macrocytosis Occasional Crenated Cell 1+ Schistocytes 1+ Sodium Level 139 MMOL/L (136-145) Potassium Level 5.3 MMOL/L (3.5-5.1) H Chloride Level 107 MMOL/L (98-107) Carbon Dioxide Level 25 MMOL/L (21-32) Anion Gap 7 mmol/L (5-15) Blood Urea Nitrogen 115 mg/dL (7-18) H Creatinine 1.6 MG/DL (0.55-1.30) H Estimat Glomerular Filtration Rate 33.0 mL/min (>60) Glucose Level 347 MG/DL (74-106) H Calcium Level 8.1 MG/DL (8.5-10.1) L Triglycerides Level 172 MG/DL (30-150) H Current Medications Medications (Trade) Dose Ordered Sig/[place] Route PRN Reason Start Time Stop Time Status Last Admin Dose Admin Acetaminophen (Tylenol) 650 mg Q4H PRN ORAL Mild Pain (Pain Scale 1-3) 10/10/20 21:15 11/09/20 21:14 10/14/20 13:28 Acetaminophen (Tylenol) 650 mg Q4H PRN ORAL Temp >100.5 10/10/20 21:15 11/09/20 21:14 10/18/20 20:57 Albuterol Sulfate (Proventil MDI) 2 puff Q4H PRN INH Shortness of Breath 10/10/20 21:30 01/08/21 21:29 Ceftriaxone Sodium 1 gm/ Dextrose 55 ml @ 110 mls/hr Q24H IVPB 10/17/20 15:00 10/24/20 14:59 10/21/20 14:26 Chlorhexidine Gluconate (Heidi-Hex 2%) 1 applic DAILY@2000 TOPIC 10/21/20 20:00 01/19/21 19:59 10/21/20 20:23 Clonidine HCl (Catapres Tab) 0.1 mg Q4H PRN ORAL for SBP >150 10/14/20 11:30 01/12/21 11:29 10/14/20 11:25 Dextrose (Dextrose 50%) 25 ml Q30M PRN IV Hypoglycemia 10/10/20 21:15 01/08/21 21:14 Dextrose (Dextrose 50%) 50 ml Q30M PRN IV Hypoglycemia 10/10/20 21:15 01/08/21 21:14 Docusate Sodium (Colace) 100 mg TWICE A DAY NG 10/21/20 09:00 11/20/20 08:59 10/22/20 09:47 Haloperidol Lactate (Haldol) 5 mg Q6H PRN IM Agitation 10/13/20 16:15 11/27/20 16:14 Insulin Aspart (NovoLOG) BEFORE MEALS AND HS SUBQ 10/11/20 06:30 01/09/21 06:29 10/22/20 05:36 Insulin Detemir (Levemir) 14 units BID SUBQ 10/18/20 18:00 01/09/21 20:59 10/22/20 09:00 Lorazepam (Ativan 2mg/ml 1ml) 1 mg Q3H PRN IV For Anxiety 10/17/20 18:15 10/24/20 18:14 10/18/20 20:56 Methylprednisolone Sodium Succinate (Solu-MEDROL) 40 mg EVERY 12 HOURS IVP 10/19/20 12:00 01/17/21 11:59 10/22/20 09:47 Norepinephrine Bitartrate 4 mg/ Dextrose 250 ml @ 0 mls/hr Q24H IV 10/19/20 22:15 10/22/20 22:14 10/21/20 03:48 Ondansetron HCl (Zofran) 4 mg Q6H PRN IVP Nausea & Vomiting 10/10/20 21:15 11/09/20 21:14 Pantoprazole (Protonix) 40 mg EVERY 12 HOURS IVP 10/18/20 22:15 11/17/20 22:14 10/22/20 09:46 Propofol 100 ml @ 0 mls/hr Q12H PRN IV RASS -2 10/21/20 14:22 10/23/20 14:21 10/21/20 14:30 Sodium Chloride 1,000 ml @ 100 mls/hr Q10H IV 10/16/20 13:45 11/15/20 13:44 10/22/20 09:48 Ysah Ashley MD Oct 22, 2020 10:14
--- NOTE | 2020-10-22 12:10 | General Progress Note ---
Subjective ROS Limited/Unobtainable: Yes Allergies: Coded Allergies: WARFARIN (Verified Allergy, Unknown, 03/03/19) Subjective noted care noted changes doing poorly and remains ill sedated sugars elevated Objective Last 24 Hour Vital Signs Date Time Temp Pulse Resp B/P (MAP) Pulse Ox O2 Delivery O2 Flow Rate FiO2 10/22/20 11:00 30 170/70 Mechanical Ventilator 70 10/22/20 11:00 90 30 170/70 (103) 92 10/22/20 10:56 90 30 80 10/22/20 10:00 30 174/86 Mechanical Ventilator 70 10/22/20 10:00 98 30 174/86 (115) 95 10/22/20 09:00 95 29 147/56 (86) 95 10/22/20 09:00 29 147/56 Mechanical Ventilator 70 10/22/20 08:00 Mechanical Ventilator 10/22/20 08:00 99 10/22/20 08:00 98.9 95 29 134/70 (91) 95 10/22/20 08:00 29 134/70 Mechanical Ventilator 70 10/22/20 08:00 70 10/22/20 07:36 91 28 70 10/22/20 07:00 110 34 145/65 (91) 96 10/22/20 07:00 32 145/65 Mechanical Ventilator 70 10/22/20 06:00 119 36 157/71 (99) 96 10/22/20 06:00 25 157/71 Mechanical Ventilator 70 10/22/20 05:30 114 35 151/64 (93) 96 10/22/20 05:00 109 35 147/56 (86) 95 10/22/20 05:00 33 115/69 Mechanical Ventilator 70 10/22/20 04:45 105 33 148/88 (108) 94 10/22/20 04:30 102 33 138/52 (80) 95 10/22/20 04:00 103 10/22/20 04:00 70 10/22/20 04:00 34 148/88 Mechanical Ventilator 70 10/22/20 04:00 99.5 103 34 147/88 (107) 94 10/22/20 04:00 Mechanical Ventilator 10/22/20 03:30 99 20 127/44 (71) 93 10/22/20 03:00 93 30 119/60 (79) 82 10/22/20 03:00 35 141/83 Mechanical Ventilator 70 10/22/20 02:44 91 31 70 10/22/20 02:30 88 29 112/72 (85) 82 10/22/20 02:00 90 29 128/62 (84) 91 10/22/20 02:00 29 119/22 Mechanical Ventilator 90 10/22/20 01:15 95 30 124/79 (94) 91 10/22/20 01:00 26 115/30 Mechanical Ventilator 90 10/22/20 01:00 93 29 125/79 (94) 92 10/22/20 00:30 97 30 118/53 (74) 99 10/22/20 00:15 98 31 129/57 (81) 96 10/22/20 00:00 80 10/22/20 00:00 Mechanical Ventilator 10/22/20 00:00 98.8 90 28 110/46 (67) 97 10/22/20 00:00 95 10/22/20 00:00 29 118/53 Mechanical Ventilator 80 10/21/20 23:30 98 29 117/48 (71) 99 10/21/20 23:00 95 27 121/70 (87) 97 10/21/20 23:00 29 121/70 Mechanical Ventilator 80 10/21/20 22:56 98 29 80 10/21/20 22:00 26 123/72 Mechanical Ventilator 80 10/21/20 22:00 97 29 123/72 (89) 96 10/21/20 21:00 29 107/65 Mechanical Ventilator 80 10/21/20 21:00 90 29 107/65 (79) 96 10/21/20 20:00 28 117/70 Mechanical Ventilator 80 10/21/20 20:00 80 10/21/20 20:00 84 10/21/20 20:00 Mechanical Ventilator 10/21/20 20:00 97.5 84 28 117/70 (86) 96 10/21/20 19:07 71 26 80 10/21/20 19:00 25 111/64 Mechanical Ventilator 90 10/21/20 19:00 91 26 111/64 (80) 98 10/21/20 18:00 97 27 107/65 (79) 99 10/21/20 18:00 26 107/65 Mechanical Ventilator 90 10/21/20 17:00 89 26 100/34 (56) 100 10/21/20 17:00 26 130/91 Mechanical Ventilator 90 10/21/20 16:00 97.9 82 25 102/59 (73) 99 10/21/20 16:00 24 102/59 Mechanical Ventilator 90 10/21/20 16:00 82 10/21/20 16:00 Mechanical Ventilator 10/21/20 16:00 90 10/21/20 15:17 85 27 80 10/21/20 15:00 28 94/56 Mechanical Ventilator 90 10/21/20 15:00 88 28 94/56 (69) 99 10/21/20 14:30 29 100/40 Mechanical Ventilator 90 10/21/20 14:00 26 102/48 Mechanical Ventilator 90 10/21/20 14:00 97 30 102/48 (66) 99 10/21/20 13:00 29 96/59 Mechanical Ventilator 90 10/21/20 13:00 93 28 96/59 (71) 99 Intake and Output 10/21/20 10/22/20 19:00 07:00 Intake Total 1734.5615 ml 1143.711 ml Output Total 610 ml 565 ml Balance 1124.5615 ml 578.711 ml IV Total 1294.5615 ml 1143.711 ml Tube Feeding 360 ml 0 ml Other 80 ml Output Urine Total 610 ml 565 ml # Bowel Movements 1 Laboratory Tests 10/22/20 04:00: White Blood Count 11.5H, Red Blood Count 3.73L, Hemoglobin 8.8L, Hematocrit 29.4L, Mean Corpuscular Volume 79L, Mean Corpuscular Hemoglobin 23.7L, Mean Corpuscular Hemoglobin Concent 30.0L, Red Cell Distribution Width 22.7H, Platelet Count 53L, Mean Platelet Volume 7.9, Neutrophils (%) (Auto) , Lymphocytes (%) (Auto) , Monocytes (%) (Auto) , Eosinophils (%) (Auto) , Basophils (%) (Auto) , Differential Total Cells Counted 100, Neutrophils % (Manual) 92H, Lymphocytes % (Manual) 3L, Monocytes % (Manual) 2, Eosinophils % (Manual) 0, Basophils % (Manual) 0, Band Neutrophils 3, Nucleated Red Blood Cells 1, Platelet Estimate DecreasedL, Platelet Morphology Normal, Polychromasia 1+, Poikilocytosis 1+, Anisocytosis 3+, Microcytosis 1+, Macrocytosis Occasional, Crenated Cell 1+, Schistocytes 1+, Sodium Level 139, Potassium Level 5.3H, Chloride Level 107, Carbon Dioxide Level 25, Anion Gap 7, Blood Urea Nitrogen 115H, Creatinine 1.6H, Estimat Glomerular Filtration Rate 33.0, Glucose Level 347H, Calcium Level 8.1L, Triglycerides Level 172H Height (Feet): 5 Height (Inches): 3.00 Weight (Pounds): 125 Objective deferred due to COVID Assessment/Plan Assessment/Plan: Impression: Covid Pneumonia possible sepsis Uncontrolled diabetes mellitus 2019 novel coronavirus disease (COVID-19) Renal insufficiency, acute Dehydration Rhabdomyolysis due to COVID-19 Possible Cirrhosis acute hypoxemic respiratory failure s/p intubation acidemia MODS hematemesis acidemia Plan doing poorly on 100% hypervent and monitor ABG renal and GI follow up follow up CXR and ABG and adjust follow up labs IV antibiotics- repeat cultures ID follow up DVT prophylaxis critical on levimir and adjust tube feeds when ok with gi no family available medications/laboratory data/nursing notes/ICU care reviewed in detail note reviewed and edited care discussed with RN and RT ICU time spent >40 minutes Terence Szymanski MD Oct 22, 2020 12:09
--- NOTE | 2020-10-22 13:00 | NUR ---
NURSE NOTES: Pt noted desaturating to low 80's,ABG drawn,PO2 53.7,FIO2 increased to 100% by R.T.
--- NOTE | 2020-10-22 15:44 | Consultation ---
DATE OF CONSULTATION: 10/22/2020 NEPHROLOGY CONSULTATION CONSULTING PHYSICIAN: Gail Scott MD ATTENDING PHYSICIAN: Terence Szymanski MD REASON FOR CONSULTATION: Elevated BUN. HISTORY OF PRESENT ILLNESS: This is a 60-year-old female admitted to the hospital by the attending physician. The patient has COVID-19 pneumonia and urinary tract infection. I am asked to see the patient for elevation of BUN. PAST MEDICAL HISTORY: 1. Status post CVA. 2. Chronic kidney disease. 3. Hypertension. 4. Asthma. CURRENT MEDICATIONS: IV fluids, half-normal saline, IV Rocephin, IV Levophed, IV propofol, Tylenol p.r.n., albuterol inhalation, Catapres p.r.n., sodium docusate, Haldol, insulin sliding scale, Levemir, lorazepam p.r.n., methylprednisolone, and Protonix. ALLERGIES: No known drug allergies. FAMILY HISTORY: Unable to obtain. SOCIAL HISTORY: Unable to obtain. REVIEW OF SYSTEMS: Unable to obtain. PHYSICAL EXAMINATION: GENERAL: This is an elderly female who is on a ventilator. VITAL SIGNS: Blood pressure 170/70, pulse 90 and regular, respirations 30, temperature 98.9 axillary. HEENT: The head is normocephalic and atraumatic. Pupils are equal, round, and reactive to light. NECK: Supple. Trachea midline. There was no lymphadenopathy or thyromegaly. LUNGS: Bilateral rhonchi. HEART: Regular rate and rhythm without rubs, murmurs, or gallops. ABDOMEN: Soft and nontender. Bowel sounds were active. EXTREMITIES: No clubbing, cyanosis, or edema. NEUROLOGICAL: She is sedated. There were no gross focal findings. LABORATORY AND ANCILLARY DATA: Sodium 139, potassium 5.3, BUN 115, creatinine 1.6. CBC shows WBC 11,500, hematocrit 29.4, and platelet count 53,000. Chest x-ray, worsening left lung infiltrates. A CT scan of the abdomen and pelvis shows nodular contour to the liver suggesting cirrhosis. Comments on the kidneys, unremarkable. ASSESSMENT: 1. COVID-19 related acute kidney injury. 2. Status post CVA. 3. Chronic kidney disease. 4. Hypertension. 5. Asthma. PLAN: 1. Continue to monitor the patient's BMP, CBC. 2. Continue supportive care. Thank you, Dr. Szymanski, for letting me to participate in the care of this extremely sick patient. Gail Scott M.D. DR: Surinder JOB#: [id number] CC:
--- NOTE | 2020-10-22 15:48 | NUR ---
Loss Prevention ConsultantCounselling Psychologist SI: COVID 19, Liver Cirrhosis, UTI, ETT/Vent support T 96.0 (AX), HR 85, RR 28, BP 158/75, ETT, AC 22, FiO2 100%, TV 500, PEEP 6, O2 sat 99% WBC 11.5, BUN 115, creatinine 1.6 glucose 347 Cxray Worsening left lung infiltrates, possibly developing (L) pleural effusion. Stable infiltrates on Rt IS: Levemir SQ HS Solumedrol IVP Q 12 h Protonix IVP Q 12 h Rocephin IV Q 24 h levophed GTT NS@100cc/hr ICU Status
[2020-10-22] MEDS: cefTRIAXone 1 GM in D5W 55 ML IVPB SCH (16:25)
--- NOTE | 2020-10-22 17:00 | NUR ---
NURSE NOTES: Bed bath given ,pt with Large BM to dark liquid tarry stools in moderatwe amount.kept dry and clean.
--- NOTE | 2020-10-22 19:25 | NUR ---
NURSE HAND-OFF REPORT: Latest Vital Signs: Temperature 96.0 , Pulse 88 , B/P 140 /60 , Respiratory Rate 22 , O2 SAT 95 , Mechanical Ventilator, O2 Flow Rate . Vital Sign Comment: EKG Rhythm: Sinus Rhythm Rhythm change?: N Notified?: Niurka -Dr. Stephon SYED Response: Latest Daly Fall Score: 100 Fall Risk: High Risk Safety Measures: Call light Within Reach, Bed Alarm Zone 2, Side Rails Side Rails x2, Bed position Low and Locked. Fall Precautions: Yellow Socks Yellow Gown Door Sign Patient Fall Education Report given to Asuncion NASCIMENTO.
--- NOTE | 2020-10-22 19:57 | NUR ---
NURSE NOTES: RECEIVED REPORT FROM FANY ALFARO PT SEDATED WITH DIPERVAN DRIP AT 5MCG/KG/HR -2ROSS ORALLY INTUBATED -VENT WITH O2 SAT 92 % NO RESP DISTRESS NOTED TOLERATING FEEDING NO RESIDUAL IV INFUSING WELL DRESSING DRY AND 1NTACT REPOSITION AND SUCTION ON ODILIA SOFT WREST RESTRAINT NAN COMPLAINT
[2020-10-22] MEDS: Dyna-Hex 2% Top Sol 2oz TOPIC SCH (20:32)
--- NOTE | 2020-10-22 22:00 | NUR ---
NURSE NOTES: bs 345 insulin coverage given
--- NOTE | 2020-10-22 23:16 | Psychiatric Progress Note ---
Psychiatry Progress Note Psychiatry Progress Note Medications Current Medications Medications (Trade) Dose Ordered Sig/Hernando Route PRN Reason Start Time Stop Time Status Last Admin Dose Admin Acetaminophen (Tylenol) 650 mg Q4H PRN ORAL Mild Pain (Pain Scale 1-3) 10/10/20 21:15 11/09/20 21:14 10/14/20 13:28 Acetaminophen (Tylenol) 650 mg Q4H PRN ORAL Temp >100.5 10/10/20 21:15 11/09/20 21:14 10/18/20 20:57 Albuterol Sulfate (Proventil MDI) 2 puff Q4H PRN INH Shortness of Breath 10/10/20 21:30 01/08/21 21:29 Ceftriaxone Sodium 1 gm/ Dextrose 55 ml @ 110 mls/hr Q24H IVPB 10/17/20 15:00 10/24/20 14:59 10/22/20 16:25 Chlorhexidine Gluconate (Heidi-Hex 2%) 1 applic DAILY@2000 TOPIC 10/21/20 20:00 01/19/21 19:59 10/22/20 20:32 Clonidine HCl (Catapres Tab) 0.1 mg Q4H PRN ORAL for SBP >150 10/14/20 11:30 01/12/21 11:29 10/14/20 11:25 Dextrose (Dextrose 50%) 25 ml Q30M PRN IV Hypoglycemia 10/10/20 21:15 01/08/21 21:14 Dextrose (Dextrose 50%) 50 ml Q30M PRN IV Hypoglycemia 10/10/20 21:15 01/08/21 21:14 Docusate Sodium (Colace) 100 mg TWICE A DAY NG 10/21/20 09:00 11/20/20 08:59 10/22/20 09:47 Haloperidol Lactate (Haldol) 5 mg Q6H PRN IM Agitation 10/13/20 16:15 11/27/20 16:14 Insulin Aspart (NovoLOG) BEFORE MEALS AND HS SUBQ 10/11/20 06:30 01/09/21 06:29 10/22/20 21:09 Insulin Detemir (Levemir) 14 units BID SUBQ 10/18/20 18:00 01/09/21 20:59 10/22/20 17:47 Lorazepam (Ativan 2mg/ml 1ml) 1 mg Q3H PRN IV For Anxiety 10/17/20 18:15 10/24/20 18:14 10/18/20 20:56 Methylprednisolone Sodium Succinate (Solu-MEDROL) 40 mg EVERY 12 HOURS IVP 10/19/20 12:00 01/17/21 11:59 10/22/20 20:32 Ondansetron HCl (Zofran) 4 mg Q6H PRN IVP Nausea & Vomiting 10/10/20 21:15 11/09/20 21:14 Pantoprazole (Protonix) 40 mg EVERY 12 HOURS IVP 10/18/20 22:15 11/17/20 22:14 10/22/20 20:32 Propofol 100 ml @ 0 mls/hr Q12H PRN IV RASS -2 10/21/20 14:22 10/23/20 14:21 10/21/20 14:30 Sodium Chloride 1,000 ml @ 100 mls/hr Q10H IV 10/16/20 13:45 11/15/20 13:44 10/22/20 19:34 Neurological/Psychiatric: Reports: anxiety, depressed, emotional problems Allergies: Coded Allergies: WARFARIN (Verified Allergy, Unknown, 03/03/19) Objective Data Height (Feet): 5 Height (Inches): 3.00 Weight (Pounds): 125 Additional Comments: MENTAL STATUS EXAMINATION: The patient is awake, oriented to self, place, uncooperative, and mood is neutral and anxious. Affect is blunted. Thought process, there is a paucity of thought content. The patient appears to be delusional. Cognition is impaired. Insight and judgment Impulse control poor. Assessment/Plan [place] I: ASSESSMENT: [place] I Acute toxic encephalopathy. Psychotic disorder. Rule out dementia. [place] II Deferred. [place] III COVID-19. [place] IV Low. [place] V 20 PLAN: 1. We will start the patient on low dose of antipsychotics. 2. Continue the restraints. 3. Discussed with the primary team. Status Narrative ASSESSMENT: [place] I Acute toxic encephalopathy. Psychotic disorder. Rule out dementia. [place] II Deferred. [place] III COVID-19. [place] IV Low. [place] V 20 PLAN: 1. We will start the patient on low dose of antipsychotics. 2. Continue the restraints. 3. Discussed with the primary team. Assessment/Plan: ASSESSMENT: [place] I Acute toxic encephalopathy. Psychotic disorder. Rule out dementia. [place] II Deferred. [place] III COVID-19. [place] IV Low. [place] V 20 PLAN: 1. We will start the patient on low dose of antipsychotics. 2. Continue the restraints. 3. Discussed with the primary team. Frank Chacon MD Oct 22, 2020 23:16
--- NOTE | 2020-10-22 23:32 | General Progress Note ---
Subjective Allergies: Coded Allergies: WARFARIN (Verified Allergy, Unknown, 03/03/19) Subjective above noted on tube feedings dark stools, but H&H without significant change doing poorly - persistent high FiO2 and acidosis Objective Last 24 Hour Vital Signs Date Time Temp Pulse Resp B/P (MAP) Pulse Ox O2 Delivery O2 Flow Rate FiO2 10/22/20 23:00 86 27 138/50 (79) 89 10/22/20 22:00 77 25 137/47 (77) 90 10/22/20 21:00 83 27 135/50 (78) 88 10/22/20 20:00 97.8 86 29 151/68 (95) 85 10/22/20 20:00 Mechanical Ventilator 10/22/20 20:00 88 10/22/20 20:00 100 10/22/20 19:47 88 27 100 10/22/20 19:00 22 140/60 Mechanical Ventilator 100 10/22/20 19:00 82 27 161/63 (95) 91 10/22/20 18:10 88 28 95 Mechanical Ventilator 100 10/22/20 18:00 96.0 68 22 157/55 (89) 94 10/22/20 18:00 22 157/55 Mechanical Ventilator 100 10/22/20 17:00 85 26 154/63 (93) 95 10/22/20 17:00 26 155/63 Mechanical Ventilator 100 10/22/20 16:00 86 10/22/20 16:00 27 155/57 Mechanical Ventilator 100 10/22/20 16:00 Mechanical Ventilator 10/22/20 16:00 95.9 85 26 155/63 (93) 95 10/22/20 15:23 88 28 100 10/22/20 15:00 28 158/59 Mechanical Ventilator 100 10/22/20 15:00 85 28 158/75 (102) 95 10/22/20 14:08 100 10/22/20 14:00 85 29 152/66 (94) 94 10/22/20 14:00 28 152/66 Mechanical Ventilator 100 10/22/20 13:00 29 154/65 Mechanical Ventilator 100 10/22/20 13:00 91 29 154/65 (94) 93 10/22/20 12:00 29 151/59 Mechanical Ventilator 70 10/22/20 12:00 96.0 92 29 151/59 (89) 92 10/22/20 12:00 89 10/22/20 12:00 70 10/22/20 12:00 Mechanical Ventilator 10/22/20 11:00 30 170/70 Mechanical Ventilator 70 10/22/20 11:00 90 30 170/70 (103) 92 10/22/20 10:56 90 30 80 10/22/20 10:00 30 174/86 Mechanical Ventilator 70 10/22/20 10:00 98 30 174/86 (115) 95 10/22/20 09:00 95 29 147/56 (86) 95 10/22/20 09:00 29 147/56 Mechanical Ventilator 70 10/22/20 08:00 Mechanical Ventilator 10/22/20 08:00 99 10/22/20 08:00 98.9 95 29 134/70 (91) 95 10/22/20 08:00 29 134/70 Mechanical Ventilator 70 10/22/20 08:00 70 10/22/20 07:36 91 28 70 10/22/20 07:00 110 34 145/65 (91) 96 10/22/20 07:00 32 145/65 Mechanical Ventilator 70 10/22/20 06:00 119 36 157/71 (99) 96 10/22/20 06:00 25 157/71 Mechanical Ventilator 70 10/22/20 05:30 114 35 151/64 (93) 96 10/22/20 05:00 109 35 147/56 (86) 95 10/22/20 05:00 33 115/69 Mechanical Ventilator 70 10/22/20 04:45 105 33 148/88 (108) 94 10/22/20 04:30 102 33 138/52 (80) 95 10/22/20 04:00 103 10/22/20 04:00 70 10/22/20 04:00 34 148/88 Mechanical Ventilator 70 10/22/20 04:00 99.5 103 34 147/88 (107) 94 10/22/20 04:00 Mechanical Ventilator 10/22/20 03:30 99 20 127/44 (71) 93 10/22/20 03:00 93 30 119/60 (79) 82 10/22/20 03:00 35 141/83 Mechanical Ventilator 70 10/22/20 02:44 91 31 70 10/22/20 02:30 88 29 112/72 (85) 82 10/22/20 02:00 90 29 128/62 (84) 91 10/22/20 02:00 29 119/22 Mechanical Ventilator 90 10/22/20 01:15 95 30 124/79 (94) 91 10/22/20 01:00 26 115/30 Mechanical Ventilator 90 10/22/20 01:00 93 29 125/79 (94) 92 10/22/20 00:30 97 30 118/53 (74) 99 10/22/20 00:15 98 31 129/57 (81) 96 10/22/20 00:00 80 10/22/20 00:00 Mechanical Ventilator 10/22/20 00:00 98.8 90 28 110/46 (67) 97 10/22/20 00:00 95 10/22/20 00:00 29 118/53 Mechanical Ventilator 80 Intake and Output 10/21/20 10/22/20 19:00 07:00 Intake Total 1734.5615 ml 1143.711 ml Output Total 610 ml 565 ml Balance 1124.5615 ml 578.711 ml IV Total 1294.5615 ml 1143.711 ml Tube Feeding 360 ml 0 ml Other 80 ml Output Urine Total 610 ml 565 ml # Bowel Movements 1 Laboratory Tests 10/22/20 04:00: White Blood Count 11.5H, Red Blood Count 3.73L, Hemoglobin 8.8L, Hematocrit 29.4L, Mean Corpuscular Volume 79L, Mean Corpuscular Hemoglobin 23.7L, Mean Cor puscular Hemoglobin Concent 30.0L, Red Cell Distribution Width 22.7H, Platelet Count 53L, Mean Platelet Volume 7.9, Neutrophils (%) (Auto) , Lymphocytes (%) (Auto) , Monocytes (%) (Auto) , Eosinophils (%) (Auto) , Basophils (%) (Auto) , Differential Total Cells Counted 100, Neutrophils % (Manual) 92H, Lymphocytes % (Manual) 3L, Monocytes % (Manual) 2, Eosinophils % (Manual) 0, Basophils % (Manual) 0, Band Neutrophils 3, Nucleated Red Blood Cells 1, Platelet Estimate DecreasedL, Platelet Morphology Normal, Polychromasia 1+, Poikilocytosis 1+, Anisocytosis 3+, Microcytosis 1+, Macrocytosis Occasional, Crenated Cell 1+, Schistocytes 1+, Sodium Level 139, Potassium Level 5.3H, Chloride Level 107, Carbon Dioxide Level 25, Anion Gap 7, Blood Urea Nitrogen 115H, Creatinine 1.6H, Estimat Glomerular Filtration Rate 33.0, Glucose Level 347H, Calcium Level 8.1L, Triglycerides Level 172H 10/22/20 12:15: POC Whole Blood Glucose [Pending] 10/22/20 13:23: Arterial Blood pH 7.279L, Arterial Blood Partial Pressure CO2 46.3H, Arterial Blood Partial Pressure O2 53.7L, Arterial Blood HCO3 21.2L, Arterial Blood Oxygen Saturation 82.6*L, Arterial Blood Base Excess -5.4L, Francisco Test Positive 10/22/20 17:05: POC Whole Blood Glucose 381H 10/22/20 20:38: POC Whole Blood Glucose [Pending] Height (Feet): 5 Height (Inches): 3.00 Weight (Pounds): 125 Objective Elderly woman calm on vent, (+) feeding tube coarse BS RR abd soft Assessment/Plan Assessment/Plan: Assessment - GI bleed - H&H holding steady - COVID PNA, resp failure, doing poorly - nodular liver, c/w cirrhosis - Hepatitis C - thrombocytopenia - microcytic anemia - Azotemia - DM - Acidosis Recommendations - BID PPI - daily CBC - watch platelets - Continue TF - check coags - endoscopy if clinically significant bleeding Ryanne Brunner MD Oct 22, 2020 23:32
[2020-10-23] VITALS (25 sets, daily range): BP systolic 92–172; BP diastolic 41–74
--- NOTE | 2020-10-23 | NUR ---
NURSE NOTES: reposition and suction
[2020-10-23] MEDS: propofoL 1,000mg/100ml 100 ML IV PRN (02:42)
[2020-10-23 05:22] LABS: HEMOGLOBIN 8.6 G/DL (12.0-16.0); MEAN CORPUSCULAR VOLUME 81 FL (80-99); PLATELET COUNT 39 K/UL (150-450); RED CELL DISTRIBUTION WIDTH 24.2 % (11.6-14.8); WHITE BLOOD COUNT 10.9 K/UL (4.8-10.8)
[2020-10-23 05:35] LABS: INR 1.8 (0.9-1.1)
--- NOTE | 2020-10-23 06:00 | NUR ---
NURSE NOTES: BS 317 INSULIN COVERAGE GIVEN
[2020-10-23 06:03] LABS: CALCIUM 8.3 MG/DL (8.5-10.1); CREATININE 1.5 MG/DL (0.55-1.30); POTASSIUM 5.2 MMOL/L (3.5-5.1)
[2020-10-23 06:22] LABS: ALANINE AMINOTRANSFERASE 41 U/L (12-78); ALBUMIN 1.5 G/DL (3.4-5.0); ALKALINE PHOSPHATASE 307 U/L (46-116); ASPARTATE AMINO TRANSFERASE 62 U/L (15-37); BILIRUBIN,TOTAL 1.1 MG/DL (0.2-1.0)
[2020-10-23] MEDS: NovoLOG Insulin Flexpen SUBQ SCH ×4 (06:29→21:04)
--- NOTE | 2020-10-23 06:50 | NUR ---
NURSE NOTES: COMPLETE BED BATH ORAL CARE AND BACK CARE DONE REPOSITION AND WOUND CARE DONE
--- NOTE | 2020-10-23 07:20 | NUR ---
NURSE HAND-OFF REPORT: Latest Vital Signs: Temperature 99.8 , Pulse 104 , B/P 139 /57 , Respiratory Rate 28 , O2 SAT 99 , Mechanical Ventilator, O2 Flow Rate . Vital Sign Comment: EKG Rhythm: Sinus Rhythm Rhythm change?: N Notified?: Y -Dr. Stephon SYED Response: Latest Daly Fall Score: 100 Fall Risk: High Risk Safety Measures: Call light Within Reach, Bed Alarm Zone 2, Side Rails Side Rails x2, Bed position Low and Locked. Fall Precautions: Yellow Socks Yellow Gown Door Sign Patient Fall Education Report given to DARIANA ALFARO USING SBAR
--- NOTE | 2020-10-23 07:25 | NUR ---
NURSE NOTES: Report received from Asuncion ALFARO.Pt sedated,noted no resp distress, orally intubated ,ETT7.5,lip line 24,connected to vent,AC22,TV 500,Fio2 100%,Peep6,no signs of discomfort or pain noted,SR on the monitor,OGT feeding Glucerna 1.2 at 40 ml/hr ,no residual,Raines cath draining yellow urine,skin warm and edematous,IV site to RT Femoral TLC intact ,with Profopol drip at 5mcg/hrinfusing at 1.701 ml/hr and IVF 1/2 NS at 100 ml/hr,SR up x2 bilat wrist restraints in placed,HOB elevated bed lock in lowest position,will continue with plans of care.
--- NOTE | 2020-10-23 08:30 | NUR ---
NURSE NOTES: Dr Szymanski at bedside,updated re pt's condition,ordered to discontinue Propofol and start pt on Versed,increase PEEP to 10 and do an ABG.
[2020-10-23] MEDS: Solu-MEDROL 40mg Inj IVP SCH (08:39)
[2020-10-23] MEDS: Pantoprazole Inj IVP SCH ×2 (08:39→20:32)
[2020-10-23] MEDS: Docusate 100mg/10ml Liq NG SCH ×2 (08:39→18:17)
[2020-10-23] MEDS: Levemir Flexpen SUBQ SCH ×3 (08:41→18:19)
--- NOTE | 2020-10-23 08:45 | NUR ---
RESPIRATORY NOTE: Increased PEEP to + 10 per MD order to improve oxygenation. RN aware. Will continue to monitor.
--- NOTE | 2020-10-23 09:00 | General Progress Note ---
Subjective Allergies: Coded Allergies: WARFARIN (Verified Allergy, Unknown, 03/03/19) Subjective noted care noted changes doing poorly and remains ill sedated sugars elevated Objective Last 24 Hour Vital Signs Date Time Temp Pulse Resp B/P (MAP) Pulse Ox O2 Delivery O2 Flow Rate FiO2 10/23/20 07:00 25 139/56 Mechanical Ventilator 10/23/20 07:00 104 28 139/57 (84) 99 10/23/20 06:00 99 28 141/56 (84) 96 10/23/20 06:00 26 137/56 Mechanical Ventilator 100 10/23/20 05:44 26 108/48 Mechanical Ventilator 100 10/23/20 05:00 26 108/49 Mechanical Ventilator 100 10/23/20 05:00 87 30 137/56 (83) 99 10/23/20 04:00 100 10/23/20 04:00 26 104/47 Mechanical Ventilator 100 10/23/20 04:00 96 10/23/20 04:00 99.8 68 28 92/41 (58) 100 10/23/20 04:00 Mechanical Ventilator 10/23/20 03:00 106 32 172/69 (103) 96 10/23/20 03:00 25 146/63 Mechanical Ventilator 10/23/20 02:42 25 147/53 Mechanical Ventilator 100 10/23/20 02:00 28 134/54 Mechanical Ventilator 100 10/23/20 02:00 81 27 126/50 (75) 100 10/23/20 01:00 92 30 146/49 (81) 100 10/23/20 01:00 24 148/49 Mechanical Ventilator 100 10/23/20 00:36 98 29 100 10/23/20 00:00 Mechanical Ventilator 10/23/20 00:00 100 10/23/20 00:00 94 10/23/20 00:00 29 142/49 Mechanical Ventilator 100.0 100 10/23/20 00:00 97.5 84 25 142/46 (78) 90 10/22/20 23:00 27 135/53 Mechanical Ventilator 100.0 100 10/22/20 23:00 86 27 138/50 (79) 89 10/22/20 22:00 27 137/56 Mechanical Ventilator 100 10/22/20 22:00 77 25 137/47 (77) 90 10/22/20 21:00 25 137/53 Mechanical Ventilator 100 10/22/20 21:00 83 27 135/50 (78) 88 10/22/20 20:00 97.8 86 29 151/68 (95) 85 10/22/20 20:00 28 152/60 Mechanical Ventilator 100 10/22/20 20:00 Mechanical Ventilator 10/22/20 20:00 88 10/22/20 20:00 100 10/22/20 19:47 88 27 100 10/22/20 19:00 22 140/60 Mechanical Ventilator 100 10/22/20 19:00 82 27 161/63 (95) 91 10/22/20 18:10 88 28 95 Mechanical Ventilator 100 10/22/20 18:00 96.0 68 22 157/55 (89) 94 10/22/20 18:00 22 157/55 Mechanical Ventilator 100 10/22/20 17:00 85 26 154/63 (93) 95 10/22/20 17:00 26 155/63 Mechanical Ventilator 100 10/22/20 16:00 86 10/22/20 16:00 27 155/57 Mechanical Ventilator 100 10/22/20 16:00 Mechanical Ventilator 10/22/20 16:00 95.9 85 26 155/63 (93) 95 10/22/20 15:23 88 28 100 10/22/20 15:00 28 158/59 Mechanical Ventilator 100 10/22/20 15:00 85 28 158/75 (102) 95 10/22/20 14:08 100 10/22/20 14:00 85 29 152/66 (94) 94 10/22/20 14:00 28 152/66 Mechanical Ventilator 100 10/22/20 13:00 29 154/65 Mechanical Ventilator 100 10/22/20 13:00 91 29 154/65 (94) 93 10/22/20 12:00 29 151/59 Mechanical Ventilator 70 10/22/20 12:00 96.0 92 29 151/59 (89) 92 10/22/20 12:00 89 10/22/20 12:00 70 10/22/20 12:00 Mechanical Ventilator 10/22/20 11:00 30 170/70 Mechanical Ventilator 70 10/22/20 11:00 90 30 170/70 (103) 92 10/22/20 10:56 90 30 80 10/22/20 10:00 30 174/86 Mechanical Ventilator 70 10/22/20 10:00 98 30 174/86 (115) 95 10/22/20 09:00 95 29 147/56 (86) 95 10/22/20 09:00 29 147/56 Mechanical Ventilator 70 Intake and Output 10/22/20 10/23/20 19:00 07:00 Intake Total 1835.412 ml 1840.412 ml Output Total 470 ml 430 ml Balance 1365.412 ml 1410.412 ml Free Water 100 ml IV Total 1275.412 ml 1220.412 ml Tube Feeding 440 ml 520 ml Other 120 ml Output Urine Total 470 ml 430 ml # Bowel Movements 2 3 Laboratory Tests 10/22/20 12:15: POC Whole Blood Glucose [Pending] 10/22/20 13:23: Arterial Blood pH 7.279L, Arterial Blood Partial Pressure CO2 46.3H, Arterial Blood Partial Pressure O2 53.7L, Arterial Blood HCO3 21.2L, Arterial Blood Oxygen Saturation 82.6*L, Arterial Blood Base Excess -5.4L, Francisco Test Positive 10/22/20 17:05: POC Whole Blood Glucose 381H 10/22/20 20:38: POC Whole Blood Glucose [Pending] 10/23/20 04:25: White Blood Count 10.9H, Red Blood Count 3.60L, Hemoglobin 8.6L, Hematocrit 29.0L, Mean Corpuscular Volume 81, Mean Corpuscular Hemoglobin 23.9L, Mean Corpuscular Hemoglobin Concent 29.7L, Red Cell Distribution Width 24.2H, Platelet Count 39L, Mean Platelet Volume 11.1H, Neutrophils (%) (Auto) , Lymphocytes (%) (Auto) , Monocytes (%) (Auto) , Eosinophils (%) (Auto) , Basophils (%) (Auto) , Differential Total Cells Counted 100, Neutrophils % (Manual) 91H, Lymphocytes % (Manual) 6L, Monocytes % (Manual) 3, Eosinophils % (Manual) 0, Basophils % (Manual) 0, Band Neutrophils 0, Nucleated Red Blood Cells 2, Platelet Estimate DecreasedL, Platelet Morphology Normal, Polychromasia 2+, Hypochromasia 1+, Anisocytosis 3+, Prothrombin Time 19.4H, Prothromb Time International Ratio 1.8H, Activated Partial Thromboplast Time 33, Sodium Level 140, Potassium Level 5.2H, Chloride Level 108H, Carbon Dioxide Level 22, Anion Gap 10, Blood Urea Nitrogen 116H, Creatinine 1.5H, Estimat Glomerular Filtration Rate 35.5, Glucose Level 327H, Lactic Acid Level 3.90H, Calcium Level 8.3L, Total Bilirubin 1.1H, Direct Bilirubin 1.0H, Aspartate Amino Transf (AST/SGOT) 62H, Alanine Aminotransferase (ALT/SGPT) 41, Alkaline Phosphatase 307H, Total Protein 4.9L, Albumin 1.5L Height (Feet): 5 Height (Inches): 3.00 Weight (Pounds): 125 Objective deferred due to COVID Assessment/Plan Assessment/Plan: Impression: Covid Pneumonia possible sepsis Uncontrolled diabetes mellitus 2019 novel coronavirus disease (COVID-19) Renal insufficiency, acute Dehydration Rhabdomyolysis due to COVID-19 Possible Cirrhosis acute hypoxemic respiratory failure s/p intubation acidemia MODS hematemesis acidemia Plan doing poorly on 100% hypervent and monitor ABG renal and GI follow up follow up CXR and ABG follow up labs IV antibiotics- repeat cultures ID follow up DVT prophylaxis critical on levimir and adjust further tube feeds when ok with gi no family available medications/laboratory data/nursing notes/ICU care reviewed in detail note reviewed and edited care discussed with RN and RT ICU time spent >40 minutes Terence Szymanski MD Oct 23, 2020 09:00
--- NOTE | 2020-10-23 09:00 | NUR ---
RADIOLOGY: PCXR COMPLETED 0800HRS. NF
[2020-10-23] MEDS: Versed 50mg/NS 100ml 100 ML IV PRN (11:53)
--- NOTE | 2020-10-23 12:00 | NUR ---
NURSE NOTES: pt with fever 100.6,Tylenol 650 mg OGT given ice cold compress applied to forehead and armpits,will continue to monitor pt's temp.
--- NOTE | 2020-10-23 12:20 | Infectious Diseases Prog Note ---
Assessment/Plan Assessment/Plan antibiotics : ceftriaxone A 1. covid 19 pneumonia on 100 % Fi O2 with 100 % saturation s.p remdesivir 2. diabetes mellitus 3. hypertension 4. asthma 5. CVA 6. respiratory failure P 1. continue solumedrol 2. continue ceftriaxone 3. continue isolation Subjective ROS Limited/Unobtainable: Yes Allergies: Coded Allergies: WARFARIN (Verified Allergy, Unknown, 03/03/19) Objective Last 24 Hour Vital Signs Date Time Temp Pulse Resp B/P (MAP) Pulse Ox O2 Delivery O2 Flow Rate FiO2 10/23/20 12:00 113 30 118/74 (89) 100 10/23/20 12:00 100 10/23/20 12:00 Mechanical Ventilator 10/23/20 12:00 117 10/23/20 11:53 30 Mechanical Ventilator 100 10/23/20 11:00 110 30 134/54 (80) 98 10/23/20 10:00 107 30 141/52 (81) 96 10/23/20 10:00 30 141/52 Mechanical Ventilator 100 10/23/20 09:00 108 30 126/58 (80) 99 10/23/20 09:00 30 126/58 Mechanical Ventilator 100 10/23/20 08:00 100 10/23/20 08:00 83 10/23/20 08:00 Mechanical Ventilator 10/23/20 08:00 29 147/60 Mechanical Ventilator 100 10/23/20 08:00 99.7 107 29 147/60 (89) 99 10/23/20 07:00 25 139/56 Mechanical Ventilator 10/23/20 07:00 104 28 139/57 (84) 99 10/23/20 06:00 99 28 141/56 (84) 96 10/23/20 06:00 26 137/56 Mechanical Ventilator 100 10/23/20 05:44 26 108/48 Mechanical Ventilator 100 10/23/20 05:00 26 108/49 Mechanical Ventilator 100 10/23/20 05:00 87 30 137/56 (83) 99 10/23/20 04:00 100 10/23/20 04:00 26 104/47 Mechanical Ventilator 100 10/23/20 04:00 96 10/23/20 04:00 99.8 68 28 92/41 (58) 100 10/23/20 04:00 Mechanical Ventilator 10/23/20 03:00 106 32 172/69 (103) 96 10/23/20 03:00 25 146/63 Mechanical Ventilator 10/23/20 02:42 25 147/53 Mechanical Ventilator 100 10/23/20 02:00 28 134/54 Mechanical Ventilator 100 10/23/20 02:00 81 27 126/50 (75) 100 10/23/20 01:00 92 30 146/49 (81) 100 10/23/20 01:00 24 148/49 Mechanical Ventilator 100 10/23/20 00:36 98 29 100 10/23/20 00:00 Mechanical Ventilator 10/23/20 00:00 100 10/23/20 00:00 94 10/23/20 00:00 29 142/49 Mechanical Ventilator 100.0 100 10/23/20 00:00 97.5 84 25 142/46 (78) 90 10/22/20 23:00 27 135/53 Mechanical Ventilator 100.0 100 10/22/20 23:00 86 27 138/50 (79) 89 10/22/20 22:00 27 137/56 Mechanical Ventilator 100 10/22/20 22:00 77 25 137/47 (77) 90 10/22/20 21:00 25 137/53 Mechanical Ventilator 100 10/22/20 21:00 83 27 135/50 (78) 88 10/22/20 20:00 97.8 86 29 151/68 (95) 85 10/22/20 20:00 28 152/60 Mechanical Ventilator 100 10/22/20 20:00 Mechanical Ventilator 10/22/20 20:00 88 10/22/20 20:00 100 10/22/20 19:47 88 27 100 10/22/20 19:00 22 140/60 Mechanical Ventilator 100 10/22/20 19:00 82 27 161/63 (95) 91 10/22/20 18:10 88 28 95 Mechanical Ventilator 100 10/22/20 18:00 96.0 68 22 157/55 (89) 94 10/22/20 18:00 22 157/55 Mechanical Ventilator 100 10/22/20 17:00 85 26 154/63 (93) 95 10/22/20 17:00 26 155/63 Mechanical Ventilator 100 10/22/20 16:00 86 10/22/20 16:00 27 155/57 Mechanical Ventilator 100 10/22/20 16:00 Mechanical Ventilator 10/22/20 16:00 95.9 85 26 155/63 (93) 95 10/22/20 15:23 88 28 100 10/22/20 15:00 28 158/59 Mechanical Ventilator 100 10/22/20 15:00 85 28 158/75 (102) 95 10/22/20 14:08 100 10/22/20 14:00 85 29 152/66 (94) 94 10/22/20 14:00 28 152/66 Mechanical Ventilator 100 10/22/20 13:00 29 154/65 Mechanical Ventilator 100 10/22/20 13:00 91 29 154/65 (94) 93 Height (Feet): 5 Height (Inches): 3.00 Weight (Pounds): 125 HEENT: other - intubated Laboratory Tests Test 10/22/20 13:23 10/22/20 17:05 10/22/20 20:38 10/23/20 04:25 Arterial Blood pH 7.279 (7.350-7.450) Arterial Blood Partial Pressure CO2 46.3 mmHg (35.0-45.0) H Arterial Blood Partial Pressure O2 53.7 mmHg (75.0-100.0) L Arterial Blood HCO3 21.2 mmol/L (22.0-26.0) L Arterial Blood Oxygen Saturation 82.6 % (95-100) *L Arterial Blood Base Excess -5.4 (-2-2) L Francisco Test Positive POC Whole Blood Glucose 381 MG/DL (74-106) H Pending White Blood Count 10.9 K/UL (4.8-10.8) H Red Blood Count 3.60 M/UL (4.20-5.40) L Hemoglobin 8.6 G/DL (12.0-16.0) L Hematocrit 29.0 % (37.0-47.0) L Mean Corpuscular Volume 81 FL (80-99) Mean Corpuscular Hemoglobin 23.9 PG (27.0-31.0) L Mean Corpuscular Hemoglobin Concent 29.7 G/DL (32.0-36.0) L Red Cell Distribution Width 24.2 % (11.6-14.8) H Platelet Count 39 K/UL (150-450) L Mean Platelet Volume 11.1 FL (6.5-10.1) H Neutrophils (%) (Auto) % (45.0-75.0) Lymphocytes (%) (Auto) % (20.0-45.0) Monocytes (%) (Auto) % (1.0-10.0) Eosinophils (%) (Auto) % (0.0-3.0) Basophils (%) (Auto) % (0.0-2.0) Differential Total Cells Counted 100 Neutrophils % (Manual) 91 % (45-75) H Lymphocytes % (Manual) 6 % (20-45) L Monocytes % (Manual) 3 % (1-10) Eosinophils % (Manual) 0 % (0-3) Basophils % (Manual) 0 % (0-2) Band Neutrophils 0 % (0-8) Nucleated Red Blood Cells 2 /100 WBC Platelet Estimate Decreased L Platelet Morphology Normal Polychromasia 2+ Hypochromasia 1+ Anisocytosis 3+ Prothrombin Time 19.4 SEC (9.30-11.50) H Prothromb Time International Ratio 1.8 (0.9-1.1) H Activated Partial Thromboplast Time 33 SEC (23-33) Sodium Level 140 MMOL/L (136-145) Potassium Level 5.2 MMOL/L (3.5-5.1) H Chloride Level 108 MMOL/L (98-107) H Carbon Dioxide Level 22 MMOL/L (21-32) Anion Gap 10 mmol/L (5-15) Blood Urea Nitrogen 116 mg/dL (7-18) H Creatinine 1.5 MG/DL (0.55-1.30) H Estimat Glomerular Filtration Rate 35.5 mL/min (>60) Glucose Level 327 MG/DL (74-106) H Lactic Acid Level 3.90 mmol/L (0.4-2.0) H Calcium Level 8.3 MG/DL (8.5-10.1) L Total Bilirubin 1.1 MG/DL (0.2-1.0) H Direct Bilirubin 1.0 MG/DL (0.0-0.3) H Aspartate Amino Transf (AST/SGOT) 62 U/L (15-37) H Alanine Aminotransferase (ALT/SGPT) 41 U/L (12-78) Alkaline Phosphatase 307 U/L (46-116) H Total Protein 4.9 G/DL (6.4-8.2) L Albumin 1.5 G/DL (3.4-5.0) L Triglycerides Level 193 MG/DL (30-150) H Current Medications Medications (Trade) Dose Ordered Sig/Hernando Route PRN Reason Start Time Stop Time Status Last Admin Dose Admin Acetaminophen (Tylenol) 650 mg Q4H PRN ORAL Mild Pain (Pain Scale 1-3) 10/10/20 21:15 11/09/20 21:14 10/14/20 13:28 Acetaminophen (Tylenol) 650 mg Q4H PRN ORAL Temp >100.5 10/10/20 21:15 11/09/20 21:14 10/18/20 20:57 Albuterol Sulfate (Proventil MDI) 2 puff Q4H PRN INH Shortness of Breath 10/10/20 21:30 01/08/21 21:29 Ceftriaxone Sodium 1 gm/ Dextrose 55 ml @ 110 mls/hr Q24H IVPB 10/17/20 15:00 10/24/20 14:59 10/22/20 16:25 Chlorhexidine Gluconate (Heidi-Hex 2%) 1 applic DAILY@2000 TOPIC 10/21/20 20:00 01/19/21 19:59 10/22/20 20:32 Clonidine HCl (Catapres Tab) 0.1 mg Q4H PRN ORAL for SBP >150 10/14/20 11:30 01/12/21 11:29 10/14/20 11:25 Dextrose (Dextrose 50%) 25 ml Q30M PRN IV Hypoglycemia 10/10/20 21:15 01/08/21 21:14 Dextrose (Dextrose 50%) 50 ml Q30M PRN IV Hypoglycemia 10/10/20 21:15 01/08/21 21:14 Docusate Sodium (Colace) 100 mg TWICE A DAY NG 10/21/20 09:00 11/20/20 08:59 10/23/20 08:39 Haloperidol Lactate (Haldol) 5 mg Q6H PRN IM Agitation 10/13/20 16:15 11/27/20 16:14 Insulin Aspart (NovoLOG) BEFORE MEALS AND HS SUBQ 10/11/20 06:30 01/09/21 06:29 10/23/20 06:29 Insulin Detemir (Levemir) 18 units BID SUBQ 10/23/20 09:00 01/09/21 20:59 Lorazepam (Ativan 2mg/ml 1ml) 1 mg Q3H PRN IV For Anxiety 10/17/20 18:15 10/24/20 18:14 10/18/20 20:56 Methylprednisolone Sodium Succinate (Solu-MEDROL) 40 mg EVERY 12 HOURS IVP 10/19/20 12:00 01/17/21 11:59 10/23/20 08:39 Midazolam HCl 100 ml @ 0 mls/hr Q24H PRN IV Agitation 10/23/20 10:00 10/25/20 09:59 10/23/20 11:53 Ondansetron HCl (Zofran) 4 mg Q6H PRN IVP Nausea & Vomiting 10/10/20 21:15 11/09/20 21:14 Pantoprazole (Protonix) 40 mg EVERY 12 HOURS IVP 10/18/20 22:15 11/17/20 22:14 10/23/20 08:39 Sodium Chloride 1,000 ml @ 100 mls/hr Q10H IV 10/16/20 13:45 11/15/20 13:44 10/23/20 05:44 Hector Rodriguez MD Oct 23, 2020 12:20
[2020-10-23] MEDS: Solu-MEDROL 125mg Inj IVP SCH ×2 (12:33→20:32)
[2020-10-23] MEDS ORDERED: 1/2 NS 1000ml IV ONE ×3 (13:35→19:59)
[2020-10-23] MEDS ORDERED: D5W 275ml ONE (13:35)
--- NOTE | 2020-10-23 13:39 | Nephrology Progress Note ---
Assessment/Plan Plan VDRF - vent Covid 19 - Per ID [id number] - Not a dialysis candidate Subjective Subjective Obtunded Objective Objective Last 24 Hour Vital Signs Date Time Temp Pulse Resp B/P (MAP) Pulse Ox O2 Delivery O2 Flow Rate FiO2 10/23/20 12:00 113 30 118/74 (89) 100 10/23/20 12:00 30 Mechanical Ventilator 100 10/23/20 12:00 100 10/23/20 12:00 Mechanical Ventilator 10/23/20 12:00 117 10/23/20 11:53 30 Mechanical Ventilator 100 10/23/20 11:00 110 30 134/54 (80) 98 10/23/20 10:00 107 30 141/52 (81) 96 10/23/20 10:00 30 141/52 Mechanical Ventilator 100 10/23/20 09:00 108 30 126/58 (80) 99 10/23/20 09:00 30 126/58 Mechanical Ventilator 100 10/23/20 08:00 100 10/23/20 08:00 83 10/23/20 08:00 Mechanical Ventilator 10/23/20 08:00 29 147/60 Mechanical Ventilator 100 10/23/20 08:00 99.7 107 29 147/60 (89) 99 10/23/20 07:00 25 139/56 Mechanical Ventilator 10/23/20 07:00 104 28 139/57 (84) 99 10/23/20 06:00 99 28 141/56 (84) 96 10/23/20 06:00 26 137/56 Mechanical Ventilator 100 10/23/20 05:44 26 108/48 Mechanical Ventilator 100 10/23/20 05:00 26 108/49 Mechanical Ventilator 100 10/23/20 05:00 87 30 137/56 (83) 99 10/23/20 04:00 100 10/23/20 04:00 26 104/47 Mechanical Ventilator 100 10/23/20 04:00 96 10/23/20 04:00 99.8 68 28 92/41 (58) 100 10/23/20 04:00 Mechanical Ventilator 10/23/20 03:00 106 32 172/69 (103) 96 10/23/20 03:00 25 146/63 Mechanical Ventilator 10/23/20 02:42 25 147/53 Mechanical Ventilator 100 10/23/20 02:00 28 134/54 Mechanical Ventilator 100 10/23/20 02:00 81 27 126/50 (75) 100 10/23/20 01:00 92 30 146/49 (81) 100 10/23/20 01:00 24 148/49 Mechanical Ventilator 100 10/23/20 00:36 98 29 100 10/23/20 00:00 Mechanical Ventilator 10/23/20 00:00 100 10/23/20 00:00 94 10/23/20 00:00 29 142/49 Mechanical Ventilator 100.0 100 10/23/20 00:00 97.5 84 25 142/46 (78) 90 10/22/20 23:00 27 135/53 Mechanical Ventilator 100.0 100 10/22/20 23:00 86 27 138/50 (79) 89 10/22/20 22:00 27 137/56 Mechanical Ventilator 100 10/22/20 22:00 77 25 137/47 (77) 90 10/22/20 21:00 25 137/53 Mechanical Ventilator 100 10/22/20 21:00 83 27 135/50 (78) 88 10/22/20 20:00 97.8 86 29 151/68 (95) 85 10/22/20 20:00 28 152/60 Mechanical Ventilator 100 10/22/20 20:00 Mechanical Ventilator 10/22/20 20:00 88 10/22/20 20:00 100 10/22/20 19:47 88 27 100 10/22/20 19:00 22 140/60 Mechanical Ventilator 100 10/22/20 19:00 82 27 161/63 (95) 91 10/22/20 18:10 88 28 95 Mechanical Ventilator 100 10/22/20 18:00 96.0 68 22 157/55 (89) 94 10/22/20 18:00 22 157/55 Mechanical Ventilator 100 10/22/20 17:00 85 26 154/63 (93) 95 10/22/20 17:00 26 155/63 Mechanical Ventilator 100 10/22/20 16:00 86 10/22/20 16:00 27 155/57 Mechanical Ventilator 100 10/22/20 16:00 Mechanical Ventilator 10/22/20 16:00 95.9 85 26 155/63 (93) 95 10/22/20 15:23 88 28 100 10/22/20 15:00 28 158/59 Mechanical Ventilator 100 10/22/20 15:00 85 28 158/75 (102) 95 10/22/20 14:08 100 10/22/20 14:00 85 29 152/66 (94) 94 10/22/20 14:00 28 152/66 Mechanical Ventilator 100 Intake and Output 10/22/20 10/23/20 19:00 07:00 Intake Total 1835.412 ml 1840.412 ml Output Total 470 ml 430 ml Balance 1365.412 ml 1410.412 ml Free Water 100 ml IV Total 1275.412 ml 1220.412 ml Tube Feeding 440 ml 520 ml Other 120 ml Output Urine Total 470 ml 430 ml # Bowel Movements 4 3 Laboratory Tests 10/22/20 17:05: POC Whole Blood Glucose 381H 10/22/20 20:38: POC Whole Blood Glucose [Pending] 10/23/20 04:25: White Blood Count 10.9H, Red Blood Count 3.60L, Hemoglobin 8.6L, Hematocrit 29.0L, Mean Corpuscular Volume 81, Mean Corpuscular Hemoglobin 23.9L, Mean Corpuscular Hemoglobin Concent 29.7L, Red Cell Distribution Width 24.2H, Platelet Count 39L, Mean Platelet Volume 11.1H, Neutrophils (%) (Auto) , Lymphocytes (%) (Auto) , Monocytes (%) (Auto) , Eosinophils (%) (Auto) , Basophils (%) (Auto) , Differential Total Cells Counted 100, Neutrophils % (Manual) 91H, Lymphocytes % (Manual) 6L, Monocytes % (Manual) 3, Eosinophils % (Manual) 0, Basophils % (Manual) 0, Band Neutrophils 0, Nucleated Red Blood Cells 2, Platelet Estimate DecreasedL, Platelet Morphology Normal, Polychromasia 2+, Hypochromasia 1+, Anisocytosis 3+, Prothrombin Time 19.4H, Prothromb Time International Ratio 1.8H, Activated Partial Thromboplast Time 33, Sodium Level 140, Potassium Level 5.2H, Chloride Level 108H, Carbon Dioxide Level 22, Anion Gap 10, Blood Urea Nitrogen 116H, Creatinine 1.5H, Estimat Glomerular Filtration Rate 35.5, Glucose Level 327H, Lactic Acid Level 3.90H, Calcium Level 8.3L, Total Bilirubin 1.1H, Direct Bilirubin 1.0H, Aspartate Amino Transf (AST/SGOT) 62H, Alanine Aminotransferase (ALT/SGPT) 41, Alkaline Phosphatase 307H, Total Protein 4.9L, Albumin 1.5L, Triglycerides Level 193H 10/23/20 12:45: Lactic Acid Level 4.10H Height (Feet): 5 Height (Inches): 3.00 Weight (Pounds): 125 Objective CV tach Lungs B Ronchi Abd SNT. BS + E + edema Gail Scott MD Oct 23, 2020 13:39
--- NOTE | 2020-10-23 14:24 | NUR ---
RD ASSESSMENT & RECOMMENDATIONS SEE CARE ACTIVITY FOR COMPLETE ASSESSMENT DAILY ESTIMATED NEEDS: Needs based on cardiac, critical care 57kg 22-28 kcals/kg 3039-7026 total kcals 1.2-2 g protein/kg 68-114 g total protein 25-30 mL/kg 3625-4116 total fluid mLs NUTRITION DIAGNOSIS: * Swallowing difficulty R/T respiratory failure as evidenced by s/p code blue (10/17), now orally intubated, on OGT feeds. *Altered nutrition related lab values r/t clinical status as evidenced by elevated K(5.3-> wnl->5.2), elev BG(401->improved 101-156 POC glu-> now 300's, on solumedrol), elev Creat kinase(3195). CURRENT TF:Glucerna 1.2 @ 60ml/hr x 24 hrs ordered ENTERAL NUTRITION RECOMMENDATIONS: Glucerna 1.2 @ 55ml/hr x 24 hrs to provide 1320ml, 1584kcal, 79g prot, 1063ml free water * Rec LOWERING goal rate to 55ml/hr x 24 hrs: meets 100% est kcal/prot needs * HOB over 30 degrees/ water flush per MD ----- Monitor K, need for Nepro: w/ continued elev K, rec TF change to Nepro @ goal rate of 35ml/hr x 24 hrs to provide 840ml, 1512kcal, 68g prot, 890mg K ADDITIONAL RECOMMENDATIONS: 1) Monitor BGs, need for insulin adjustment -> Rec LOWERING tf rate, current TF rate is excessive 2) Monitor K, need for renal TF formula (elev K) 3) Calibrated bedscale wt . . .
[2020-10-23] MEDS: cefTRIAXone 1 GM in D5W 55 ML IVPB SCH (15:13)
--- NOTE | 2020-10-23 15:47 | NUR ---
Sample Body BuilderRisk Management Intern SI: COVID 19, Liver Cirrhosis, UTI, ETT/Vent support T 100.0 (AX), HR 99, RR 33, BP 113/49, ETT, AC 22, FiO2 100%, TV 500, PEEP 10, O2 sat 100% WBC 10.9, BUN 116, creatinine 1.5 glucose 327 Cxray Worsening left lung infiltrates, possibly developing (L) pleural effusion. Stable infiltrates on Rt IS: Levemir SQ HS Solu-Medrol IV q 12 h Versed GTT Protonix IVP Q 12 h Rocephin IV Q 24 h NS@100cc/hr ICU Status
--- NOTE | 2020-10-23 16:00 | NUR ---
NURSE NOTES: Bed bath given,rechecked pt's temp T98.9 ,pulled up repositioned .
--- NOTE | 2020-10-23 16:11 | Diagnostic Imaging Report ---
Indication: Shortness of breath Technique: XRAY Chest 1v Comparison: 10/19/2020 Findings: Persistent bilateral infiltrates although there is slightly improved aeration in the left upper lung compared to the prior exam. Endotracheal and enteric tube remain in place. No pneumothorax or significant pleural effusion. Heart size and osseous structures are stable. IMPRESSION: Persistent bilateral infiltrates with slight improved aeration of the left upper lung compared to the prior exam. Endotracheal enteric tubes remain in place.
--- NOTE | 2020-10-23 19:20 | NUR ---
NURSE HAND-OFF REPORT: Latest Vital Signs: Temperature 100.0 , Pulse 77 , B/P 114 /53 , Respiratory Rate 36 , O2 SAT 100 , Mechanical Ventilator, O2 Flow Rate . Vital Sign Comment: EKG Rhythm: Sinus Tachycardia Rhythm change?: N Notified?: Niurka -Dr. Stephon SYED Response: Latest Daly Fall Score: 100 Fall Risk: High Risk Safety Measures: Call light Within Reach, Bed Alarm Zone 2, Side Rails Side Rails x2, Bed position Low and Locked. Fall Precautions: Yellow Socks Yellow Gown Door Sign Patient Fall Education Report given to Teofilo Coelho RN.
--- NOTE | 2020-10-23 20:15 | NUR ---
NURSE NOTE RECEIVED REPORT FROM CHILANGO ALFARO PT ORALLY INTUBATED -VENT O2 SAT 100% AND SEDATED WITH VERSED 2M/HR -2 RASS TOLERATING TUBE FEEDING NO RESIDUAL URINARY OUTPUT AND SUCTION ON ODILIA SOFT RESTRAINT NO RESIDUAL
--- NOTE | 2020-10-23 20:29 | General Progress Note ---
Subjective Allergies: Coded Allergies: WARFARIN (Verified Allergy, Unknown, 03/03/19) Subjective above noted on tube feedings dark stools, but H&H without significant change doing poorly Objective Last 24 Hour Vital Signs Date Time Temp Pulse Resp B/P (MAP) Pulse Ox O2 Delivery O2 Flow Rate FiO2 10/23/20 19:15 77 36 100 10/23/20 18:00 94 25 114/53 (73) 100 10/23/20 18:00 29 Mechanical Ventilator 100 10/23/20 17:00 27 Mechanical Ventilator 100 10/23/20 17:00 100.0 91 31 123/56 (78) 100 10/23/20 16:04 100.0 99 33 124/52 (76) 100 10/23/20 16:03 100 10/23/20 16:00 97 10/23/20 16:00 Mechanical Ventilator 10/23/20 16:00 100.0 99 37 124/52 (76) 100 10/23/20 16:00 37 Mechanical Ventilator 100 10/23/20 15:30 95 38 100 10/23/20 15:00 99 33 113/49 (70) 100 10/23/20 15:00 34 Mechanical Ventilator 100 10/23/20 14:07 112 35 135/50 (78) 100 10/23/20 14:00 30 Mechanical Ventilator 100 10/23/20 13:31 100.0 10/23/20 13:00 35 Mechanical Ventilator 100 10/23/20 13:00 114 32 143/60 (87) 100 10/23/20 12:00 113 30 118/74 (89) 100 10/23/20 12:00 100.6 10/23/20 12:00 30 Mechanical Ventilator 100 10/23/20 12:00 100 10/23/20 12:00 Mechanical Ventilator 10/23/20 12:00 117 10/23/20 11:53 30 Mechanical Ventilator 100 10/23/20 11:30 116 31 100 10/23/20 11:00 110 30 134/54 (80) 98 10/23/20 10:00 107 30 141/52 (81) 96 10/23/20 10:00 30 141/52 Mechanical Ventilator 100 10/23/20 09:00 108 30 126/58 (80) 99 10/23/20 09:00 30 126/58 Mechanical Ventilator 100 10/23/20 08:00 100 10/23/20 08:00 83 10/23/20 08:00 Mechanical Ventilator 10/23/20 08:00 29 147/60 Mechanical Ventilator 100 10/23/20 08:00 99.7 107 29 147/60 (89) 99 10/23/20 07:30 110 30 100 10/23/20 07:00 25 139/56 Mechanical Ventilator 10/23/20 07:00 104 28 139/57 (84) 99 10/23/20 06:00 99 28 141/56 (84) 96 10/23/20 06:00 26 137/56 Mechanical Ventilator 100 10/23/20 05:44 26 108/48 Mechanical Ventilator 100 10/23/20 05:00 26 108/49 Mechanical Ventilator 100 10/23/20 05:00 87 30 137/56 (83) 99 10/23/20 04:00 100 10/23/20 04:00 26 104/47 Mechanical Ventilator 100 10/23/20 04:00 96 10/23/20 04:00 99.8 68 28 92/41 (58) 100 10/23/20 04:00 Mechanical Ventilator 10/23/20 03:00 106 32 172/69 (103) 96 10/23/20 03:00 25 146/63 Mechanical Ventilator 10/23/20 02:42 25 147/53 Mechanical Ventilator 100 10/23/20 02:00 28 134/54 Mechanical Ventilator 100 10/23/20 02:00 81 27 126/50 (75) 100 10/23/20 01:00 92 30 146/49 (81) 100 10/23/20 01:00 24 148/49 Mechanical Ventilator 100 10/23/20 00:36 98 29 100 10/23/20 00:00 Mechanical Ventilator 10/23/20 00:00 100 10/23/20 00:00 94 10/23/20 00:00 29 142/49 Mechanical Ventilator 100.0 100 10/23/20 00:00 97.5 84 25 142/46 (78) 90 10/22/20 23:00 27 135/53 Mechanical Ventilator 100.0 100 10/22/20 23:00 86 27 138/50 (79) 89 10/22/20 22:00 27 137/56 Mechanical Ventilator 100 10/22/20 22:00 77 25 137/47 (77) 90 10/22/20 21:00 25 137/53 Mechanical Ventilator 100 10/22/20 21:00 83 27 135/50 (78) 88 Intake and Output 10/22/20 10/23/20 19:00 07:00 Intake Total 1835.412 ml 1840.412 ml Output Total 470 ml 430 ml Balance 1365.412 ml 1410.412 ml Free Water 100 ml IV Total 1275.412 ml 1220.412 ml Tube Feeding 440 ml 520 ml Other 120 ml Output Urine Total 470 ml 430 ml # Bowel Movements 4 3 Laboratory Tests 10/22/20 20:38: POC Whole Blood Glucose [Pending] 10/23/20 04:25: White Blood Count 10.9H, Red Blood Count 3.60L, Hemoglobin 8.6L, Hematocrit 29.0L, Mean Corpuscular Volume 81, Mean Corpuscular Hemoglobin 23.9L, Mean Corpuscular Hemoglobin Concent 29.7L, Red Cell Distribution Width 24.2H, Platelet Count 39L, Mean Platelet Volume 11.1H, Neutrophils (%) (Auto) , Lym phocytes (%) (Auto) , Monocytes (%) (Auto) , Eosinophils (%) (Auto) , Basophils (%) (Auto) , Differential Total Cells Counted 100, Neutrophils % (Manual) 91H, Lymphocytes % (Manual) 6L, Monocytes % (Manual) 3, Eosinophils % (Manual) 0, Basophils % (Manual) 0, Band Neutrophils 0, Nucleated Red Blood Cells 2, Platelet Estimate DecreasedL, Platelet Morphology Normal, Polychromasia 2+, Hypochromasia 1+, Anisocytosis 3+, Prothrombin Time 19.4H, Prothromb Time International Ratio 1.8H, Activated Partial Thromboplast Time 33, Sodium Level 140, Potassium Level 5.2H, Chloride Level 108H, Carbon Dioxide Level 22, Anion Gap 10, Blood Urea Nitrogen 116H, Creatinine 1.5H, Estimat Glomerular Filtration Rate 35.5, Glucose Level 327H, Lactic Acid Level 3.90H, Calcium Level 8.3L, Total Bilirubin 1.1H, Direct Bilirubin 1.0H, Aspartate Amino Transf (AST/SGOT) 62H, Alanine Aminotransferase (ALT/SGPT) 41, Alkaline Phosphatase 307H, Total Pr otein 4.9L, Albumin 1.5L, Triglycerides Level 193H 10/23/20 12:45: Lactic Acid Level 4.10H 10/23/20 13:21: Arterial Blood pH 7.250*L, Arterial Blood Partial Pressure CO2 45.3H, Arterial Blood Partial Pressure O2 115.9H, Arterial Blood HCO3 19.4L, Arterial Blood Oxygen Saturation 97.7, Arterial Blood Base Excess -7.4L, Francisco Test Positive Height (Feet): 5 Height (Inches): 3.00 Weight (Pounds): 125 Objective Elderly woman calm on vent, (+) feeding tube coarse BS RR abd soft ext - bluish discoloration to (R) big toe Assessment/Plan Assessment/Plan: Assessment - GI bleed - H&H holding steady - COVID PNA, resp failure, doing poorly - nodular liver, c/w cirrhosis - Hepatitis C - thrombocytopenia - microcytic anemia - ? toe ischemia - Azotemia - DM - Acidosis Recommendations - BID PPI - daily CBC - watch platelets - Continue TF - check coags - Repeat lactate - endoscopy if clinically significant bleeding Ryanne Brunner MD Oct 23, 2020 20:29
[2020-10-23] MEDS: Dyna-Hex 2% Top Sol 2oz TOPIC SCH (20:31)
--- NOTE | 2020-10-23 22:36 | NUR ---
NURSE NOTES: CONDITION UNCHANGE
[2020-10-24] VITALS (41 sets, daily range): BP systolic 98–143; BP diastolic 43–62
--- NOTE | 2020-10-24 04:00 | NUR ---
NURSE NOTES: complete bed bath reposition and suction
[2020-10-24] MEDS: NovoLOG Insulin Flexpen SUBQ SCH ×3 (06:05→16:30)
[2020-10-24 06:25] LABS: HEMATOCRIT 27.8 % (37.0-47.0); HEMOGLOBIN 7.9 G/DL (12.0-16.0); MEAN CORPUSCULAR VOLUME 82 FL (80-99); PLATELET COUNT 49 K/UL (150-450); RED BLOOD COUNT 3.38 M/UL (4.20-5.40); RED CELL DISTRIBUTION WIDTH 24.1 % (11.6-14.8); WHITE BLOOD COUNT 12.9 K/UL (4.8-10.8)
[2020-10-24 06:50] LABS: ALBUMIN 1.5 G/DL (3.4-5.0); ALBUMIN/GLOBULIN RATIO 0.5 (1.0-2.7); BILIRUBIN,TOTAL 1.1 MG/DL (0.2-1.0); CALCIUM 7.9 MG/DL (8.5-10.1); CREATININE 2.5 MG/DL (0.55-1.30)
--- NOTE | 2020-10-24 07:28 | NUR ---
NURSE NOTESNURSE HAND-OFF REPORT: Latest Vital Signs: Temperature 99.0 , Pulse 85 , B/P 110 /51 , Respiratory Rate 31 , O2 SAT 100 , Mechanical Ventilator, O2 Flow Rate . Vital Sign Comment: EKG Rhythm: Sinus Rhythm Rhythm change?: N Notified?: Niurka Szymanski MD Response: Latest Daly Fall Score: 100 Fall Risk: High Risk Safety Measures: Call light Within Reach, Bed Alarm Zone 2, Side Rails Side Rails x2, Bed position Low and Locked. Fall Precautions: Yellow Socks Yellow Gown Door Sign Patient Fall Education Report given to gloria macias usbar .:
--- NOTE | 2020-10-24 08:05 | Infectious Diseases Prog Note ---
Assessment/Plan Assessment/Plan A: 1. Hypoxic respiratory failure 2. COVID19 pneumonia. 3. DM with hyperglycemia 4. Cirrhosis 5. HPN 6. s/p cardiac arrest 7. Positive blood culture likely contamination PLAN: 1. Finished Remdesivir course 2. Continue Solumedrol 3. Continue Rocephin until expiration time today Subjective ROS Limited/Unobtainable: Yes Allergies: Coded Allergies: WARFARIN (Verified Allergy, Unknown, 03/03/19) Objective Last 24 Hour Vital Signs Date Time Temp Pulse Resp B/P (MAP) Pulse Ox O2 Delivery O2 Flow Rate FiO2 10/24/20 07:00 24 Mechanical Ventilator 100 10/24/20 07:00 85 31 110/51 (70) 100 10/24/20 06:48 28 Mechanical Ventilator 100 10/24/20 06:00 83 31 113/50 (71) 100 10/24/20 06:00 28 Mechanical Ventilator 100 10/24/20 05:00 83 31 113/50 (71) 100 10/24/20 05:00 26 Mechanical Ventilator 100 10/24/20 04:30 88 30 119/48 (71) 100 10/24/20 04:00 99.0 92 30 122/52 (75) 100 10/24/20 04:00 85 10/24/20 04:00 26 Mechanical Ventilator 100 10/24/20 04:00 Mechanical Ventilator 10/24/20 04:00 100 10/24/20 03:38 95 32 100 10/24/20 03:00 91 28 130/57 (81) 100 10/24/20 03:00 26 Mechanical Ventilator 100 10/24/20 03:00 91 28 130/57 (81) 100 10/24/20 02:45 88 28 98/45 (62) 100 10/24/20 02:30 86 29 105/46 (65) 100 10/24/20 02:15 86 29 102/49 (66) 100 10/24/20 02:00 26 Mechanical Ventilator 100 10/24/20 02:00 90 29 113/49 (70) 100 10/24/20 02:00 90 29 113/49 (70) 100 10/24/20 01:45 87 29 104/44 (64) 100 10/24/20 01:30 88 29 114/48 (70) 100 10/24/20 01:15 94 33 133/53 (79) 100 10/24/20 01:00 24 Mechanical Ventilator 100 10/24/20 01:00 96 33 125/52 (76) 100 10/24/20 01:00 96 33 125/52 (76) 100 10/24/20 00:45 95 31 110/52 (71) 100 10/24/20 00:30 88 31 121/51 (74) 100 10/24/20 00:15 93 29 120/53 (75) 100 10/24/20 00:00 91 10/24/20 00:00 87 29 113/43 (66) 100 10/24/20 00:00 24 Mechanical Ventilator 100 10/24/20 00:00 100 10/24/20 00:00 87 29 113/43 (66) 100 10/24/20 00:00 Mechanical Ventilator 10/23/20 23:33 86 28 100 10/23/20 23:00 85 29 100/45 (63) 100 10/23/20 23:00 22 Mechanical Ventilator 100 10/23/20 22:00 20 Mechanical Ventilator 100 10/23/20 22:00 93 28 117/52 (73) 100 10/23/20 21:39 28 Mechanical Ventilator 100 10/23/20 21:00 97 29 110/52 (71) 100 10/23/20 21:00 100 10/23/20 21:00 29 Mechanical Ventilator 100 10/23/20 20:00 100 10/23/20 20:00 Mechanical Ventilator 10/23/20 20:00 99.8 94 29 118/46 (70) 100 10/23/20 20:00 30 Mechanical Ventilator 100 10/23/20 20:00 97 10/23/20 19:15 77 36 100 10/23/20 19:00 32 Mechanical Ventilator 100 10/23/20 19:00 92 33 120/54 (76) 100 10/23/20 18:00 94 25 114/53 (73) 100 10/23/20 18:00 29 Mechanical Ventilator 100 10/23/20 17:00 27 Mechanical Ventilator 100 10/23/20 17:00 100.0 91 31 123/56 (78) 100 10/23/20 16:04 100.0 99 33 124/52 (76) 100 10/23/20 16:03 100 10/23/20 16:00 97 10/23/20 16:00 Mechanical Ventilator 10/23/20 16:00 100.0 99 37 124/52 (76) 100 10/23/20 16:00 37 Mechanical Ventilator 100 10/23/20 15:30 95 38 100 10/23/20 15:00 99 33 113/49 (70) 100 10/23/20 15:00 34 Mechanical Ventilator 100 10/23/20 14:07 112 35 135/50 (78) 100 10/23/20 14:00 30 Mechanical Ventilator 100 10/23/20 13:31 100.0 10/23/20 13:00 35 Mechanical Ventilator 100 10/23/20 13:00 114 32 143/60 (87) 100 10/23/20 12:00 113 30 118/74 (89) 100 10/23/20 12:00 100.6 10/23/20 12:00 30 Mechanical Ventilator 100 10/23/20 12:00 100 10/23/20 12:00 Mechanical Ventilator 10/23/20 12:00 117 10/23/20 11:53 30 Mechanical Ventilator 100 10/23/20 11:30 116 31 100 10/23/20 11:00 110 30 134/54 (80) 98 10/23/20 10:00 107 30 141/52 (81) 96 10/23/20 10:00 30 141/52 Mechanical Ventilator 100 10/23/20 09:00 108 30 126/58 (80) 99 10/23/20 09:00 30 126/58 Mechanical Ventilator 100 Height (Feet): 5 Height (Inches): 3.00 Weight (Pounds): 125 HEENT: other - orally intubaten Respiratory/Chest: other - on ventilator, IAX8=409% Cardiovascular: normal rate Abdomen: soft, non tender, other - OG tube Extremities: other - generalized edema Microbiology Date/Time Source Procedure Growth Status 10/22/20 16:15 Blood Blood Culture - Preliminary NO GROWTH AFTER 24 HOURS Resulted 10/22/20 16:00 Blood Blood Culture - Preliminary Resulted Laboratory Tests Test 10/23/20 12:45 10/23/20 13:21 10/24/20 05:35 Lactic Acid Level 4.10 mmol/L (0.66-2.22) H 4.00 mmol/L (0.4-2.0) H Arterial Blood pH 7.250 (7.350-7.450) Arterial Blood Partial Pressure CO2 45.3 mmHg (35.0-45.0) H Arterial Blood Partial Pressure O2 115.9 mmHg (75.0-100.0) H Arterial Blood HCO3 19.4 mmol/L (22.0-26.0) L Arterial Blood Oxygen Saturation 97.7 % (95-100) Arterial Blood Base Excess -7.4 (-2-2) L Francisco Test Positive White Blood Count 12.9 K/UL (4.8-10.8) H Red Blood Count 3.38 M/UL (4.20-5.40) L Hemoglobin 7.9 G/DL (12.0-16.0) L Hematocrit 27.8 % (37.0-47.0) L Mean Corpuscular Volume 82 FL (80-99) Mean Corpuscular Hemoglobin 23.5 PG (27.0-31.0) L Mean Corpuscular Hemoglobin Concent 28.5 G/DL (32.0-36.0) L Red Cell Distribution Width 24.1 % (11.6-14.8) H Platelet Count 49 K/UL (150-450) L Mean Platelet Volume 12.9 FL (6.5-10.1) H Neutrophils (%) (Auto) % (45.0-75.0) Lymphocytes (%) (Auto) % (20.0-45.0) Monocytes (%) (Auto) % (1.0-10.0) Eosinophils (%) (Auto) % (0.0-3.0) Basophils (%) (Auto) % (0.0-2.0) Neutrophils % (Manual) Pending Lymphocytes % (Manual) Pending Platelet Estimate Pending Platelet Morphology Pending Prothrombin Time 21.3 SEC (9.30-11.50) H Prothromb Time International Ratio 2.0 (0.9-1.1) H Sodium Level 135 MMOL/L (136-145) L Potassium Level 6.0 MMOL/L (3.5-5.1) *H Chloride Level 105 MMOL/L (98-107) Carbon Dioxide Level 20 MMOL/L (21-32) L Anion Gap 11 mmol/L (5-15) Blood Urea Nitrogen 142 mg/dL (7-18) H Creatinine 2.5 MG/DL (0.55-1.30) #H Estimat Glomerular Filtration Rate 19.7 mL/min (>60) Glucose Level 370 MG/DL (74-106) H Calcium Level 7.9 MG/DL (8.5-10.1) L Total Bilirubin 1.1 MG/DL (0.2-1.0) H Direct Bilirubin 1.0 MG/DL (0.0-0.3) H Aspartate Amino Transf (AST/SGOT) 81 U/L (15-37) H Alanine Aminotransferase (ALT/SGPT) 50 U/L (12-78) Alkaline Phosphatase 326 U/L (46-116) H Total Protein 4.8 G/DL (6.4-8.2) L Albumin 1.5 G/DL (3.4-5.0) L Globulin 3.3 g/dL Albumin/Globulin Ratio 0.5 (1.0-2.7) L Current Medications Medications (Trade) Dose Ordered Sig/Hernando Route PRN Reason Start Time Stop Time Status Last Admin Dose Admin Acetaminophen (Tylenol) 650 mg Q4H PRN ORAL Temp >100.5 10/10/20 21:15 11/09/20 21:14 10/18/20 20:57 Acetaminophen (Tylenol) 650 mg Q4H PRN ORAL Mild Pain (Pain Scale 1-3) 10/10/20 21:15 11/09/20 21:14 10/23/20 13:01 Albuterol Sulfate (Proventil MDI) 2 puff Q4H PRN INH Shortness of Breath 10/10/20 21:30 01/08/21 21:29 Ceftriaxone Sodium 1 gm/ Dextrose 55 ml @ 110 mls/hr Q24H IVPB 10/17/20 15:00 10/24/20 14:59 10/23/20 15:13 Chlorhexidine Gluconate (Heidi-Hex 2%) 1 applic DAILY@2000 TOPIC 10/21/20 20:00 01/19/21 19:59 10/23/20 20:31 Clonidine HCl (Catapres Tab) 0.1 mg Q4H PRN ORAL for SBP >150 10/14/20 11:30 01/12/21 11:29 10/14/20 11:25 Dextrose (Dextrose 50%) 25 ml Q30M PRN IV Hypoglycemia 10/10/20 21:15 01/08/21 21:14 Dextrose (Dextrose 50%) 50 ml Q30M PRN IV Hypoglycemia 10/10/20 21:15 01/08/21 21:14 Docusate Sodium (Colace) 100 mg TWICE A DAY NG 10/21/20 09:00 11/20/20 08:59 10/23/20 18:17 Haloperidol Lactate (Haldol) 5 mg Q6H PRN IM Agitation 10/13/20 16:15 11/27/20 16:14 Insulin Aspart (NovoLOG) BEFORE MEALS AND HS SUBQ 10/11/20 06:30 01/09/21 06:29 10/24/20 06:05 Insulin Detemir (Levemir) 18 units BID SUBQ 10/23/20 09:00 01/09/21 20:59 10/23/20 18:19 Lorazepam (Ativan 2mg/ml 1ml) 1 mg Q3H PRN IV For Anxiety 10/17/20 18:15 10/24/20 18:14 10/18/20 20:56 Methylprednisolone Sodium Succinate (Solu-MEDROL) 60 mg EVERY 12 HOURS IVP 10/23/20 12:30 01/21/21 12:29 10/23/20 20:32 Midazolam HCl 100 ml @ 0 mls/hr Q24H PRN IV Agitation 10/23/20 10:00 10/25/20 09:59 10/23/20 11:53 Ondansetron HCl (Zofran) 4 mg Q6H PRN IVP Nausea & Vomiting 10/10/20 21:15 11/09/20 21:14 Pantoprazole (Protonix) 40 mg EVERY 12 HOURS IVP 10/18/20 22:15 11/17/20 22:14 10/23/20 20:32 Phytonadione (Vitamin K) 10 mg DAILY SUBQ 10/26/20 20:45 10/28/20 09:01 Sodium Chloride 1,000 ml @ 100 mls/hr Q10H IV 10/16/20 13:45 11/15/20 13:44 10/24/20 02:47 Yash Ashley MD Oct 24, 2020 08:05
--- NOTE | 2020-10-24 08:12 | NUR ---
CASE MANAGEMENT:REVIEW 10/24/20 SI: SEPSIS. COVID PNA. DM OOC RESPIRATORY FAILURE ~ INTUBATED 99.0 85 31 110/51 100% ON VENT SUPPORT W/100% FIO2 WBC+12.9 H/H-7.9/27.8 PLT-49 PT+21.3 INR+2.0 K+6.0 BUN+142 CR+2.5 GLUCOSE+370 LACTIC ACID+4.0 IS: VIT K SQ QD IV ROCEPHIN Q24 IV SOLUMEDROL 60MG Q12 IVF NS@100/HR LEVEMIR SQ BID IV PROTONIX Q12 SS INSULIN AC+HS : ICU STATUS DCP: PER ANIMAL CYTOLOGIST
[2020-10-24] MEDS: Levemir Flexpen SUBQ SCH ×2 (09:00→18:00)
[2020-10-24] MEDS: Docusate 100mg/10ml Liq NG SCH ×2 (09:20→18:30)
[2020-10-24] MEDS: Solu-MEDROL 125mg Inj IVP SCH ×2 (09:20→20:16)
[2020-10-24] MEDS: Pantoprazole Inj IVP SCH ×2 (09:20→20:16)
--- NOTE | 2020-10-24 10:03 | Nephrology Progress Note ---
Assessment/Plan Plan VDRF - vent Covid 19 - Per ID [id number] - Not a dialysis candidate. K 6 noted. Only conservative measures. Subjective Subjective Obtunded Objective Objective Last 24 Hour Vital Signs Date Time Temp Pulse Resp B/P (MAP) Pulse Ox O2 Delivery O2 Flow Rate FiO2 10/24/20 08:00 Mechanical Ventilator 10/24/20 07:00 24 Mechanical Ventilator 100 10/24/20 07:00 85 31 110/51 (70) 100 10/24/20 06:48 28 Mechanical Ventilator 100 10/24/20 06:00 83 31 113/50 (71) 100 10/24/20 06:00 28 Mechanical Ventilator 100 10/24/20 05:00 83 31 113/50 (71) 100 10/24/20 05:00 26 Mechanical Ventilator 100 10/24/20 04:30 88 30 119/48 (71) 100 10/24/20 04:00 99.0 92 30 122/52 (75) 100 10/24/20 04:00 85 10/24/20 04:00 26 Mechanical Ventilator 100 10/24/20 04:00 Mechanical Ventilator 10/24/20 04:00 100 10/24/20 03:38 95 32 100 10/24/20 03:00 91 28 130/57 (81) 100 10/24/20 03:00 26 Mechanical Ventilator 100 10/24/20 03:00 91 28 130/57 (81) 100 10/24/20 02:45 88 28 98/45 (62) 100 10/24/20 02:30 86 29 105/46 (65) 100 10/24/20 02:15 86 29 102/49 (66) 100 10/24/20 02:00 26 Mechanical Ventilator 100 10/24/20 02:00 90 29 113/49 (70) 100 10/24/20 02:00 90 29 113/49 (70) 100 10/24/20 01:45 87 29 104/44 (64) 100 10/24/20 01:30 88 29 114/48 (70) 100 10/24/20 01:15 94 33 133/53 (79) 100 10/24/20 01:00 24 Mechanical Ventilator 100 10/24/20 01:00 96 33 125/52 (76) 100 10/24/20 01:00 96 33 125/52 (76) 100 10/24/20 00:45 95 31 110/52 (71) 100 10/24/20 00:30 88 31 121/51 (74) 100 10/24/20 00:15 93 29 120/53 (75) 100 10/24/20 00:00 91 10/24/20 00:00 87 29 113/43 (66) 100 10/24/20 00:00 24 Mechanical Ventilator 100 10/24/20 00:00 100 10/24/20 00:00 87 29 113/43 (66) 100 10/24/20 00:00 Mechanical Ventilator 10/23/20 23:33 86 28 100 10/23/20 23:00 85 29 100/45 (63) 100 10/23/20 23:00 22 Mechanical Ventilator 100 10/23/20 22:00 20 Mechanical Ventilator 100 10/23/20 22:00 93 28 117/52 (73) 100 10/23/20 21:39 28 Mechanical Ventilator 100 10/23/20 21:00 97 29 110/52 (71) 100 10/23/20 21:00 100 10/23/20 21:00 29 Mechanical Ventilator 100 10/23/20 20:00 100 10/23/20 20:00 Mechanical Ventilator 10/23/20 20:00 99.8 94 29 118/46 (70) 100 10/23/20 20:00 30 Mechanical Ventilator 100 10/23/20 20:00 97 10/23/20 19:15 77 36 100 10/23/20 19:00 32 Mechanical Ventilator 100 10/23/20 19:00 92 33 120/54 (76) 100 10/23/20 18:00 94 25 114/53 (73) 100 10/23/20 18:00 29 Mechanical Ventilator 100 10/23/20 17:00 27 Mechanical Ventilator 100 10/23/20 17:00 100.0 91 31 123/56 (78) 100 10/23/20 16:04 100.0 99 33 124/52 (76) 100 10/23/20 16:03 100 10/23/20 16:00 97 10/23/20 16:00 Mechanical Ventilator 10/23/20 16:00 100.0 99 37 124/52 (76) 100 10/23/20 16:00 37 Mechanical Ventilator 100 10/23/20 15:30 95 38 100 10/23/20 15:00 99 33 113/49 (70) 100 10/23/20 15:00 34 Mechanical Ventilator 100 10/23/20 14:07 112 35 135/50 (78) 100 10/23/20 14:00 30 Mechanical Ventilator 100 10/23/20 13:31 100.0 10/23/20 13:00 35 Mechanical Ventilator 100 10/23/20 13:00 114 32 143/60 (87) 100 10/23/20 12:00 113 30 118/74 (89) 100 10/23/20 12:00 100.6 10/23/20 12:00 30 Mechanical Ventilator 100 10/23/20 12:00 100 10/23/20 12:00 Mechanical Ventilator 10/23/20 12:00 117 10/23/20 11:53 30 Mechanical Ventilator 100 10/23/20 11:30 116 31 100 10/23/20 11:00 110 30 134/54 (80) 98 Intake and Output 10/23/20 10/24/20 19:00 07:00 Intake Total 1877.103 ml 1728 ml Output Total 360 ml 305 ml Balance 1517.103 ml 1423 ml Free Water 200 ml 50 ml IV Total 1137.103 ml 1148 ml Tube Feeding 480 ml 480 ml Blood Product 50 ml Other 60 ml Output Urine Total 360 ml 305 ml # Bowel Movements 2 Laboratory Tests 10/23/20 12:45: Lactic Acid Level 4.10H 10/23/20 13:21: Arterial Blood pH 7.250*L, Arterial Blood Partial Pressure CO2 45.3H, Arterial Blood Partial Pressure O2 115.9H, Arterial Blood HCO3 19.4L, Arterial Blood Oxygen Saturation 97.7, Arterial Blood Base Excess -7.4L, Francisco Test Positive 10/24/20 05:35: Lactic Acid Level 4.00H, White Blood Count 12.9H, Red Blood Count 3.38L, Hemoglobin 7.9L, Hematocrit 27.8L, Mean Corpuscular Volume 82, Mean Corpuscular Hemoglobin 23.5L, Mean Corpuscular Hemoglobin Concent 28.5L, Red Cell Distribution Width 24.1H, Platelet Count 49L, Mean Platelet Volume 12.9H, Neutrophils (%) (Auto) , Lymphocytes (%) (Auto) , Monocytes (%) (Auto) , Eosin ophils (%) (Auto) , Basophils (%) (Auto) , Differential Total Cells Counted 100, Neutrophils % (Manual) 86H, Lymphocytes % (Manual) 11L, Monocytes % (Manual) 3, Eosinophils % (Manual) 0, Basophils % (Manual) 0, Band Neutrophils 0, Nucleated Red Blood Cells 1, Platelet Estimate DecreasedL, Platelet Morphology Normal, Marcus ychromasia 1+, Hypochromasia 1+, Anisocytosis 3+, Prothrombin Time 21.3H, Prothromb Time International Ratio 2.0H, Sodium Level 135L, Potassium Level 6.0*H, Chloride Level 105, Carbon Dioxide Level 20L, Anion Gap 11, Blood Urea Nitrogen 142H, Creatinine 2.5#H, Estimat Glomerular Filtration Rate 19.7, Glucose Level 370H, Calcium Level 7.9L, Total Bilirubin 1.1H, Direct Bilirubin 1.0H, Aspartate Amino Transf (AST/SGOT) 81H, Alanine Aminotransferase (ALT/SGPT) 50, Alkaline Phosphatase 326H, Total Protein 4.8L, Albumin 1.5L, Globulin 3.3, Albumin/Globulin Ratio 0.5L 10/24/20 09:10: Lactic Acid Level [Pending] Height (Feet): 5 Height (Inches): 3.00 Weight (Pounds): 125 Objective CV tach Lungs B Ronchi Abd SNT. BS + E + edema Gail Scott MD Oct 24, 2020 10:02
--- NOTE | 2020-10-24 10:20 | NUR ---
NURSE NOTES: Dr. Ro assessed patient bedside. Discussed patient and hyperkalemia at this time. No intervention will be done at this time. Will monitor and report any EKG changes. reported poor prognosis of patient.
--- NOTE | 2020-10-24 12:32 | General Progress Note ---
Subjective ROS Limited/Unobtainable: No Allergies: Coded Allergies: WARFARIN (Verified Allergy, Unknown, 03/03/19) Objective Last 24 Hour Vital Signs Date Time Temp Pulse Resp B/P (MAP) Pulse Ox O2 Delivery O2 Flow Rate FiO2 10/24/20 10:00 89 34 129/55 (79) 100 10/24/20 09:00 90 33 131/53 (79) 100 10/24/20 08:00 92 33 125/62 (83) 100 10/24/20 08:00 Mechanical Ventilator 10/24/20 07:00 24 Mechanical Ventilator 100 10/24/20 07:00 85 31 110/51 (70) 100 10/24/20 06:48 28 Mechanical Ventilator 100 10/24/20 06:00 83 31 113/50 (71) 100 10/24/20 06:00 28 Mechanical Ventilator 100 10/24/20 05:00 83 31 113/50 (71) 100 10/24/20 05:00 26 Mechanical Ventilator 100 10/24/20 04:30 88 30 119/48 (71) 100 10/24/20 04:00 99.0 92 30 122/52 (75) 100 10/24/20 04:00 85 10/24/20 04:00 26 Mechanical Ventilator 100 10/24/20 04:00 Mechanical Ventilator 10/24/20 04:00 100 10/24/20 03:38 95 32 100 10/24/20 03:00 91 28 130/57 (81) 100 10/24/20 03:00 26 Mechanical Ventilator 100 10/24/20 03:00 91 28 130/57 (81) 100 10/24/20 02:45 88 28 98/45 (62) 100 10/24/20 02:30 86 29 105/46 (65) 100 10/24/20 02:15 86 29 102/49 (66) 100 10/24/20 02:00 26 Mechanical Ventilator 100 10/24/20 02:00 90 29 113/49 (70) 100 10/24/20 02:00 90 29 113/49 (70) 100 10/24/20 01:45 87 29 104/44 (64) 100 10/24/20 01:30 88 29 114/48 (70) 100 10/24/20 01:15 94 33 133/53 (79) 100 10/24/20 01:00 24 Mechanical Ventilator 100 10/24/20 01:00 96 33 125/52 (76) 100 10/24/20 01:00 96 33 125/52 (76) 100 10/24/20 00:45 95 31 110/52 (71) 100 10/24/20 00:30 88 31 121/51 (74) 100 10/24/20 00:15 93 29 120/53 (75) 100 10/24/20 00:00 91 10/24/20 00:00 87 29 113/43 (66) 100 10/24/20 00:00 24 Mechanical Ventilator 100 10/24/20 00:00 100 10/24/20 00:00 87 29 113/43 (66) 100 10/24/20 00:00 Mechanical Ventilator 10/23/20 23:33 86 28 100 10/23/20 23:00 85 29 100/45 (63) 100 10/23/20 23:00 22 Mechanical Ventilator 100 10/23/20 22:00 20 Mechanical Ventilator 100 10/23/20 22:00 93 28 117/52 (73) 100 10/23/20 21:39 28 Mechanical Ventilator 100 10/23/20 21:00 97 29 110/52 (71) 100 10/23/20 21:00 100 10/23/20 21:00 29 Mechanical Ventilator 100 10/23/20 20:00 100 10/23/20 20:00 Mechanical Ventilator 10/23/20 20:00 99.8 94 29 118/46 (70) 100 10/23/20 20:00 30 Mechanical Ventilator 100 10/23/20 20:00 97 10/23/20 19:15 77 36 100 10/23/20 19:00 32 Mechanical Ventilator 100 10/23/20 19:00 92 33 120/54 (76) 100 10/23/20 18:00 94 25 114/53 (73) 100 10/23/20 18:00 29 Mechanical Ventilator 100 10/23/20 17:00 27 Mechanical Ventilator 100 10/23/20 17:00 100.0 91 31 123/56 (78) 100 10/23/20 16:04 100.0 99 33 124/52 (76) 100 10/23/20 16:03 100 10/23/20 16:00 97 10/23/20 16:00 Mechanical Ventilator 10/23/20 16:00 100.0 99 37 124/52 (76) 100 10/23/20 16:00 37 Mechanical Ventilator 100 10/23/20 15:30 95 38 100 10/23/20 15:00 99 33 113/49 (70) 100 10/23/20 15:00 34 Mechanical Ventilator 100 10/23/20 14:07 112 35 135/50 (78) 100 10/23/20 14:00 30 Mechanical Ventilator 100 10/23/20 13:31 100.0 10/23/20 13:00 35 Mechanical Ventilator 100 10/23/20 13:00 114 32 143/60 (87) 100 Intake and Output 10/23/20 10/24/20 19:00 07:00 Intake Total 1877.103 ml 1728 ml Output Total 360 ml 305 ml Balance 1517.103 ml 1423 ml Free Water 200 ml 50 ml IV Total 1137.103 ml 1148 ml Tube Feeding 480 ml 480 ml Blood Product 50 ml Other 60 ml Output Urine Total 360 ml 305 ml # Bowel Movements 2 Laboratory Tests 10/23/20 12:45: Lactic Acid Level 4.10H 10/23/20 13:21: Arterial Blood pH 7.250*L, Arterial Blood Partial Pressure CO2 45.3H, Arterial Blood Partial Pressure O2 115.9H, Arterial Blood HCO3 19.4L, Arterial Blood Oxygen Saturation 97.7, Arterial Blood Base Excess -7.4L, Francisco Test Positive 10/24/20 05:35: Lactic Acid Level 4.00H, White Blood Count 12.9H, Red Blood Count 3.38L, Hemoglobin 7.9L, Hematocrit 27.8L, Mean Corpuscular Volume 82, Mean Corpuscular Hemoglobin 23.5L, Mean Corpuscular Hemoglobin Concent 28.5L, Red Cell Distribution Width 24.1H, Platelet Count 49L, Mean Platelet Volume 12.9H, Neutrophils (%) (Auto) , Lymphocytes (%) (Auto) , Monocytes (%) (Auto) , Eosinophils (%) (Auto) , Basophils (%) (Auto) , Differential Total Cells Counted 100, Neutrophils % (Manual) 86H, Lymphocytes % (Manual) 11L, Monocytes % (Manual) 3, Eosinophils % (Manual) 0, Basophils % (Manual) 0, Band Neutrophils 0, Nucleated Red Blood Cells 1, Platelet Estimate DecreasedL, Platelet Morphology Normal, Polychromasia 1+, Hypochromasia 1+, Anisocytosis 3+, Prothrombin Time 21.3H, Prothromb Time International Ratio 2.0H, Sodium Level 135L, Potassium Level 6.0*H, Chloride Level 105, Carbon Dioxide Level 20L, Anion Gap 11, Blood Urea Nitrogen 142H, Creatinine 2.5#H, Estimat Glomerular Filtration Rate 19.7, Glucose Level 370H, Calcium Level 7.9L, Total Bilirubin 1.1H, Direct Bilirubin 1.0H, Aspartate Amino Transf (AST/SGOT) 81H, Alanine Aminotransferase (ALT/SGPT) 50, Alkaline Phosphatase 326H, Total Protein 4.8L, Albumin 1.5L, Globulin 3.3, Albumin/Globulin Ratio 0.5L 10/24/20 09:10: Lactic Acid Level 4.00H Height (Feet): 5 Height (Inches): 3.00 Weight (Pounds): 125 General Appearance: no apparent distress EENT: normal ENT inspection Neck: supple Cardiovascular: normal rate Respiratory/Chest: decreased breath sounds Abdomen: normal bowel sounds, non tender, soft Extremities: non-tender Assessment/Plan Assessment/Plan: Assessment - GI bleed - H&H holding steady - COVID PNA, resp failure, doing poorly - nodular liver, c/w cirrhosis - Hepatitis C - thrombocytopenia - microcytic anemia - ? toe ischemia - Azotemia - DM - Acidosis Recommendations - BID PPI - daily CBC - watch platelets - Continue TF - check coags - Repeat lactate - endoscopy if clinically significant bleeding Rory Esquivel MD Oct 24, 2020 12:32
--- NOTE | 2020-10-24 15:48 | Pulmonolgy Critical Care Note ---
Critical Care - Asmt/Plan Assessment/Plan: Pulmonary Progress Note Subjective Allergies: Coded Allergies: WARFARIN (Verified Allergy, Unknown, 03/03/19) Subjective noted care noted changes doing poorly and remains ill sedated K elevated,SHAHZAD,Renal following On ISS Objective Vital Signs noted Laboratory Tests noted Height (Feet): 5 Height (Inches): 3.00 Weight (Pounds): 125 Objective deferred due to COVID Assessment/Plan Impression: Covid Pneumonia respiratory failure possible sepsis Uncontrolled diabetes mellitus Renal insufficiency, acute Hyperkalemia Dehydration Rhabdomyolysis due to COVID-19 Possible Cirrhosis acute hypoxemic respiratory failure s/p intubation acidemia MODS hematemesis acidemia Plan doing poorly on 100% hypervent and monitor ABG renal and GI follow up follow up CXR and ABG follow up labs IV antibiotics- repeat cultures ID follow up DVT prophylaxis critical on levimir and adjust further tube feeds when ok with gi no family available medications/laboratory data/nursing notes/ICU care reviewed in detail note reviewed and edited care discussed with RN and RT ICU time spent >40 minutes Critical Care - Objective Last 24 Hour Vital Signs Date Time Temp Pulse Resp B/P (MAP) Pulse Ox O2 Delivery O2 Flow Rate FiO2 10/24/20 12:00 80 10/24/20 10:00 89 34 129/55 (79) 100 10/24/20 09:00 90 33 131/53 (79) 100 10/24/20 08:00 92 33 125/62 (83) 100 10/24/20 08:00 Mechanical Ventilator 10/24/20 08:00 100 10/24/20 07:00 24 Mechanical Ventilator 100 10/24/20 07:00 85 31 110/51 (70) 100 10/24/20 06:48 28 Mechanical Ventilator 100 10/24/20 06:00 83 31 113/50 (71) 100 10/24/20 06:00 28 Mechanical Ventilator 100 10/24/20 05:00 83 31 113/50 (71) 100 10/24/20 05:00 26 Mechanical Ventilator 100 10/24/20 04:30 88 30 119/48 (71) 100 10/24/20 04:00 99.0 92 30 122/52 (75) 100 10/24/20 04:00 85 10/24/20 04:00 26 Mechanical Ventilator 100 10/24/20 04:00 Mechanical Ventilator 10/24/20 04:00 100 10/24/20 03:38 95 32 100 10/24/20 03:00 91 28 130/57 (81) 100 10/24/20 03:00 26 Mechanical Ventilator 100 10/24/20 03:00 91 28 130/57 (81) 100 10/24/20 02:45 88 28 98/45 (62) 100 10/24/20 02:30 86 29 105/46 (65) 100 10/24/20 02:15 86 29 102/49 (66) 100 10/24/20 02:00 26 Mechanical Ventilator 100 10/24/20 02:00 90 29 113/49 (70) 100 10/24/20 02:00 90 29 113/49 (70) 100 10/24/20 01:45 87 29 104/44 (64) 100 10/24/20 01:30 88 29 114/48 (70) 100 10/24/20 01:15 94 33 133/53 (79) 100 10/24/20 01:00 24 Mechanical Ventilator 100 10/24/20 01:00 96 33 125/52 (76) 100 10/24/20 01:00 96 33 125/52 (76) 100 10/24/20 00:45 95 31 110/52 (71) 100 10/24/20 00:30 88 31 121/51 (74) 100 10/24/20 00:15 93 29 120/53 (75) 100 10/24/20 00:00 91 10/24/20 00:00 87 29 113/43 (66) 100 10/24/20 00:00 24 Mechanical Ventilator 100 10/24/20 00:00 100 10/24/20 00:00 87 29 113/43 (66) 100 10/24/20 00:00 Mechanical Ventilator 10/23/20 23:33 86 28 100 10/23/20 23:00 85 29 100/45 (63) 100 10/23/20 23:00 22 Mechanical Ventilator 100 10/23/20 22:00 20 Mechanical Ventilator 100 10/23/20 22:00 93 28 117/52 (73) 100 10/23/20 21:39 28 Mechanical Ventilator 100 10/23/20 21:00 97 29 110/52 (71) 100 10/23/20 21:00 100 10/23/20 21:00 29 Mechanical Ventilator 100 10/23/20 20:00 100 10/23/20 20:00 Mechanical Ventilator 10/23/20 20:00 99.8 94 29 118/46 (70) 100 10/23/20 20:00 30 Mechanical Ventilator 100 10/23/20 20:00 97 10/23/20 19:15 77 36 100 10/23/20 19:00 32 Mechanical Ventilator 100 10/23/20 19:00 92 33 120/54 (76) 100 10/23/20 18:00 94 25 114/53 (73) 100 10/23/20 18:00 29 Mechanical Ventilator 100 10/23/20 17:00 27 Mechanical Ventilator 100 10/23/20 17:00 100.0 91 31 123/56 (78) 100 10/23/20 16:04 100.0 99 33 124/52 (76) 100 10/23/20 16:03 100 10/23/20 16:00 97 10/23/20 16:00 Mechanical Ventilator 10/23/20 16:00 100.0 99 37 124/52 (76) 100 10/23/20 16:00 37 Mechanical Ventilator 100 Micro: Microbiology Date/Time Source Procedure Growth Status 10/22/20 16:15 Blood Blood Culture - Preliminary NO GROWTH AFTER 24 HOURS Resulted 10/22/20 16:00 Blood Blood Culture - Preliminary Resulted Accucheck: 345 Critical Care - Subjective ROS Limited/Unobtainable: Yes Condition: critical FI02: 100 Vent Support Breath Rate: 22 Vent Support Mode: AC Vent Tidal Volume: 500 Sputum Amount: Scant PEEP: 10.0 PIP: 39 Tube Feeding Amount: 40 I&O: Intake and Output 10/23/20 10/24/20 19:00 07:00 Intake Total 1877.103 ml 1728 ml Output Total 360 ml 305 ml Balance 1517.103 ml 1423 ml Free Water 200 ml 50 ml IV Total 1137.103 ml 1148 ml Tube Feeding 480 ml 480 ml Blood Product 50 ml Other 60 ml Output Urine Total 360 ml 305 ml # Bowel Movements 2 ET-Tube: 7.5 ET Position: 21 Ike Nicholas MD Oct 24, 2020 15:48
[2020-10-24] MEDS: Versed 50mg/NS 100ml 100 ML IV PRN (16:40)
--- NOTE | 2020-10-24 19:30 | NUR ---
NURSE NOTES: Received Report from DOMINIC Holcomb. Pt is sedated on the bed and RASS -2. Pt has ETT and orally intubate. Vent dependent and setting with AC: 22, T: 500, P: 10, FiO2 100% and SaO2 100% noted. Given suction and oral care. Noted BT: 99.2F by axillary. Pt has OGT and in placed. on running withy Glucerna 1.2 @ 40cc/hr and no residual noted. Pt has Raines cath and patent and drainage well. Pt has Rt. Femoral TLC and dressing is clean and dry. on running with Versed @ 2mg/hr and 1/2NS @ 100cc/hr. Pt has swelling on bilateral arms and elevated both arms with pillow. Pt has bilateral soft restraint. checked comfort and circulation. On monitoring specialist with SR. Pt's potassium level is 6.0 today and MD aware and no new order noted. On proper isolation for COVID-19. Placed fall precaution. Will continue to monitor any change of condition.
[2020-10-24] MEDS: Dyna-Hex 2% Top Sol 2oz TOPIC SCH (19:57)
--- NOTE | 2020-10-24 20:24 | NUR ---
NURSE HAND-OFF REPORT: Latest Vital Signs: Temperature 99.0 , Pulse 94 , B/P 127 /55 , Respiratory Rate 35 , O2 SAT 100 , Mechanical Ventilator, O2 Flow Rate . Vital Sign Comment: STABLE EKG Rhythm: Sinus Rhythm Rhythm change?: N Notified?: Niurka Szymanski MD Response: Latest Daly Fall Score: 100 Fall Risk: High Risk Safety Measures: Call light Within Reach, Bed Alarm Zone 2, Side Rails Side Rails x2, Bed position Low and Locked. Fall Precautions: Yellow Socks Yellow Gown Door Sign Patient Fall Education Report given to Meaghan ALFARO. Plan of care endorsed.
--- NOTE | 2020-10-24 21:00 | NUR ---
NURSE NOTES: Noted purple color and redness wound on sacral area. No open wound noted. On P-200 mattress for wound management. Applied wound dressing as protocol and will get wound order as protocol. Changed position. Will update care plan. Noted multiple bruise on body and Rt. 2nd toe noted purple color. Noted Swelling on both upper extremities with weeping. Elevated both arm with pillow. will continue to monitor any change of condition.
--- NOTE | 2020-10-24 22:00 | NUR ---
NURSE NOTES: Pt is sedated on the bed and RASS -2. SaO2 100% with current Vent setting. Given suction and oral care. Turn and reposition. Will continue to monitor any change of condition.
--- NOTE | 2020-10-24 22:50 | CDS Physician Query ---
Clarification is required for compliance, coding accuracy, and to reflect severity of illness for this patient. Dear Dr. Ike Nicholas MD.. Date: 10/24/20 CDIS: Yoni Gunn Clinical Documentation Statement: 60 year old woman admitted with Covid Pneumonia and UTI,she c/o right-sided hip pain,worse with movement. Had recent ER visit at [facility] - diagnosed with urinary tract infection. Had previous history of CVA - longstanding left-sided weakness. She states that she has been having increased pain to the right hip. Previous x-ray imaging showed degenerative changes to both hips as well as a healed left pubic ramus fracture. Impression: Covid Pneumonia, respiratory failure, possible sepsis, acute hypoxemic respiratory failure Renal insufficiency, acute, Hyperkalemia, Dehydration, Rhabdomyolysis due to COVID-19 Possible Cirrhosis, Uncontrolled diabetes mellitus [ Progress Note date and time: 10/24/20 [id number]] Clinical Finding Show: Vitals (10/10): T98.6F, PR91 RR18 (10/18) T102.7F, NC 110 RR41 LAB (10/10) : WBC 4.5, Neut%69.4, Glucose 401, Sodium 135, Chloride 100, Creatinine 1.6 (10/19) WBC 12.1 Neut %92, Medication:Cefriaxone Sod [id number] mls, Azithromycin 500mg, Remdesivir 100 A posssible diagnois of SEPSIS was made in the medical record on Progress Note : 10/24/20 . Upon review, it is difficult to determine whether this diagnosis has been ruled in, ruled out,or is still being worked up. Please indicate below the status of the aforementioned diagnosis. [] Treated and resolve [] Presumed and treated [] Currently under treatment [] Still being worked-up [] Ruled out Present on Admission: [] Yes [] No [] Clinically Undetermined Physician signature Date Please also document in your Progress Notes and/or Discharge Summary and indicate if the condition was present on admission. MTDD
[2020-10-25] VITALS (43 sets, daily range): BP systolic 86–225; BP diastolic 34–100
--- NOTE | 2020-10-25 | NUR ---
NURSE NOTES: Pt is sedated on the bed and RASS -2. on running with Versed @ 2mg/hr. No fever noted. SaO2 100% with current Vent setting. Turn and reposition. Will continue to care plan.
[2020-10-25] MEDS: NovoLOG Insulin Flexpen SUBQ SCH ×4 (00:14→18:36)
--- NOTE | 2020-10-25 02:00 | NUR ---
NURSE NOTES: Given suction and oral care. Changed position. SaO2 100% with current Vent setting. Tolerated well with OGT feeding. Will continue to care plan.
--- NOTE | 2020-10-25 04:00 | NUR ---
NURSE NOTES: Morning care was done. Cleaned Pt and applied lotion and Cream. FiO2 titrated to 80% and noted SaO2 100% noted. No fever. On associate professor of english with SR. Turn and reposition. Will continue to monitor any change of condition.
--- NOTE | 2020-10-25 06:00 | NUR ---
NURSE NOTES: Collected blood sample. Turn and reposition. Will continue to monitor .
--- NOTE | 2020-10-25 07:23 | NUR ---
NURSE HAND-OFF REPORT: Latest Vital Signs: Temperature 98.5 , Pulse 88 , B/P 126 /52 , Respiratory Rate 35 , O2 SAT 100 , Mechanical Ventilator, O2 Flow Rate . Vital Sign Comment: EKG Rhythm: Sinus Rhythm Rhythm change?: N Latest Daly Fall Score: 100 Fall Risk: High Risk Safety Measures: Call light Within Reach, Bed Alarm Zone 2, Side Rails Side Rails x2, Bed position Low and Locked. Fall Precautions: Yellow Socks Yellow Gown Door Sign Patient Fall Education Report given to DOMINIC Holcomb. Pt is sedated on the bed and On running with Versed @ 2mg/hr.
[2020-10-25 08:02] LABS: HEMOGLOBIN 8.2 G/DL (12.0-16.0); MEAN CORPUSCULAR VOLUME 84 FL (80-99); PLATELET COUNT 58 K/UL (150-450); RED BLOOD COUNT 3.43 M/UL (4.20-5.40); RED CELL DISTRIBUTION WIDTH 24.9 % (11.6-14.8); WHITE BLOOD COUNT 18.5 K/UL (4.8-10.8)
[2020-10-25 08:43] LABS: CREATININE 2.7 MG/DL (0.55-1.30); POTASSIUM 6.9 MMOL/L (3.5-5.1)
[2020-10-25] MEDS: Pantoprazole Inj IVP SCH ×2 (09:46→20:07)
[2020-10-25] MEDS: Docusate 100mg/10ml Liq NG SCH ×2 (09:46→18:00)
[2020-10-25] MEDS: Solu-MEDROL 125mg Inj IVP SCH ×2 (09:47→20:07)
[2020-10-25] MEDS: Levemir Flexpen SUBQ SCH ×2 (09:48→18:37)
[2020-10-25] MEDS ORDERED: Versed 50mg/NS 100ml 100 ML IV PRN (10:00)
--- NOTE | 2020-10-25 11:11 | General Progress Note ---
Subjective ROS Limited/Unobtainable: No Allergies: Coded Allergies: WARFARIN (Verified Allergy, Unknown, 03/03/19) Objective Last 24 Hour Vital Signs Date Time Temp Pulse Resp B/P (MAP) Pulse Ox O2 Delivery O2 Flow Rate FiO2 10/25/20 07:00 88 35 126/52 (76) 100 10/25/20 07:00 35 Mechanical Ventilator 80 10/25/20 06:00 88 35 126/52 (76) 99 10/25/20 06:00 35 Mechanical Ventilator 80 10/25/20 05:00 88 32 131/48 (75) 100 10/25/20 05:00 32 Mechanical Ventilator 80 10/25/20 04:00 80 10/25/20 04:00 34 Mechanical Ventilator 80 10/25/20 04:00 Mechanical Ventilator 10/25/20 04:00 87 10/25/20 04:00 98.5 88 34 138/55 (82) 100 10/25/20 03:43 85 24 80 10/25/20 03:00 32 Mechanical Ventilator 100 10/25/20 03:00 82 32 120/50 (73) 100 10/25/20 02:00 88 30 119/51 (73) 100 10/25/20 02:00 30 Mechanical Ventilator 100 10/25/20 01:00 31 Mechanical Ventilator 100 10/25/20 01:00 81 31 120/49 (72) 100 10/25/20 00:00 100 10/25/20 00:00 89 10/25/20 00:00 Mechanical Ventilator 10/25/20 00:00 31 Mechanical Ventilator 100 10/25/20 00:00 98.0 86 31 129/51 (77) 100 10/24/20 23:12 86 32 100 10/24/20 23:00 85 30 126/55 (78) 100 10/24/20 23:00 30 Mechanical Ventilator 100 10/24/20 22:30 84 32 121/52 (75) 100 10/24/20 22:00 89 33 127/51 (76) 100 10/24/20 22:00 33 Mechanical Ventilator 100 10/24/20 21:30 89 33 134/57 (82) 100 10/24/20 21:00 96 34 133/57 (82) 100 10/24/20 21:00 34 Mechanical Ventilator 100 10/24/20 20:30 94 32 120/50 (73) 100 10/24/20 20:00 Mechanical Ventilator 10/24/20 20:00 100 10/24/20 20:00 99.2 97 34 129/56 (80) 100 10/24/20 20:00 34 Mechanical Ventilator 100 10/24/20 20:00 94 10/24/20 19:07 94 35 100 10/24/20 19:00 35 Mechanical Ventilator 100 10/24/20 19:00 92 35 127/55 (79) 100 10/24/20 18:00 84 35 143/55 (84) 100 10/24/20 17:00 92 34 130/52 (78) 100 10/24/20 16:40 33 100 10/24/20 16:00 80 10/24/20 16:00 100 10/24/20 16:00 Mechanical Ventilator 10/24/20 16:00 92 36 138/54 (82) 100 10/24/20 15:22 90 34 100 10/24/20 15:00 93 35 125/52 (76) 100 10/24/20 14:00 91 33 129/54 (79) 100 10/24/20 13:00 89 32 123/52 (75) 100 10/24/20 12:00 Mechanical Ventilator 10/24/20 12:00 80 10/24/20 12:00 100 10/24/20 12:00 83 33 119/53 (75) 100 10/24/20 11:20 88 34 100 Intake and Output 10/24/20 10/25/20 19:00 07:00 Intake Total 584 ml 1611 ml Output Total 455 ml 360 ml Balance 129 ml 1251 ml IV Total 104 ml 1131 ml Tube Feeding 480 ml 480 ml Output Urine Total 455 ml 360 ml Laboratory Tests 10/25/20 06:00: White Blood Count 18.5H, Red Blood Count 3.43L, Hemoglobin 8.2L, Hematocrit 29.0L, Mean Corpuscular Volume 84, Mean Corpuscular Hemoglobin 23.8L, Mean C orpuscular Hemoglobin Concent 28.2L, Red Cell Distribution Width 24.9H, Platelet Count 58L, Mean Platelet Volume 12.1H, Neutrophils (%) (Auto) , Lymphocytes (%) (Auto) , Monocytes (%) (Auto) , Eosinophils (%) (Auto) , Basophils (%) (Auto) , Differential Total Cells Counted 100, Neutrophils % (Manual) 95H, Lymphocytes % (Manual) 2L, Monocytes % (Manual) 3, Eosinophils % (Manual) 0, Basophils % ( Manual) 0, Band Neutrophils 0, Platelet Estimate DecreasedL, Platelet Morphology , Giant Platelets Occasional, Polychromasia 1+, Hypochromasia 2+, Anisocytosis 3+, Sodium Level 134L, Potassium Level 6.9*H, Chloride Level 103, Carbon Dioxide Level 20L, Anion Gap 11, Blood Urea Nitrogen 163H, Creatinine 2.7H, Estimat Glomerular Filtration Rate 18.0, Glucose Level 420H, Lactic Acid Level 4.70H, Calcium Level 8.0L Height (Feet): 5 Height (Inches): 3.00 Weight (Pounds): 125 General Appearance: no apparent distress EENT: normal ENT inspection Neck: supple Cardiovascular: normal rate Respiratory/Chest: decreased breath sounds Abdomen: normal bowel sounds, non tender, soft Extremities: non-tender Assessment/Plan Assessment/Plan: Assessment - GI bleed - H&H holding steady - COVID PNA, resp failure, doing poorly - nodular liver, c/w cirrhosis - Hepatitis C - thrombocytopenia - microcytic anemia - ? toe ischemia - Azotemia - DM - Acidosis Recommendations - BID PPI - daily CBC - watch platelets - Continue TF - check coags - Repeat lactate - endoscopy if clinically significant bleeding -Rory Haque MD Oct 25, 2020 11:11
[2020-10-25] MEDS: Sodium Polystyrene Sulfonate 15gm Powder ORAL SCH ×2 (11:15→11:42)
--- NOTE | 2020-10-25 12:01 | Nephrology Progress Note ---
Assessment/Plan Plan VDRF - vent Covid 19 - Per ID SHAHZAD - Not a dialysis candidate. Labs noted. Only conservative measures. Subjective Subjective Obtunded Objective Objective Last 24 Hour Vital Signs Date Time Temp Pulse Resp B/P (MAP) Pulse Ox O2 Delivery O2 Flow Rate FiO2 10/25/20 07:00 88 35 126/52 (76) 100 10/25/20 07:00 35 Mechanical Ventilator 80 10/25/20 06:00 88 35 126/52 (76) 99 10/25/20 06:00 35 Mechanical Ventilator 80 10/25/20 05:00 88 32 131/48 (75) 100 10/25/20 05:00 32 Mechanical Ventilator 80 10/25/20 04:00 80 10/25/20 04:00 34 Mechanical Ventilator 80 10/25/20 04:00 Mechanical Ventilator 10/25/20 04:00 87 10/25/20 04:00 98.5 88 34 138/55 (82) 100 10/25/20 03:43 85 24 80 10/25/20 03:00 32 Mechanical Ventilator 100 10/25/20 03:00 82 32 120/50 (73) 100 10/25/20 02:00 88 30 119/51 (73) 100 10/25/20 02:00 30 Mechanical Ventilator 100 10/25/20 01:00 31 Mechanical Ventilator 100 10/25/20 01:00 81 31 120/49 (72) 100 10/25/20 00:00 100 10/25/20 00:00 89 10/25/20 00:00 Mechanical Ventilator 10/25/20 00:00 31 Mechanical Ventilator 100 10/25/20 00:00 98.0 86 31 129/51 (77) 100 10/24/20 23:12 86 32 100 10/24/20 23:00 85 30 126/55 (78) 100 10/24/20 23:00 30 Mechanical Ventilator 100 10/24/20 22:30 84 32 121/52 (75) 100 10/24/20 22:00 89 33 127/51 (76) 100 10/24/20 22:00 33 Mechanical Ventilator 100 10/24/20 21:30 89 33 134/57 (82) 100 10/24/20 21:00 96 34 133/57 (82) 100 10/24/20 21:00 34 Mechanical Ventilator 100 10/24/20 20:30 94 32 120/50 (73) 100 10/24/20 20:00 Mechanical Ventilator 10/24/20 20:00 100 10/24/20 20:00 99.2 97 34 129/56 (80) 100 10/24/20 20:00 34 Mechanical Ventilator 100 10/24/20 20:00 94 10/24/20 19:07 94 35 100 10/24/20 19:00 35 Mechanical Ventilator 100 10/24/20 19:00 92 35 127/55 (79) 100 10/24/20 18:00 84 35 143/55 (84) 100 10/24/20 17:00 92 34 130/52 (78) 100 10/24/20 16:40 33 100 10/24/20 16:00 80 10/24/20 16:00 100 10/24/20 16:00 Mechanical Ventilator 10/24/20 16:00 92 36 138/54 (82) 100 10/24/20 15:22 90 34 100 10/24/20 15:00 93 35 125/52 (76) 100 10/24/20 14:00 91 33 129/54 (79) 100 10/24/20 13:00 89 32 123/52 (75) 100 Intake and Output 10/24/20 10/25/20 19:00 07:00 Intake Total 584 ml 1611 ml Output Total 455 ml 360 ml Balance 129 ml 1251 ml IV Total 104 ml 1131 ml Tube Feeding 480 ml 480 ml Output Urine Total 455 ml 360 ml Laboratory Tests 10/25/20 06:00: White Blood Count 18.5H, Red Blood Count 3.43L, Hemoglobin 8.2L, Hematocrit 29.0L, Mean Corpuscular Volume 84, Mean Corpuscular Hemoglobin 23.8L, Mean Corpuscular Hemoglobin Concent 28.2L, Red Cell Distribution Width 24.9H, Platelet Count 58L, Mean Platelet Volume 12.1H, Neutrophils (%) (Auto) , Lymphocytes (%) (Auto) , Monocytes (%) (Auto) , Eosinophils (%) (Auto) , Basophils (%) (Auto) , Differential Total Cells Counted 100, Neutrophils % (Manual) 95H, Lymphocytes % (Manual) 2L, Monocytes % (Manual) 3, Eosinophils % (Manual) 0, Basophils % (Manual) 0, Band Neutrophils 0, Platelet Estimate DecreasedL, Platelet Morphology , Giant Platelets Occasional, Polychromasia 1+, Hypochromasia 2+, Anisocytosis 3+, Sodium Level 134L, Potassium Level 6.9*H, Chloride Level 103, Carbon Dioxide Level 20L, Anion Gap 11, Blood Urea Nitrogen 163H, Creatinine 2.7H, Estimat Glomerular Filtration Rate 18.0, Glucose Level 420H, Lactic Acid Level 4.70H, Calcium Level 8.0L Height (Feet): 5 Height (Inches): 3.00 Weight (Pounds): 125 Objective CV tach Lungs B Ronchi Abd SNT. BS + E + edema Gail Scott MD Oct 25, 2020 12:01
[2020-10-25] MEDS ORDERED: Sodium Bicarbonate 50ml Carp IV SCH (15:15)
[2020-10-25] MEDS ORDERED: Atropine Inj 1mg/10ml Syr IVP SCH (15:15)
[2020-10-25] MEDS ORDERED: Calcium Gluconate 1gm/10ml vial IVP SCH (15:15)
[2020-10-25] MEDS ORDERED: Sodium Polystyrene Sulfonate 15gm Powder RECTAL SCH (15:15)
[2020-10-25 15:34] LABS: HEMOGLOBIN 8.1 G/DL (12.0-16.0); MEAN CORPUSCULAR VOLUME 84 FL (80-99); PLATELET COUNT 67 K/UL (150-450); RED BLOOD COUNT 3.47 M/UL (4.20-5.40); RED CELL DISTRIBUTION WIDTH 24.3 % (11.6-14.8); WHITE BLOOD COUNT 21.9 K/UL (4.8-10.8)
--- NOTE | 2020-10-25 15:39 | Pulmonolgy Critical Care Note ---
Critical Care - Asmt/Plan Assessment/Plan: Pulmonary Progress Note Subjective Allergies: Coded Allergies: WARFARIN (Verified Allergy, Unknown, 03/03/19) Subjective noted care noted changes doing poorly and remains ill sedated K elevated,SHAHZAD,Renal following,given kayexalate, IV insulen/glucose,calcium gluconate On ISS Objective Vital Signs noted Laboratory Tests noted Height (Feet): 5 Height (Inches): 3.00 Weight (Pounds): 125 Objective deferred due to COVID Assessment/Plan Impression: Covid Pneumonia respiratory failure possible sepsis Uncontrolled diabetes mellitus Renal insufficiency, acute Hyperkalemia Dehydration Rhabdomyolysis due to COVID-19 Possible Cirrhosis acute hypoxemic respiratory failure s/p intubation acidemia MODS hematemesis acidemia Plan doing poorly on 100% hypervent and monitor ABG renal and GI follow up follow up CXR and ABG follow up labs IV antibiotics- repeat cultures ID follow up DVT prophylaxis critical on levimir and adjust further tube feeds when ok with gi no family available medications/laboratory data/nursing notes/ICU care reviewed in detail note reviewed and edited care discussed with RN and RT ICU time spent >40 minutes Critical Care - Objective Last 24 Hour Vital Signs Date Time Temp Pulse Resp B/P (MAP) Pulse Ox O2 Delivery O2 Flow Rate FiO2 10/25/20 12:00 98.6 99 34 142/55 (84) 100 10/25/20 12:00 97 10/25/20 12:00 80 10/25/20 12:00 Mechanical Ventilator 10/25/20 11:00 99 31 139/49 (79) 100 10/25/20 10:00 94 32 121/50 (73) 100 10/25/20 09:00 90 33 120/53 (75) 100 10/25/20 08:00 92 10/25/20 08:00 80 10/25/20 08:00 98.4 87 35 134/54 (80) 100 10/25/20 08:00 Mechanical Ventilator 10/25/20 07:00 88 35 126/52 (76) 100 10/25/20 07:00 35 Mechanical Ventilator 80 10/25/20 06:00 88 35 126/52 (76) 99 10/25/20 06:00 35 Mechanical Ventilator 80 10/25/20 05:00 88 32 131/48 (75) 100 10/25/20 05:00 32 Mechanical Ventilator 80 10/25/20 04:00 80 10/25/20 04:00 34 Mechanical Ventilator 80 10/25/20 04:00 Mechanical Ventilator 10/25/20 04:00 87 10/25/20 04:00 98.5 88 34 138/55 (82) 100 10/25/20 03:43 85 24 80 10/25/20 03:00 32 Mechanical Ventilator 100 10/25/20 03:00 82 32 120/50 (73) 100 10/25/20 02:00 88 30 119/51 (73) 100 10/25/20 02:00 30 Mechanical Ventilator 100 10/25/20 01:00 31 Mechanical Ventilator 100 10/25/20 01:00 81 31 120/49 (72) 100 10/25/20 00:00 100 10/25/20 00:00 89 10/25/20 00:00 Mechanical Ventilator 10/25/20 00:00 31 Mechanical Ventilator 100 10/25/20 00:00 98.0 86 31 129/51 (77) 100 10/24/20 23:12 86 32 100 10/24/20 23:00 85 30 126/55 (78) 100 10/24/20 23:00 30 Mechanical Ventilator 100 10/24/20 22:30 84 32 121/52 (75) 100 10/24/20 22:00 89 33 127/51 (76) 100 10/24/20 22:00 33 Mechanical Ventilator 100 10/24/20 21:30 89 33 134/57 (82) 100 10/24/20 21:00 96 34 133/57 (82) 100 10/24/20 21:00 34 Mechanical Ventilator 100 10/24/20 20:30 94 32 120/50 (73) 100 10/24/20 20:00 Mechanical Ventilator 10/24/20 20:00 100 10/24/20 20:00 99.2 97 34 129/56 (80) 100 10/24/20 20:00 34 Mechanical Ventilator 100 10/24/20 20:00 94 10/24/20 19:07 94 35 100 10/24/20 19:00 35 Mechanical Ventilator 100 10/24/20 19:00 92 35 127/55 (79) 100 10/24/20 18:00 84 35 143/55 (84) 100 10/24/20 17:00 92 34 130/52 (78) 100 10/24/20 16:40 33 100 10/24/20 16:00 80 10/24/20 16:00 100 10/24/20 16:00 Mechanical Ventilator 10/24/20 16:00 92 36 138/54 (82) 100 Micro: Microbiology Date/Time Source Procedure Growth Status 10/22/20 16:15 Blood Blood Culture - Preliminary Resulted 10/22/20 16:00 Blood Blood Culture - Preliminary Diphtheroids Resulted Accucheck: 401 Critical Care - Subjective ROS Limited/Unobtainable: Yes FI02: 80 Vent Support Breath Rate: 22 Vent Support Mode: AC Vent Tidal Volume: 500 Sputum Amount: Small PEEP: 10.0 PIP: 28 Tube Feeding Amount: 0 I&O: Intake and Output 10/24/20 10/25/20 19:00 07:00 Intake Total 584 ml 1611 ml Output Total 455 ml 360 ml Balance 129 ml 1251 ml IV Total 104 ml 1131 ml Tube Feeding 480 ml 480 ml Output Urine Total 455 ml 360 ml ET-Tube: 7.5 ET Position: 21 Ike Nicholas MD Oct 25, 2020 15:39
[2020-10-25] MEDS ORDERED: NovoLOG Insulin Flexpen SUBQ SCH ×2 (16:50)
[2020-10-25 18:58] LABS: ALBUMIN 1.6 G/DL (3.4-5.0); ALBUMIN/GLOBULIN RATIO 0.5 (1.0-2.7); BILIRUBIN,TOTAL 1.6 MG/DL (0.2-1.0)
[2020-10-25 19:00] LABS: POTASSIUM 7.3 MMOL/L (3.5-5.1)
[2020-10-25 19:03] LABS: BILIRUBIN,DIRECT 1.6 MG/DL (0.0-0.3)
--- NOTE | 2020-10-25 19:30 | NUR ---
NURSE NOTES: Received Report from DOMINIC Holcomb. Pt is resting on the bed and drowsy. Pt has ETT and orally intubate. Vent dependent and setting with AC: 22, T: 500, P: 10, FiO2 100% and SaO2 100% noted. Given suction and oral care. No fever noted. Pt has OGT and in placed. On NPO. still noted Dark brownish residual from OGT. According to previous nurse, aware. Pt has Raines cath and patent and drainage well. Pt has Rt. Femoral TLC and dressing is clean and dry. on running with 1/2S @ 100cc/hr hold Versed drip at this time. Pt has swelling on bilateral arms and elevated both arms with pillow. On phototypesetting equipment monitor with SR and ST. Pt's potassium level is 7.3 today and Kayexalate enema administered by jessica nurse. On proper isolation for COVID-19. Placed fall precaution. Will continue to care plan.
[2020-10-25] MEDS: Dyna-Hex 2% Top Sol 2oz TOPIC SCH (19:36)
--- NOTE | 2020-10-25 20:46 | NUR ---
NURSE NOTES: Get abnormal ABG result. Notify to Dr. Nicholas and new order received change of Vent setting. Carried out and informed RT. Will continue to monitor any change of condition.
--- NOTE | 2020-10-25 21:20 | NUR ---
NURSE NOTES: Pt is not tolerated with changed Vent setting. Notify to Dr. Nicholas and new order received. will continue to monitor any change of condition.
--- NOTE | 2020-10-25 22:27 | NUR ---
NURSE NOTES: Pt is resting on the bed. After change Vent setting Pt still on & off not tolerated Vent setting. Pt's V/S is stable. RASS -1. Resumed versed drip @ 1mg/hr. Will continue to monitor any change of condition.
[2020-10-26] VITALS (18 sets, daily range): BP systolic 54–217; BP diastolic 26–114
[2020-10-26] MEDS: NovoLOG Insulin Flexpen SUBQ SCH
--- NOTE | 2020-10-26 | NUR ---
NURSE NOTES: Pt is resting on the bed and given suction and oral care. No fever noted. on monitoring specialist with SR. On NPO. SaO2 100% with current Vent Setting. Noted BS: 272mg/dl. Repositioned. Will continue to monitor any change of condition.
--- NOTE | 2020-10-26 00:15 | NUR ---
CODE BLUE: Patients HR was 95 NSR when suddenly patient went Asystolic on the monitor (see rhythm strips). Upon assessing for pulse it was noted that patient had no pulses CPR commenced. Code lasted for 5 minutes where she eventually regained ROSC. 1 epi given 1 1000mg calcium gluconate 1 D50W IVP 10 units of insulin given. glucose was 200 See Code sheet which remains on paper.
--- NOTE | 2020-10-26 00:27 | Emergency Room Report ---
History of Present Illness General Chief Complaint: Abnormal Labs Source: Patient Present Illness Allergies: Coded Allergies: WARFARIN (Verified Allergy, Unknown, 03/03/19) COVID-19 Screening Contact w/high risk pt: No Experienced COVID-19 symptoms?: No COVID-19 Testing performed WHITE SOURER: No COVID-19 Screening: Positive COVID-19 Patient History Now: No Nursing Documentation-PMH Past Medical History: No History, Except For Hx Cardiac Problems: Yes Hx Hypertension: Yes Hx Asthma: Yes Hx Diabetes: Yes Hx Cancer: No Hx Gastrointestinal Problems: No Hx Neurological Problems: Yes Hx Cerebrovascular Accident: Yes - RIGHT SIDE WEAKNESS Physical Exam Vital Signs Date Time Temp Pulse Resp B/P (MAP) Pulse Ox O2 Delivery O2 Flow Rate FiO2 10/22/20 07:00 32 145/65 Mechanical Ventilator 70 10/22/20 07:00 110 96 10/22/20 08:00 98.9 10/22/20 23:00 100.0 Medical Decision Making Diagnostic Impression: Primary Impression: Respiratory arrest Additional Impressions: 2019 novel coronavirus disease (COVID-19) Hyperglycemia Hypernatremia ER Course I was called to bedside for CODE BLUE. When I arrived patient had already achieved return of spontaneous circulation. 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 1 round of CPR was performed. Patient had received 1 dose of epinephrine. Nurse had reported to me that a few hours earlier patient's potassium was critically high at 7.4. Patient had received Kayexalate. I advised to give a dose of calcium, 10 units insulin, 1 ampoule of D50, as well as to obtain an EKG. These medications were given. Last Vital Signs Date Time Temp Pulse Resp B/P (MAP) Pulse Ox O2 Delivery O2 Flow Rate FiO2 10/25/20 23:30 95 32 112/47 (68) 100 10/25/20 23:07 70 10/25/20 22:57 Mechanical Ventilator 10/25/20 20:00 98.7 10/23/20 00:00 100.0 Disposition: ADMITTED INPATIENT Condition: Critical Referrals: [facility] ([facility]P) Juan Watt M.D. Oct 26, 2020 00:27
[2020-10-26] MEDS ORDERED: Insulin Human Regular 100units/ml 3ml IV ONE (00:30)
[2020-10-26] MEDS ORDERED: Calcium Chloride 10% 10ml carpuject IVP ONE (00:30)
[2020-10-26] MEDS ORDERED: Sodium Polystyrene Sulfonate Enema RECTAL ONE (01:00)
--- NOTE | 2020-10-26 01:25 | NUR ---
NURSE NOTES: Noted PT's BP started dropping 90/36mmHg and HR is fluctuated 45-65's. Notify to Dr. Nicholas and new order received with epinephrin drip. Carried out. Will continue to monitor any change of condition.
[2020-10-26] MEDS ORDERED: EPINEPHrine 1mg/1ml Amp 1 MG in D5W 249 ML IV PRN (01:30)
--- NOTE | 2020-10-26 01:44 | NUR ---
CODE BLUE: See Code sheet which remains on paper.
--- NOTE | 2020-10-26 01:55 | NUR ---
CODE BLUE: See Code sheet which remains on paper.
--- NOTE | 2020-10-26 02:15 | NUR ---
NURSE NOTES: Notified to Dr. Nicholas regarding 2 more episode of coded and new order received and carried out. will continue to monitor any change of condition.
--- NOTE | 2020-10-26 02:26 | NUR ---
CODE BLUE: See Code sheet which remains on paper.
--- NOTE | 2020-10-26 02:35 | NUR ---
NURSE NOTES: After coded Pt passed out. ER doctor; Natalie announced @ [id number]. Notified to Dr. Nicholas and Left message to Dr. Szymanski.
--- NOTE | 2020-10-26 02:49 | Emergency Room Report ---
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: No COVID-19 Screening: Positive COVID-19 Patient History Now: No Nursing Documentation-PM Past Medical History: No History, Except For Hx Cardiac Problems: Yes Hx Hypertension: Yes Hx Asthma: Yes Hx Diabetes: Yes Hx Cancer: No Hx Gastrointestinal Problems: No Hx Neurological Problems: Yes Hx Cerebrovascular Accident: Yes - RIGHT SIDE WEAKNESS Physical Exam Vital Signs Date Time Temp Pulse Resp B/P (MAP) Pulse Ox O2 Delivery O2 Flow Rate FiO2 10/22/20 07:00 32 145/65 Mechanical Ventilator 70 10/22/20 07:00 110 96 10/22/20 08:00 98.9 10/22/20 23:00 100.0 Medical Decision Making Diagnostic Impression: Primary Impression: Respiratory arrest Additional Impressions: 2019 novel coronavirus disease (COVID-19) Hyperglycemia Hypernatremia ER Course I was called to bedside for another CODE BLUE. Patient received several rounds of epinephrine, 1 of atropine. Return of spontaneous circulation was achieved. Soon after the patient once again went into cardiac arrest. Was in asystole on the assurance manager insurance. CPR was resumed. After several more rounds of CPR patient remained in asystole and pulseless. Time of 231. Please see separate code sheets for details. Total critical care time: Approximately 35 minutes Due to a high probability of clinically significant, life threatening deterioration, the patient required the highest level of preparedness to intervene emergently and I personally spent this critical care time directly and personally managing the patient. This critical care time included obtaining a history, examining the patient, pulse oximetry, ordering and reviewing studies, ordering treatments, evaluating response to treatment and updating management plan as needed, frequent reassessment and discussion with other providers as well as arranging for ultimate disposition. This critical to care time was performed to assess and manage the high probability of life-threatening deterioration that could result in multiorgan failure. This critical care time is separate from the separately billable procedures and treating other patients. Last Vital Signs Date Time Temp Pulse Resp B/P (MAP) Pulse Ox O2 Delivery O2 Flow Rate FiO2 10/25/20 23:30 95 32 112/47 (68) 100 10/25/20 23:07 70 10/25/20 22:57 Mechanical Ventilator 10/25/20 20:00 98.7 10/23/20 00:00 100.0 Disposition: ADMITTED INPATIENT Condition: Critical Referrals: [facility] ([facility]) Juan Watt M.D. Oct 26, 2020 02:49
[2020-10-26] MEDS ORDERED: Sodium Bicarbonate 150 ML in D5W 1000ml 1,000 ML IV SCH (03:00)
--- NOTE | 2020-10-26 03:30 | NUR ---
NURSE NOTES: Post mortem care was done. Removed ETT, Foely and rectal tube. checked her belongings with list.
[2020-10-26] MEDS ORDERED: Atropine Inj 1mg/10ml Syr ONE (05:36)
[2020-10-26] MEDS ORDERED: Calcium Chloride 100mg/ml Vial ONE (05:36)
--- NOTE | 2020-10-26 05:40 | NUR ---
NURSE NOTES: Send a patient down to the morgue with belongings.
[2020-10-26] MEDS ORDERED: Phytonadione 10 mg/mL 1ml amp SUBQ SCH (20:45)
== END 2020-10-26 05:37 | disposition expired | DRG 130 ==
LOC: EDBD 17:15 → EMR 17:47 → EDBEDREQ 18:09 → 4E 19:05 → EDBEDREQ 21:07 → 2E 10-16 08:59 → 2W 10-17 11:44 → ICU 10-17 13:50
PROC: XW033E5 Introduction of Remdesivir Anti-infective into Peripheral Vein, Percutaneous Approach, New Technology Group 5 (ICD-10-PCS; 2020-10-16)
PROC: 0BH17EZ Insertion of Endotracheal Airway into Trachea, Via Natural or Artificial Opening (ICD-10-PCS; principal; 2020-10-17)
PROC: 5A1955Z Respiratory Ventilation, Greater than 96 Consecutive Hours (ICD-10-PCS; principal; 2020-10-17)
PROC: 06HM33Z Insertion of Infusion Device into Right Femoral Vein, Percutaneous Approach (ICD-10-PCS; 2020-10-19)
PROC: 5A12012 Performance of Cardiac Output, Single, Manual (ICD-10-PCS; 2020-10-26)
DX: U07.1 COVID-19 (principal); J12.82 Pneumonia due to coronavirus disease 2019; J96.01 Acute respiratory failure with hypoxia; N39.0 Urinary tract infection, site not specified; G92 Toxic encephalopathy; M62.82 Rhabdomyolysis; E11.65 Type 2 diabetes mellitus with hyperglycemia; E86.0 Dehydration; K74.60 Unspecified cirrhosis of liver; J45.909 Unspecified asthma, uncomplicated; I69.954 Hemiplegia and hemiparesis following unspecified cerebrovascular disease affecting left non-dominant side; I12.9 Hypertensive chronic kidney disease with stage 1 through stage 4 chronic kidney disease, or unspecified chronic kidney disease; N18.9 Chronic kidney disease, unspecified; N17.9 Acute kidney failure, unspecified; M25.551 Pain in right hip; E87.0 Hyperosmolality and hypernatremia; E03.9 Hypothyroidism, unspecified; R00.1 Bradycardia, unspecified; K92.0 Hematemesis; D69.6 Thrombocytopenia, unspecified; D64.9 Anemia, unspecified; B19.20 Unspecified viral hepatitis C without hepatic coma; Z99.11 Dependence on respirator [ventilator] status
CPT/HCPCS: 36415; 70450; 71045; 74176; 80048; 80053; 80076; 82248; 82550; 82553; 82803; 82962; 83605; 83690; 83735; 84100; 84478; 84484; 85007; 85025; 85610; 85730; 86705; 86709; 86803; 86850; 86900; 86901; 87040; 87081; 87340; 92950; 93005; 94002; 94003; 96361; 96365; 99285; J0171; J1815; J3490; J7030; S5561; U0002